=== PATIENT | female | born 2005 | race Caucasian/White ===

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

== ENCOUNTER 2023-05-14 12:41 | Emergency (ER) | payer OTHER, SELFPAY ==
--- OUTSIDE RECORDS SUMMARY | 2023-05-14 12:53 | XMS REPORT | Continuity of Care Document ---
:2005 Author Organization [facility] t Address [address] [place] [address] [address] [place] [address] Care Team Providers Name Role Phone Adolph Alexis MD Primary Care Physician Provider, aLuren Temp Attending Clinician Unavailable Leeann Hernandez CNM Attending Clinician LEEANN HERNANDEZ Attending Clinician Unavailable Doctor Unassigned, [place] Attending Clinician Unavailable Visit, Giovannachmauricio Nurse Attending Clinician Unavailable Haylie Vo Attending Clinician [phone] HAYLIE RIBERA Attending Clinician Unavailable MARLENA ALEJANDRE Attending Clinician Unavailable Alma Garcia MD Attending Clinician Marlena Alejandre MD Attending Clinician ARAM DUQUE Attending Clinician Unavailable Risk, Zmf-Minbh-Vd/High Attending Clinician Unavailable Duque WHCNP, Aram K Attending Clinician Elie FRANCO, Jose Mason Attending Clinician JOSE DELGADILLO Attending Clinician Unavailable MANINDER RAMIREZ Attending Clinician Unavailable MANINDER RAMIREZ Attending Clinician Unavailable HUA VALENCIA Attending Clinician Unavailable HUA VALENCIA Attending Clinician Unavailable DIMITRIS TRONCOSO Attending Clinician Unavailable [facility], Teresa Hartmann Attending Clinician TERESA WILEY Attending Clinician Unavailable Ultrasound, Jesus Attending Clinician Unavailable Escobar Chisholm MD Attending Clinician [phone] ESCOBAR CHISHOLM Attending Clinician Unavailable BRITTNY GLASER Attending Clinician Unavailable BRITTNY GLASER Attending Clinician Unavailable [facility] Attending Clinician Unavailable Adolph Alexis MD Attending Clinician Kenny Richmond MD Attending Clinician KENNY RICHMOND Attending Clinician Unavailable KENNY RICHMOND Attending Clinician Unavailable Fer Ngo MD Attending Clinician [phone] [employer] Attending Clinician Unavailable Billy Flower MD Attending Clinician BILLY FLOWER Attending Clinician Unavailable Linda Boothe PA-C Attending Clinician Juan Carlos Mckinley Attending Clinician Unavailable Margy Hobson MD Attending Clinician MARGY HOBSON Attending Clinician Unavailable Kristy Scott Attending Clinician Unavailable Oren Attending Clinician Unavailable Kelley, Corinne Attending Clinician VIMAL JAIME Attending Clinician Unavailable CORINNE GREWAL Attending Clinician Unavailable ADOLPH ALEXIS Attending Clinician Unavailable LINDA BOOTHE Attending Clinician Unavailable Ayse Real MD Attending Clinician REAL, AYSE N Attending Clinician Unavailable Toshia Vazquez MD Attending Clinician Unavailable MARLENA ALEJANDRE Admitting Clinician Unavailable Marlena Alejandre MD Admitting Clinician MANINDER RAMIREZ Admitting Clinician Unavailable DIMITRIS TRONCOSO Admitting Clinician Unavailable Kristy Scott Admitting Clinician Unavailable Roberto_Pappas Admitting Clinician Unavailable Payers Payer Name Policy Type Policy Number Effective Date Expiration Date Andi santos [facility] [place] [id number] 2013 [facility] - 00:00:00 STAR (MEDICAID HMO) Problems Condition Condition Condition Status Onset Resolution Last Treating Co mments Source Name Details Category Date Date Treatment Clinician Date 37 weeks 37 weeks Disease Active 2021-09 Unive rs gestation gestation 1-03 ity of of of 00:00: [place] 00 [facility] 36 weeks 36 weeks Disease Active 2021-09 Unive rs gestation gestation 0-29 ity of of of 00:00: [place] 00 [facility] 35 weeks 35 weeks Disease Active 2021-09 Unive rs gestation gestation 0-24 ity of of of 00:00: [place] 00 [facility] BMI BMI Disease Active Univers 40.0-44.9, 40.0-44.9, 9-26 it y of adult adult 00:00: [place] 00 Medical Branch Need for Need for Disease Active Unive rs Tdap Tdap 9-08 ity of vaccinatio vaccinatio 00[place] n n 00 Medical Branch Maternal Maternal Disease Active Unive rs varicella, varicella, 908 it y of non-immune non-immune 00:00: [place] 00 [place] Rubella Rubella Disease Active Univers non-immune non-immune 908 it y of status, status, 00:00: [place] antepartum antepartum 00 Me dical Branch Placenta Placenta Disease Active Unive rs previa previa 8-25 ity of without without 00:00: [place] hemorrhage hemorrhage 00 Me dical , , Branch antepartum antepartum Anemia of Anemia of Disease Active Uni vers mother in mother in 8-25 ity of , , 00:00: [place] antepartum antepartum 00 Me dical Branch BMI BMI Disease Active Univers 39.0-39.9, 39.0-39.9, 3-16 it y of adult adult 00:00: [place] 00 Medical Branch Multiparit Multiparit Disease Active U nivers y y 3-16 ity of 00:00: [place] 00 Medical Branch History of History of Disease Active U nivers asthma asthma 3-16 ity of 00:00: [place] 00 Medical Branch Previous Previous Disease Active Unive rs 3-16 ity of section section 00:00: [place] complicati complicati 00 Me dical ng ng [...] [place] myla myla 00 Medical Branch History of History of Disease Active U nivers loss loss 3-16 it y of 00:00: [place] 00 Medical Branch Iron Iron Problem Active [place] deficiency Deficiency 9-20 da anemia of Anemia of 00:00: Medi charlie 00 Grou p Problem Active [place] 5-06 da 00:00: Medical 00 Group Class 3 Class 3 Disease Active Univers severe severe 4-15 ity of obesity obesity 00:00: [place] without without 00 Medical serious serious Branch comorbidit comorbidit y with y with body mass body mass index index (BMI) of (BMI) of 40.0 to 40.0 to 44.9 in 44.9 in adult, adult, unspecifie unspecifie d obesity d obesity type type Vaginal Vaginal Disease Active Univers discharge discharge 4-15 ity of 00:00: [place] 00 Medical Branch Nausea Nausea Disease Active Univers 4-15 ity of 00:00: [place] 00 Medical Branch High-risk High-risk Disease Active Uni vers 4-15 ity of in third in third 00:00: [place] trimester trimester 00 [facility] Branch Obesity in Obesity in Disease Active U nivers 8-22 ity of 00:00: [place] 00 Medical Branch Morbid Morbid Disease Active Univers obesity obesity 8-22 ity of 00:00: [place] 00 Medical Branch Asthma Asthma Disease Active Overview: Univer s Formattin ity of g of this [place] note Medical might be Branch different from the original. mild intermitt ent Allergies, Adverse Reactions, Alerts Allergy Allergy Status Severity Reaction(s) Onset Inactive Treating Comm ents Source Name Type Date Date Clinician No Known DA Active [facility]30 [facility] 00 [facility] No Known DA Active U [facility] Allergie 9-30 [facility] 00:[facility] 00 [facility] NO KNOWN Drug Active Univers ALLERGIE Class ity of S [facility] Social History Social Habit Start Date Stop Date Quantity Comments Source ASSERTION 2021-11-11 University of 00:00:00 [facility] Exposure to 2022-10-25 2022-11-04 Not sure [facility] SARS-CoV-2 00:00:00 10:14:00 [facility] [place] [facility] (event) [place] Alcohol intake 2022-11-04 2022-11-04 Lifetime University of 00:00:00 00:00:00 non-drinker [facility] [place] [facility] (finding) [place] Tobacco use and 2022-03-25 2022-03-25 Smokeless tobacco Un iversity of exposure 00:00:00 00:00:00 non-user [facility] History of 2021-11-19 Cigarette Smoker Universi ty of tobacco use 00:00:00 [facility] Sex Assigned At [birth year] Universit y of 00:00:00 00:00:00 [facility] Smoking Status Start Date Stop Date Source Never Smoker [facility] Ex-smoker 2022-03-25 00:00:00 2022-03-25 00:00:00 Universi ty of [facility] Medications Ordered Filled Start Stop Current Ordering Indication Dosage Frequency Signature Comments Components Source Medication Medication Date Date Medication? Clinician (SIG) Name Name varicella 2021-09 Yes 1{each} 0.5 mL (1 Univers virus 1-06 Each), ity of vaccine 08:46: [place] live 20 [place], Medical (VARIVAX) ONCE-PRIOR Bran ch injection TO and diluent DISCHARGE, vial 1 dose, Starting on 07/18/22 at 0246, Until Discontinu ed, Routine, Give vaccine prior to discharge dextrometho 2021-09 Yes 5mL 5 mL, Unive rs rphan-guaif 106 Oral, ity of enesin 04:26: Q6HPRN, [place] (ROBITUSSIN 51 Starting Medi charlie DM) 10-100 on [facility] Branch mg/5 mL 07/17/22 at solution 5 2326, mL Until Discontinu ed, Routine, Cough docusate 2021-09 Yes 200mg 200 mg, Unive rs (COLACE) 1-05 Oral, ity of capsule 200 14:00: [place]ILY[place] 00 First dose Medical on [facility] [place] 07/17/22 at 0900, Until Discontinu ed, Routine docusate 2021-09 Yes 200mg 200 mg, Unive rs (COLACE) 1-05 Oral, ity of capsule 200 14:00: DAILY[place] mg 00 First dose Medical on [facility] 07/17/22 at 0900, Until Discontinu ed, Routine labetaloL 2021-09- No [id number] 200mg Take 200 Univers 200 mg 09-16 11-05 mg by ity of tablet 12:52: 00:00 mouth [place] 51 :00 daily. [facility] Branch labetaloL 2021-09- No [id number] 200mg Take 200 Univers 200 mg -05 11-05 mg by ity of tablet 12:52: 00:00 mouth [place] 51 :00 daily. Medical Branch diphenoxyla 2021-09- No 1{tbl} 1 tablet, Univers te-atropine - 11-05 Oral, ity of (LOMOTIL) 03:45: 03:01 ONCE, 1 [place] 2.5-0.025 [place] :00 dose, On Medica l mg tablet 1 Tue [place] tablet 07/16/22 at 2245, Routine miSOPROStoL 2021-09- No 1000ug 1,000 mcg, Univers (CYTOTEC) 1-05 11-05 Rectal, ity of tablet 03:30: 03:02 ONCE, 1 [place] 1,000 mcg 00 :00 dose, On Medica l [facility] 07/16/22 at 2230, Routine labetaloL 2021-09 Yes 100mg 100 mg, Univ ers (NORMODYNE) 1-05 Oral, BID, it y of tablet 100 01:00: First dose [place] mg 00 on [facility] 07/16/22 at [place] 1999, Until Discontinu ed, Routine labetaloL 2021-09 Yes 100mg 100 mg, Univ ers (NORMODYNE) 1-05 Oral, BID, it y of tablet 100 01:00: First dose [place] mg 00 on Tue [facility] 07/16/22 at [place] 1999, Until Discontinu ed, Routine 2021-09 Yes [id number] 1{tbl} Take 1 Univers vitamin 1-05 tablet by ity of w/FA tablet 00:00: mouth [place] 00 the Medical morning. Branch docusate 2021-09 Yes [id number] 200mg Take 2 U nivers 100 mg 1-05 capsules ity of capsule 00:00: by mouth [place] 00 once daily Medical as needed Branch for Constipati on. ferrous 2021-09 Yes [id number] 325mg Take 1 Un [place]rit[place] sulfate 325 1-05 tablet by ity of mg (65 mg 00:00: [place] iron) 00 the Medical tablet morning Branch and 1 tablet in the evening. ibuprofen 2021-09 Yes [id number] 600mg Take 1 Univers 600 mg 1-05 tablet by ity of tablet 00:00: mouth [place] 00 every 6 Medical (six) Branch hours as needed (Pain). Take with food or milk. HYDROcodone 2021-09 Yes [id number] 1{tbl} Take 1 Un britni -acetaminop 1-05 tablet by ity of hen 5-325 00:00: mouth [place] mg tablet 00 every 6 Medical (six) Branch hours as needed (Pain scale above 4) for up to 10 doses. Do not exceed 3 grams of acetaminop hen in 24 hours. Indication s: acute pain ferrous 2021-09 Yes [id number] 325mg Take 1 Un britni sulfate 325 1-05 tablet by ity of mg (65 mg 00:00: mouth [place] iron) 00 every Medical tablet other day. Branch ascorbic 2021-09 Yes [id number] 500mg Take 1 U nivers acid, 1-05 tablet by ity of vitamin C, 00:00: mouth [place] (VITAMIN C) 00 every Medical 500 mg other day. Branch tablet 2021-09 Yes [id number] 1{tbl} Take 1 Univers vitamin 1-05 tablet by ity of w/FA tablet 00:00: [place] 00 the Medical morning. Branch docusate 2021-09 Yes [id number] 200mg Take 2 U nivers 100 mg 1-05 capsules ity of capsule 00:00: by mouth [place] 00 once daily Medical as needed Branch for Constipati on. ferrous 2021-09 Yes [id number] 325mg Take 1 Un brit[place] sulfate 325 1-05 tablet by ity of mg (65 mg 00:00: [place] iron) 00 the Medical tablet morning Branch and 1 tablet in the evening. ibuprofen 2021-09 Yes [id number] 600mg Take 1 Univers 600 mg 1-05 tablet by ity of tablet 00:00: mouth [place] 00 every 6 Medical (six) Branch hours as needed (Pain). Take with food or milk. HYDROcodone 2021-09 Yes [id number] 1{tbl} Take 1 Un britni -acetaminop 1-05 tablet by ity of hen 5-325 00:00: mouth [place] mg tablet 00 every 6 Medical (six) Branch hours as needed (Pain scale above 4) for up to 10 doses. Do not exceed 3 grams of acetaminop hen in 24 hours. Indication s: acute pain ferrous 2021-09 Yes [id number] 325mg Take 1 Un britni sulfate 325 1-05 tablet by ity of mg (65 mg 00:00: mouth [place] iron) 00 every Medical tablet other day. Branch ascorbic 2021-09 Yes [id number] 500mg Take 1 U nivers acid, 1-05 tablet by ity of vitamin C, 00:00: mouth [place] (VITAMIN C) 00 every Medical 500 mg other day. Branch tablet 2021-09 Yes [id number] 1{tbl} Take 1 Univers vitamin 1-05 tablet by ity of w/FA tablet 00:00: mouth [place] 00 the Medical morning. Branch docusate 2021-09 Yes [id number] 200mg Take 2 U nivers 100 mg 1-05 capsules ity of capsule 00:00: by mouth [place] 00 once daily Medical as needed Branch for Constipati on. ferrous 2021-09 Yes [id number] 325mg Take 1 Un brit[place] sulfate 325 1-05 tablet by ity of mg (65 mg 00:00: [place] iron) 00 the Medical tablet morning Branch and 1 tablet in the evening. ibuprofen 2021-09 Yes [id number] 600mg Take 1 Univers 600 mg 1-05 tablet by ity of tablet 00:00: mouth [place] 00 every 6 Medical (six) Branch hours as needed (Pain). Take with food or milk. HYDROcodone 2021-09 Yes [id number] 1{tbl} Take 1 Un britni -acetaminop 1-05 tablet by ity of hen 5-325 00:00: mouth [place] mg tablet 00 every 6 Medical (six) Branch hours as needed (Pain scale above 4) for up to 10 doses. Do not exceed 3 grams of acetaminop hen in 24 hours. Indication s: acute pain ferrous 2021-09 Yes [id number] 325mg Take 1 Un britni sulfate 325 1-05 tablet by ity of mg (65 mg 00:00: mouth [place] iron) 00 every Medical tablet other day. Branch ascorbic 2021-09 Yes [id number] 500mg Take 1 U nivers acid, 1-05 tablet by ity of vitamin C, 00:00: mouth [place] (VITAMIN C) 00 every Medical 500 mg other day. Branch tablet 2021-09 Yes [id number] 1{tbl} Take 1 Univers vitamin 1-05 tablet by ity of w/FA tablet 00:00: mouth [place] 00 the Medical morning. Branch docusate 2021-09 Yes [id number] 200mg Take 2 U nivers 100 mg 1-05 capsules ity of capsule 00:00: by mouth [place] 00 once daily Medical as needed Branch for Constipati on. ferrous 2021-09 Yes [id number] 325mg Take 1 Un [place]rit[place] sulfate 325 1-05 tablet by ity of mg (65 mg 00:00: [place] iron) 00 the Medical tablet morning Branch and 1 tablet in the evening. ibuprofen 2021-09 Yes [id number] 600mg Take 1 Univers 600 mg 1-05 tablet by ity of tablet 00:00: mouth [place] 00 every 6 Medical (six) Branch hours as needed (Pain). Take with food or milk. HYDROcodone 2021-09 Yes [id number] 1{tbl} Take 1 Un britni -acetaminop 1-05 tablet by ity of hen 5-325 00:00: mouth [place] mg tablet 00 every 6 Medical (six) Branch hours as needed (Pain scale above 4) for up to 10 doses. Do not exceed 3 grams of acetaminop hen in 24 hours. Indication s: acute pain ferrous 2021-09 Yes [id number] 325mg Take 1 Un brit[place] sulfate 325 1-05 tablet by ity of mg (65 mg 00:00: mouth [place] iron) 00 every Medical tablet other day. Branch ascorbic 2021-09 Yes [id number] 500mg Take 1 U nivers acid, 1-05 tablet by ity of vitamin C, 00:00: mouth [place] (VITAMIN C) 00 every Medical 500 mg other day. Branch tablet 2021-09- No [id number] 1{tbl} Take 1 Univers vitamin -05 02-23 tablet by ity of w/FA tablet 00:00: 00:00 mouth [place] 00 :00 the Medical morning. Branch docusate 2021-09- No [id number] 200mg Take 2 Univers 100 mg -01 11-23 capsules ity of capsule 00:00: 00:00 by mouth [place] 00 :00 once daily Medical as needed Branch for Constipati on. ferrous 2021-09- No [id number] 325mg Take 1 U nivers sulfate 325 -05 02-23 tablet by it y of mg (65 mg 00:00: 00:00 mouth in [place] iron) 00 :00 the Medical tablet morning Branch and 1 tablet in the evening. ibuprofen 2021-09- No [id number] 600mg Take 1 Univers 600 mg 1-05 02-23 tablet by ity of tablet 00:00: 00:00 mouth [place] 00 :00 every 6 Medical (six) Branch hours as needed (Pain). Take with food or milk. HYDROcodone 2021-09- No [id number] 1{tbl} Take 1 U nivers -acetaminop 1-05 02-23 tablet by it y of hen 5-325 00:00: 00:00 mouth [place] mg tablet 00 :00 every 6 Medical (six) Branch hours as needed (Pain scale above 4) for up to 10 doses. Do not exceed 3 grams of acetaminop hen in 24 hours. Indication s: acute pain ferrous 2021-09- No [id number] 325mg Take 1 U nivers sulfate 325 09-16 tablet by it y of mg (65 mg 00:00: 00:00 mouth [place] iron) 00 :00 every Medical tablet other day. Branch ascorbic 2021-09- No [id number] 500mg Take 1 Univers acid, 09-16 tablet by ity of vitamin C, 00:00: 00:00 mouth [place] (VITAMIN C) 00 :00 every Medical 500 mg other day. Branch tablet 2021-09- No [id number] 1{tbl} Take 1 Univers vitamin 09-16 tablet by ity of w/FA tablet 00:00: 00:00 mouth in [place] 00 :00 the Medical morning. Branch docusate 2021-09- No [id number] 200mg Take 2 Univers 100 mg 09-16 capsules ity of capsule 00:00: 00:00 by mouth [place] 00 :00 once daily Medical as needed Branch for Constipati on. ferrous 2021-09- No [id number] 325mg Take 1 U nivers sulfate 325 09-16 tablet by it y of mg (65 mg 00:00: 00:00 mouth [place] iron) 00 :00 the Medical tablet morning Branch and 1 tablet in the evening. ibuprofen 2021-09- No [id number] 600mg Take 1 Univers 600 mg 09-16 tablet by ity of tablet 00:00: 00:00 mouth [place] 00 :00 every 6 Medical (six) Branch hours as needed (Pain). Take with food or milk. HYDROcodone 2021-09- No [id number] 1{tbl} Take 1 U nivers -acetaminop 09-16 tablet by it y of hen 5-325 00:00: 00:00 mouth [place] mg tablet 00 :00 every 6 Medical (six) Branch hours as needed (Pain scale above 4) for up to 10 doses. Do not exceed 3 grams of acetaminop hen in 24 hours. Indication s: acute pain ferrous 2021-09- No [id number] 325mg Take 1 U nivers sulfate 325 09-16 tablet by it y of mg (65 mg 00:00: 00:00 mouth [place] iron) 00 :00 every Medical tablet other day. Branch ascorbic 2021-09- No [id number] 500mg Take 1 Univers acid, 09-16 tablet by ity of vitamin C, 00:00: 00:00 mouth [place] (VITAMIN C) 00 :00 every Medical 500 mg other day. Branch tablet simethicone 2021-09 Yes 160mg 160 mg, Un [place]rit[place] (GAS RELIEF 1-04 Oral, ity of (SIMETHICON 23:00: PC+HS, [place] E)) 00 First dose Medical chewable on Fri Branch tablet 160 07/16/22 at mg 1800, Until Discontinu ed, Routine simethicone 2021-09 Yes 160mg 160 mg, Un britni (GAS RELIEF 1-04 Oral, ity of (SIMETHICON 23:00: PC+HS, [place] E)) 00 First dose Medical chewable on Fri Branch tablet 160 07/16/22 at mg 1800, Until Discontinu ed, Routine rho(D) 2021-09 Yes 300ug 300 mcg, Univer s immune 1-04 Intramuscu ity of globulin 19:53: [place], ONCE, [place] (RHOGAM) 04 For 1 Medical syringe 300 dose, Branch mcg Conditiona l, Routine rho(D) 2021-09 Yes 300ug 300 mcg, Univer s immune 1-04 Intramuscu ity of globulin 19:53: [place], ONCE, [place] (RHOGAM) 04 For 1 Medical syringe 300 dose, Branch mcg Conditiona l, Routine human 2021-09 Yes .5mL 0.5 mL, Univers papillomav -04 Intramuscu ity of vac,9-james(P 19:52: lar, [place] F) 56 ONCE-PRIOR Medical (GARDASIL-9 TO Branch ) syringe DISCHARGE, 0.5 mL 1 dose, Starting on Tue07/16/22 at 1452, Until Discontinu ed, Routine, Give vaccine prior to discharge HYDROcodone 2021-09 Yes 2{tbl} 2 tablet, Univers -acetaminop 1-04 Oral, ity of hen (NORCO 19:52: Q6HPRN, [place] 5) 5-325 mg 56 Starting Medi charlie tablet 2 on Fri Branch tablet 07/16/22 at 1452, Until Discontinu ed, Routine, Pain (scale 7-10), Alternate with Ibuprofen HYDROcodone 2021-09 Yes 1{tbl} 1 tablet, Univers -acetaminop 1-04 Oral, ity of hen (NORCO 19:52: Q6HPRN, [place] 5) 5-325 mg 56 Starting Medi charlie tablet 1 on Fri Branch tablet 07/16/22 at 1452, Until Discontinu ed, Routine, Pain (scale 4-6), Alternate with Ibuprofen ibuprofen 2021-09 Yes 600mg 600 mg, Univ ers (IBU) 1-04 Oral, ity of tablet 600 19:52: Q6HPRN, [place] mg 56 Starting Medical on Fri Branch 07/16/22 at 1452, Until Discontinu ed, Routine, Pain (scale 1-3) diphenhydrA 2021-09 Yes 25mg 25 mg, Univ ers MINE 1-04 Slow IV ity of (BENADRYL) 19:52: [place], [place] injection 56 Q6HPRN, Medical 25 mg Starting Branch on Tue07/16/22 at 1452, Until Discontinu ed, Routine, Itching diphenhydrA 2021-09 Yes 25mg 25 mg, Univ ers MINE 1-04 Oral, ity of (BENADRYL) 19:52: Q6HPRN, [place] tablet 25 56 Starting Medica l mg on Tue Branch 07/16/22 at 1452, Until Discontinu ed, Routine, Sleep, Itching ondansetron 2021-09 Yes 4mg 4 mg, Slow Univers (ZOFRAN 1-04 IV Push, ity of (PF)) 19:52: Q8HPRN, [place] injection 4 56 Starting Medi charlie mg on Fri Branch 07/16/22 at 1452, Until Discontinu ed, Routine, Nausea and Vomiting (N/V) bisacodyL 2021-09 Yes 10mg 10 mg, Univer s (DULCOLAX) 1-04 Rectal, ity of suppository 19:52: QDAILYPRN, [place] 10 mg 56 Starting Medical on Fri Branch 07/16/22 at 1452, Until Discontinu ed, Routine, Constipati on magnesium 2021-09 Yes 30mL 30 mL, Univer s hydroxide 1-04 Oral, ity of (MILK OF 19:52: QDAILYPRN, [place] MAGNESIA) 56 Starting Medica l 400 mg/5 mL on Tue Branch suspension 07/16/22 at 30 mL 1452, Until Discontinu ed, Routine, Constipati on human 2021-09 Yes .5mL 0.5 mL, Univers papillomav 1-04 Intramuscu ity of vac,9-james(P 19:52: lar, [place] F) 56 ONCE-PRIOR Medical (GARDASIL-9 TO ) syringe DISCHARGE, 0.5 mL 1 dose, Starting on Tue07/16/22 at 1452, Until Discontinu ed, Routine, Give vaccine prior to discharge HYDROcodone 2021-09 Yes 2{tbl} 2 tablet, Univers -acetaminop 1-04 Oral, ity of hen (NORCO 19:52: Q6HPRN, [place] 5) 5-325 mg 56 Starting Medi charlie tablet 2 on Tue Branch tablet 07/16/22 at 1452, Until Discontinu ed, Routine, Pain (scale 7-10), Alternate with Ibuprofen HYDROcodone 2021-09 Yes 1{tbl} 1 tablet, Univers -acetaminop 1-04 Oral, ity of hen (NORCO 19:52: Q6HPRN, [place] 5) 5-325 mg 56 Starting Medi charlie tablet 1 on Tue Branch tablet 07/16/22 at 1452, Until Discontinu ed, Routine, Pain (scale 4-6), Alternate with Ibuprofen ibuprofen 2021-09 Yes 600mg 600 mg, Univ ers (IBU) 1-04 Oral, ity of tablet 600 19:52: Q6HPRN, [place] mg 56 Starting Medical on Tue Branch 07/16/22 at 1452, Until Discontinu ed, Routine, Pain (scale 1-3) diphenhydrA 2021-09 Yes 25mg 25 mg, Univ ers MINE 1-04 Slow IV ity of (BENADRYL) 19:52: Push, [place] injection 56 Q6HPRN, Medical 25 mg Starting Branch on Tue07/16/22 at 1452, Until Discontinu ed, Routine, Itching diphenhydrA 2021-09 Yes 25mg 25 mg, Univ ers MINE 1-04 Oral, ity of (BENADRYL) 19:52: Q6HPRN, [place] tablet 25 56 Starting Medica l mg on Tue Branch 07/16/22 at 1452, Until Discontinu ed, Routine, Sleep, Itching ondansetron 2021-09 Yes 4mg 4 mg, Slow Univers (ZOFRAN 1-04 IV Push, ity of (PF)) 19:52: Q8HPRN, [place] injection 4 56 Starting Medi charlie mg on Tue Branch 07/16/22 at 1452, Until Discontinu ed, Routine, Nausea and Vomiting (N/V) bisacodyL 2021-09 Yes 10mg 10 mg, Univer s (DULCOLAX) 1-04 Rectal, ity of suppository 19:52: QDAILYPRN, [place] 10 mg 56 Starting Medical on Tue Branch 07/16/22 at 1452, Until Discontinu ed, Routine, Constipati on magnesium 2021-09 Yes 30mL 30 mL, Univer s hydroxide 1-04 Oral, ity of (MILK OF 19:52: QDAILYPRN, [place] MAGNESIA) 56 Starting Medica l 400 mg/5 mL on Tue suspension 07/16/22 at 30 mL 1452, Until Discontinu ed, Routine, Constipati on lactated 2021-09- No 1000mL at 125 Univ ers ringers IV 1- 11-05 mL/hr, ity of infusion 19:52: 06:02 1,000 mL, [place] 1,000 mL 56 :00 IV Medical Infusion, Branch PRN, 1 dose, Starting on Tue07/16/22 at 1452, Until Discontinu ed, Routine lactated 2021-09- No 1000mL at 125 Univ ers ringers IV 1-04 11-04 mL/hr, ity of infusion 15:15: 19:53 1,000 mL, [place] 1,000 mL 00 :01 IV Medical Infusion, Branch CONTINUOUS , Starting on Tue07/16/22 at 1015, Until Tue07/16/22 at 1453, KONG oxytocin 2021-09- No 300mL/h 300 mL/hr, Univers (PITOCIN) 1-04 11-04 IV ity of 30 units in 15:06: 19:53 Infusion, [place] NS 500 mL 02 :01 SEE-INSTRU Medi charlie IV infusion CTIONS, Branc h Starting on Tue07/16/[address] art at 300 mL/hr for 1 hr then 150 mL/hr for 1 hr. & nbsp; For post delivery uterotonic
ketorolac 2021-09 No 30mg 30 mg, Unive rs (TORADOL) 09-15 Slow IV ity of injection 13:09: 15:24 Push, PRN, [place] 30 mg 32 :00 1 dose, Medical Starting Branch on Tue07/16/22 at 0809, Until Discontinu ed, Routine, Pain (scale 7-10) acetaminoph 2021-09 No 650mg 650 mg, U nivers en 09-15 Oral, ity of (TYLENOL) 11:30: 13:01 ONCE, 1 [place] 650 00 :00 dose, On Medic al mg Fri Branch 07/16/22 at 0630, Routine lactated 2021-09 No 1000mL at 125 Univ ers ringers IV 09-15 mL/hr, ity of infusion 11:30: 15:08 1,000 mL, [place] 1,000 mL 00 :17 IV Medical Infusion, Branch CONTINUOUS , Starting on Tue07/16/22 at 0630, Until Tue07/16/22 at 1008, Routine ceFAZolin 2021-09 No 2000mg 2 g (2,000 Univers in 0.9% 09-15 mg), IV ity of sodium 11:15: 13:31 [place]back, [place] chloride 50 :00 O.R. Medical (ANCEF) 2 HOLDING Branch gram/100 mL ONCE, 1 RTU 2 g dose, Starting on Tue07/16/22 at 0615, Until Tue07/16/22 at 2359, Administer over 30 Minutes, 100 mL
Reas on for Anti-Infec tive: Surgical Prophylaxi s
Surgi charlie Prophylaxi s: WOOD STOCK BLANK HANDLER
Duration of therapy: within 24 hours of surgery sodium 2022-1 2022- No 30mL 30 mL, Univers citrate-cit -04 11-04 Oral, ity of leslie acid 11:15: 13:01 PRE-PROCED [place] (BICITRA) 50 :00 URE ONCE, Medic al 500-334 1 dose, Branch mg/5 mL Starting solution 30 on Fri mL 07/16/22 at 0615, Until 07/18/22 at 2359, Routine, Surgery/Pr ocedure lactated 2021-09- No 500mL at 999 Unive rs ringers IV 0-30 10-30 mL/hr, 500 it y of infusion 03:30: 02:43 mL, [place] 500 mL 00 :57 Intravenou Medical s, ONCE, 1 Branch dose, On 07/10/22 at 2230, Routine labetaloL 2021-09 Yes [id number] 200mg Take 200 Univers 200 mg 0-29 mg by ity of tablet 23:56: mouth [place] 50 daily. [facility] labetaloL 2021-09 Yes [id number] 200mg Take 200 Univers 200 mg 0-29 mg by ity of tablet 23:56: mouth [place] 50 daily. [facility] labetaloL 2021-09 Yes [id number] 200mg Take 200 Univers 200 mg 0-29 mg by ity of tablet 23:56: mouth [place] 50 daily. [facility] diphenhydrA 2021-09- No 25mg 25 mg, Uni vers MINE 0-24 10-24 Oral, ity of (BENADRYL) 23:45: 23:00 ONCE, 1 [place] tablet 25 00 :00 dose, On Medica l mg [facility] 07/05/22 at 1845, Routine metoclopram 2021-09- No 10mg 10 mg, Uni vers iker HCl 0-24 10-24 Oral, ity of (REGLAN) 23:45: 23:00 ONCE, 1 [place] tablet 10 00 :00 dose, On Medica l mg [facility] 07/05/22 at 1845, Routine labetaloL 2021-09 Yes [id number] 200mg Take 200 Univers 200 mg 0-24 mg by ity of tablet 21:52: mouth [place] 17 daily. [facility] labetaloL 2021-09 Yes [id number] 200mg Take 200 Univers 200 mg 0-24 mg by ity of tablet 21:52: mouth [place] 17 daily. Medical Branch labetaloL 2021-09 Yes [id number] 200mg Take 200 Univers 200 mg 0-24 mg by ity of tablet 21:52: mouth [place] 17 daily. Medical Branch labetaloL 2021-09 Yes [id number] 200mg Take 200 Univers 200 mg 0-24 mg by ity of tablet 21:52: mouth [place] 17 daily. Medical Branch labetaloL 2021-09 Yes [id number] 200mg Take 200 Univers 200 mg 0-24 mg by ity of tablet 21:52: mouth [place] 17 daily. Medical Branch ferrous 0 Yes [id number] 325mg Take 1 Un britni sulfate 325 8-25 tablet by ity of mg (65 mg 00:00: mouth [place] iron) EC 00 the Medical tablet morning. Branch ferrous Yes [id number] 325mg Take 1 Un britni sulfate 325 8-25 tablet by ity of mg (65 mg 00:00: mouth [place] iron) EC 00 the Medical tablet morning. Branch ferrous Yes [id number] 325mg Take 1 Un britni sulfate 325 8-25 tablet by ity of mg (65 mg 00:00: mouth [place] iron) EC 00 the Medical tablet morning. Branch ferrous Yes [id number] 325mg Take 1 Un britni sulfate 325 8-25 tablet by ity of mg (65 mg 00:00: mouth [place] iron) EC 00 the Medical tablet morning. Branch ferrous 2021- Yes [id number] 325mg Take 1 Un britni sulfate 325 8-25 tablet by ity of mg (65 mg 00:00: mouth [place] iron) EC 00 the Medical tablet morning. Branch ferrous Yes [id number] 325mg Take 1 Un britni sulfate 325 8-25 tablet by ity of mg (65 mg 00:00: mouth [place] iron) EC 00 the Medical tablet morning. Branch ferrous Yes [id number] 325mg Take 1 Un britni sulfate 325 8-25 tablet by ity of mg (65 mg 00:00: mouth [place] iron) EC 00 the Medical tablet morning. Branch ferrous Yes [id number] 325mg Take 1 Un britni sulfate 325 8-25 tablet by ity of mg (65 mg 00:00: mouth [place] iron) EC 00 the Medical tablet morning. Branch ferrous 2021-0 Yes [id number] 325mg Take 1 Un britni sulfate 325 8-25 tablet by ity of mg (65 mg 00:00: mouth [place] iron) EC 00 the Medical tablet morning. Branch ferrous 2021-0 Yes [id number] 325mg Take 1 Un britni sulfate 325 8-25 tablet by ity of mg (65 mg 00:00: mouth [place] iron) EC 00 the Medical tablet morning. Branch ferrous 2021-0 Yes [id number] 325mg Take 1 Un britni sulfate 325 8-25 tablet by ity of mg (65 mg 00:00: mouth [place] iron) EC 00 the Medical tablet morning. Branch ferrous 2021-0 Yes [id number] 325mg Take 1 Un britni sulfate 325 8-25 tablet by ity of mg (65 mg 00:00: mouth [place] iron) EC 00 the Medical tablet morning. Branch ferrous 2021-0 Yes [id number] 325mg Take 1 Un britni sulfate 325 8-25 tablet by ity of mg (65 mg 00:00: mouth [place] iron) EC 00 the Medical tablet morning. Branch ferrous 2021-0 Yes [id number] 325mg Take 1 Un brit[place] sulfate 325 8-25 tablet by ity of mg (65 mg 00:00: mouth [place] iron) EC 00 the Medical tablet morning. Branch ferrous 2021-0 Yes [id number] 325mg Take 1 Un brit[place] sulfate 325 8-25 tablet by ity of mg (65 mg 00:00: mouth [place] iron) EC 00 the Medical tablet morning. Branch ferrous 2-0 Yes [id number] 325mg Take 1 Un britni sulfate 325 8-25 tablet by ity of mg (65 mg 00:00: mouth [place] iron) EC 00 the Medical tablet morning. Branch ferrous 2021-0 Yes [id number] 325mg Take 1 Un britni sulfate 325 8-25 tablet by ity of mg (65 mg 00:00: mouth [place] iron) EC 00 the Medical tablet morning. Branch ferrous 2-0 Yes [id number] 325mg Take 1 Un britni sulfate 325 8-25 tablet by ity of mg (65 mg 00:00: mouth [place] iron) EC 00 the Medical tablet morning. Branch ferrous 2021-0 Yes [id number] 325mg Take 1 Un britni sulfate 325 8-25 tablet by ity of mg (65 mg 00:00: mouth [place] iron) EC 00 the Medical tablet morning. Branch ferrous 0 Yes [id number] 325mg Take 1 Un britni sulfate 325 8-25 tablet by ity of mg (65 mg 00:00: mouth [place] iron) EC 00 the Medical tablet morning. Branch ferrous Yes [id number] 325mg Take 1 Un britni sulfate 325 8-25 tablet by ity of mg (65 mg 00:00: mouth [place] iron) EC 00 the Medical tablet morning. Branch ferrous Yes [id number] 325mg Take 1 Un britni sulfate 325 8-25 tablet by ity of mg (65 mg 00:00: mouth [place] iron) EC 00 the Medical tablet morning. Branch ferrous Yes [id number] 325mg Take 1 Un britni sulfate 325 8-25 tablet by ity of mg (65 mg 00:00: mouth [place] iron) EC 00 the Medical tablet morning. Branch ferrous Yes [id number] 325mg Take 1 Un britni sulfate 325 8-25 tablet by ity of mg (65 mg 00:00: mouth [place] iron) EC 00 the Medical tablet morning. Branch ferrous 2021-0 Yes [id number] 325mg Take 1 Un britni sulfate 325 8-25 tablet by ity of mg (65 mg 00:00: mouth [place] iron) EC 00 the Medical tablet morning. Branch ferrous 0 Yes [id number] 325mg Take 1 Un britni sulfate 325 8-25 tablet by ity of mg (65 mg 00:00: mouth [place] iron) EC 00 the Medical tablet morning. Branch ferrous 2021- No [id number] 325mg Take 1 U nivers sulfate 325 8-25 11-05 tablet by it y of mg (65 mg 00:00: 00:00 mouth in [place] iron) EC 00 :00 the Medical tablet morning. Branch ferrous 2021-2021- No [id number] 325mg Take 1 U nivers sulfate 325 8-25 11-05 tablet by it y of mg (65 mg 00:00: 00:00 mouth in [place] iron) EC 00 :00 the Medical tablet morning. Branch labetaloL 2022-0 Yes [id number] 100mg Take 1 U nivers 100 mg 7-28 tablet by ity of tablet 00:00: mouth in [place] [address] the Medical morning Branch and 1 tablet in the evening. labetaloL 2022-0 Yes [id number] 100mg Take 1 U nivers 100 mg 7-28 tablet by ity of tablet 00:00: mouth in [place] [address] the Medical morning Branch and 1 tablet in the evening. labetaloL 2022-0 Yes [id number] 100mg Take 1 U nivers 100 mg 7-28 tablet by ity of tablet 00:00: mouth in [place] [address] the Medical morning [place] and 1 tablet in the evening. labetaloL 2022-0 Yes [id number] 100mg Take 1 U nivers 100 mg 7-28 tablet by ity of tablet 00:00: mouth in [place] [address] the Medical morning [place] and 1 tablet in the evening. labetaloL 2-0 Yes [id number] 100mg Take 1 U nivers 100 mg 7-28 tablet by ity of tablet 00:00: mouth in [place] [address] the [facility] morning [place] and 1 tablet in the evening. labetaloL 2-0 Yes [id number] 100mg Take 1 U nivers 100 mg 7-28 tablet by ity of tablet 00:00: mouth in [place] [address] the Medical morning [place] and 1 tablet in the evening. labetaloL 2022-0 Yes [id number] 100mg Take 1 U nivers 100 mg 7-28 tablet by ity of tablet 00:00: mouth in [place] [address] the Medical morning [place] and 1 tablet in the evening. labetaloL 2022-0 Yes [id number] 100mg Take 1 U nivers 100 mg 7-28 tablet by ity of tablet 00:00: mouth in [place] [address] the Medical morning [place] and 1 tablet in the evening. labetaloL 2022-0 Yes [id number] 100mg Take 1 U nivers 100 mg 7-28 tablet by ity of tablet 00:00: mouth in [place] [address] the [facility] morning [place] and 1 tablet in the evening. labetaloL 2022-0 Yes [id number] 100mg Take 1 U nivers 100 mg 7-28 tablet by ity of tablet 00:00: mouth in [place] 00 the Medical morning Branch and 1 tablet in the evening. labetaloL 2022-0 Yes [id number] 100mg Take 1 U nivers 100 mg 7-28 tablet by ity of tablet 00:00: mouth in [place] [address] the Medical morning Branch and 1 tablet in the evening. labetaloL 2022-0 Yes [id number] 100mg Take 1 U nivers 100 mg 7-28 tablet by ity of tablet 00:00: mouth in [place] [address] the Medical morning Branch and 1 tablet in the evening. labetaloL 2022-0 Yes [id number] 100mg Take 1 U nivers 100 mg 7-28 tablet by ity of tablet 00:00: mouth in [place] [address] the Medical morning Branch and 1 tablet in the evening. labetaloL 2-0 Yes [id number] 100mg Take 1 U nivers 100 mg 7-28 tablet by ity of tablet 00:00: mouth in [place] [address] the Medical morning Branch and 1 tablet in the evening. labetaloL 2-0 Yes [id number] 100mg Take 1 U nivers 100 mg 7-28 tablet by ity of tablet 00:00: mouth in [place] [address] the Medical morning Branch and 1 tablet in the evening. labetaloL 2-0 Yes [id number] 100mg Take 1 U nivers 100 mg 7-28 tablet by ity of tablet 00:00: mouth in [place] [address] the Medical morning Branch and 1 tablet in the evening. labetaloL 2-0 Yes [id number] 100mg Take 1 U nivers 100 mg 7-28 tablet by ity of tablet 00:00: mouth in [place] [address] the Medical morning Branch and 1 tablet in the evening. labetaloL 2-0 Yes [id number] 100mg Take 1 U nivers 100 mg 7-28 tablet by ity of tablet 00:00: mouth in [place] [address] the Medical morning Branch and 1 tablet in the evening. labetaloL 2022-0 Yes [id number] 100mg Take 1 U nivers 100 mg 7-28 tablet by ity of tablet 00:00: mouth in [place] [address] the Medical morning Branch and 1 tablet in the evening. labetaloL 2022-0 Yes [id number] 100mg Take 1 U nivers 100 mg 7-28 tablet by ity of tablet 00:00: mouth in [place] [address] the Medical morning Branch and 1 tablet in the evening. labetaloL 2022-0 Yes [id number] 100mg Take 1 U nivers 100 mg 7-28 tablet by ity of tablet 00:00: mouth in [place] 00 the Medical morning Branch and 1 tablet in the evening. labetaloL 2021-0 Yes [id number] 100mg Take 1 U nivers 100 mg 7-28 tablet by ity of tablet 00:00: mouth in [place] [address] the Medical morning Branch and 1 tablet in the evening. labetaloL 2021-0 Yes [id number] 100mg Take 1 U nivers 100 mg 7-28 tablet by ity of tablet 00:00: mouth in [place] [address] the Medical morning Branch and 1 tablet in the evening. labetaloL 2021-0 Yes [id number] 100mg Take 1 U nivers 100 mg 7-28 tablet by ity of tablet 00:00: mouth in [place] [address] the Medical morning Branch and 1 tablet in the evening. labetaloL 2021-0 Yes [id number] 100mg Take 1 U nivers 100 mg 7-28 tablet by ity of tablet 00:00: mouth in [place] [address] the Medical morning Branch and 1 tablet in the evening. labetaloL 2021-0 Yes [id number] 100mg Take 1 U nivers 100 mg 7-28 tablet by ity of tablet 00:00: mouth in [place] [address] the Medical morning Branch and 1 tablet in the evening. labetaloL 2021-0 Yes [id number] 100mg Take 1 U nivers 100 mg 7-28 tablet by ity of tablet 00:00: mouth in [place] [address] the Medical morning Branch and 1 tablet in the evening. labetaloL 2021-0 Yes [id number] 100mg Take 1 U nivers 100 mg 7-28 tablet by ity of tablet 00:00: mouth in [place] [address] the Medical morning Branch and 1 tablet in the evening. labetaloL 2021-0 Yes [id number] 100mg Take 1 U nivers 100 mg 7-28 tablet by ity of tablet 00:00: mouth in [place] [address] the [facility] morning [place] and 1 tablet in the evening. labetaloL 2021-0 2021- No [id number] 100mg Take 1 Univers 100 mg 7-28 11-05 tablet by ity of tablet 00:00: 00:00 mouth in [place] 00 :00 the Medical morning Branch and 1 tablet in the evening. labetaloL 2021- No [id number] 100mg Take 1 Univers 100 mg 04-08 tablet by ity of tablet 00:00: 00:00 mouth in [place] 00 :00 the Medical morning Branch and 1 tablet in the evening. PROAIR HFA Yes [id number] INHALE 2 Univers 90 7-06 PUFFS ity of mcg/actuati 00:00: EVERY 4 [place] on inhaler 00 (FOUR) Medical HOURS Branch NEEDED FOR WHEEZING, SHORTNESS OF BREATH OR BRONCHOSPA SM. PROAIR HFA Yes [id number] INHALE 2 Univers 90 7-06 PUFFS ity of mcg/actuati 00:00: EVERY 4 [place] on inhaler 00 (FOUR) Medical HOURS Branch NEEDED FOR WHEEZING, SHORTNESS OF BREATH OR BRONCHOSPA SM. PROAIR HFA Yes [id number] INHALE 2 Univers 90 7-06 PUFFS ity of mcg/actuati 00:00: EVERY 4 [place] on inhaler 00 (FOUR) Medical HOURS Branch NEEDED FOR WHEEZING, SHORTNESS OF BREATH OR BRONCHOSPA SM. PROAIR HFA Yes [id number] INHALE 2 Univers 90 7-06 PUFFS ity of mcg/actuati 00:00: EVERY 4 [place] on inhaler 00 (FOUR) Medical HOURS Branch NEEDED FOR WHEEZING, SHORTNESS OF BREATH OR BRONCHOSPA SM. PROAIR HFA Yes [id number] INHALE 2 Univers 90 7-06 PUFFS ity of mcg/actuati 00:00: EVERY 4 [place] on inhaler 00 (FOUR) Medical HOURS Branch NEEDED FOR WHEEZING, SHORTNESS OF BREATH OR BRONCHOSPA SM. PROAIR HFA Yes [id number] INHALE 2 Univers 90 7-06 PUFFS ity of mcg/actuati 00:00: EVERY 4 [place] on inhaler 00 (FOUR) Medical HOURS Branch NEEDED FOR WHEEZING, SHORTNESS OF BREATH OR BRONCHOSPA SM. PROAIR HFA Yes [id number] INHALE 2 Univers 90 7-06 PUFFS ity of mcg/actuati 00:00: EVERY 4 [place] on inhaler 00 (FOUR) Medical HOURS Branch NEEDED FOR WHEEZING, SHORTNESS OF BREATH OR BRONCHOSPA SM. PROAIR HFA Yes [id number] INHALE 2 Univers 90 7-06 PUFFS ity of mcg/actuati 00:00: EVERY 4 [place] on inhaler 00 (FOUR) Medical HOURS Branch NEEDED FOR WHEEZING, SHORTNESS OF BREATH OR BRONCHOSPA SM. PROAIR HFA Yes [id number] INHALE 2 Univers 90 7-06 PUFFS ity of mcg/actuati 00:00: EVERY 4 [place] on inhaler 00 (FOUR) Medical HOURS Branch NEEDED FOR WHEEZING, SHORTNESS OF BREATH OR BRONCHOSPA SM. PROAIR HFA Yes [id number] INHALE 2 Univers 90 7-06 PUFFS ity of mcg/actuati 00:00: EVERY 4 [place] on inhaler 00 (FOUR) Medical HOURS Branch NEEDED FOR WHEEZING, SHORTNESS OF BREATH OR BRONCHOSPA SM. PROAIR HFA Yes [id number] INHALE 2 Univers 90 7-06 PUFFS ity of mcg/actuati 00:00: EVERY 4 [place] on inhaler 00 (FOUR) Medical HOURS Branch NEEDED FOR WHEEZING, SHORTNESS OF BREATH OR BRONCHOSPA SM. PROAIR HFA Yes [id number] INHALE 2 Univers 90 7-06 PUFFS ity of mcg/actuati 00:00: EVERY 4 [place] on inhaler 00 (FOUR) Medical HOURS Branch NEEDED FOR WHEEZING, SHORTNESS OF BREATH OR BRONCHOSPA SM. PROAIR HFA Yes [id number] INHALE 2 Univers 90 7-06 PUFFS ity of mcg/actuati 00:00: EVERY 4 [place] on inhaler 00 (FOUR) Medical HOURS Branch NEEDED FOR WHEEZING, SHORTNESS OF BREATH OR BRONCHOSPA SM. PROAIR HFA Yes [id number] INHALE 2 Univers 90 7-06 PUFFS ity of mcg/actuati 00:00: EVERY 4 [place] on inhaler 00 (FOUR) Medical HOURS Branch NEEDED FOR WHEEZING, SHORTNESS OF BREATH OR BRONCHOSPA SM. PROAIR HFA Yes [id number] INHALE 2 Univers 90 7-06 PUFFS ity of mcg/actuati 00:00: EVERY 4 [place] on inhaler 00 (FOUR) Medical HOURS Branch NEEDED FOR WHEEZING, SHORTNESS OF BREATH OR BRONCHOSPA SM. PROAIR HFA Yes [id number] INHALE 2 Univers 90 7-06 PUFFS ity of mcg/actuati 00:00: EVERY 4 [place] on inhaler 00 (FOUR) Medical HOURS Branch NEEDED FOR WHEEZING, SHORTNESS OF BREATH OR BRONCHOSPA SM. PROAIR HFA Yes [id number] INHALE 2 Univers 90 7-06 PUFFS ity of mcg/actuati 00:00: EVERY 4 [place] on inhaler 00 (FOUR) Medical HOURS Branch NEEDED FOR WHEEZING, SHORTNESS OF BREATH OR BRONCHOSPA SM. PROAIR HFA Yes [id number] INHALE 2 Univers 90 7-06 PUFFS ity of mcg/actuati 00:00: EVERY 4 [place] inhaler 00 (FOUR) Medical HOURS Branch NEEDED FOR WHEEZING, SHORTNESS OF BREATH OR BRONCHOSPA SM. PROAIR HFA Yes [id number] INHALE 2 Univers 90 7-06 PUFFS ity of mcg/actuati 00:00: EVERY 4 [place] on inhaler 00 (FOUR) Medical HOURS Branch NEEDED FOR WHEEZING, SHORTNESS OF BREATH OR BRONCHOSPA SM. PROAIR HFA Yes [id number] INHALE 2 Univers 90 7-06 PUFFS ity of mcg/actuati 00:00: EVERY 4 [place] on inhaler 00 (FOUR) Medical HOURS Branch NEEDED FOR WHEEZING, SHORTNESS OF BREATH OR BRONCHOSPA SM. PROAIR HFA Yes [id number] INHALE 2 Univers 90 7-06 PUFFS ity of mcg/actuati 00:00: EVERY 4 [place] on inhaler 00 (FOUR) Medical HOURS Branch NEEDED FOR WHEEZING, SHORTNESS OF BREATH OR BRONCHOSPA SM. PROAIR HFA Yes [id number] INHALE 2 Univers 90 7-06 PUFFS ity of mcg/actuati 00:00: EVERY 4 [place] on inhaler 00 (FOUR) Medical HOURS Branch NEEDED FOR WHEEZING, SHORTNESS OF BREATH OR BRONCHOSPA SM. PROAIR HFA Yes [id number] INHALE 2 Univers 90 7-06 PUFFS ity of mcg/actuati 00:00: EVERY 4 [place] inhaler 00 (FOUR) Medical HOURS Branch NEEDED FOR WHEEZING, SHORTNESS OF BREATH OR BRONCHOSPA SM. PROAIR HFA Yes [id number] INHALE 2 Univers 90 7-06 PUFFS ity of mcg/actuati 00:00: EVERY 4 [place] on inhaler 00 (FOUR) Medical HOURS Branch NEEDED FOR WHEEZING, SHORTNESS OF BREATH OR BRONCHOSPA SM. PROAIR HFA Yes [id number] INHALE 2 Univers 90 7-06 PUFFS ity of mcg/actuati 00:00: EVERY 4 [place] on inhaler 00 (FOUR) Medical HOURS Branch NEEDED FOR WHEEZING, SHORTNESS OF BREATH OR BRONCHOSPA SM. PROAIR HFA Yes [id number] INHALE 2 Univers 90 7-06 PUFFS ity of mcg/actuati 00:00: EVERY 4 [place] on inhaler 00 (FOUR) Medical HOURS Branch NEEDED FOR WHEEZING, SHORTNESS OF BREATH OR BRONCHOSPA SM. PROAIR HFA Yes [id number] INHALE 2 Univers 90 7-06 PUFFS ity of mcg/actuati 00:00: EVERY 4 [place] on inhaler 00 (FOUR) Medical HOURS Branch NEEDED FOR WHEEZING, SHORTNESS OF BREATH OR BRONCHOSPA SM. PROAIR HFA Yes [id number] INHALE 2 Univers 90 7-06 PUFFS ity of mcg/actuati 00:00: EVERY 4 [place] inhaler 00 (FOUR) Medical HOURS Branch NEEDED FOR WHEEZING, SHORTNESS OF BREATH OR BRONCHOSPA SM. PROAIR HFA Yes [id number] INHALE 2 Univers 90 7-06 PUFFS ity of mcg/actuati 00:00: EVERY 4 [place] inhaler 00 (FOUR) Medical HOURS Branch NEEDED FOR WHEEZING, SHORTNESS OF BREATH OR BRONCHOSPA SM. PROAIR HFA 2021- No [id number] INHALE 2 Univers 90 7-06 11-05 PUFFS ity of mcg/actuati 00:00: 00:00 EVERY 4 [place] on inhaler 00 :00 (FOUR) Medical HOURS Branch NEEDED FOR WHEEZING, SHORTNESS OF BREATH OR BRONCHOSPA SM. PROAIR HFA 2021- No [id number] INHALE 2 Univers 90 7-06 11-05 PUFFS ity of mcg/actuati 00:00: 00:00 EVERY 4 [place] on inhaler 00 :00 (FOUR) Medical HOURS Branch NEEDED FOR WHEEZING, SHORTNESS OF BREATH OR BRONCHOSPA SM. aspirin 81 No [id number] 81mg Take 1 Univers mg EC 606-10 tablet by ity of tablet 00:00: 04:59 mouth [place] 00 :00 daily for Medical 90 days. Branch aspirin 81 2021- No [id number] 81mg Take 1 Univers mg EC 606-10 tablet by ity of tablet 00:00: 04:59 mouth [place] 00 :00 daily for Medical 90 days. Branch aspirin 81 No [id number] 81mg Take 1 Univers mg EC 606-10 tablet by ity of tablet 00:00: 04:59 mouth [place] 00 :00 daily for Medical 90 days. Branch aspirin 81 No [id number] 81mg Take 1 Univers mg EC 606-10 tablet by ity of tablet 00:00: 04:59 mouth [place] 00 :00 daily for Medical 90 days. Branch aspirin 81 No [id number] 81mg Take 1 Univers mg EC 03-11 tablet by ity of tablet 00:00: 04:59 mouth [place] 00 :00 daily for Medical 90 days. Branch aspirin 81 2021- No [id number] 81mg Take 1 Univers mg EC 6-06-10 tablet by ity of tablet 00:00: 04:59 mouth [place] 00 :00 daily for Medical 90 days. Branch aspirin 81 2021- No [id number] 81mg Take 1 Univers mg EC 606-10 tablet by ity of tablet 00:00: 04:59 mouth [place] 00 :00 daily for Medical 90 days. Branch aspirin 81 2021- No [id number] 81mg Take 1 Univers mg EC 606-10 tablet by ity of tablet 00:00: 04:59 mouth [place] 00 :00 daily for Medical 90 days. Branch aspirin 81 2021- No [id number] 81mg Take 1 Univers mg EC 6-06-10 tablet by ity of tablet 00:00: 04:59 mouth [place] 00 :00 daily for Medical 90 days. Branch labetaloL 2022-0 Yes [id number] 200mg Take 200 Univers 200 mg 3-16 mg by ity of tablet 10:29: mouth [place] 43 daily. Medical Branch labetaloL 0 Yes [id number] 200mg Take 200 Univers 200 mg 3-16 mg by ity of tablet 10:29: mouth [place] 43 daily. Medical Branch labetaloL 0 Yes [id number] 200mg Take 200 Univers 200 mg 3-16 mg by ity of tablet 10:29: mouth [place] 43 daily. Medical Branch labetaloL 0 Yes [id number] 200mg Take 200 Univers 200 mg 3-16 mg by ity of tablet 10:29: mouth [place] 43 daily. Medical Branch labetaloL 0 Yes [id number] 200mg Take 200 Univers 200 mg 3-16 mg by ity of tablet 10:29: mouth [place] 43 daily. Medical Branch labetaloL 0 Yes [id number] 200mg Take 200 Univers 200 mg 3-16 mg by ity of tablet 10:29: mouth [place] 43 daily. Medical Branch labetaloL 0 Yes [id number] 200mg Take 200 Univers 200 mg 3-16 mg by ity of tablet 10:29: mouth [place] 43 daily. Medical Branch labetaloL 0 Yes [id number] 200mg Take 200 Univers 200 mg 3-16 mg by ity of tablet 10:29: mouth [place] 43 daily. Medical Branch labetaloL 0 Yes [id number] 200mg Take 200 Univers 200 mg 3-16 mg by ity of tablet 10:29: mouth [place] 43 daily. Medical Branch labetaloL 0 Yes [id number] 200mg Take 200 Univers 200 mg 3-16 mg by ity of tablet 10:29: mouth [place] 43 daily. Medical Branch labetaloL 0 Yes [id number] 200mg Take 200 Univers 200 mg 3-16 mg by ity of tablet 10:29: mouth [place] 43 daily. Medical Branch labetaloL 0 Yes [id number] 200mg Take 200 Univers 200 mg 3-16 mg by ity of tablet 10:29: mouth [place] 43 daily. Medical Branch labetaloL 2021-0 Yes [id number] 200mg Take 200 Univers 200 mg 3-16 mg by ity of tablet 10:29: mouth [place] 43 daily. Medical Branch labetaloL Yes [id number] 200mg Take 200 Univers 200 mg 3-16 mg by ity of tablet 10:29: mouth [place] 43 daily. Medical Branch labetaloL Yes [id number] 200mg Take 200 Univers 200 mg 3-16 mg by ity of tablet 10:29: mouth [place] 43 daily. Medical Branch labetaloL Yes [id number] 200mg Take 200 Univers 200 mg 3-16 mg by ity of tablet 10:29: mouth [place] 43 daily. [facility] Branch labetaloL Yes [id number] 200mg Take 200 Univers 200 mg 3-16 mg by ity of tablet 10:29: mouth [place] 43 daily. [facility] Branch labetaloL Yes [id number] 200mg Take 200 Univers 200 mg 3-16 mg by ity of tablet 10:29: mouth [place] 43 daily. Medical Branch labetaloL Yes [id number] 200mg Take 200 Univers 200 mg 3-16 mg by ity of tablet 10:29: mouth [place] 43 daily. Medical Branch labetaloL Yes [id number] 200mg Take 200 Univers 200 mg 3-16 mg by ity of tablet 10:29: mouth [place] 43 daily. [facility] Branch labetaloL Yes [id number] 200mg Take 200 Univers 200 mg 3-16 mg by ity of tablet 10:29: mouth [place] 43 daily. Medical Branch Yes [id number] 1{packe Take 1 Univers vit 3-16 t} Packet by ity of 33-iron-fol 00:00: mouth [place] ic-dha 00 daily. Medical (SELECT-OB Branch + DHA) 29 mg iron-1 mg -250 mg combo pack Yes [id number] 1{packe Take 1 Univers vit 3-16 t} Packet by ity of 33-iron-fol 00:00: mouth [place] ic-dha 00 daily. Medical (SELECT-OB Branch + DHA) 29 mg iron-1 mg -250 mg combo pack Yes [id number] 1{packe Take 1 [facility]} Packet by [facility]fol 00:00: mouth [place] [facility] 00 daily. [facility]) 29 mg iron-1 mg -250 mg combo pack Yes [id number] 1{packe Take 1 [facility]} Packet by [facility] 00:00: mouth [place] [facility] 00 daily. [facility] ([facility]) 29 mg iron-1 mg -250 mg combo pack 0 Yes [id number] 1{packe Take 1 [facility]} Packet by [facility]fol 00:00: mouth [place] [facility] 00 daily. [facility]) 29 mg iron-1 mg -250 mg combo pack Yes [id number] 1{packe Take 1 [facility]} Packet by [facility] 00:00: mouth [place] [facility] 00 daily. [facility] ([facility]) 29 mg iron-1 mg -250 mg combo pack Yes [id number] 1{packe Take 1 [facility]} Packet by [facility]fol 00:00: mouth [place] [facility] 00 daily. [facility]) 29 mg iron-1 mg -250 mg combo pack Yes [id number] 1{packe Take 1 [facility]} Packet by [facility] 00:00: mouth [place] [facility] 00 daily. [facility] ([facility]) 29 mg iron-1 mg -250 mg combo pack Yes [id number] 1{packe Take 1 [facility]} Packet by [facility] 00:00: mouth [place] [facility] 00 daily. [facility] ([facility]) 29 mg iron-1 mg -250 mg combo pack Yes [id number] 1{packe Take 1 [facility] t} Packet by [facility]fol 00:00: mouth [place] [facility] 00 daily. [facility] ([facility]) 29 mg iron-1 mg -250 mg combo pack Yes [id number] 1{packe Take 1 [facility] t} Packet by [facility]fol 00:00: mouth [place] [facility] 00 daily. [facility] ([facility]) 29 mg iron-1 mg -250 mg combo pack Yes [id number] 1{packe Take 1 [facility]} Packet by [facility] 00:00: mouth [place] [facility] 00 daily. [facility] ([facility]) 29 mg iron-1 mg -250 mg combo pack Yes [id number] 1{packe Take 1 [facility] t} Packet by [facility] 00:00: mouth [place] [facility] 00 daily. [facility] ([facility]) 29 mg iron-1 mg -250 mg combo pack Yes [id number] 1{packe Take 1 [facility]} Packet by [facility] 00:00: mouth [place] [facility] 00 daily. [facility] ([facility]) 29 mg iron-1 mg -250 mg combo pack Yes [id number] 1{packe Take 1 [facility] t} Packet by [facility] 00:00: mouth [place] [facility] 00 daily. [facility] ([facility]) 29 mg iron-1 mg -250 mg combo pack Yes [id number] 1{packe Take 1 [facility] t} Packet by [facility] 00:00: mouth [place] [facility] 00 daily. [facility] ([facility]) 29 mg iron-1 mg -250 mg combo pack Yes [id number] 1{packe Take 1 [facility] 3-16 t} Packet by [facility] 00:00: mouth [place] [facility] 00 daily. [facility] ([facility]) 29 mg iron-1 mg -250 mg combo pack Yes [id number] 1{packe Take 1 [facility] t} Packet by [facility] 00:00: mouth [place] [facility] 00 daily. [facility] ([facility]) 29 mg iron-1 mg -250 mg combo pack Yes [id number] 1{packe Take 1 [facility] t} Packet by [facility] 00:00: mouth [place] [facility] 00 daily. [facility] ([facility]) 29 mg iron-1 mg -250 mg combo pack Yes [id number] 1{packe Take 1 [facility]} Packet by [facility] 00:00: mouth [place] [facility] 00 daily. [facility] ([facility]) 29 mg iron-1 mg -250 mg combo pack Yes [id number] 1{packe Take 1 [facility] 3[facility]16 t} Packet by [facility]fol 00:00: mouth [place] [facility] 00 daily. [facility] ([facility]) 29 mg iron-1 mg -250 mg combo pack Yes [id number] 1{packe Take 1 [facility] 3[facility]16 t} Packet by [facility]fol 00:00: mouth [place] [facility] daily. [facility] ([facility]) 29 mg iron-1 mg -250 mg combo pack Yes [id number] 1{packe Take 1 [facility] 3[facility]16 t} Packet by [facility] 00:00: mouth [place] [facility] daily. [facility] ([facility]) 29 mg iron-1 mg -250 mg combo pack Yes [id number] 1{packe Take 1 [facility] 3-16 t} Packet by [facility]fol 00:00: mouth [place] [facility] 00 daily. [facility] ([facility]) 29 mg iron-1 mg -250 mg combo pack Yes [id number] 1{packe Take 1 [facility] 3[facility]16 t} Packet by [facility]fol 00:00: mouth [place] [facility] 00 daily. [facility] ([facility]) 29 mg iron-1 mg -250 mg combo pack Yes [id number] 1{packe Take 1 [facility] t} Packet by [facility]fol 00:00: mouth [place] [facility] 00 daily. [facility] ([facility]) 29 mg iron-1 mg -250 mg combo pack Yes [id number] 1{packe Take 1 [facility] 3-16 t} Packet by [facility]fol 00:00: mouth [place] [facility] 00 daily. [facility] ([facility]) 29 mg iron-1 mg -250 mg combo pack Yes [id number] 1{packe Take 1 [facility] 3-16 t} Packet by [facility]fol 00:00: mouth [place] [facility] 00 daily. [facility] ([facility]) 29 mg iron-1 mg -250 mg combo pack Yes [id number] 1{packe Take 1 [facility] 3[facility]16 t} Packet by [facility]fol 00:00: mouth [place] [facility] 00 daily. [facility] ([facility]) 29 mg iron-1 mg -250 mg combo pack 2021- No [id number] 1{packe Take 1 [facility] vit 3-16 11-05 t} Packet by [facility] [facility] [place]. [facility] ([facility]) 29 mg iron-1 mg -250 mg combo pack 2021- No [id number] 1{packe Take 1 [facility] vit 3-16 11-05 t} Packet by [facility] [facility] [place] daily. [facility] ([facility]) 29 mg iron-1 mg -250 mg combo pack butalbital- butalbital- No butalbital [place] acetaminoph acetaminoph [...] Date Status Commen ts Source Name Name [facility] 2022-07-18 Completed [facility] 00:00:00 [facility] 2022-07-18 Completed [facility] 00:00:00 [facility] 2022-07-18 Completed [facility] 00:00:00 [facility] 2022-07-18 Completed [facility] 00:00:00 [facility] 2022-07-18 Completed [facility] 00:00:00 [facility] TDAP 2022-05-20 Completed [facility] 00:00:00 [facility] TDAP 2022-05-20 Completed [facility] 00:00:00 [facility] TDAP 2022-05-20 Completed [facility] 00:00:00 [facility] TDAP 2022-05-20 Completed [facility] 00:00:00 [facility] TDAP 2022-05-20 Completed [facility] 00:00:00 [facility] TDAP 2022-05-20 Completed [facility] 00:00:00 [facility] [place] TDAP 2022-05-20 Completed [facility] 00:00:00 [facility] TDAP 2022-05-20 Completed [facility] 00:00:00 [facility] TDAP 2022-05-20 Completed [facility] 00:00:00 [facility] [place] TDAP 2022-05-20 Completed [facility] 00:00:00 [facility] TDAP 2022-05-20 Completed [facility] 00:00:00 [facility] TDAP 2022-05-20 Completed [facility] 00:00:00 [facility] TDAP 2022-05-20 Completed [facility] 00:00:00 [facility] TDAP 2022-05-20 Completed [facility] 00:00:00 [facility] TDAP 2022-05-20 Completed [facility] 00:00:00 [facility] [place] TDAP 2022-05-20 Completed [facility] 00:00:00 [facility] TDAP 2022-05-20 Completed [facility] 00:00:00 [facility] TDAP 2022-05-20 Completed [facility] 00:00:00 [facility] TDAP 2022-05-20 Completed [facility] 00:00:00 [facility] TDAP 2022-05-20 Completed [facility] 00:00:00 [facility] TDAP 2022-05-20 Completed [facility] 00:00:00 [facility] TDAP 2022-05-20 Completed [facility] 00:00:00 [facility] [place] TDAP 2022-05-20 Completed [facility] 00:00:00 [facility] [place] TDAP 2022-05-20 Completed [facility] 00:00:00 [facility] TDAP 2022-05-20 Completed [facility] 00:00:00 [facility] TDAP 2022-05-20 Completed [facility] 00:00:00 [facility] TDAP 2022-05-20 Completed [facility] 00:00:00 [facility] TDAP 2022-05-20 Completed [facility] 00:00:00 [facility] TDAP 2022-05-20 Completed [facility] 00:00:00 [facility] TDAP 2022-05-20 Completed [facility] of 00:00: [facility] TDAP 2022-05-20 Completed [facility] of 00:00: [facility] Influenza Virus 2020-12-22 Completed Universit y of [...] Meningococcal 2020-01-28 Completed University of Polysaccharide 00:00:00 [facility] charlie (groups A, C, Y and Branc h W-135) conjugate vaccine (MCV4P) HPV 2016-05-03 Completed [facility] 00:00:00 [facility] HPV 2016-05-03 Completed [facility] 00:00:00 [facility] HPV 2016-05-03 Completed [facility] 00[facility]00:00 [facility] HPV 2016-05-03 Completed [facility] 00:00:00 [facility] HPV 2016-05-03 Completed [facility] 00:00:00 [facility] [place] [facility] HPV 2016-05-03 Completed [facility] 00:00:00 [facility] HPV 2016-05-03 Completed [facility] 00[facility]00:00 [facility] HPV 2016-05-03 Completed [facility] 00:00:00 [facility] HPV 2016-05-03 Completed [facility] 00:00:00 [facility] HPV 2016-05-03 Completed [facility] 00:00:00 [facility] HPV 2016-05-03 Completed [facility] 00:00:00 [facility] [place] [facility] HPV 2016-05-03 Completed [facility] 00:00:00 [facility] HPV 2016-05-03 Completed [facility] 00:00:00 [facility] HPV 2016-05-03 Completed [facility] 00:00:00 [facility] HPV 2016-05-03 Completed [facility] 00:00:00 [facility] HPV 2016-05-03 Completed [facility] 00:00:00 [facility] [place] [facility] HPV 2016-05-03 Completed [facility] 00:00:00 [facility] HPV 2016-05-03 Completed [facility] 00:00:00 [facility] [place] [facility] HPV 2016-05-03 Completed [facility] 00:00:00 [place] [facility] HPV 2016-05-03 Completed [facility] 00:00:00 [facility] HPV 2016-05-03 Completed [facility] 00:00:00 [facility] HPV 2016-05-03 Completed [facility] 00:00:00 [facility] HPV 2016-05-03 Completed [facility] 00:00:00 [facility] HPV 2016-05-03 Completed [facility] 00:00:00 [facility] HPV 2016-05-03 Completed [facility] 00:00:00 [facility] HPV 2016-05-03 Completed [facility] 00:00:00 [facility] HPV 2016-05-03 Completed [facility] 00:00:00 [place] [facility] HPV 2016-05-03 Completed [facility] 00:00:00 [facility] HPV 2016-05-03 Completed [facility] 00:00:00 [facility] HPV 2016-05-03 Completed [facility] 00:00:00 [facility] HPV 2016-05-03 Completed [facility] 00:00:00 [facility] HPV 2016-05-03 Completed [facility] 00:00:00 [facility] HPV 2016-05-03 Completed [facility] 00:00:00 [facility] HPV 2016-05-03 Completed [facility] 00:00:00 [facility] HPV 2016-05-03 Completed [facility] 00:00:00 [facility] Meningococcal 2015-02-17 Completed [facility] Polysaccharide 00:00:00 [place] [facility] (groups A, C, Y and Branc h W-135) conjugate vaccine (MCV4P) TDAP 2015-02-17 Completed [facility] 00:00:00 [facility] HPV 2015-02-17 Completed [facility] 00:00:00 [facility] Meningococcal 2015-02-17 Completed [facility] Polysaccharide 00:00:00 [place] [facility] (groups A, C, Y and Branc h W-135) conjugate vaccine (MCV4P) TDAP 2015-02-17 Completed [facility] 00:00:00 [facility] HPV 2015-02-17 Completed [facility] 00:00:00 [facility] Meningococcal 2015-02-17 Completed [facility] Polysaccharide 00:00:00 [place] [facility] (groups A, C, Y and Branc h W-135) conjugate vaccine (MCV4P) TDAP 2015-02-17 Completed [facility] 00:00:00 [facility] HPV 2015-02-17 Completed [facility] 00:00:00 [facility] Meningococcal 2015-02-17 Completed [facility] Polysaccharide 00:00:00 [place] [facility] (groups A, C, Y and Branc h W-135) conjugate vaccine (MCV4P) TDAP 2015-02-17 Completed [facility] 00:00:00 [facility] HPV 2015-02-17 Completed [facility] 00:00:00 [facility] Meningococcal 2015-02-17 Completed [facility] Polysaccharide 00:00:00 [place] [facility] (groups A, C, Y and Branc h W-135) conjugate vaccine (MCV4P) TDAP 2015-02-17 Completed [facility] 00:00:00 [facility] HPV 2015-02-17 Completed [facility] 00:00:00 [facility] Meningococcal 2015-02-17 Completed [facility] Polysaccharide 00:00:00 [place] [facility] (groups A, C, Y and Branc h W-135) conjugate vaccine (MCV4P) TDAP 2015-02-17 Completed [facility] 00:00:00 [facility] HPV 2015-02-17 Completed [facility] 00:00:00 [facility] Meningococcal 2015-02-17 Completed [facility] Polysaccharide 00:00:00 [place] [facility] (groups A, C, Y and Branc h W-135) conjugate vaccine (MCV4P) TDAP 2015-02-17 Completed [facility] 00:00:00 [facility] HPV 2015-02-17 Completed [facility] 00:00:00 [facility] Meningococcal 2015-02-17 Completed [facility] Polysaccharide 00:00:00 [place] [facility] (groups A, C, Y and Branc h W-135) conjugate vaccine (MCV4P) TDAP 2015-02-17 Completed [facility] 00:00:00 [facility] HPV 2015-02-17 Completed [facility] 00:00:00 [facility] Meningococcal 2015-02-17 Completed [facility] Polysaccharide 00:00:00 [place] [facility] (groups A, C, Y and Branc h W-135) conjugate vaccine (MCV4P) TDAP 2015-02-17 Completed [facility] 00:00:00 [facility] HPV 2015-02-17 Completed [facility] 00:00:00 [facility] Meningococcal 2015-02-17 Completed [facility] Polysaccharide 00:00:00 [place] [facility] (groups A, C, Y and Branc h W-135) conjugate vaccine (MCV4P) TDAP 2015-02-17 Completed [facility] 00:00:00 [facility] HPV 2015-02-17 Completed [facility] 00:00:00 [facility] Meningococcal 2015-02-17 Completed [facility] Polysaccharide 00:00:00 [place] [facility] (groups A, C, Y and Branc h W-135) conjugate vaccine (MCV4P) TDAP 2015-02-17 Completed [facility] 00:00:00 [facility] HPV 2015-02-17 Completed [facility] 00:00:00 [facility] Meningococcal 2015-02-17 Completed [facility] Polysaccharide 00:00:00 [place] [facility] (groups A, C, Y and Branc h W-135) conjugate vaccine (MCV4P) TDAP 2015-02-17 Completed [facility] 00:00:00 [facility] HPV 2015-02-17 Completed [facility] 00:00:00 [facility] Meningococcal 2015-02-17 Completed [facility] Polysaccharide 00:00:00 [place] [facility] (groups A, C, Y and Branc h W-135) conjugate vaccine (MCV4P) TDAP 2015-02-17 Completed [facility] 00:00:00 [facility] HPV 2015-02-17 Completed [facility] 00:00:00 [facility] Meningococcal 2015-02-17 Completed [facility] Polysaccharide 00:00:00 [place] [facility] (groups A, C, Y and Branc h W-135) conjugate vaccine (MCV4P) TDAP 2015-02-17 Completed [facility] 00:00:00 [facility] HPV 2015-02-17 Completed [facility] 00:00:00 [facility] Meningococcal 2015-02-17 Completed [facility] Polysaccharide 00:00:00 [place] [facility] (groups A, C, Y and Branc h W-135) conjugate vaccine (MCV4P) TDAP 2015-02-17 Completed [facility] 00:00:00 [facility] HPV 2015-02-17 Completed [facility] 00:00:00 [facility] Meningococcal 2015-02-17 Completed [facility] Polysaccharide 00:00:00 [place] [facility] (groups A, C, Y and Branc h W-135) conjugate vaccine (MCV4P) TDAP 2015-02-17 Completed [facility] 00:00:00 [facility] HPV 2015-02-17 Completed [facility] 00:00:00 [facility] Meningococcal 2015-02-17 Completed [facility] Polysaccharide 00:00:00 [place] [facility] (groups A, C, Y and Branc h W-135) conjugate vaccine (MCV4P) TDAP 2015-02-17 Completed [facility] 00:00:00 [facility] HPV 2015-02-17 Completed [facility] 00:00:00 [facility] Meningococcal 2015-02-17 Completed [facility] Polysaccharide 00:00:00 [place] [facility] (groups A, C, Y and Branc h W-135) conjugate vaccine (MCV4P) TDAP 2015-02-17 Completed [facility] 00:00:00 [facility] HPV 2015-02-17 Completed [facility] 00:00:00 [facility] Meningococcal 2015-02-17 Completed [facility] Polysaccharide 00:00:00 [place] [facility] (groups A, C, Y and Branc h W-135) conjugate vaccine (MCV4P) TDAP 2015-02-17 Completed [facility] 00:00:00 [facility] HPV 2015-02-17 Completed [facility] 00:00:00 [facility] Meningococcal 2015-02-17 Completed [facility] Polysaccharide 00:00:00 [place] [facility] (groups A, C, Y and Branc h W-135) conjugate vaccine (MCV4P) TDAP 2015-02-17 Completed [facility] 00:00:00 [facility] HPV 2015-02-17 Completed [facility] 00:00:00 [facility] Meningococcal 2015-02-17 Completed [facility] Polysaccharide 00:00:00 [place] [facility] (groups A, C, Y and Branc h W-135) conjugate vaccine (MCV4P) TDAP 2015-02-17 Completed [facility] 00:00:00 [facility] HPV 2015-02-17 Completed [facility] 00:00:00 [facility] Meningococcal 2015-02-17 Completed [facility] Polysaccharide 00:00:00 [place] [facility] (groups A, C, Y and Branc h W-135) conjugate vaccine (MCV4P) TDAP 2015-02-17 Completed [facility] 00:00:00 [facility] HPV 2015-02-17 Completed [facility] 00:00:00 [facility] Meningococcal 2015-02-17 Completed [facility] Polysaccharide 00:00:00 [place] [facility] (groups A, C, Y and Branc h W-135) conjugate vaccine (MCV4P) TDAP 2015-02-17 Completed [facility] 00:00:00 [facility] HPV 2015-02-17 Completed [facility] 00:00:00 [facility] Meningococcal 2015-02-17 Completed [facility] Polysaccharide 00:00:00 [place] [facility] (groups A, C, Y and Branc h W-135) conjugate vaccine (MCV4P) TDAP 2015-02-17 Completed [facility] 00:00:00 [facility] HPV 2015-02-17 Completed [facility] 00:00:00 [facility] Meningococcal 2015-02-17 Completed [facility] Polysaccharide 00:00:00 [place] [facility] (groups A, C, Y and Branc h W-135) conjugate vaccine (MCV4P) TDAP 2015-02-17 Completed [facility] 00:00:00 [facility] HPV 2015-02-17 Completed [facility] 00:00:00 [facility] Meningococcal 2015-02-17 Completed [facility] Polysaccharide 00:00:00 [place] [facility] (groups A, C, Y and Branc h W-135) conjugate vaccine (MCV4P) TDAP 2015-02-17 Completed [facility] 00:00:00 [facility] HPV 2015-02-17 Completed [facility] 00:00:00 [facility] Meningococcal 2015-02-17 Completed [facility] of Polysaccharide 00:00:00 [place] [facility] (groups A, C, Y and Branc h W-135) conjugate vaccine (MCV4P) TDAP 2015-02-17 Completed [facility] 00:00:00 [facility] HPV 2015-02-17 Completed [facility] of 00:00:00 [facility] Meningococcal 2015-02-17 Completed [facility] of Polysaccharide 00:00:00 [place] [facility] (groups A, C, Y and Branc h W-135) conjugate vaccine (MCV4P) TDAP 2015-02-17 Completed [facility] 00:00:00 [facility] HPV 2015-02-17 Completed [facility] of 00:00:00 [facility] Meningococcal 2015-02-17 Completed [facility] of Polysaccharide 00:00:00 [place] [facility] (groups A, C, Y and Branc h W-135) conjugate vaccine (MCV4P) TDAP 2015-02-17 Completed [facility] 00:00:00 [facility] HPV 2015-02-17 Completed [facility] of 00:00:00 [facility] Meningococcal 2015-02-17 Completed [facility] Polysaccharide 00:00:00 [place] [facility] (groups A, C, Y and Branc h W-135) conjugate vaccine (MCV4P) TDAP 2015-02-17 Completed [facility] 00:00:00 [facility] HPV 2015-02-17 Completed [facility] of 00:00:00 [facility] Meningococcal 2015-02-17 Completed [facility] of Polysaccharide 00:00:00 [place] [facility] (groups A, C, Y and Branc h W-135) conjugate vaccine (MCV4P) TDAP 2015-02-17 Completed [facility] 00:00:00 [facility] HPV 2015-02-17 Completed [facility] of 00:00:00 [facility] Meningococcal 2015-02-17 Completed [facility] Polysaccharide 00:00:00 [place] [facility] (groups A, C, Y and Branc h W-135) conjugate vaccine (MCV4P) TDAP 2015-02-17 Completed [facility] 00:00:00 [facility] HPV 2015-02-17 Completed [facility] of 00:00:00 [facility] Meningococcal 2015-02-17 Completed [facility] of Polysaccharide 00:00:00 [place] [facility] (groups A, C, Y and Branc h W-135) conjugate vaccine (MCV4P) TDAP 2015-02-17 Completed [facility] 00:00:00 [facility] HPV 2015-02-17 Completed [facility] of 00:00:00 [facility] Meningococcal 2015-02-17 Completed [facility] of Polysaccharide 00:00:00 [place] [facility] (groups A, C, Y and Branc h W-135) conjugate vaccine (MCV4P) TDAP 2015-02-17 Completed [facility] 00:00:00 [facility] HPV 2015-02-17 Completed [facility] of 00:00:00 [facility] Meningococcal 2015-02-17 Completed [facility] of Polysaccharide 00:00:00 [place] [facility] (groups A, C, Y and Branc h W-135) conjugate vaccine (MCV4P) TDAP 2015-02-17 Completed [facility] 00:00:00 [facility] HPV 2015-02-17 Completed [facility] 00:00:00 [facility] Influenza Virus 2013 Completed Universit y of Vaccine 00:00:00 [facility] Influenza Virus 2013 Completed [facility] of Vaccine 00:00:00 [facility] Influenza Virus 2013 Completed [facility] of Vaccine 00:00:00 [facility] Influenza Virus 2013 Completed [facility] of Vaccine 00:00:00 [facility] Influenza Virus 2013 Completed [facility] of Vaccine 00:00:00 [facility] Influenza Virus 2013 Completed [facility] of Vaccine 00:00:00 [facility] Influenza Virus 2013 Completed [facility] of Vaccine 00:00:00 [facility] Influenza Virus 2013 Completed [facility] of Vaccine 00:00:00 [facility] Influenza Virus 2013 Completed [facility] of Vaccine 00:00:00 [facility] Influenza Virus 2013 Completed [facility] of Vaccine 00:00:00 [facility] Influenza Virus 2013 Completed [facility] of Vaccine 00:00:00 [facility] Influenza Virus 2013 Completed [facility] y of Vaccine 00:00:00 [facility] Influenza Virus 2013 Completed [facility]it y of Vaccine 00:00:00 [facility] Influenza Virus 2013 Completed [facility] of Vaccine 00:00:00 [facility] Influenza Virus 2013 Completed [facility] of Vaccine 00:00:00 [facility] Influenza Virus 2013 Completed [facility] of Vaccine 00:00:00 [facility] Influenza Virus 2013 Completed [facility] of Vaccine 00:00:00 [facility] Influenza Virus 2013 Completed [facility] of Vaccine 00:00:00 [facility] Influenza Virus 2013 Completed [facility]it [facility] of Vaccine 00:00:00 [facility] Influenza Virus 2013 Completed [facility] of Vaccine 00:00:00 [facility] Influenza Virus 2013 Completed [facility] of Vaccine 00:00:00 [facility] Influenza Virus 2013 Completed [facility] of Vaccine 00:00:00 [facility] Influenza Virus 2013 Completed [facility]it [facility] of Vaccine 00:00:00 [facility] Influenza Virus 2013 Completed [facility] of Vaccine 00:00:00 [facility] Influenza Virus 2013 Completed [facility] of Vaccine 00:00:00 [facility] Influenza Virus 2013 Completed [facility] of Vaccine 00:00:00 [facility] Influenza Virus 2013 Completed [facility] of Vaccine 00:00:00 [facility] Influenza Virus 2013 Completed [facility] of Vaccine 00:00:00 [facility] Influenza Virus 2013 Completed [facility] of Vaccine 00:00:00 [facility] Influenza Virus 2013 Completed [facility] of Vaccine 00:00:00 [facility] Influenza Virus 2013 Completed [facility] of Vaccine 00:00:00 [facility] Influenza Virus 2013 Completed [facility] of Vaccine 00:00:00 [facility] Influenza Virus 2013 Completed [facility] of Vaccine 00:00:00 [facility] Influenza Virus 2013 Completed [facility]it [facility] of Vaccine 00:00:00 [facility] Influenza Virus 2013 Completed [facility]it y of Vaccine - Whole 00:00:00 [facility] Influenza Virus 2013 Completed [facility]it y of Vaccine 00:00:00 [facility] Influenza Virus 2013 Completed [facility]it y of Vaccine - Whole 00:00:00 [facility] ical Branch DTAP 2007-07-17 Completed University of 00:00:00 [facility] MMR 2007-07-17 Completed University of 00:00:00 [facility] Pneumococcal 13 2007-07-17 Completed Universit y of Conjugate, PCV13 00:00:00 [facility] dical (Prevnar 13) Branch Polio (IPV/OPV) 2007-07-17 Completed [facility]it y of 00:00:00 [facility] Varicella 2007-07-17 Completed University of (varivax)(chicken 00:00:00 [place] [facility] pox) Branch DTAP 2007-07-17 Completed University of 00:00:00 [facility] MMR 2007-07-17 Completed University of 00:00:00 [facility] Pneumococcal 13 2007-07-17 Completed [facility]it y of Conjugate, PCV13 00:00:00 [facility] dical (Prevnar 13) Branch Polio (IPV/OPV) 2007-07-17 Completed [facility]it [facility] of 00:00:00 [facility] Varicella 2007-07-17 Completed University of (varivax)(chicken 00:00:00 [place] [facility] pox) Branch DTAP 2007-07-17 Completed University of 00:00:00 [facility] MMR 2007-07-17 Completed University of 00:00:00 [facility] Pneumococcal 13 2007-07-17 Completed [facility]it [facility] of Conjugate, PCV13 00:00:00 [facility] dical (Prevnar 13) Branch Polio (IPV/OPV) 2007-07-17 Completed [facility]it y of 00:00:00 [facility] Varicella 2007-07-17 Completed University of (varivax)(chicken 00:00:00 [place] [facility] pox) Branch DTAP 2007-07-17 Completed University of 00:00:00 [facility] MMR 2007-07-17 Completed University of 00:00:00 [facility] Pneumococcal 13 2007-07-17 Completed [facility]it y of Conjugate, PCV13 00:00:00 [facility] dical (Prevnar 13) Branch Polio (IPV/OPV) 2007-07-17 Completed [facility]it [facility] of 00:00:00 [facility] Varicella 2007-07-17 Completed University of (varivax)(chicken 00:00:00 [place] [facility] pox) Branch DTAP 2007-07-17 Completed University of 00:00:00 [facility] MMR 2007-07-17 Completed University of 00:00:00 [facility] Pneumococcal 13 2007-07-17 Completed Universit y of Conjugate, PCV13 00:00:00 [facility] dical (Prevnar 13) Branch Polio (IPV/OPV) 2007-07-17 Completed [facility]it [facility] of 00:00:00 [facility] Branch Varicella 2007-07-17 Completed University of (varivax)(chicken 00:00:00 [facility] edical pox) Branch DTAP 2007-07-17 Completed University of 00:00:00 [facility] MMR 2007-07-17 Completed University of 00:00:00 [facility] Pneumococcal 13 2007-07-17 Completed Universit y of Conjugate, PCV13 00:00:00 [facility] dical (Prevnar 13) Branch Polio (IPV/OPV) 2007-07-17 Completed [facility]it y of 00:00:00 [facility] Varicella 2007-07-17 Completed University of (varivax)(chicken 00:00:00 [facility] edical pox) Branch DTAP 2007-07-17 Completed University of 00:00:00 [facility] MMR 2007-07-17 Completed University of 00:00:00 [facility] Pneumococcal 13 2007-07-17 Completed Universit y of Conjugate, PCV13 00:00:00 [facility] dical (Prevnar 13) Branch Polio (IPV/OPV) 2007-07-17 Completed Universit y of 00:00:00 [facility] Varicella 2007-07-17 Completed University of (varivax)(chicken 00:00:00 [facility] edical pox) Branch DTAP 2007-07-17 Completed University of 00:00:00 [facility] MMR 2007-07-17 Completed University of 00:00:00 [facility] Pneumococcal 13 2007-07-17 Completed Universit y of Conjugate, PCV13 00:00:00 [facility] dical (Prevnar 13) Branch Polio (IPV/OPV) 2007-07-17 Completed [facility]it y of 00:00:00 [facility] Varicella 2007-07-17 Completed University of (varivax)(chicken 00:00:00 [facility] edical pox) Branch DTAP 2007-07-17 Completed University of 00:00:00 [facility] MMR 2007-07-17 Completed University of 00:00:00 [facility] Pneumococcal 13 2007-07-17 Completed Universit y of Conjugate, PCV13 00:00:00 [facility] dical (Prevnar 13) Branch Polio (IPV/OPV) 2007-07-17 Completed [facility]it [facility] of 00:00:00 [facility] Varicella 2007-07-17 Completed University of (varivax)(chicken 00:00:00 [place] [facility] pox) Branch DTAP 2007-07-17 Completed University of 00:00:00 [facility] MMR 2007-07-17 Completed University of 00:00:00 [facility] Pneumococcal 13 2007-07-17 Completed [facility]it y of Conjugate, PCV13 00:00:00 [facility] dical (Prevnar 13) Branch Polio (IPV/OPV) 2007-07-17 Completed [facility]it [facility] of 00:00:00 [facility] Varicella 2007-07-17 Completed University of (varivax)(chicken 00:00:00 [place] edical pox) Branch DTAP 2007-07-17 Completed University of 00:00:00 [facility] MMR 2007-07-17 Completed University of 00:00:00 [facility] Pneumococcal 13 2007-07-17 Completed Universit y of Conjugate, PCV13 00:00:00 [facility] dical (Prevnar 13) Branch Polio (IPV/OPV) 2007-07-17 Completed [facility]it y of 00:00:00 [facility] Varicella 2007-07-17 Completed University of (varivax)(chicken 00:00:00 [place] [facility] pox) Branch DTAP 2007-07-17 Completed University of 00:00:00 [facility] MMR 2007-07-17 Completed University of 00:00:00 [facility] Pneumococcal 13 2007-07-17 Completed Universit y of Conjugate, PCV13 00:00:00 [facility] dical (Prevnar 13) Branch Polio (IPV/OPV) 2007-07-17 Completed Universit y of 00:00:00 [facility] Varicella 2007-07-17 Completed University of (varivax)(chicken 00:00:00 [place] [facility] pox) Branch DTAP 2007-07-17 Completed University of 00:00:00 [facility] MMR 2007-07-17 Completed University of 00:00:00 [facility] Pneumococcal 13 2007-07-17 Completed Universit y of Conjugate, PCV13 00:00:00 [facility] dical (Prevnar 13) Branch Polio (IPV/OPV) 2007-07-17 Completed Universit y of 00:00:00 [facility] Varicella 2007-07-17 Completed University of (varivax)(chicken 00:00:00 [place] [facility] pox) Branch DTAP 2007-07-17 Completed University of 00:00:00 [facility] MMR 2007-07-17 Completed University of 00:00:00 [facility] Pneumococcal 13 2007-07-17 Completed Universit y of Conjugate, PCV13 00:00:00 [facility] dical (Prevnar 13) Branch Polio (IPV/OPV) 2007-07-17 Completed Universit y of 00:00:00 [facility] Varicella 2007-07-17 Completed University of (varivax)(chicken 00:00:00 [place] [facility] pox) Branch DTAP 2007-07-17 Completed University of 00:00:00 [facility] MMR 2007-07-17 Completed University of 00:00:00 [facility] Pneumococcal 13 2007-07-17 Completed Universit y of Conjugate, PCV13 00:00:00 [facility] dical (Prevnar 13) Branch Polio (IPV/OPV) 2007-07-17 Completed Universit y of 00:00:00 [facility] Varicella 2007-07-17 Completed University of (varivax)(chicken 00:00:00 [place] [facility] pox) Branch DTAP 2007-07-17 Completed University of 00:00:00 [facility] MMR 2007-07-17 Completed University of 00:00:00 [facility] Pneumococcal 13 2007-07-17 Completed Universit y of Conjugate, PCV13 00:00:00 [facility] dical (Prevnar 13) Branch Polio (IPV/OPV) 2007-07-17 Completed Universit y of 00:00:00 [facility] Varicella 2007-07-17 Completed University of (varivax)(chicken 00:00:00 [place] [facility] pox) Branch DTAP 2007-07-17 Completed University of 00:00:00 [facility] MMR 2007-07-17 Completed University of 00:00:00 [facility] Pneumococcal 13 2007-07-17 Completed Universit y of Conjugate, PCV13 00:00:00 [place] [facility] (Prevnar 13) Branch Polio (IPV/OPV) 2007-07-17 Completed Universit y of 00:00:00 [facility] Varicella 2007-07-17 Completed University of (varivax)(chicken 00:00:00 [place] [facility] pox) Branch DTAP 2007-07-17 Completed University of 00:00:00 [facility] MMR 2007-07-17 Completed University of 00:00:00 [facility] Pneumococcal 13 2007-07-17 Completed Universit y of Conjugate, PCV13 00:00:00 [facility] dical (Prevnar 13) Branch Polio (IPV/OPV) 2007-07-17 Completed Universit y of 00:00:00 [facility] Varicella 2007-07-17 Completed University of (varivax)(chicken 00:00:00 [facility] edical pox) Branch DTAP 2007-07-17 Completed University of 00:00:00 [facility] MMR 2007-07-17 Completed University of 00:00:00 [facility] Pneumococcal 13 2007-07-17 Completed Universit y of Conjugate, PCV13 00:00:00 [facility] dical (Prevnar 13) Branch Polio (IPV/OPV) 2007-07-17 Completed Universit y of 00:00:00 [facility] Varicella 2007-07-17 Completed University of (varivax)(chicken 00:00:00 [place] [facility] pox) Branch DTAP 2007-07-17 Completed University of 00:00:00 [facility] MMR 2007-07-17 Completed University of 00:00:00 [facility] Pneumococcal 13 2007-07-17 Completed Universit y of Conjugate, PCV13 00:00:00 [facility] dical (Prevnar 13) Branch Polio (IPV/OPV) 2007-07-17 Completed Universit y of 00:00:00 [facility] Varicella 2007-07-17 Completed University of (varivax)(chicken 00:00:00 [place] [facility] pox) Branch DTAP 2007-07-17 Completed University of 00:00:00 [facility] MMR 2007-07-17 Completed University of 00:00:00 [facility] Pneumococcal 13 2007-07-17 Completed Universit y of Conjugate, PCV13 00:00:00 [facility] dical (Prevnar 13) Branch Polio (IPV/OPV) 2007-07-17 Completed Universit y of 00:00:00 [facility] Varicella 2007-07-17 Completed University of (varivax)(chicken 00:00:00 [place] [facility] pox) Branch DTAP 2007-07-17 Completed University of 00:00:00 [facility] MMR 2007-07-17 Completed University of 00:00:00 [facility] Pneumococcal 13 2007-07-17 Completed Universit y of Conjugate, PCV13 00:00:00 [place] [facility] (Prevnar 13) Branch Polio (IPV/OPV) 2007-07-17 Completed Universit y of 00:00:00 [facility] Varicella 2007-07-17 Completed University of (varivax)(chicken 00:00:00 [place] [facility] pox) Branch DTAP 2007-07-17 Completed University of 00:00:00 [facility] MMR 2007-07-17 Completed University of 00:00:00 [facility] Pneumococcal 13 2007-07-17 Completed Universit y of Conjugate, PCV13 00:00:00 [facility] dical (Prevnar 13) Branch Polio (IPV/OPV) 2007-07-17 Completed Universit y of 00:00:00 [facility] Varicella 2007-07-17 Completed University of (varivax)(chicken 00:00:00 [place] [facility] pox) Branch DTAP 2007-07-17 Completed University of 00:00:00 [facility] MMR 2007-07-17 Completed University of 00:00:00 [facility] Pneumococcal 13 2007-07-17 Completed Universit y of Conjugate, PCV13 00:00:00 [facility] dical (Prevnar 13) Branch Polio (IPV/OPV) 2007-07-17 Completed Universit y of 00:00:00 [facility] Varicella 2007-07-17 Completed University of (varivax)(chicken 00:00:00 [place] [facility] pox) Branch DTAP 2007-07-17 Completed University of 00:00:00 [facility] MMR 2007-07-17 Completed University of 00:00:00 [facility] Pneumococcal 13 2007-07-17 Completed Universit y of Conjugate, PCV13 00:00:00 [facility] dical (Prevnar 13) Branch Polio (IPV/OPV) 2007-07-17 Completed Universit y of 00:00:00 [facility] Varicella 2007-07-17 Completed University of (varivax)(chicken 00:00:00 [place] [facility] pox) Branch DTAP 2007-07-17 Completed University of 00:00:00 [facility] MMR 2007-07-17 Completed University of 00:00:00 [facility] Pneumococcal 13 2007-07-17 Completed Universit y of Conjugate, PCV13 00:00:00 [facility] dical (Prevnar 13) Branch Polio (IPV/OPV) 2007-07-17 Completed Universit y of 00:00:00 [facility] Varicella 2007-07-17 Completed University of (varivax)(chicken 00:00:00 [place] [facility] pox) Branch DTAP 2007-07-17 Completed University of 00:00:00 [facility] MMR 2007-07-17 Completed University of 00:00:00 [facility] Pneumococcal 13 2007-07-17 Completed Universit y of Conjugate, PCV13 00:00:00 [facility] dical (Prevnar 13) Branch Polio (IPV/OPV) 2007-07-17 Completed Universit y of 00:00:00 [facility] Varicella 2007-07-17 Completed University of (varivax)(chicken 00:00:00 [place] [facility] pox) Branch DTAP 2007-07-17 Completed University of 00:00:00 [facility] MMR 2007-07-17 Completed University of 00:00:00 [facility] Pneumococcal 13 2007-07-17 Completed Universit y of Conjugate, PCV13 00:00:00 [facility] dical (Prevnar 13) Branch Polio (IPV/OPV) 2007-07-17 Completed Universit y of 00:00:00 [facility] Varicella 2007-07-17 Completed University of (varivax)(chicken 00:00:00 [place] [facility] pox) Branch DTAP 2007-07-17 Completed University of 00:00:00 [facility] MMR 2007-07-17 Completed University of 00:00:00 [facility] Pneumococcal 13 2007-07-17 Completed Universit y of Conjugate, PCV13 00:00:00 [facility] dical (Prevnar 13) Branch Polio (IPV/OPV) 2007-07-17 Completed Universit y of 00:00:00 [facility] Varicella 2007-07-17 Completed University of (varivax)(chicken 00:00:00 [place] [facility] pox) Branch DTAP 2007-07-17 Completed University of 00:00:00 [facility] MMR 2007-07-17 Completed University of 00:00:00 [facility] Pneumococcal 13 2007-07-17 Completed Universit y of Conjugate, PCV13 00:00:00 [facility] dical (Prevnar 13) Branch Polio (IPV/OPV) 2007-07-17 Completed Universit y of 00:00:00 [facility] Varicella 2007-07-17 Completed University of (varivax)(chicken 00:00:00 [facility] edical pox) Branch DTAP 2007-07-17 Completed University of 00:00:00 [facility] MMR 2007-07-17 Completed University of 00:00:00 [facility] Pneumococcal 13 2007-07-17 Completed Universit y of Conjugate, PCV13 00:00:00 [facility] dical (Prevnar 13) Branch Polio (IPV/OPV) 2007-07-17 Completed Universit y of 00:00:00 [facility] Varicella 2007-07-17 Completed University of (varivax)(chicken 00:00:00 [facility] edical pox) Branch DTAP 2007-07-17 Completed University of 00:00:00 [facility] MMR 2007-07-17 Completed University of 00:00:00 [facility] Pneumococcal 13 2007-07-17 Completed Universit y of Conjugate, PCV13 00:00:00 [facility] dical (Prevnar 13) Branch Polio (IPV/OPV) 2007-07-17 Completed Universit y of 00:00:00 [facility] Varicella 2007-07-17 Completed University of (varivax)(chicken 00:00:00 [facility] edical pox) Branch DTAP 2007-07-17 Completed University of 00:00:00 [facility] MMR 2007-07-17 Completed University of 00:00:00 [facility] Pneumococcal 13 2007-07-17 Completed Universit y of Conjugate, PCV13 00:00:00 [facility] dical (Prevnar 13) Branch Polio (IPV/OPV) 2007-07-17 Completed Universit y of 00:00:00 [facility] Varicella 2007-07-17 Completed University of (varivax)(chicken 00:00:00 [facility] edical pox) Branch DTAP 2007-07-17 Completed University of 00:00:00 [facility] MMR 2007-07-17 Completed University of 00:00:00 [facility] Pneumococcal 13 2007-07-17 Completed Universit y of Conjugate, PCV13 00:00:00 [place] [facility] (Prevnar 13) Branch Polio (IPV/OPV) 2007-07-17 Completed Universit y of 00:00:00 [facility] Varicella 2007-07-17 Completed University of (varivax)(chicken 00:00:00 [place] [facility] pox) Branch DTaP, Unspecified 2007-07-17 Completed Univers ity of Formulation 00:00:00 [facility] Pneumococcal 7 2007-07-17 Completed University of Conjugate, PCV7 00:00:00 [place] [facility] (Prevnar7) Branch IPV 2007-07-17 Completed University of 00:00:00 [facility] DTAP 2007-07-17 Completed University of 00:00:00 [facility] MMR 2007-07-17 Completed University of 00:00:00 [facility] Pneumococcal 13 2007-07-17 Completed Universit y of Conjugate, PCV13 00:00:00 [facility] dical (Prevnar 13) Branch Polio (IPV/OPV) 2007-07-17 Completed Universit y of 00:00:00 [facility] Varicella 2007-07-17 Completed University of (varivax)(chicken 00:00:00 [place] [facility] pox) Branch DTaP, Unspecified 2007-07-17 Completed Univers ity of Formulation 00:00:00 [facility] Pneumococcal 7 2007-07-17 Completed University of Conjugate, PCV7 00:00:00 [place] [facility] (Prevnar7) Branch IPV 2007-07-17 Completed University of 00:00:00 [facility] HEPATITIS A 2007-04-13 Completed University of 00:00:00 [facility] HEPATITIS A 2007-04-13 Completed University of 00:00:00 [facility] HEPATITIS A 2007-04-13 Completed University of 00:00:00 [facility] HEPATITIS A 2007-04-13 Completed University of 00:00:00 [facility] HEPATITIS A 2007-04-13 Completed University of 00:00:00 [facility] HEPATITIS A 2007-04-13 Completed University of 00:00:00 [facility] HEPATITIS A 2007-04-13 Completed University of 00:00:00 [place] [facility] HEPATITIS A 2007-04-13 Completed University of 00:00:00 [place] [facility] HEPATITIS A 2007-04-13 Completed University of 00:00:00 [place] [facility] HEPATITIS A 2007-04-13 Completed University of 00:00:00 [place] [facility] HEPATITIS A 2007-04-13 Completed University of 00:00:00 [place] [facility] HEPATITIS A 2007-04-13 Completed University of 00:00:00 [place] [facility] HEPATITIS A 2007-04-13 Completed University of 00:00:00 [place] [facility] HEPATITIS A 2007-04-13 Completed University of 00:00:00 [place] [facility] HEPATITIS A 2007-04-13 Completed University of 00:00:00 [place] [facility] HEPATITIS A 2007-04-13 Completed University of 00:00:00 [place] [facility] HEPATITIS A 2007-04-13 Completed University of 00:00:00 [place] [facility] HEPATITIS A 2007-04-13 Completed University of 00:00:00 [place] [facility] HEPATITIS A 2007-04-13 Completed University of 00:00:00 [place] [facility] HEPATITIS A 2007-04-13 Completed University of 00:00:00 [place] [facility] HEPATITIS A 2007-04-13 Completed University of 00:00:00 [place] [facility] HEPATITIS A 2007-04-13 Completed University of 00:00:00 [place] [facility] HEPATITIS A 2007-04-13 Completed University of 00:00:00 [place] [facility] HEPATITIS A 2007-04-13 Completed University of 00:00:00 [place] [facility] HEPATITIS A 2007-04-13 Completed University of 00:00:00 [place] [facility] HEPATITIS A 2007-04-13 Completed University of 00:00:00 [place] [facility] HEPATITIS A 2007-04-13 Completed University of 00:00:00 [place] [facility] HEPATITIS A 2007-04-13 Completed University of 00:00:00 [place] [facility] HEPATITIS A 2007-04-13 Completed University of 00:00:00 [place] [facility] HEPATITIS A 2007-04-13 Completed University of 00:00:00 [place] [facility] HEPATITIS A 2007-04-13 Completed University of 00:00:00 [place] [facility] HEPATITIS A 2007-04-13 Completed University of 00:00:00 [place] [facility] HEPATITIS A 2007-04-13 Completed University of 00:00:00 [place] [facility] HEPATITIS A 2007-04-13 Completed University of 00:00:00 [place] [facility] HEPATITIS A 2007-04-13 Completed University of 00:00:00 [facility] HIB 4 Dose Schedule 2006-05-05 Completed Unive rsity of 00:00:00 [facility] HEPATITIS A 2006-05-05 Completed University of 00:00:00 [facility] Hep B, Adol or Pedi 2006-05-05 Completed [facility] Dosage 00:00:00 [facility] MMR 2006-05-05 Completed [facility] 00:00:00 [facility] Varicella 2006-05-05 Completed University of (varivax)(chicken 00:00:00 [place] [facility] HIB 4 Dose Schedule 2006-05-05 Completed [facility] 00:00:00 [facility] HEPATITIS A 2006-05-05 Completed [facility] 00:00:00 [facility] Hep B, Adol or Pedi 2006-05-05 Completed [facility] Dosage 00:00:00 [facility] MMR 2006-05-05 Completed [facility] 00:00:00 [facility] Varicella 2006-05-05 Completed [facility] (varivax)(chicken 00:00:00 [place] [facility]ox[facility] HIB 4 Dose Schedule 2006-05-05 Completed [facility] 00:00:00 [facility] HEPATITIS A 2006-05-05 Completed [facility] 00:00:00 [facility] Hep B, Adol or Pedi 2006-05-05 Completed [facility] Dosage 00:00:00 [facility] MMR 2006-05-05 Completed [facility] 00:00:00 [facility] Varicella 2006-05-05 Completed [facility] (varivax)(chicken 00:00:00 [place] [facility] HIB 4 Dose Schedule 2006-05-05 Completed [facility] 00:00:00 [facility] HEPATITIS A 2006-05-05 Completed [facility] 00:00:00 [facility] Hep B, Adol or Pedi 2006-05-05 Completed [facility] Dosage 00:00:00 [facility] MMR 2006-05-05 Completed [facility] 00:00:00 [facility] Varicella 2006-05-05 Completed [facility] (varivax)(chicken 00:00:00 [place] [facility] HIB 4 Dose Schedule 2006-05-05 Completed [facility] 00:00:00 [facility] HEPATITIS A 2006-05-05 Completed [facility] 00:00:00 [facility] Hep B, Adol or Pedi 2006-05-05 Completed [facility] Dosage 00:00:00 [facility] MMR 2006-05-05 Completed [facility] 00:00:00 [facility] Varicella 2006-05-05 Completed [facility] (varivax)(chicken 00:00:00 [place] [facility] pox) [facility] HIB 4 Dose Schedule 2006-05-05 Completed [facility] of 00:00:00 [facility] HEPATITIS A 2006-05-05 Completed [facility] 00:00:00 [facility] Hep B, Adol or Pedi 2006-05-05 Completed [facility] Dosage 00:00:00 [facility] MMR 2006-05-05 Completed [facility] 00:00:00 [facility] Varicella 2006-05-05 Completed [facility] (varivax)(chicken 00:00:00 [place] [facility] pox) [facility] HIB 4 Dose Schedule 2006-05-05 Completed [facility] of 00:00:00 [facility] HEPATITIS A 2006-05-05 Completed [facility] 00:00:00 [facility] Hep B, Adol or Pedi 2006-05-05 Completed [facility] of Dosage 00:00:00 [facility] MMR 2006-05-05 Completed [facility] of 00:00:00 [facility] Varicella 2006-05-05 Completed [facility] of (varivax)(chicken 00:00:00 [facility] edical pox) Branch HIB 4 Dose Schedule 2006-05-05 Completed [facility]ive rs[facility] of 00:00:00 [facility] HEPATITIS A 2006-05-05 Completed [facility] 00:00:00 [facility] Hep B, Adol or Pedi 2006-05-05 Completed [facility] of Dosage 00:00:00 [facility] MMR 2006-05-05 Completed [facility] 00:00:00 [facility] Varicella 2006-05-05 Completed [facility] (varivax)(chicken 00:00:00 [place] [facility]ox) [facility] HIB 4 Dose Schedule 2006-05-05 Completed [facility] 00:00:00 [facility] HEPATITIS A 2006-05-05 Completed [facility] 00:00:00 [facility] Hep B, Adol or Pedi 2006-05-05 Completed [facility] Dosage 00:00:00 [facility] MMR 2006-05-05 Completed [facility] 00:00:00 [facility] Varicella 2006-05-05 Completed [facility] (varivax)(chicken 00:00:00 [place] [facility] pox) [facility] HIB 4 Dose Schedule 2006-05-05 Completed [facility] of 00:00:00 [facility] HEPATITIS A 2006-05-05 Completed [facility] 00:00:00 [facility] Hep B, Adol or Pedi 2006-05-05 Completed [facility] of Dosage 00:00:00 [facility] MMR 2006-05-05 Completed [facility] 00:00:00 [facility] Varicella 2006-05-05 Completed [facility] (varivax)(chicken 00:00:00 [place] [facility] pox) [facility] HIB 4 Dose Schedule 2006-05-05 Completed [facility] of 00:00:00 [facility] HEPATITIS A 2006-05-05 Completed [facility] 00:00:00 [facility] Hep B, Adol or Pedi 2006-05-05 Completed [facility] of Dosage 00:00:00 [facility] MMR 2006-05-05 Completed [facility] 00:00:00 [facility] Varicella 2006-05-05 Completed [facility] (varivax)(chicken 00:00:00 [place] [facility] pox) [facility] HIB 4 Dose Schedule 2006-05-05 Completed [facility] of 00:00:00 [facility] HEPATITIS A 2006-05-05 Completed [facility] 00:00:00 [facility] Hep B, Adol or Pedi 2006-05-05 Completed [facility] of Dosage 00:00:00 [facility] MMR 2006-05-05 Completed [facility] 00:00:00 [facility] Varicella 2006-05-05 Completed [facility] (varivax)(chicken 00:00:00 [place] [facility]ox) [facility] HIB 4 Dose Schedule 2006-05-05 Completed [facility] of 00:00:00 [facility] HEPATITIS A 2006-05-05 Completed [facility] 00:00:00 [facility] Hep B, Adol or Pedi 2006-05-05 Completed [facility] of Dosage 00:00:00 [facility] MMR 2006-05-05 Completed [facility] 00:00:00 [facility] Varicella 2006-05-05 Completed [facility] (varivax)(chicken 00:00:00 [place] [facility] pox) [facility] HIB 4 Dose Schedule 2006-05-05 Completed [facility] 00:00:00 [facility] HEPATITIS A 2006-05-05 Completed [facility] 00:00:00 [facility] Hep B, Adol or Pedi 2006-05-05 Completed [facility] of Dosage 00:00:00 [facility] MMR 2006-05-05 Completed [facility] 00:00:00 [facility] Varicella 2006-05-05 Completed [facility] (varivax)(chicken 00:00:00 [place] [facility] pox) [facility] HIB 4 Dose Schedule 2006-05-05 Completed [facility] of 00:00:00 [facility] HEPATITIS A 2006-05-05 Completed [facility] of 00:00:00 [facility] Hep B, Adol or Pedi 2006-05-05 Completed [facility] of Dosage 00:00:00 [facility] MMR 2006-05-05 Completed [facility] 00:00:00 [facility] Varicella 2006-05-05 Completed [facility] (varivax)(chicken 00:00:00 [place] [facility]ox) [facility] HIB 4 Dose Schedule 2006-05-05 Completed [facility] of 00:00:00 [facility] HEPATITIS A 2006-05-05 Completed [facility] 00:00:00 [facility] Hep B, Adol or Pedi 2006-05-05 Completed [facility] of Dosage 00:00:00 [facility] MMR 2006-05-05 Completed [facility] 00:00:00 [facility] Varicella 2006-05-05 Completed [facility] (varivax)(chicken 00:00:00 [place] [facility] HIB 4 Dose Schedule 2006-05-05 Completed [facility] of 00:00:00 [facility] HEPATITIS A 2006-05-05 Completed [facility] 00:00:00 [facility] Hep B, Adol or Pedi 2006-05-05 Completed [facility] of Dosage 00:00:00 [facility] MMR 2006-05-05 Completed [facility] 00:00:00 [facility] Varicella 2006-05-05 Completed [facility] (varivax)(chicken 00:00:00 [place] [facility] pox) [facility] HIB 4 Dose Schedule 2006-05-05 Completed [facility] of 00:00:00 [facility] HEPATITIS A 2006-05-05 Completed [facility] 00:00:00 [facility] Hep B, Adol or Pedi 2006-05-05 Completed [facility] of Dosage 00:00:00 [facility] MMR 2006-05-05 Completed [facility] 00:00:00 [facility] Varicella 2006-05-05 Completed [facility] (varivax)(chicken 00:00:00 [place] [facility] pox) [facility] HIB 4 Dose Schedule 2006-05-05 Completed [facility] of 00:00:00 [facility] HEPATITIS A 2006-05-05 Completed [facility] 00:00:00 [facility] Hep B, Adol or Pedi 2006-05-05 Completed [facility] of Dosage 00:00:00 [facility] MMR 2006-05-05 Completed [facility] 00:00:00 [facility] Varicella 2006-05-05 Completed [facility] (varivax)(chicken 00:00:00 [place] [facility] pox) [facility] HIB 4 Dose Schedule 2006-05-05 Completed [facility] of 00:00:00 [facility] HEPATITIS A 2006-05-05 Completed [facility] 00:00:00 [facility] Hep B, Adol or Pedi 2006-05-05 Completed [facility] of Dosage 00:00:00 [facility] MMR 2006-05-05 Completed [facility] 00:00:00 [facility] Varicella 2006-05-05 Completed [facility] (varivax)(chicken 00:00:00 [place] [facility] pox) [facility] HIB 4 Dose Schedule 2006-05-05 Completed [facility] of 00:00:00 [facility] HEPATITIS A 2006-05-05 Completed [facility] 00:00:00 [facility] Hep B, Adol or Pedi 2006-05-05 Completed [facility] of Dosage 00:00:00 [facility] MMR 2006-05-05 Completed [facility] 00:00:00 [facility] Varicella 2006-05-05 Completed [facility] (varivax)(chicken 00:00:00 [place] [facility] pox) [facility] HIB 4 Dose Schedule 2006-05-05 Completed [facility] of 00:00:00 [facility] HEPATITIS A 2006-05-05 Completed [facility] 00:00:00 [facility] Hep B, Adol or Pedi 2006-05-05 Completed [facility] of Dosage 00:00:00 [facility] MMR 2006-05-05 Completed [facility] 00:00:00 [facility] Varicella 2006-05-05 Completed [facility] (varivax)(chicken 00:00:00 [place] [facility] pox) [facility] HIB 4 Dose Schedule 2006-05-05 Completed [facility] of 00:00:00 [facility] HEPATITIS A 2006-05-05 Completed [facility] 00:00:00 [facility] Hep B, Adol or Pedi 2006-05-05 Completed [facility] of Dosage 00:00:00 [facility] MMR 2006-05-05 Completed [facility] 00:00:00 [facility] Varicella 2006-05-05 Completed [facility] (varivax)(chicken 00:00:00 [place] [facility] pox[facility] HIB 4 Dose Schedule 2006-05-05 Completed [facility] of 00:00:00 [facility] HEPATITIS A 2006-05-05 Completed [facility] 00:00:00 [facility] Hep B, Adol or Pedi 2006-05-05 Completed [facility] of Dosage 00:00:00 [facility] MMR 2006-05-05 Completed [facility] 00:00:00 [facility] Varicella 2006-05-05 Completed [facility] (varivax)(chicken 00:00:00 [place] [facility] pox) [facility] HIB 4 Dose Schedule 2006-05-05 Completed [facility] of 00:00:00 [facility] HEPATITIS A 2006-05-05 Completed [facility] 00:00:00 [facility] Hep B, Adol or Pedi 2006-05-05 Completed [facility] of Dosage 00:00:00 [facility] MMR 2006-05-05 Completed [facility] 00:00:00 [facility] Varicella 2006-05-05 Completed [facility] (varivax)(chicken 00:00:00 [place] [facility] pox) [facility] HIB 4 Dose Schedule 2006-05-05 Completed [facility] of 00:00:00 [facility] HEPATITIS A 2006-05-05 Completed [facility] 00:00:00 [facility] Hep B, Adol or Pedi 2006-05-05 Completed [facility] of Dosage 00:00:00 [facility] MMR 2006-05-05 Completed [facility] 00:00:00 [facility] Varicella 2006-05-05 Completed [facility] (varivax)(chicken 00:00:00 [place] [facility] pox) [facility] HIB 4 Dose Schedule 2006-05-05 Completed [facility] of 00:00:00 [facility] HEPATITIS A 2006-05-05 Completed [facility] 00:00:00 [facility] Hep B, Adol or Pedi 2006-05-05 Completed [facility] of Dosage 00:00:00 [facility] MMR 2006-05-05 Completed [facility] 00:00:00 [facility] Varicella 2006-05-05 Completed [facility] (varivax)(chicken 00:00:00 [place] [facility] pox) [facility] HIB 4 Dose Schedule 2006-05-05 Completed [facility] of 00:00:00 [facility] HEPATITIS A 2006-05-05 Completed [facility] 00:00:00 [facility] Hep B, Adol or Pedi 2006-05-05 Completed [facility] of Dosage 00:00:00 [facility] MMR 2006-05-05 Completed [facility] 00:00:00 [facility] Varicella 2006-05-05 Completed [facility] of (varivax)(chicken 00:00:00 [facility] edical pox) Branch HIB 4 Dose Schedule 2006-05-05 Completed [facility]ive rsity of 00:00:00 [facility] HEPATITIS A 2006-05-05 Completed [facility] 00:00:00 [facility] Hep B, Adol or Pedi 2006-05-05 Completed [facility] of Dosage 00:00:00 [facility] MMR 2006-05-05 Completed [facility] 00:00:00 [facility] Varicella 2006-05-05 Completed [facility] (varivax)(chicken 00:00:00 [place] [facility] pox) [facility] HIB 4 Dose Schedule 2006-05-05 Completed [facility] of 00:00:00 [facility] HEPATITIS A 2006-05-05 Completed [facility] 00:00:00 [facility] Hep B, Adol or Pedi 2006-05-05 Completed [facility] of Dosage 00:00:00 [facility] MMR 2006-05-05 Completed [facility] 00:00:00 [facility] Varicella 2006-05-05 Completed [facility] (varivax)(chicken 00:00:00 [place] [facility] pox) [facility] HIB 4 Dose Schedule 2006-05-05 Completed [facility] of 00:00:00 [facility] HEPATITIS A 2006-05-05 Completed [facility] 00:00:00 [facility] Hep B, Adol or Pedi 2006-05-05 Completed [facility] of Dosage 00:00:00 [facility] MMR 2006-05-05 Completed [facility] 00:00:00 [facility] Varicella 2006-05-05 Completed [facility] (varivax)(chicken 00:00:00 [place] [facility] pox) [facility] HIB 4 Dose Schedule 2006-05-05 Completed [facility]ive [facility] of 00:00:00 [facility] HEPATITIS A 2006-05-05 Completed [facility] 00:00:00 [facility] Hep B, Adol or Pedi 2006-05-05 Completed [facility] of Dosage 00:00:00 [facility] MMR 2006-05-05 Completed [facility] 00:00:00 [facility] Varicella 2006-05-05 Completed [facility] of (varivax)(chicken 00:00:00 [facility] edical pox) Branch HIB 4 Dose Schedule 2006-05-05 Completed [facility]ive rs[facility] of 00:00:00 [facility] HEPATITIS A 2006-05-05 Completed [facility] 00:00:00 [facility] Hep B, Adol or Pedi 2006-05-05 Completed [facility] of Dosage 00:00:00 [facility] MMR 2006-05-05 Completed [facility] 00:00:00 [facility] Varicella 2006-05-05 Completed [facility] of (varivax)(chicken 00:00:00 [facility] edical pox) Branch HIB 4 Dose Schedule 2006-05-05 Completed [facility]ive rsity of 00:00:00 [facility] HEPATITIS A 2006-05-05 Completed [facility] 00:00:00 [facility] Hep B, Adol or Pedi 2006-05-05 Completed [facility] of Dosage 00:00:00 [facility] MMR 2006-05-05 Completed [facility] 00:00:00 [facility] Varicella 2006-05-05 Completed [facility] of (varivax)(chicken 00:00:00 [place] [facility] pox) [facility] Proquad 2006-05-05 Completed [facility] of (MMR/VARICELLA) 00:00:00 [facility] HIB 4 Dose Schedule 2006-05-05 Completed Unive rsity of 00:00:00 [facility] HEPATITIS A 2006-05-05 Completed [facility] of 00:00:00 [facility] Hep B, Adol or Pedi 2006-05-05 Completed [facility] of Dosage 00:00:00 [facility] MMR 2006-05-05 Completed [facility] of 00:00:00 [facility] Varicella 2006-05-05 Completed [facility] of (varivax)(chicken 00:00:00 [place] [facility] pox) [facility] Proquad 2006-05-05 Completed [facility] (MMR/VARICELLA) 00:00:00 [place] [facility] DTAP 2004-09-23 Completed [facility] 00:00:00 [facility] DTAP 2004-09-23 Completed [facility] 00:00:00 [facility] DTAP 2004-09-23 Completed [facility] 00:00:00 [facility] DTAP 2004-09-23 Completed [facility] 00:00:00 [facility] DTAP 2004-09-23 Completed [facility] 00:00:00 [facility] DTAP 2004-09-23 Completed [facility] 00:00:00 [facility] DTAP 2004-09-23 Completed [facility] 00:00:00 [facility] DTAP 2004-09-23 Completed [facility] 00:00:00 [facility] DTAP 2004-09-23 Completed [facility] 00:00:00 [facility] DTAP 2004-09-23 Completed [facility] 00:00:00 [facility] DTAP 2004-09-23 Completed [facility] 00:00:00 [facility] DTAP 2004-09-23 Completed [facility] 00:00:00 [facility] DTAP 2004-09-23 Completed [facility] 00:00:00 [facility] DTAP 2004-09-23 Completed [facility] of 00:00:00 [facility] DTAP 2004-09-23 Completed [facility] 00:00:00 [facility] DTAP 2004-09-23 Completed [facility] 00:00:00 [facility] DTAP 2004-09-23 Completed [facility] 00:00:00 [facility] DTAP 2004-09-23 Completed [facility] 00:00:00 [facility] DTAP 2004-09-23 Completed [facility] 00:00:00 [facility] DTAP 2004-09-23 Completed [facility] 00:00:00 [facility] DTAP 2004-09-23 Completed [facility] 00:00:00 [facility] DTAP 2004-09-23 Completed [facility] 00:00:00 [facility] DTAP 2004-09-23 Completed [facility] 00:00:00 [facility] DTAP 2004-09-23 Completed [facility] 00:00:00 [facility] DTAP 2004-09-23 Completed [facility] of 00:00:00 [facility] DTAP 2004-09-23 Completed [facility] 00:00:00 [facility] DTAP 2004-09-23 Completed [facility] 00:00:00 [facility] DTAP 2004-09-23 Completed [facility] 00:00:00 [facility] DTAP 2004-09-23 Completed [facility] 00:00:00 [facility] DTAP 2004-09-23 Completed [facility] 00:00:00 [facility] DTAP 2004-09-23 Completed [facility] 00:00:00 [facility] DTAP 2004-09-23 Completed [facility] 00:00:00 [facility] DTAP 2004-09-23 Completed [facility] 00:00:00 [facility] DTAP 2004-09-23 Completed [facility] of 00:00:00 [facility] DTaP, Unspecified 2004-09-23 Completed Univers ity of Formulation 00:00:00 [facility] DTAP 2004-09-23 Completed [facility] of 00:00:00 [facility] DTaP, Unspecified 2004-09-23 Completed Univers ity of Formulation 00:00:00 [facility] DTAP 2003 Completed [facility] of 00:00:00 [facility] HIB 4 Dose Schedule 2003 Completed Unive rsity of 00:00:00 [facility] Hep B, Adol or Pedi 2003 Completed Unive [facility] of Dosage 00:00:00 [facility] Polio (IPV/OPV) 2003 Completed Univers[facility] 00:00:00 [facility] DTAP 2003 Completed [facility] 00:00:00 [facility] HIB 4 Dose Schedule 2003 Completed [facility] of 00:00:00 [facility] Hep B, Adol or Pedi 2003 Completed [facility] of Dosage 00:00:00 [facility] Polio (IPV/OPV) 2003 Completed [facility] 00:00:00 [facility] DTAP 2003 Completed [facility] 00:00:00 [facility] HIB 4 Dose Schedule 2003 Completed [facility] rs[facility] of 00:00:00 [facility] Hep B, Adol or Pedi 2003 Completed [facility] of Dosage 00:00:00 [facility] Polio (IPV/OPV) 2003 Completed Univers[facility] 00:00:00 [facility] DTAP 2003 Completed [facility] 00:00:00 [facility] HIB 4 Dose Schedule 2003 Completed [facility] of 00:00:00 [facility] Hep B, Adol or Pedi 2003 Completed Unive [facility] of Dosage 00:00:00 [facility] Polio (IPV/OPV) 2003 Completed [facility] 00:00:00 [facility] DTAP 2003 Completed [facility] 00:00:00 [facility] HIB 4 Dose Schedule 2003 Completed [facility] of 00:00:00 [facility] Hep B, Adol or Pedi 2003 Completed Unive rsity of Dosage 00:00:00 [facility] Polio (IPV/OPV) 2003 Completed [facility] 00:00:00 [facility] DTAP 2003 Completed [facility] 00:00:00 [facility] HIB 4 Dose Schedule 2003 Completed [facility] of 00:00:00 [facility] Hep B, Adol or Pedi 2003 Completed Unive rsity of Dosage 00:00:00 [facility] Polio (IPV/OPV) 2003 Completed [facility] 00:00:00 [facility] DTAP 2003 Completed [facility] 00:00:00 [facility] HIB 4 Dose Schedule 2003 Completed [facility] rsity of 00:00:00 [facility] Hep B, Adol or Pedi 2003 Completed [facility]ive [facility] of Dosage 00:00:00 [facility] Polio (IPV/OPV) 2003 Completed [facility] 00:00:00 [facility] DTAP 2003 Completed [facility] 00:00:00 [facility] HIB 4 Dose Schedule 2003 Completed [facility] of 00:00:00 [facility] Hep B, Adol or Pedi 2003 Completed Unive rsity of Dosage 00:00:00 [facility] Polio (IPV/OPV) 2003 Completed [facility] 00:00:00 [facility] DTAP 2003 Completed [facility] 00:00:00 [facility] HIB 4 Dose Schedule 2003 Completed [facility]ive rsity of 00:00:00 [facility] Hep B, Adol or Pedi 2003 Completed [facility]ive [facility]ity of Dosage 00:00:00 [facility] Polio (IPV/OPV) 2003 Completed [facility] 00:00:00 [facility] DTAP 2003 Completed [facility] 00:00:00 [facility] HIB 4 Dose Schedule 2003 Completed [facility] of 00:00:00 [facility] Hep B, Adol or Pedi 2003 Completed Unive [facility] of Dosage 00:00:00 [facility] Polio (IPV/OPV) 2003 Completed [facility] 00:00:00 [facility] DTAP 2003 Completed [facility] 00:00:00 [facility] HIB 4 Dose Schedule 2003 Completed [facility] 00:00:00 [facility] Hep B, Adol or Pedi 2003 Completed [facility] Dosage 00:00:00 [facility] Polio (IPV/OPV) 2003 Completed [facility] 00:00:00 [facility] DTAP 2003 Completed [facility] 00:00:00 [facility] HIB 4 Dose Schedule 2003 Completed [facility] 00:00:00 [facility] Hep B, Adol or Pedi 2003 Completed [facility] Dosage 00:00:00 [facility] Polio (IPV/OPV) 2003 Completed [facility] 00:00:00 [facility] DTAP 2003 Completed [facility] 00:00:00 [facility] HIB 4 Dose Schedule 2003 Completed [facility] 00:00:00 [facility] Hep B, Adol or Pedi 2003 Completed [facility] Dosage 00:00:00 [facility] Polio (IPV/OPV) 2003 Completed [facility] 00:00:00 [facility] DTAP 2003 Completed [facility] 00:00:00 [facility] HIB 4 Dose Schedule 2003 Completed [facility] 00:00:00 [facility] Hep B, Adol or Pedi 2003 Completed [facility] Dosage 00:00:00 [facility] Polio (IPV/OPV) 2003 Completed [facility] 00:00:00 [facility] DTAP 2003 Completed [facility] 00:00:00 [facility] HIB 4 Dose Schedule 2003 Completed [facility] 00:00:00 [facility] Hep B, Adol or Pedi 2003 Completed [facility] Dosage 00:00:00 [facility] Polio (IPV/OPV) 2003 Completed [facility] 00:00:00 [facility] DTAP 2003 Completed [facility] 00:00:00 [facility] HIB 4 Dose Schedule 2003 Completed [facility] 00:00:00 [facility] Hep B, Adol or Pedi 2003 Completed [facility] Dosage 00:00:00 [facility] Polio (IPV/OPV) 2003 Completed [facility] 00:00:00 [facility] DTAP 2003 Completed [facility] 00:00:00 [facility] HIB 4 Dose Schedule 2003 Completed [facility] 00:00:00 [facility] Hep B, Adol or Pedi 2003 Completed [facility] Dosage 00:00:00 [facility] Polio (IPV/OPV) 2003 Completed [facility] 00:00:00 [facility] DTAP 2003 Completed [facility] 00:00:00 [facility] HIB 4 Dose Schedule 2003 Completed [facility] 00:00:00 [facility] Hep B, Adol or Pedi 2003 Completed [facility] Dosage 00:00:00 [facility] Polio (IPV/OPV) 2003 Completed [facility] 00:00:00 [facility] DTAP 2003 Completed [facility] 00:00:00 [facility] HIB 4 Dose Schedule 2003 Completed [facility] 00:00:00 [facility] Hep B, Adol or Pedi 2003 Completed [facility] Dosage 00:00:00 [facility] Polio (IPV/OPV) 2003 Completed [facility] 00:00:00 [facility] DTAP 2003 Completed [facility] 00:00:00 [facility] HIB 4 Dose Schedule 2003 Completed [facility] 00:00:00 [facility] Hep B, Adol or Pedi 2003 Completed [facility] Dosage 00:00:00 [facility] Polio (IPV/OPV) 2003 Completed [facility] 00:00:00 [facility] DTAP 2003 Completed [facility] 00:00:00 [facility] HIB 4 Dose Schedule 2003 Completed [facility] 00:00:00 [facility] Hep B, Adol or Pedi 2003 Completed [facility] Dosage 00:00:00 [facility] Polio (IPV/OPV) 2003 Completed [facility] 00:00:00 [facility] DTAP 2003 Completed [facility] 00:00:00 [facility] HIB 4 Dose Schedule 2003 Completed [facility] 00:00:00 [facility] Hep B, Adol or Pedi 2003 Completed [facility] Dosage 00:00:00 [facility] Polio (IPV/OPV) 2003 Completed [facility] 00:00:00 [facility] DTAP 2003 Completed [facility] 00:00:00 [facility] HIB 4 Dose Schedule 2003 Completed [facility] 00:00:00 [facility] Hep B, Adol or Pedi 2003 Completed [facility] Dosage 00:00:00 [facility] Polio (IPV/OPV) 2003 Completed [facility] 00:00:00 [facility] DTAP 2003 Completed [facility] 00:00:00 [facility] HIB 4 Dose Schedule 2003 Completed [facility] 00:00:00 [facility] Hep B, Adol or Pedi 2003 Completed [facility] Dosage 00:00:00 [facility] Polio (IPV/OPV) 2003 Completed [facility] 00:00:00 [facility] DTAP 2003 Completed [facility] 00:00:00 [facility] HIB 4 Dose Schedule 2003 Completed [facility] 00:00:00 [facility] Hep B, Adol or Pedi 2003 Completed [facility] Dosage 00:00:00 [facility] Polio (IPV/OPV) 2003 Completed [facility] 00:00:00 [facility] DTAP 2003 Completed [facility] 00:00:00 [facility] HIB 4 Dose Schedule 2003 Completed [facility] 00:00:00 [facility] Hep B, Adol or Pedi 2003 Completed [facility] Dosage 00:00:00 [facility] Polio (IPV/OPV) 2003 Completed [facility] 00:00:00 [facility] DTAP 2003 Completed [facility] 00:00:00 [facility] HIB 4 Dose Schedule 2003 Completed [facility] 00:00:00 [facility] Hep B, Adol or Pedi 2003 Completed [facility] Dosage 00:00:00 [facility] Polio (IPV/OPV) 2003 Completed [facility] 00:00:00 [facility] DTAP 2003 Completed [facility] 00:00:00 [facility] HIB 4 Dose Schedule 2003 Completed [facility] 00:00:00 [facility] Hep B, Adol or Pedi 2003 Completed [facility] Dosage 00:00:00 [facility] Polio (IPV/OPV) 2003 Completed [facility] 00:00:00 [facility] DTAP 2003 Completed [facility] 00:00:00 [facility] HIB 4 Dose Schedule 2003 Completed [facility] 00:00:00 [facility] Hep B, Adol or Pedi 2003 Completed [facility] Dosage 00:00:00 [facility] Polio (IPV/OPV) 2003 Completed [facility] 00:00:00 [facility] DTAP 2003 Completed [facility] 00:00:00 [facility] HIB 4 Dose Schedule 2003 Completed [facility] 00:00:00 [facility] Hep B, Adol or Pedi 2003 Completed [facility] Dosage 00:00:00 [facility] Polio (IPV/OPV) 2003 Completed [facility] 00:00:00 [facility] DTAP 2003 Completed [facility] 00:00:00 [facility] HIB 4 Dose Schedule 2003 Completed [facility] 00:00:00 [facility] Hep B, Adol or Pedi 2003 Completed [facility] Dosage 00:00:00 [facility] Polio (IPV/OPV) 2003 Completed [facility] 00:00:00 [facility] DTAP 2003 Completed [facility] 00:00:00 [facility] HIB 4 Dose Schedule 2003 Completed [facility] 00:00:00 [facility] Hep B, Adol or Pedi 2003 Completed [facility] Dosage 00:00:00 [facility] Polio (IPV/OPV) 2003 Completed [facility] 00:00:00 [facility] DTAP 2003 Completed [facility] 00:00:00 [facility] HIB 4 Dose Schedule 2003 Completed [facility] 00:00:00 [facility] Hep B, Adol or Pedi 2003 Completed [facility] Dosage 00:00:00 [facility] Polio (IPV/OPV) 2003 Completed [facility] 00:00:00 [facility] DTAP 2003 Completed [facility] 00:00:00 [facility] HIB 4 Dose Schedule 2003 Completed [facility] 00:00:00 [facility] Hep B, Adol or Pedi 2003 Completed [facility] Dosage 00:00:00 [facility] Polio (IPV/OPV) 2003 Completed [facility] 00:00:00 [facility] Pediarix (dtap/hep 2003 Completed [facility] B/ipv) 00:00:00 [facility] DTAP 2003 Completed [facility] 00:00:00 [facility] HIB 4 Dose Schedule 2003 Completed [facility] 00:00:00 [facility] Hep B, Adol or Pedi 2003 Completed [facility] Dosage 00:00:00 [facility] Polio (IPV/OPV) 2003 Completed [facility] 00:00:00 [facility] Pediarix (dtap/hep 2003 Completed [facility] B/ipv) 00:00:00 [facility] DTAP 2003 Completed [facility] 00:00:00 [facility] HIB 4 Dose Schedule 2003 Completed [facility] 00:00:00 [facility] Pneumococcal 13 2003 Completed [facility] Conjugate, PCV13 00:00:00 [facility] dical (Prevnar 13) Branch Polio (IPV/OPV) 2003 Completed [facility] 00:00:00 [facility] DTAP 2003 Completed [facility] 00:00:00 [facility] HIB 4 Dose Schedule 2003 Completed [facility] 00:00:00 [facility] Pneumococcal 13 2003 Completed [facility] Conjugate, PCV13 00:00:00 [facility] dical (Prevnar 13) Branch Polio (IPV/OPV) 2003 Completed [facility] 00:00:00 [facility] DTAP 2003 Completed [facility] 00:00:00 [facility] HIB 4 Dose Schedule 2003 Completed [facility] 00:00:00 [facility] Pneumococcal 13 2003 Completed [facility] Conjugate, PCV13 00:00:00 [facility] dical (Prevnar 13) Branch Polio (IPV/OPV) 2003 Completed [facility] 00:00:00 [facility] DTAP 2003 Completed [facility] 00:00:00 [facility] HIB 4 Dose Schedule 2003 Completed [facility] 00:00:00 [facility] Pneumococcal 13 2003 Completed [facility] Conjugate, PCV13 00:00:00 [facility] (Prevnar 13) [facility] Polio (IPV/OPV) 2003 Completed [facility] 00:00:00 [facility] DTAP 2003 Completed [facility] 00:00:00 [facility] HIB 4 Dose Schedule 2003 Completed [facility] 00:00:00 [facility] Pneumococcal 13 2003 Completed [facility] Conjugate, PCV13 00:00:00 [facility] (Prevnar 13) [facility] Polio (IPV/OPV) 2003 Completed [facility] 00:00:00 [facility] DTAP 2003 Completed [facility] 00:00:00 [facility] HIB 4 Dose Schedule 2003 Completed [facility] 00:00:00 [facility] Pneumococcal 13 2003 Completed [facility] Conjugate, PCV13 00:00:00 [facility] dical (Prevnar 13) Branch Polio (IPV/OPV) 2003 Completed [facility] 00:00:00 [facility] DTAP 2003 Completed [facility] 00:00:00 [facility] HIB 4 Dose Schedule 2003 Completed [facility] 00:00:00 [facility] Pneumococcal 13 2003 Completed [facility] Conjugate, PCV13 00:00:00 [facility] dical (Prevnar 13) Branch Polio (IPV/OPV) 2003 Completed [facility] 00:00:00 [facility] DTAP 2003 Completed [facility] 00:00:00 [facility] HIB 4 Dose Schedule 2003 Completed [facility] 00:00:00 [facility] Pneumococcal 13 2003 Completed [facility] Conjugate, PCV13 00:00:00 [facility] dical (Prevnar 13) Branch Polio (IPV/OPV) 2003 Completed [facility] 00:00:00 [facility] DTAP 2003 Completed [facility] 00:00:00 [facility] HIB 4 Dose Schedule 2003 Completed [facility] 00:00:00 [facility] Pneumococcal 13 2003 Completed [facility] Conjugate, PCV13 00:00:00 [facility] (Prevnar 13) [facility] Polio (IPV/OPV) 2003 Completed [facility] 00:00:00 [facility] DTAP 2003 Completed [facility] 00:00:00 [facility] HIB 4 Dose Schedule 2003 Completed [facility] 00:00:00 [facility] Pneumococcal 13 2003 Completed [facility] Conjugate, PCV13 00:00:00 [facility] (Prevnar 13) [facility] Polio (IPV/OPV) 2003 Completed [facility] 00:00:00 [facility] DTAP 2003 Completed [facility] 00:00:00 [facility] HIB 4 Dose Schedule 2003 Completed [facility] 00:00:00 [facility] Pneumococcal 13 2003 Completed [facility] Conjugate, PCV13 00:00:00 [facility] (Prevnar 13) [facility] Polio (IPV/OPV) 2003 Completed [facility] 00:00:00 [facility] DTAP 2003 Completed [facility] 00:00:00 [facility] HIB 4 Dose Schedule 2003 Completed [facility] 00:00:00 [facility] Pneumococcal 13 2003 Completed [facility] Conjugate, PCV13 00:00:00 [facility] dical (Prevnar 13) Branch Polio (IPV/OPV) 2003 Completed [facility] 00:00:00 [facility] DTAP 2003 Completed [facility] 00:00:00 [facility] HIB 4 Dose Schedule 2003 Completed [facility] 00:00:00 [facility] Pneumococcal 13 2003 Completed [facility] Conjugate, PCV13 00:00:00 [facility] (Prevnar 13) [facility] Polio (IPV/OPV) 2003 Completed [facility] 00:00:00 [facility] DTAP 2003 Completed [facility] 00:00:00 [facility] HIB 4 Dose Schedule 2003 Completed [facility] 00:00:00 [facility] Pneumococcal 13 2003 Completed [facility] Conjugate, PCV13 00:00:00 [facility] (Prevnar 13) [facility] Polio (IPV/OPV) 2003 Completed [facility] 00:00:00 [facility] DTAP 2003 Completed [facility] 00:00:00 [facility] HIB 4 Dose Schedule 2003 Completed [facility] 00:00:00 [facility] Pneumococcal 13 2003 Completed [facility] Conjugate, PCV13 00:00:00 [facility] (Prevnar 13) [facility] Polio (IPV/OPV) 2003 Completed [facility] 00:00:00 [facility] DTAP 2003 Completed [facility] 00:00:00 [facility] HIB 4 Dose Schedule 2003 Completed [facility] 00:00:00 [facility] Pneumococcal 13 2003 Completed [facility] Conjugate, PCV13 00:00:00 [facility] dical (Prevnar 13) Branch Polio (IPV/OPV) 2003 Completed [facility] 00:00:00 [facility] DTAP 2003 Completed [facility] 00:00:00 [facility] HIB 4 Dose Schedule 2003 Completed [facility] 00:00:00 [facility] Pneumococcal 13 2003 Completed [facility] Conjugate, PCV13 00:00:00 [facility] dical (Prevnar 13) Branch Polio (IPV/OPV) 2003 Completed [facility] 00:00:00 [facility] DTAP 2003 Completed [facility] 00:00:00 [facility] HIB 4 Dose Schedule 2003 Completed [facility] 00:00:00 [facility] Pneumococcal 13 2003 Completed [facility] Conjugate, PCV13 00:00:00 [facility] dical (Prevnar 13) Branch Polio (IPV/OPV) 2003 Completed [facility] 00:00:00 [facility] DTAP 2003 Completed [facility] 00:00:00 [facility] HIB 4 Dose Schedule 2003 Completed [facility] 00:00:00 [facility] Pneumococcal 13 2003 Completed [facility] Conjugate, PCV13 00:00:00 [facility] dical (Prevnar 13) Branch Polio (IPV/OPV) 2003 Completed [facility] 00:00:00 [facility] DTAP 2003 Completed [facility] 00:00:00 [facility] HIB 4 Dose Schedule 2003 Completed [facility] 00:00:00 [facility] Pneumococcal 13 2003 Completed [facility] Conjugate, PCV13 00:00:00 [facility] (Prevnar 13) [facility] Polio (IPV/OPV) 2003 Completed [facility] 00:00:00 [facility] DTAP 2003 Completed [facility] 00:00:00 [facility] HIB 4 Dose Schedule 2003 Completed [facility] 00:00:00 [facility] Pneumococcal 13 2003 Completed [facility] Conjugate, PCV13 00:00:00 [facility] (Prevnar 13) [facility] Polio (IPV/OPV) 2003 Completed [facility] 00:00:00 [facility] DTAP 2003 Completed [facility] 00:00:00 [facility] HIB 4 Dose Schedule 2003 Completed [facility] 00:00:00 [facility] Pneumococcal 13 2003 Completed [facility] Conjugate, PCV13 00:00:00 [facility] (Prevnar 13) [facility] Polio (IPV/OPV) 2003 Completed [facility] 00:00:00 [facility] DTAP 2003 Completed [facility] 00:00:00 [facility] HIB 4 Dose Schedule 2003 Completed [facility] 00:00:00 [facility] Pneumococcal 13 2003 Completed [facility] Conjugate, PCV13 00:00:00 [facility] (Prevnar 13) [facility] Polio (IPV/OPV) 2003 Completed [facility] 00:00:00 [facility] DTAP 2003 Completed [facility] 00:00:00 [facility] HIB 4 Dose Schedule 2003 Completed [facility] 00:00:00 [facility] Pneumococcal 13 2003 Completed [facility] Conjugate, PCV13 00:00:00 [facility] (Prevnar 13) [facility] Polio (IPV/OPV) 2003 Completed [facility] 00:00:00 [facility] DTAP 2003 Completed [facility] 00:00:00 [facility] HIB 4 Dose Schedule 2003 Completed [facility] 00:00:00 [facility] Pneumococcal 13 2003 Completed [facility] Conjugate, PCV13 00:00:00 [facility] (Prevnar 13) [facility] Polio (IPV/OPV) 2003 Completed [facility] 00:00:00 [facility] DTAP 2003 Completed [facility] 00:00:00 [facility] HIB 4 Dose Schedule 2003 Completed [facility] 00:00:00 [facility] Pneumococcal 13 2003 Completed [facility] Conjugate, PCV13 00:00:00 [facility] (Prevnar 13) [facility] Polio (IPV/OPV) 2003 Completed [facility] 00:00:00 [facility] DTAP 2003 Completed [facility] 00:00:00 [facility] HIB 4 Dose Schedule 2003 Completed [facility] 00:00:00 [facility] Pneumococcal 13 2003 Completed [facility] Conjugate, PCV13 00:00:00 [facility] (Prevnar 13) Branch Polio (IPV/OPV) 2003 Completed [facility] 00:00:00 [facility] DTAP 2003 Completed [facility] 00:00:00 [facility] HIB 4 Dose Schedule 2003 Completed [facility] 00:00:00 [facility] Pneumococcal 13 2003 Completed [facility] Conjugate, PCV13 00:00:00 [facility] (Prevnar 13) [facility] Polio (IPV/OPV) 2003 Completed [facility] 00:00:00 [facility] DTAP 2003 Completed [facility] 00:00:00 [facility] HIB 4 Dose Schedule 2003 Completed [facility] 00:00:00 [facility] Pneumococcal 13 2003 Completed [facility] Conjugate, PCV13 00:00:00 [facility] (Prevnar 13) [facility] Polio (IPV/OPV) 2003 Completed [facility] 00:00:00 [facility] DTAP 2003 Completed [facility] 00:00:00 [facility] HIB 4 Dose Schedule 2003 Completed [facility] 00:00:00 [facility] Pneumococcal 13 2003 Completed [facility] Conjugate, PCV13 00:00:00 [facility] (Prevnar 13) [facility] Polio (IPV/OPV) 2003 Completed [facility] 00:00:00 [facility] DTAP 2003 Completed [facility] 00:00:00 [facility] HIB 4 Dose Schedule 2003 Completed [facility] 00:00:00 [facility] Pneumococcal 13 2003 Completed [facility] Conjugate, PCV13 00:00:00 [facility] (Prevnar 13) [facility] Polio (IPV/OPV) 2003 Completed [facility] 00:00:00 [facility] DTAP 2003 Completed [facility] 00:00:00 [facility] HIB 4 Dose Schedule 2003 Completed [facility] 00:00:00 [facility] Pneumococcal 13 2003 Completed [facility] Conjugate, PCV13 00:00:00 [facility] dical (Prevnar 13) Branch Polio (IPV/OPV) 2003 Completed [facility] 00:00:00 [facility] DTAP 2003 Completed [facility] 00:00:00 [facility] HIB 4 Dose Schedule 2003 Completed [facility] 00:00:00 [facility] Pneumococcal 13 2003 Completed [facility] Conjugate, PCV13 00:00:00 [facility] dical (Prevnar 13) Branch Polio (IPV/OPV) 2003 Completed [facility] 00:00:00 [facility] DTAP 2003 Completed [facility] 00:00:00 [facility] HIB 4 Dose Schedule 2003 Completed [facility] 00:00:00 [facility] Pneumococcal 13 2003 Completed [facility] Conjugate, PCV13 00:00:00 [place] [facility] (Prevnar 13) [facility] Polio (IPV/OPV) 2003 Completed [facility] 00:00:00 [facility] DTaP, Unspecified 2003 Completed [facility] Formulation 00:00:00 [facility] Pneumococcal 7 2003 Completed [facility] Conjugate, PCV7 00:00:00 [place] [facility] (Prevnar7) [facility] IPV 2003 Completed [facility] 00:00:00 [facility] DTAP 2003 Completed [facility] 00:00:00 [facility] HIB 4 Dose Schedule 2003 Completed [facility] 00:00:00 [facility] Pneumococcal 13 2003 Completed [facility] Conjugate, PCV13 00:00:00 [place] [facility] (Prevnar 13) [facility] Polio (IPV/OPV) 2003 Completed [facility] 00:00:00 [facility] DTaP, Unspecified 2003 Completed [facility] Formulation 00:00:00 [facility] Pneumococcal 7 2003 Completed [facility] Conjugate, PCV7 00:00:00 [place] [facility] (Prevnar7) [facility] IPV 2003 Completed [facility] 00:00:00 [facility] DTAP 2003 Completed [facility] 00:00:00 [facility] HIB 4 Dose Schedule 2003 Completed [facility] 00:00:00 [facility] Pneumococcal 13 2003 Completed [facility] Conjugate, PCV13 00:00:00 [facility] dical (Prevnar 13) Branch Polio (IPV/OPV) 2003 Completed [facility] 00:00:00 [facility] DTAP 2003 Completed [facility] 00:00:00 [facility] HIB 4 Dose Schedule 2003 Completed [facility] 00:00:00 [facility] Pneumococcal 13 2003 Completed [facility] Conjugate, PCV13 00:00:00 [place] [facility] (Prevnar 13) Branch Polio (IPV/OPV) 2003 Completed [facility] 00:00:00 [facility] DTAP 2003 Completed [facility] 00:00:00 [facility] HIB 4 Dose Schedule 2003 Completed [facility] 00:00:00 [facility] Pneumococcal 13 2003 Completed [facility] Conjugate, PCV13 00:00:00 [place] [facility] (Prevnar 13) [facility] Polio (IPV/OPV) 2003 Completed [facility] 00:00:00 [facility] DTAP 2003 Completed [facility] 00:00:00 [facility] HIB 4 Dose Schedule 2003 Completed Unive rsity of 00:00:00 [facility] Pneumococcal 13 2003 Completed Universit y of Conjugate, PCV13 00:00:00 [place] [facility] (Prevnar 13) Branch Polio (IPV/OPV) 2003 Completed [facility] 00:00:00 [facility] DTAP 2003 Completed [facility] 00:00:00 [facility] HIB 4 Dose Schedule 2003 Completed [facility]ive rsity of 00:00:00 [facility] Pneumococcal 13 2003 Completed [facility]it [facility] of Conjugate, PCV13 00:00:00 [place] [facility] (Prevnar 13) Branch Polio (IPV/OPV) 2003 Completed [facility] 00:00:00 [facility] DTAP 2003 Completed [facility] 00:00:00 [facility] HIB 4 Dose Schedule 2003 Completed [facility]ive rsity of 00:00:00 [facility] Pneumococcal 13 2003 Completed [facility]it [facility] of Conjugate, PCV13 00:00:00 [place] [facility] (Prevnar 13) Branch Polio (IPV/OPV) 2003 Completed [facility] 00:00:00 [facility] DTAP 2003 Completed [facility] 00:00:00 [facility] HIB 4 Dose Schedule 2003 Completed [facility]ive rsity of 00:00:00 [facility] Pneumococcal 13 2003 Completed [facility]it [facility] of Conjugate, PCV13 00:00:00 [place] [facility] (Prevnar 13) Branch Polio (IPV/OPV) 2003 Completed [facility] 00:00:00 [facility] DTAP 2003 Completed [facility] 00:00:00 [facility] HIB 4 Dose Schedule 2003 Completed [facility]ive rsity of 00:00:00 [facility] Pneumococcal 13 2003 Completed [facility]it [facility] of Conjugate, PCV13 00:00:00 [place] [facility] (Prevnar 13) Branch Polio (IPV/OPV) 2003 Completed [facility] 00:00:00 [facility] DTAP 2003 Completed [facility] 00:00:00 [facility] HIB 4 Dose Schedule 2003 Completed [facility]ive rsity of 00:00:00 [facility] Pneumococcal 13 2003 Completed [facility]it [facility] of Conjugate, PCV13 00:00:00 [place] [facility] (Prevnar 13) Branch Polio (IPV/OPV) 2003 Completed [facility] 00:00:00 [facility] DTAP 2003 Completed [facility] of 00:00:00 [facility] HIB 4 Dose Schedule 2003 Completed [facility]ive rsity of 00:00:00 [facility] Pneumococcal 13 2003 Completed [facility]it [facility] of Conjugate, PCV13 00:00:00 [place] [facility] (Prevnar 13) Branch Polio (IPV/OPV) 2003 Completed [facility] 00:00:00 [facility] DTAP 2003 Completed [facility] 00:00:00 [facility] HIB 4 Dose Schedule 2003 Completed [facility] rsity of 00:00:00 [facility] Pneumococcal 13 2003 Completed [facility]it [facility] of Conjugate, PCV13 00:00:00 [place] [facility] (Prevnar 13) Branch Polio (IPV/OPV) 2003 Completed [facility] 00:00:00 [facility] DTAP 2003 Completed [facility] 00:00:00 [facility] HIB 4 Dose Schedule 2003 Completed [facility]ive rsity of 00:00:00 [facility] Pneumococcal 13 2003 Completed [facility]it [facility] of Conjugate, PCV13 00:00:00 [place] [facility] (Prevnar 13) Branch Polio (IPV/OPV) 2003 Completed [facility] 00:00:00 [facility] DTAP 2003 Completed [facility] 00:00:00 [facility] HIB 4 Dose Schedule 2003 Completed [facility]ive rsity of 00:00:00 [facility] Pneumococcal 13 2003 Completed [facility]it [facility] of Conjugate, PCV13 00:00:00 [place] [facility] (Prevnar 13) Branch Polio (IPV/OPV) 2003 Completed [facility] 00:00:00 [facility] DTAP 2003 Completed [facility] 00:00:00 [facility] HIB 4 Dose Schedule 2003 Completed [facility]ity of 00:00:00 [facility] Pneumococcal 13 2003 Completed [facility]it [facility] of Conjugate, PCV13 00:00:00 [place] [facility] (Prevnar 13) Branch Polio (IPV/OPV) 2003 Completed [facility] 00:00:00 [facility] DTAP 2003 Completed [facility] of 00:00:00 [facility] HIB 4 Dose Schedule 2003 Completed [facility]ive rsity of 00:00:00 [facility] Pneumococcal 13 2003 Completed [facility]it [facility] of Conjugate, PCV13 00:00:00 [place] [facility] (Prevnar 13) Branch Polio (IPV/OPV) 2003 Completed [facility] 00:00:00 [facility] DTAP 2003 Completed [facility] 00:00:00 [facility] HIB 4 Dose Schedule 2003 Completed [facility]ive rsity of 00:00:00 [facility] Pneumococcal 13 2003 Completed [facility]it [facility] of Conjugate, PCV13 00:00:00 [facility] dical (Prevnar 13) Branch Polio (IPV/OPV) 2003 Completed [facility] 00:00:00 [facility] DTAP 2003 Completed [facility] of 00:00:00 [facility] HIB 4 Dose Schedule 2003 Completed Unive rsity of 00:00:00 [facility] Pneumococcal 13 2003 Completed [facility]it [facility] of Conjugate, PCV13 00:00:00 [facility] dical (Prevnar 13) Branch Polio (IPV/OPV) 2003 Completed [facility] 00:00:00 [facility] DTAP 2003 Completed [facility] 00:00:00 [facility] HIB 4 Dose Schedule 2003 Completed [facility]ive rsity of 00:00:00 [facility] Pneumococcal 13 2003 Completed [facility] of Conjugate, PCV13 00:00:00 [place] [facility] (Prevnar 13) Branch Polio (IPV/OPV) 2003 Completed [facility] 00:00:00 [facility] DTAP 2003 Completed [facility] of 00:00:00 [facility] HIB 4 Dose Schedule 2003 Completed [facility]ive rsity of 00:00:00 [facility] Pneumococcal 13 2003 Completed [facility] of Conjugate, PCV13 00:00:00 [place] [facility] (Prevnar 13) Branch Polio (IPV/OPV) 2003 Completed [facility] 00:00:00 [facility] DTAP 2003 Completed [facility] 00:00:00 [facility] HIB 4 Dose Schedule 2003 Completed [facility]ive rsity of 00:00:00 [facility] Pneumococcal 13 2003 Completed [facility]it [facility] of Conjugate, PCV13 00:00:00 [place] [facility] (Prevnar 13) Branch Polio (IPV/OPV) 2003 Completed [facility] 00:00:00 [facility] DTAP 2003 Completed [facility] 00:00:00 [facility] HIB 4 Dose Schedule 2003 Completed [facility]ive rsity of 00:00:00 [facility] Pneumococcal 13 2003 Completed [facility]it [facility] of Conjugate, PCV13 00:00:00 [facility] dical (Prevnar 13) Branch Polio (IPV/OPV) 2003 Completed [facility] 00:00:00 [facility] DTAP 2003 Completed [facility] 00:00:00 [facility] HIB 4 Dose Schedule 2003 Completed [facility]ive rsity of 00:00:00 [facility] Pneumococcal 13 2003 Completed [facility]it [facility] of Conjugate, PCV13 00:00:00 [facility] dical (Prevnar 13) Branch Polio (IPV/OPV) 2003 Completed [facility] 00:00:00 [facility] DTAP 2003 Completed [facility] 00:00:00 [facility] HIB 4 Dose Schedule 2003 Completed [facility]ive rsity of 00:00:00 [facility] Pneumococcal 13 2003 Completed [facility] of Conjugate, PCV13 00:00:00 [place] [facility] (Prevnar 13) Branch Polio (IPV/OPV) 2003 Completed [facility] 00:00:00 [facility] DTAP 2003 Completed [facility] 00:00:00 [facility] HIB 4 Dose Schedule 2003 Completed [facility]ive rsity of 00:00:00 [facility] Pneumococcal 13 2003 Completed [facility] of Conjugate, PCV13 00:00:00 [place] [facility] (Prevnar 13) Branch Polio (IPV/OPV) 2003 Completed [facility] 00:00:00 [facility] DTAP 2003 Completed [facility] of 00:00:00 [facility] HIB 4 Dose Schedule 2003 Completed [facility]ive rsity of 00:00:00 [facility] Pneumococcal 13 2003 Completed [facility]it [facility] of Conjugate, PCV13 00:00:00 [place] [facility] (Prevnar 13) Branch Polio (IPV/OPV) 2003 Completed [facility] 00:00:00 [facility] DTAP 2003 Completed [facility] 00:00:00 [facility] HIB 4 Dose Schedule 2003 Completed [facility]ive rsity of 00:00:00 [facility] Pneumococcal 13 2003 Completed [facility] of Conjugate, PCV13 00:00:00 [place] [facility] (Prevnar 13) Branch Polio (IPV/OPV) 2003 Completed [facility] 00:00:00 [facility] DTAP 2003 Completed [facility] 00:00:00 [facility] HIB 4 Dose Schedule 2003 Completed [facility]ive rsity of 00:00:00 [facility] Pneumococcal 13 2003 Completed [facility]it [facility] of Conjugate, PCV13 00:00:00 [facility] dical (Prevnar 13) Branch Polio (IPV/OPV) 2003 Completed [facility] 00:00:00 [facility] DTAP 2003 Completed [facility] 00:00:00 [facility] HIB 4 Dose Schedule 2003 Completed [facility]ive rsity of 00:00:00 [facility] Pneumococcal 13 2003 Completed [facility]it [facility] of Conjugate, PCV13 00:00:00 [place] [facility] (Prevnar 13) Branch Polio (IPV/OPV) 2003 Completed [facility] 00:00:00 [facility] DTAP 2003 Completed [facility] 00:00:00 [facility] HIB 4 Dose Schedule 2003 Completed [facility]ive rsity of 00:00:00 [facility] Pneumococcal 13 2003 Completed [facility]it [facility] of Conjugate, PCV13 00:00:00 [place] [facility] (Prevnar 13) Branch Polio (IPV/OPV) 2003 Completed [facility] 00:00:00 [facility] DTAP 2003 Completed [facility] 00:00:00 [facility] HIB 4 Dose Schedule 2003 Completed [facility]ive rsity of 00:00:00 [facility] Pneumococcal 13 2003 Completed [facility]it [facility] of Conjugate, PCV13 00:00:00 [place] [facility] (Prevnar 13) Branch Polio (IPV/OPV) 2003 Completed [facility] 00:00:00 [facility] DTAP 2003 Completed [facility] of 00:00:00 [facility] HIB 4 Dose Schedule 2003 Completed [facility]ive rsity of 00:00:00 [facility] Pneumococcal 13 2003 Completed [facility]it [facility] of Conjugate, PCV13 00:00:00 [facility] dical (Prevnar 13) Branch Polio (IPV/OPV) 2003 Completed [facility] 00:00:00 [facility] DTAP 2003 Completed [facility] 00:00:00 [facility] HIB 4 Dose Schedule 2003 Completed [facility]ive rsity of 00:00:00 [facility] Pneumococcal 13 2003 Completed [facility]it [facility] of Conjugate, PCV13 00:00:00 [facility] dical (Prevnar 13) Branch Polio (IPV/OPV) 2003 Completed [facility] of 00:00:00 [facility] DTAP 2003 Completed [facility] of 00:00:00 [facility] HIB 4 Dose Schedule 2003 Completed [facility]ive rsity of 00:00:00 [facility] Pneumococcal 13 2003 Completed [facility]it [facility] of Conjugate, PCV13 00:00:00 [facility] dical (Prevnar 13) Branch Polio (IPV/OPV) 2003 Completed [facility] 00:00:00 [facility] DTAP 2003 Completed [facility] of 00:00:00 [facility] HIB 4 Dose Schedule 2003 Completed [facility]ive rsity of 00:00:00 [facility] Pneumococcal 13 2003 Completed [facility]it [facility] of Conjugate, PCV13 00:00:00 [facility] dical (Prevnar 13) Branch Polio (IPV/OPV) 2003 Completed [facility] 00:00:00 [facility] DTaP, Unspecified 2003 Completed Univers ity of Formulation 00:00:00 [facility] Pneumococcal 7 2003 Completed University of Conjugate, PCV7 00:00:00 [place] [facility] (Prevnar7) Branch IPV 2003 Completed [facility] of 00:00:00 [facility] DTAP 2003 Completed [facility] of 00:00:00 [facility] HIB 4 Dose Schedule 2003 Completed Unive rsity of 00:00:00 [facility] Pneumococcal 13 2003 Completed [facility]it [facility] of Conjugate, PCV13 00:00:00 [facility] dical (Prevnar 13) Branch Polio (IPV/OPV) 2003 Completed [facility] 00:00:00 [facility] DTaP, Unspecified 2003 Completed Univers ity of Formulation 00:00:00 [facility] Pneumococcal 7 2003 Completed University of Conjugate, PCV7 00:00:00 [place] [facility] (Prevnar7) [facility] IPV 2003 Completed [facility] of 00:00:00 [facility] Hep B, Adol or Pedi 2003 Completed Unive rsity of Dosage 00:00:00 [facility] Hep B, Adol or Pedi 2003 Completed Unive rsity of Dosage 00:00:00 [facility] Hep B, Adol or Pedi 2003 Completed Unive rsity of Dosage 00:00:00 [facility] Hep B, Adol or Pedi 2003 Completed Unive rsity of Dosage 00:00:00 [facility] Hep B, Adol or Pedi 2003 Completed Unive rsity of Dosage 00:00:00 [facility] Hep B, Adol or Pedi 2003 Completed Unive rsity of Dosage 00:00:00 [facility] Hep B, Adol or Pedi 2003 Completed Unive rsity of Dosage 00:00:00 [facility] Hep B, Adol or Pedi 2003 Completed Unive rsity of Dosage 00:00:00 [facility] Hep B, Adol or Pedi 2003 Completed [...] 2003 Completed Unive rsity of Dosage 00:00:00 [facility] Hep B, Adol or Pedi 2003 Completed Unive rsity of Dosage 00:00:00 [facility] Vital Signs Vital Name Observation Time Observation Value Comments Source Systolic blood 2022-11-04 16:15:00 114 mm[Hg] Univer sity of pressure [facility] Diastolic blood 2022-11-04 16:15:00 67 mm[Hg] Unive rsity of pressure [facility] Heart rate 2022-11-04 16:15:00 95 /min [facility] Body temperature 2022-11-04 16:15:00 36.5 [place] [facility] 2022-11-04 16:15:00 20 /min [facility] height 2022-11-04 16:15:00 157.5 cm [facility] Body weight 2022-11-04 16:15:00 96.389 kg [facility] BMI 2022-11-04 16:15:00 38.87 kg/m2 [facility] Systolic blood 2022-07-23 16:07:00 136 mm[Hg] Univer [facility]ity of pressure [facility] Diastolic blood 2022-07-23 16:07:00 82 mm[Hg] Unive rsity of pressure [facility] Heart rate 2022-07-23 16:06:00 84 /min [facility] Body temperature 2022-07-23 16:06:00 36.44 [place] Univ ersity of [facility] Respiratory rate 2022-07-23 16:06:00 17 /min Univ ersity of [facility] Body height 2022-07-23 16:06:00 157.5 cm [facility] Body weight 2022-07-23 16:06:00 94.257 kg [facility] BMI 2022-07-23 16:06:00 38.01 kg/m2 [facility] Systolic blood 2022-07-18 14:35:00 130 mm[Hg] Univer sity of pressure [facility] Diastolic blood 2022-07-18 14:35:00 85 mm[Hg] Unive rsity of pressure [facility] Heart rate 2022-07-18 14:35:00 86 /min [facility] Body temperature 2022-07-18 14:35:00 35.94 [place] [facility] Respiratory rate 2022-07-18 14:35:00 17 /min Univ ersity of [facility] Oxygen saturation in 2022-07-18 14:35:00 95 /min University of Arterial blood by [facility] Pulse oximetry Branch Systolic blood 2022-07-16 13:00:00 137 mm[Hg] Univer sity of pressure [facility] Diastolic blood 2022-07-16 13:00:00 87 mm[Hg] Unive rsity of pressure [facility] Heart rate 2022-07-16 13:00:00 119 /min [facility] Oxygen saturation in 2022-07-16 13:00:00 100 /min University of Arterial blood by [facility] Pulse oximetry Branch Respiratory rate 2022-07-16 12:30:00 17 /min Univ ersity of [facility] Body temperature 2022-07-16 11:23:00 36.78 [place] [facility] Systolic blood 2022-07-15 15:20:00 124 mm[Hg] Univer sity of pressure [facility] Diastolic blood 2022-07-15 15:20:00 81 mm[Hg] Unive rsity of pressure [facility] Heart rate 2022-07-15 15:20:00 111 /min [facility] Body temperature 2022-07-15 15:20:00 36.56 [place] [facility] Respiratory rate 2022-07-15 15:20:00 18 /min Univ ersity of [facility] Body height 2022-07-15 15:20:00 157.5 cm [facility] Body weight 2022-07-15 15:20:00 103.012 kg [facility] BMI 2022-07-15 15:20:00 41.54 kg/m2 [facility] Systolic blood 2022-07-12 20:28:00 129 mm[Hg] Univer sity of pressure [facility] Diastolic blood 2022-07-12 20:28:00 85 mm[Hg] Unive rsity of pressure [facility] Heart rate 2022-07-12 20:28:00 98 /min [facility] Body temperature 2022-07-12 20:28:00 36.61 [place] Univ [facility] of [facility] Respiratory rate 2022-07-12 20:28:00 16 /min Univ ersity of [facility] Body weight 2022-07-12 20:28:00 104.101 kg [facility] BMI 2022-07-12 20:28:00 41.98 kg/m2 [facility] Systolic blood 2022-07-11 04:30:00 139 mm[Hg] Univer sity of pressure [facility] Diastolic blood 2022-07-11 04:30:00 81 mm[Hg] Unive rsity of pressure [facility] Heart rate 2022-07-11 04:30:00 109 /min [facility] Oxygen saturation in 2022-07-11 04:30:00 98 /min [facility] Arterial blood by [facility] Pulse oximetry Branch Respiratory rate 2022-07-11 03:00:00 18 /min Univ ersity of [facility] Body temperature 2022-07-11 01:15:00 36.67 [place] [facility] Body height 2022-07-11 01:13:00 157.5 cm [facility] Body weight 2022-07-11 01:13:00 104.146 kg [facility] BMI 2022-07-11 01:13:00 41.99 kg/m2 [facility] Systolic blood 2022-07-08 18:02:00 122 mm[Hg] Univer sity of pressure [facility] Diastolic blood 2022-07-08 18:02:00 70 mm[Hg] Unive rsity of pressure [facility] Heart rate 2022-07-08 18:02:00 88 /min [facility] of [facility] Body temperature 2022-07-08 18:02:00 36.56 [place] [facility] Respiratory rate 2022-07-08 18:02:00 18 /min Univ ersity of [facility] Body height 2022-07-08 18:02:00 157.5 cm [facility] Body weight 2022-07-08 18:02:00 103.647 kg [facility] BMI 2022-07-08 18:02:00 41.79 kg/m2 [facility] Systolic blood 2022-07-07 17:55:00 130 mm[Hg] Univer sity of pressure [facility] Diastolic blood 2022-07-07 17:55:00 72 mm[Hg] Unive rsity of pressure [facility] Heart rate 2022-07-07 17:55:00 100 /min [facility] Body temperature 2022-07-07 17:54:00 36.72 [place] [facility] Respiratory rate 2022-07-07 17:54:00 20 /min Univ ersity of [facility] Body height 2022-07-07 17:54:00 157.5 cm [facility] Body weight 2022-07-07 17:54:00 103.193 kg [facility] BMI 2022-07-07 17:54:00 41.61 kg/m2 [facility] Systolic blood 2022-07-06 15:54:00 131 mm[Hg] Univer sity of pressure [facility] Diastolic blood 2022-07-06 15:54:00 86 mm[Hg] Unive rsity of pressure [facility] Heart rate 2022-07-06 15:54:00 92 /min [facility] Body temperature 2022-07-06 15:54:00 36.61 [place] Univ [facility] Respiratory rate 2022-07-06 15:54:00 18 /min Univ ersity of [facility] Body height 2022-07-06 15:54:00 157.5 cm [facility] of [facility] Body weight 2022-07-06 15:54:00 104.129 kg Universi ty of [facility] BMI 2022-07-06 15:54:00 41.99 kg/m2 Universi ty of [facility] Systolic blood 2022-07-06 02:00:00 129 mm[Hg] Univer sity of pressure [facility] Diastolic blood 2022-07-06 02:00:00 75 mm[Hg] Unive rsity of pressure [facility] Heart rate 2022-07-06 02:00:00 103 /min Universi ty of [facility] Respiratory rate 2022-07-06 02:00:00 18 /min Univ ersity of [facility] Oxygen saturation in 2022-07-06 02:00:00 99 /min [place] [facility] Arterial blood by [facility] Pulse oximetry Branch Body temperature 2022-07-05 22:43:00 36.67 [place] Univ ers[facility] of [facility] Body height 2022-07-05 22:43:00 157.5 cm Universi ty of [facility] Body weight 2022-07-05 22:43:00 105.189 kg [facility] of [facility] BMI 2022-07-05 22:43:00 42.40 kg/m2 [facility] of [facility] Systolic blood 2022-07-01 18:33:00 118 mm[Hg] Univer sity of pressure [facility] Diastolic blood 2022-07-01 18:33:00 72 mm[Hg] Unive rsity of pressure [facility] Heart rate 2022-07-01 18:33:00 94 /min Universi [facility] of [facility] Body temperature 2022-07-01 18:33:00 36.28 [place] Univ ers[facility] of [facility] Respiratory rate 2022-07-01 18:33:00 18 /min Univ ersity of [facility] Body weight 2022-07-01 18:33:00 105.189 kg [facility] of [facility] BMI 2022-07-01 18:33:00 42.42 kg/m2 [facility] Systolic blood 2022-06-29 20:00:00 124 mm[Hg] Univer sity of pressure [facility] Diastolic blood 2022-06-29 20:00:00 69 mm[Hg] Unive rsity of pressure [facility] Heart rate 2022-06-29 20:00:00 103 /min [facility] Body temperature 2022-06-29 20:00:00 36.44 [place] [facility] Respiratory rate 2022-06-29 20:00:00 18 /min Univ ersity of [facility] Body height 2022-06-29 20:00:00 157.5 cm [facility] Body weight 2022-06-29 20:00:00 105.376 kg [facility] BMI 2022-06-29 20:00:00 42.49 kg/m2 [facility] Systolic blood 2022-06-24 15:50:00 114 mm[Hg] Univer sity of pressure [facility] Diastolic blood 2022-06-24 15:50:00 71 mm[Hg] Unive rsity of pressure [facility] Heart rate 2022-06-24 15:50:00 90 /min [facility] Body temperature 2022-06-24 15:50:00 36.39 [place] [facility] Respiratory rate 2022-06-24 15:50:00 18 /min Univ ersity of [facility] Body height 2022-06-24 15:50:00 157.5 cm [facility] Body weight 2022-06-24 15:50:00 103.647 kg [facility] BMI 2022-06-24 15:50:00 41.79 kg/m2 [facility] Systolic blood 2022-06-21 16:08:00 119 mm[Hg] Univer [facility]ity of pressure [facility] Diastolic blood 2022-06-21 16:08:00 71 mm[Hg] [facility] pressure [place] Medical Branch Heart rate 2022-06-21 16:08:00 108 /min [facility] [place] [facility] Body temperature 2022-06-21 16:08:00 36.5 Arlette [facility] [place] [facility] Respiratory rate 2022-06-21 16:08:00 16 /min [facility] Body height 2022-06-21 16:08:00 157.5 cm [facility] Body weight 2022-06-21 16:08:00 104.101 kg [facility] BMI 2022-06-21 16:08:00 41.98 kg/m2 [facility] Systolic blood 2022-06-17 15:42:00 127 mm[Hg] Univer sity of pressure [facility] Diastolic blood 2022-06-17 15:42:00 75 mm[Hg] Unive rsity of pressure [facility] Heart rate 2022-06-17 15:42:00 99 /min [facility] Body temperature 2022-06-17 15:42:00 36.5 Arlette [facility] Respiratory rate 2022-06-17 15:42:00 20 /min [facility] Body height 2022-06-17 15:42:00 157.5 cm [facility] Body weight 2022-06-17 15:42:00 102.513 kg [facility] BMI 2022-06-17 15:42:00 41.34 kg/m2 [facility] Body mass index 2022-06-17 15:42:00 98.75 % Unive rsity of (BMI) [Percentile] [place] [facility] Per age and sex Branch Systolic blood 2022-06-14 18:13:00 121 mm[Hg] Univer sity of pressure [facility] Diastolic blood 2022-06-14 18:13:00 66 mm[Hg] Unive rsity of pressure [facility] Heart rate 2022-06-14 18:13:00 92 /min [facility] Body temperature 2022-06-14 18:13:00 36.67 Arlette [facility] Respiratory rate 2022-06-14 18:13:00 18 /min [facility] Body height 2022-06-14 18:13:00 157.5 cm [facility] Body weight 2022-06-14 18:13:00 102.201 kg [facility] [place] [facility] BMI 2022-06-14 18:13:00 41.21 kg/m2 [facility] [place] [facility] Body mass index 2022-06-14 18:13:00 98.74 % Unive rsity of (BMI) [Percentile] [place] [facility] Per age and sex Branch Systolic blood 2022-06-10 15:13:00 118 mm[Hg] [facility]iver [facility]ity [facility] pressure [place] [facility] Diastolic blood 2022-06-10 15:13:00 69 mm[Hg] [facility]ive rsity of pressure [place] [facility] Heart rate 2022-06-10 15:13:00 107 /min [facility] [place] [facility] Body temperature 2022-06-10 15:13:00 36.78 Arlette [facility] [place] [facility] Respiratory rate 2022-06-10 15:13:00 18 /min [facility] [place] [facility] Body height 2022-06-10 15:13:00 157.5 cm [facility] [place] [facility] Body weight 2022-06-10 15:13:00 101.424 kg [facility] [place] [facility] BMI 2022-06-10 15:13:00 40.90 kg/m2 [facility] [place] [facility] Body mass index 2022-06-10 15:13:00 98.71 % Unive rsity of (BMI) [Percentile] [place] [facility] Per age and sex Branch Systolic blood 2022-06-07 14:59:00 125 mm[Hg] [facility]iver [facility]ity [facility] pressure [place] [facility] Diastolic blood 2022-06-07 14:59:00 66 mm[Hg] Unive rsity of pressure [place] [facility] Heart rate 2022-06-07 14:59:00 102 /min [facility] [place] [facility] Body temperature 2022-06-07 14:59:00 36.22 Arlette [facility] [place] [facility] Respiratory rate 2022-06-07 14:59:00 18 /min [facility] [place] [facility] Body weight 2022-06-07 14:59:00 102.74 kg [facility] [place] [facility] BMI 2022-06-07 14:59:00 41.43 kg/m2 [facility] [place] [facility] Body mass index 2022-06-07 14:59:00 98.77 % Unive rsity of (BMI) [Percentile] [place] [facility] Per age and sex Branch Systolic blood 2022-06-03 16:14:00 111 mm[Hg] [facility]ity [facility] [place] [facility] Diastolic blood 2022-06-03 16:14:00 66 mm[Hg] Unive rsity of pressure [place] [facility] Heart rate 2022-06-03 16:14:00 100 /min [facility] Body temperature 2022-06-03 16:14:00 36.56 Arlette [facility] [place] [facility] Respiratory rate 2022-06-03 16:14:00 18 /min [facility] [place] [facility] Body height 2022-06-03 16:14:00 157.5 cm [facility] [place] [facility] Body weight 2022-06-03 16:14:00 101.662 kg [facility] [place] [facility] BMI 2022-06-03 16:14:00 40.99 kg/m2 [facility] [place] [facility] [place] Body mass index 2022-06-03 16:14:00 98.72 % Unive rsity of (BMI) [Percentile] [place] [facility] Per age and sex Branch Systolic blood 2022-05-20 16:12:00 131 mm[Hg] [facility]iver [facility]ity [facility] pressure [place] [facility] Diastolic blood 2022-05-20 16:12:00 76 mm[Hg] Unive rsity of pressure [place] [facility] Heart rate 2022-05-20 16:12:00 113 /min [facility] [place] [facility] [place] Body temperature 2022-05-20 16:12:00 36.67 Arlette [facility] [place] [facility] Respiratory rate 2022-05-20 16:12:00 18 /min [facility] [place] [facility] Body height 2022-05-20 16:12:00 157.5 cm [facility] [place] [facility] Body weight 2022-05-20 16:12:00 100.358 kg [facility] [place] [facility] BMI 2022-05-20 16:12:00 40.47 kg/m2 [facility] [place] [facility] Body mass index 2022-05-20 16:12:00 98.67 % Unive rsity of (BMI) [Percentile] [place] [facility] Per age and sex Branch Systolic blood 2022-05-06 15:29:00 119 mm[Hg] Univer sity of pressure [facility] Diastolic blood 2022-05-06 15:29:00 65 mm[Hg] Unive rsity of pressure [facility] Heart rate 2022-05-06 15:29:00 89 /min [facility] Body temperature 2022-05-06 15:29:00 36.33 Arlette [facility] Respiratory rate 2022-05-06 15:29:00 16 /min [facility] Body height 2022-05-06 15:29:00 157.5 cm [facility] Body weight 2022-05-06 15:29:00 100.245 kg [facility] BMI 2022-05-06 15:29:00 40.42 kg/m2 [facility] Body mass index 2022-05-06 15:29:00 98.67 % Unive rsity of (BMI) [Percentile] [facility] Per age and sex Branch BP Diastolic 2021-06-10 00:00:00 107 mm[Hg] [facility] Height 2021-06-10 00:00:00 62 [in_i] [facility] BMI (Body Mass 2021-06-10 00:00:00 43.1 kg/m2 [facility] BP Systolic 2021-06-10 00:00:00 151 mm[Hg] [facility] Body Weight 2021-06-10 00:00:00 235.8 [lb_av] [facility] BP Diastolic 2021-05-27 00:00:00 100 mm[Hg] [facility] Height 2021-05-27 00:00:00 62 [in_i] [facility] BMI (Body Mass 2021-05-27 00:00:00 41.8 kg/m2 [facility] BP Systolic 2021-05-27 00:00:00 143 mm[Hg] [facility] Body Weight 2021-05-27 00:00:00 228.4 [lb_av] [facility] BP Diastolic 2021-04-29 00:00:00 91 mm[Hg] [facility] Height 2021-04-29 00:00:00 62 [in_i] [facility] BMI (Body Mass 2021-04-29 00:00:00 39.9 kg/m2 [facility] BP Systolic 2021-04-29 00:00:00 139 mm[Hg] [facility] Body Weight 2021-04-29 00:00:00 218.2 [lb_av] [facility] BP Diastolic 2021-04-01 00:00:00 81 mm[Hg] [facility] Height 2021-04-01 00:00:00 62 [in_i] [facility] BMI (Body Mass 2021-04-01 00:00:00 39.2 kg/m2 [facility] BP Systolic 2021-04-01 00:00:00 126 mm[Hg] [facility] Body Weight 2021-04-01 00:00:00 214.5 [lb_av] [facility] BP Diastolic 2021-03-04 00:00:00 83 mm[Hg] [facility] Height 2021-03-04 00:00:00 62 [in_i] [facility] BMI (Body Mass 2021-03-04 00:00:00 38.6 kg/m2 [facility] BP Systolic 2021-03-04 00:00:00 138 mm[Hg] [facility] Body Weight 2021-03-04 00:00:00 211.1 [lb_av] [facility] Height 2021-02-05 00:00:00 62 [in_i] [facility] BMI (Body Mass 2021-02-05 00:00:00 39.2 kg/m2 [facility] BP Systolic 2021-02-05 00:00:00 136 mm[Hg] [facility] Body Weight 2021-02-05 00:00:00 214.5 [lb_av] [facility] BP Diastolic 2021-02-05 00:00:00 83 mm[Hg] [facility] BP Diastolic 2021-01-15 00:00:00 78 mm[Hg] [facility] Height 2021-01-15 00:00:00 62 [in_i] [facility] BMI (Body Mass 2021-01-15 00:00:00 39.5 kg/m2 [facility] BP Systolic 2021-01-15 00:00:00 138 mm[Hg] [facility] Body Weight 2021-01-15 00:00:00 216.2 [lb_av] [facility] Procedures Procedure Date / Time Performing Clinician Source Performed DME/SUPPLY JUSTIFICATION 2022-10-19 06:01:00 Doctor Unassigned, [facility] [place] CBC WITH DIFF 2022-07-17 10:20:00 [facility] CBC WITH DIFF 2022-07-17 10:20:00 [facility] VENOUS CORD GAS 2022-07-16 13:55:00 Laura Terrell [facility] VENOUS CORD GAS 2022-07-16 13:55:00 Laura Terrell [facility] SECTION 2022-07-16 12:56:00 Pili [facility] SECTION 2022-07-16 12:56:00 Pili [facility] HB ABO GROUPING 2022-07-16 11:49:00 Laura Terrell [facility] RHO (D) IMMUNE GLOBULIN 2022-07-16 11:49:00 Karuna Valentin [facility] HB ABO GROUPING 2022-07-16 11:49:00 Laura Terrell [facility] RHO (D) IMMUNE GLOBULIN 2022-07-16 11:49:00 Karuna Valentin [facility] CBC WITH DIFF 2022-07-16 11:43:00 Laura Terrell [facility] HEPATITIS B SURFACE 2022-07-16 11:43:00 Laura Terrell [facility] HIV 1/2 AG-AB WITH REFLEX 2022-07-16 11:43:00 Laura Terrell Un [facility] GALV ONLY - SYPHILIS 2022-07-16 11:43:00 Luara Terrell [facility] IGG/IGM [facility] CBC WITH DIFF 2022-07-16 11:43:00 Laura Terrell [facility] HEPATITIS B SURFACE 2022-07-16 11:43:00 Laura Terrell [facility] ANTIGEN [facility] HIV 1/2 AG-AB WITH REFLEX 2022-07-16 11:43:00 Laura Terrell [facility] GALV ONLY - SYPHILIS 2022-07-16 11:43:00 Laura Terrell [facility] IGG/IGM [facility] NON-STRESS TEST 2022-07-15 18:14:01 [facility] POCT URINALYSIS 2022-07-15 00:00:00 Hua Valencia [facility] NON-STRESS TEST 2022-07-12 21:12:13 Haylie Ribera [facility] POCT URINALYSIS 2022-07-12 20:42:00 Hua Valencia [facility] POCT URINALYSIS 2022-07-12 00:00:00 Hua Valencia [facility] URINALYSIS 2022-07-11 02:44:00 Mary Cohen [facility] CONSENT/REFUSAL FOR 2022-07-10 05:01:00 Doctor Unassisaura [facility] DIAGNOSIS AND TREATMENT [place] [facility] CONSENT/REFUSAL FOR 2022-07-10 05:01:00 Doctor Unassisaura, [facility] 2022-07-08 18:47:41 Aram Duque [facility] POCT URINALYSIS 2022-07-08 18:04:00 Hua Valencia [facility] NON-STRESS TEST 2022-07-08 14:24:08 Haylie Ribera [facility] NON-STRESS TEST 2022-07-06 18:02:42 Hua Valencia [facility] POCT URINALYSIS 2022-07-06 15:57:00 Hua Valencia [facility] SGOT (ASPARTATE AMINO 2022-07-06 01:29:00 Merle [facility] Medical Branch CREATININE 2022-07-06 01:29:00 [facility] ALANINE AMINO 2022-07-06 01:29:00 [facility] TRANSFERASE(SGPT [facility] LACTATE DEHYDROGENASE 2022-07-06 01:29:00 [facility] URIC ACID 2022-07-06 01:29:00 [facility] CBC WITH DIFF 2022-07-06 01:29:00 [facility] PROTEIN CREAT RATIO URINE 2022-07-06 01:29:00 [facility] 2022-07-06 01:25:00 [facility] NON-STRESS TEST 2022-07-01 19:07:31 Wiley [facility] POCT URINALYSIS W/O 2022-07-01 18:39:00 Wiley [facility] SPECIFIC GRAVITY [facility] NON-STRESS TEST 2022-06-29 20:56:00 Haylie Ribera U [facility] POCT URINALYSIS 2022-06-29 20:01:00 Jose Delgadillo [facility] NON-STRESS TEST 2022-06-24 16:09:12 Aram Duque [facility] POCT URINALYSIS 2022-06-24 15:53:00 Jose Delgadillo [facility] NON-STRESS TEST 2022-06-21 18:46:25 Jose Delgadillo [facility] NON-STRESS TEST 2022-06-17 17:31:51 Hua Valencia [facility] POCT URINALYSIS 2022-06-17 00:00:00 Jose Delgadillo [facility] NON-STRESS TEST 2022-06-14 18:45:13 Brittny Glaser [facility] POCT URINALYSIS 2022-06-14 18:14:00 Jose Delgadillo [facility] NON-STRESS TEST 2022-06-10 16:02:45 Aram Duque [facility] POCT URINALYSIS 2022-06-10 15:32:00 Jose Delgadillo [facility] POCT URINALYSIS 2022-06-07 15:06:00 Jose Delgadillo [facility] POCT URINALYSIS 2022-06-03 16:17:00 Jose Delgadillo [facility] TDAP VACCINE, >11 YRS, IM 2022-05-20 16:34:37 Teresa Wiley [facility] POCT URINALYSIS 2022-05-20 16:15:00 Jose Delgadillo [facility] POCT URINALYSIS 2022-05-06 00:00:00 Jose Delgadillo [facility] [id number] 2021-07-14 00:00:00 [facility] ULTRASOUND REPEAT 2021-05-27 00:00:00 [facility] US, obstetric, limited 2021-05-13 00:00:00 [facility] US, obstetric, limited 2021-04-01 00:00:00 [facility] ULTRASOUND, 2021-03-04 00:00:00 [facility] REAL TIME WITH Group IMAGE DOC, AND MATERNAL EVAL PLUS DETAILED ANATOMIC EXAMINATION, TRANSABDOMINAL APPROACH; SINGLE OR FIRST GESTATION US, obstetric, limited 2021-03-04 00:00:00 [facility] US, obstetric, limited 2021-02-05 00:00:00 Stephanie Noriega Group ULTRASOUND, 2021-01-15 00:00:00 Alberto snyder Medical UTERUS REAL TIME WITH Group IMAGE DOCUMENTAITON, TRANSVAGINAL Plan of Care Planned Activity Planned Date Details Comments Source Diagnostic Test 2021-06-10 urinalysis, Kenneth Me dical Pending 00:00:00 dipstick [code = Group urinalysis, dipstick] Encounters Start End Encounter Admission Attending Care Care Encounter Source Date/Time Date/Time Type Type Clinicians Facility Department ID 2022-11-04 2022-11-04 Office Provider, Lauren Temp [facility] 1 .2.840.114 [id number] Univers 10:00:00 10:15:00 Visit Leeann Hernandez [facility].7.2.686 Dao as MATERNAL [phone] Med ical & CHILD [address] [place] [address] 2022-11-04 2022-11-04 Outpatient Isabella HERNANDEZ [facility] [id number] Univers 10:00:00 10:00:00 LEEANN ity [facility] 2022-10-19 2022-10-19 Orders Doctor DANILO 1.2.840.114 [id number] Univers 00:00:00 00:00:00 Only Unassigned, ERICK 350.1.13.10 ity of [place] [facility] 4.2.7.2.686 Dao as [phone] [address] 2022-09-21 2022-09-21 Outpatient Isabella HERNANDEZ [facility] [id number] Univers 13:00:00 13:00:00 LEEANN ryan [facility] 2022-07-23 2022-07-23 Nurse Visit, Lauren Nurse [facility] 1.2 .840.114 [id number] Univers 10:00:00 10:27:44 Visit Haylie Ribera [employer] 350.1.13. 10 ity [facility] 4.2.7.2.686 Dao as MATERNAL [phone] Med ical & CHILD [address] [place] [address] 2022-07-23 2022-07-23 Outpatient Isabella RIBERA [facility] [id number] Univers 10:00:00 10:00:00 HAYLIE ryan o f [facility] 2022-07-16 2022-07-18 Inpatient P PILI [facility] DEDRA [id number] Univers 06:05:00 13:17:00 MARLENA itsang of [facility] 2022-07-16 2022-07-18 Hospital Alma Garcia Oz DANILO 1.2.840. 114 [id number] Univers 06:05:00 13:17:00 Encounter Marlena Alejandre ERICK 350.1.13.10 ity [facility] 4.2.7.2.686 Dao as [phone] [facility] [address] [place] 2022-07-16 2022-07-16 Outpatient P [facility] [id number] Univers 15:30:00 15:30:00 ity of [facility] 2022-07-16 2022-07-16 Surgery DANILO Alejandre 1.2.840.114 [id number] Univers 07:00:00 08:45:00 Marlena Solorio ERICK 350.1.13.10 ity [facility] 4.2.7.2.686 Dao as [phone] [facility] [address] [place] 2022-07-15 2022-07-15 Outpatient R BERHANE [facility] [id number] Univers 09:45:00 11:12:42 ARAM ryan [facility] 2022-07-15 2022-07-15 Routine Risk, Qdv-Rizag-Hz/High [facility] 1. 2.840.114 [id number] Univers 10:00:00 11:12:32 Aram Duque [employer] 350.1.13.10 ity of Visit REGIONAL 4.2.7.2.686 Dao as MATERNAL [phone] Med ical & CHILD [address] [place] [address] 2022-07-12 2022-07-12 Routine Haylie Ribera [facility] 1.2.8 40.114 [id number] Univers 15:30:00 16:15:32 Jose Delgadillo [employer] 350.1.13.1 0 ity of Visit REGIONAL 4.2.7.2.686 Dao as MATERNAL [phone] Med ical & CHILD [address] [place] [address] 2022-07-12 2022-07-12 Outpatient R BACILIO, [facility] [id number] Univers 15:15:00 16:15:10 HAYLIE ity o f [facility] 2022-07-10 2022-07-10 Outpatient P CELENANEDABHAVIKCONCHITA VANCEWILLOW [facility] DEDRA [id number] Univers 20:03:00 23:56:00 MANINDER RAMIREZ ity [facility] 2022-07-10 2022-07-10 [facility] DANILO Ramirez 1.2.840.114 [id number] Univers 20:03:00 23:56:00 Encounter Maninder SUAREZ 350.1.13.10 ity [facility] 4.2.7.2.686 Dao as [phone] [address] 2022-07-08 2022-07-08 Outpatient R BERHANE [facility] [id number] Univers 13:15:00 13:45:36 ARAM ryan [facility] 2022-07-08 2022-07-08 Routine Risk, Wry-Ilbtm-Ee/High [facility] 1. 2.840.114 [id number] Univers 13:15:00 13:45:36 Aram Duque [employer] 350.1.13.10 ity of Visit REGIONAL 4.2.7.2.686 Dao as MATERNAL [id number] [facility] ical & CHILD [address] [place] [address] 2022-07-07 2022-07-07 Outpatient R AKINJAIME, [facility] [id number] Univers 12:45:00 13:43:30 HAYLIE ity o [facility] 2022-07-07 2022-07-07 Routine Bacilio, [facility] 1.2.412.694 [id number] Univers 12:45:00 13:43:30 Haylie C [employer] 350.1.13.10 ity of Visit REGIONAL 4.2.7.2.686 Dao as MATERNAL [id number] [facility] ical & CHILD [address] [place] [address] 2022-07-07 2022-07-07 Telephone Risk, [facility] 1.2.832.287 [id number] Univers 00:00:00 00:00:00 Ang-Rmchp-N [employer] 350.1.13.10 ity of p/High REGIONAL 4.2.7.2.686 Dao as MATERNAL [phone] [facility] [address] [place] [address] 2022-07-06 2022-07-06 Outpatient R HUA VALENCIA [facility] [id number] Univers 10:45:00 12:16:12 HUA VALENCIA itsang [facility] 2022-07-06 2022-07-06 Routine Provider, Ang-Rmchp Temp [facility] 1 .2.840.114 [id number] Univers 10:45:00 12:16:12 Hua Valencia [employer] 350.1.13.10 ity of Visit REGIONAL 4.2.7.2.686 Dao as MATERNAL [id number] [address] 2022-07-05 2022-07-05 Outpatient P KARYNA [facility] DEDRA [id number] Univers 17:01:00 21:52:00 DIMITRIS ity [facility] 2022-07-05 2022-07-05 [facility] DANILO [place] 1.2.840.114 [id number] Univers 17:01:00 21:52:00 Encounter [facility] 350.1.13.10 ity [facility] 4.2.7.2.686 Dao as [id number] [address] 2022-07-05 2022-07-05 [facility]phone [facility] 1.2.735.180 [id number] Univers 00:00:00 00:00:00 Jose R [employer] 350.1.13.10 ity of REGIONAL 4.2.7.2.686 Dao as MATERNAL [id number] [facility] & [address] 2022-07-01 2022-07-01 Routine Risk, Dyw-Ynmfp-Zj/High [facility] 1. 2.840.114 [id number] Univers 14:30:00 14:30:00 Teresa Wiley [employer] 350.1.13.10 ity of Visit REGIONAL 4.2.7.2.686 Dao as MATERNAL [id number] [facility] & CHILD [address] [place] [address] 2022-07-01 2022-07-01 Outpatient R SAURABH [facility] [id number] Univers 14:30:00 14:24:45 TERESA [facility] 2022-06-29 2022-06-29 [id number] Univers 15:30:00 15:54:15 JOSE ryan o f [facility] 2022-06-29 2022-06-29 Routine Akinsipe, Haylie C [facility] 1.2.8 40.114 [id number] Univers 15:30:00 15:54:15 Jose Delgadillo [employer] 350.1.13.1 0 ity of Visit REGIONAL 4.2.7.2.686 Dao as MATERNAL [id number] [facility] & [address] 2022-06-28 2022-06-28 Bobbin Trucker Ultrasound, Jamaloz [facility] 1.2 .840.114 [id number] Univers 10:00:00 10:30:00 Visit Escobar Chisholm [employer] HAND[employer] 350.1. 13.10 ity of REGIONAL 4.2.7.2.686 Dao as MATERNAL [phone] [facility] & CHILD [address] [facility] 2022-06-28 2022-06-28 Outpatient P KATHRINE [facility] [id number] Univers 10:00:00 10:00:00 ESCOBAR [facility] 2022-06-24 2022-06-24 Outpatient R BERHANE [facility] [id number] Univers 10:30:00 11:22:48 ARAM [facility] 2022-06-24 2022-06-24 Routine Risk, Iuk-Uclnq-Ml/High [facility] 1. 2.840.114 [id number] Univers 10:30:00 11:22:48 Aram Duque [employer] 350.1.13.10 ity of Visit REGIONAL 4.2.7.2.686 Dao as MATERNAL [id number] [facility] [address] [place] [address] 2022-06-21 2022-06-21 Outpatient R ELIE [facility] [id number] Univers 11:00:00 11:43:04 JOSE ity o f [facility] 2022-06-21 2022-06-21 Routine Elie [facility] 1.2.840.114 [id number] Univers 11:00:00 11:43:04 Deandrawilfridoanna R [employer] 350.1.13.10 ity of Visit REGIONAL 4.2.7.2.686 Dao as MATERNAL [id number] [facility] & CHILD [address] [place] [address] 2022-06-17 2022-06-17 Outpatient HUA BELTRAN [facility] [id number] Univers 10:45:00 11:21:51 HUA VALENCIA [facility] 2022-06-17 2022-06-17 Routine Provider, Lauren [facility] 1 .2.840.114 [id number] Univers 10:45:00 11:21:51 Hua Valencia [employer] 350.1.13.10 ity of Visit REGIONAL 4.2.7.2.686 Dao as MATERNAL [id number] [facility] & CHILD [address] [place] [address] 2022-06-14 2022-06-14 Outpatient BRITTNY CARTER [facility] [id number] Univers 13:00:00 13:54:17 BRITTNY GLASER [facility] 2022-06-14 2022-06-14 Routine Provider, Lauren [facility] 1 .2.840.114 [id number] Univers 13:00:00 13:54:17 Brittny Glaser [employer] 350.1.13.10 ity of Visit REGIONAL 4.2.7.2.686 Dao as MATERNAL [id number] [facility] & CHILD [address] [place] [address] 2022-06-10 2022-06-10 Outpatient Isabella DUQUE [facility] [id number] Univers 10:30:00 11:02:38 ARAM ryan [facility] 2022-06-10 2022-06-10 Routine Risk, Vah-Dczve-Cq/High [facility] 1. 2.840.114 [id number] Univers 10:30:00 11:02:38 Aram Duque [employer] 350.1.13.10 ity of Visit REGIONAL 4.2.7.2.686 Dao as MATERNAL [phone] [facility] [address] [place] [address] 2022-06-09 2022-06-09 Outpatient P [facility] [id number] Univers 13:00:00 13:00:00 [facility] 2022-06-07 2022-06-07 Routine Elie [facility] 1.2.840.114 [id number] Univers 10:15:00 10:28:34 Jose Mason WO[employer] BLANK HAND[employer] 350.1.13.10 ity of Visit REGIONAL 4.2.7.2.686 Dao as MATERNAL [phone] [facility] & [address] 2022-06-07 2022-06-07 Outpatient R ELIE [facility] [id number] Univers 10:00:00 10:28:25 JOSE ryan o f [facility] 2022-06-03 2022-06-03 Outpatient R BERHANE [facility] [id number] Univers 11:00:00 11:46:33 ARAM [facility] 2022-06-03 2022-06-03 Routine Risk, Qsv-Qfxcz-Fh/High [facility] 1. 2.840.114 [id number] Univers 11:00:00 11:46:33 Aram Duque [employer] 350.1.13.10 ity of Visit REGIONAL 4.2.7.2.686 Dao as MATERNAL [phone] [facility] & [address] 2022-05-31 2022-05-31 Bobbin Trucker Ultrasound, [facility] 1.2 .840.114 [id number] Univers 10:00:00 10:30:00 Visit Dimitris Troncoso [employer] HAND[employer] 350.1.13.10 ity of REGIONAL 4.2.7.2.686 Dao as MATERNAL [phone] [facility] ical & CHILD [address] [facility] 2022-05-31 2022-05-31 Outpatient P KARYNA [facility] [id number] Univers 10:00:00 10:28:40 DIMITRIS [facility] 2022-05-31 2022-05-31 [facility] 1.2.840.114 [id number] Univers 00:00:00 00:00:00 Rosandrewa R [employer] HAND[employer] 350.1.13.10 ity of REGIONAL 4.2.7.2.686 Dao as MATERNAL [phone] [facility] [address] [place] [address] 2022-05-20 2022-05-20 [facility] [id number] Univers 11:00:00 11:53:54 ARAM [facility] 2022-05-20 2022-05-20 Routine Risk, Ejv-Okjfm-Cc/High [facility] 1. 2.840.114 [id number] Univers 11:00:00 11:53:54 Aram Duque [employer] 350.1.13.10 ity of Visit REGIONAL 4.2.7.2.686 Dao as MATERNAL [phone] [facility] & CHILD [address] [place] [address] 2022-05-06 2022-05-06 Outpatient Isabella WILEY [facility] [id number] Univers 10:00:00 11:07:12 TERESA [facility] 2022-05-06 2022-05-06 Routine Risk, Xto-Mkhzn-Mc/High [facility] 1. 2.840.114 [id number] Univers 10:00:00 11:07:12 Teresa Wiley WO[employer] BLANK HAND[employer] 350.1.13.10 ity of Visit REGIONAL 4.2.7.2.686 Dao as MATERNAL [phone] [facility] ical & CHILD [address] [place] [address] 2022-05-04 2022-05-04 Abstract [facility] 1.2.840.114 [id number] Univers 00:00:00 00:00:00 Roswilfridonda R [employer] 350.1.13.10 ity of REGIONAL 4.2.7.2.686 Dao as MATERNAL [phone] [facility] [address] [place] [address] 2022-05-03 2022-05-03 Outpatient P KARYNA [facility] [id number] Univers 09:45:00 09:56:23 DIMITRIS ity of [facility] 2022-05-03 2022-05-03 Outpatient P KARYNA [facility] [id number] Univers 09:45:00 09:56:23 DIMITRIS ity [facility] 2022-05-03 2022-05-03 Bobbin Trucker Ultrasound, [facility] 1.2 .840.114 [id number] Univers 09:45:00 09:56:23 Visit Karyna Dimitris [employer] BL[employer] 350.1.13.10 ity of REGIONAL 4.2.7.2.686 Dao as MATERNAL [phone] [facility] ical & CHILD [address] [place] [address] 2022-04-29 2022-04-29 Outpatient R ELIE [facility] [id number] Univers 08:00:00 09:00:30 CULLENNDFilipe ity o f [facility] 2022-04-29 2022-04-29 Bobbin Trucker Lab, JamalRmchp [facility] 1.2.840. 114 [id number] Univers 08:00:00 09:00:30 Visit Jose Delgadillo [employer] BLANK HANDLER 350.1.13.10 ity of REGIONAL 4.2.7.2.686 Dao as MATERNAL [id number] [facility] [address] [place] [address] 2022-04-28 2022-04-28 Telephone Elie [facility] 1.2.306.211 [id number] Univers 00:00:00 00:00:00 Johna R [employer] BLANK HAND[employer]ER 350.1.13.10 ity of REGIONAL 4.2.7.2.686 Dao as MATERNAL [id number] [facility] ical & CHILD [address] [place] [address] 2022-04-26 2022-04-26 Telephone Adolph Alexis [facility] 1.2.840.114 [id number] Univers 00:00:00 00:00:00 KISSEE MILLS 350.1.13.10 i ty of [place].2.[place] [phone] Me dical NAL [address] [facility] 2022-04-23 2022-04-23 Outpatient R ELIE [facility] [id number] Univers 08:00:00 08:04:09 JOSE ity o f [facility] 2022-04-23 2022-04-23 Bobbin Trucker Lab, Ang-Rmchp [facility] 1.2.840. 114 [id number] Univers 08:00:00 08:04:09 Visit Jose Delgadillo WO[employer] BLANK HANDLER 350.1.13.10 ity of [facility] 4.2.7.2.686 Dao as MATERNAL [phone] Med ical & CHILD [address] [place] [address] 2022-04-22 2022-04-22 Outpatient Isabella DUQUE [facility] [id number] Univers 10:00:00 10:45:22 ARAM [facility] 2022-04-22 2022-04-22 Routine Risk, Iyd-Nnvqk-Kq/High [facility] 1. 2.840.114 [id number] Univers 10:00:00 10:45:22 Aram Duque WO[employer] ST[employer] BLANK HAND[employer]ER 350.1.13.10 ity of Visit [facility] 4.2.7.2.686 Dao as MATERNAL [phone] [facility] & CHILD [address] [place] [address] 2022-04-22 2022-04-22 Orders Doctor DANILO 1.2.840.114 [id number] Univers 00:00:00 00:00:00 Only Unassigned, ERICK 350.1.13.10 ity of [place] [facility] 4.2.7.2.686 Dao as [phone] [address] 2022-04-08 2022-04-08 Outpatient Isabella DUQUE [facility] [id number] Univers 10:00:00 11:28:16 ARAM [facility] 2022-04-08 2022-04-08 Routine Risk, Bdj-Qvdcf-Ew/High [facility] 1. 2.840.114 [id number] Univers 10:00:00 11:28:16 Aram Duque [employer] 350.1.13.10 ity of Visit REGIONAL 4.2.7.2.686 Dao as MATERNAL [id number] [facility] ical & CHILD [address] [place] [address] 2022-03-31 2022-03-31 Bobbin Trucker Ultrasound, Jamaloz [facility] 1.2 .840.114 [id number] Univers 09:15:00 09:45:00 Visit Kenny Richmond WO[employer] STOCK BLANK HANDLER 350.1.13.10 ity of REGIONAL 4.2.7.2.686 Dao as MATERNAL [id number] [facility] ical & CHILD [address] [facility] 2022-03-31 2022-03-31 Outpatient P KENNY RICHMOND [facility] [id number] Univers 09:15:00 09:38:12 KENNY RICHMOND [facility] 2022-03-31 2022-03-31 Outpatient P KENNY RICHMOND [facility] [id number] Univers 09:15:00 09:38:[address] [facility] 2022-03-25 2022-03-25 Outpatient R BERHANE [facility] [id number] Univers 10:00:00 10:38:26 ARAM [facility] 2022-03-25 2022-03-25 Routine Risk, Zcu-Qbjqy-Zd/High [facility] 1. 2.840.114 [id number] Univers 10:00:00 10:38:26 Aram Duque WO[employer] BLANK HANDLER 350.1.13.10 ity of Visit REGIONAL 4.2.7.2.686 Dao as MATERNAL [phone] [facility] [address] [place] [address] 2022-03-25 2022-03-25 Orders Doctor CARRASCO 1.2.840.[id number] [place] [address] 00:00:00 00:00:00 Only Unassigned, ERICK 350.1.13.10 ity of [place] [facility] 4.2.7.2.686 Dao as [phone] [address] 2022-03-11 2022-03-11 Outpatient R BERHANE [facility] [id number] Univers 10:00:00 10:10:01 ARAM ryan [facility] 2022-03-11 2022-03-11 Routine Risk, Jqp-Zgbak-Fr/High [facility] 1. 2.840.114 [id number] Univers 10:00:00 10:10:01 Aram Duque WO[employer] BLANK HANDLER 350.1.13.10 ity of Visit REGIONAL 4.2.7.2.686 Dao as MATERNAL [id number] [facility] ical & CHILD [address] [place] [address] 2022-03-10 2022-03-10 Refill Elie [facility] 1.2.605.373 [id number] Univers 00:00:00 00:00:00 Jose SAWANT 350.1.13.10 it[place] [facility] [phone] [facility] [address] 2022-03-04 2022-03-04 Abstract Elie [facility] 1.2.840.114 [id number] Univers 00:00:00 00:00:00 Jose Mason WO[employer] STOCK BLANK HANDLER 350.1.13.10 ity of REGIONAL 4.2.7.2.686 Dao as MATERNAL [id number] [facility] & CHILD [address] [place] [address] 2022-03-03 2022-03-03 Bobbin Trucker Ultrasound, Jamaloz [facility] 1.2 .840.114 [id number] Univers 13:00:00 14:15:00 Visit Fer Ngo WO[employer] STOCK BLANK HANDLER 350.1. 13.10 ity of REGIONAL 4.2.7.2.686 Dao as MATERNAL [id number] [facility] ical & CHILD [address] [facility] 2022-03-03 2022-03-03 Outpatient P SINA [facility] [id number] Univers 13:00:00 13:00:00 FLORENCIA it y of S, [place] [facility] 2022-02-25 2022-02-25 Outpatient R BERHANE [facility] [id number] Univers 10:30:00 11:26:14 ARAM ryan of [facility] 2022-02-25 2022-02-25 Routine Risk, Mjq-Hlzdt-Gh/High [facility] 1. 2.840.114 [id number] Univers 10:30:00 11:26:14 Aram Duque WO[employer] ST[employer] BLANK HANDLER 350.1.13.10 ity of Visit [facility] 4.2.7.2.686 Dao as MATERNAL [phone] [facility] & [address] 2022-02-17 2022-02-17 Outpatient Isabella [facility] [id number] Univers 12:45:00 13:15:45 ROSHUNDA ity o [facility] 2022-02-17 2022-02-17 Outpatient Isabella [facility] [id number] Univers 12:45:00 13:15:45 ROSHUNDA ity o [facility] 2022-02-17 2022-02-17 Routine [facility] 1.2.840.114 [id number] Univers 12:45:00 13:15:45 Roswilfridonda R WO[employer] ST[employer] BLANK HANDLER 350.1.13.10 ity of Visit [facility] 4.2.7.2.686 Dao as MATERNAL [id number] [address] 2022-02-17 2022-02-17 Outpatient Isabella DELGADILLO [facility] [id number] Univers 12:45:00 13:15:45 ROSHUNDA ity o [facility] 2022-02-17 2022-02-17 Outpatient Isabella DELGADILLO [facility] [id number] Univers 12:45:00 12:45:00 ROSHUNDA ity o [facility] 2022-02-17 2022-02-17 Orders Doctor CARRASCO 1.2.840.114 [id number] Univers 00:00:00 00:00:00 Only Unassigned, ERICK 350.1.13.10 ity of [place] [facility] 4.2.7.2.686 Dao as [phone] [address] 2022-02-04 2022-02-04 Outpatient [facility] [id number] Univers 13:30:00 13:46:54 TERESA ity [facility] 2022-02-04 2022-02-04 Routine Risk, Jyg-Dgydy-Nw/High [facility] 1. 2.840.114 [id number] Univers 13:30:00 13:46:54 Teresa Wiley WO[employer] STOCK BLANK HANDLER 350.1.13.10 ity of Visit REGIONAL 4.2.7.2.686 Dao as MATERNAL [id number] [facility] & CHILD [address] [place] [address] 2022-02-04 2022-02-04 Outpatient R [facility] [id number] Univers 10:00:00 10:00:00 ity of [facility] 2022-01-29 2022-01-29 Telephone Elie [facility] 1.2.175.857 [id number] Univers 00:00:00 00:00:00 Jose Mason WOOD STOCK BLANK HANDLER 350.1.13.10 ity of REGIONAL 4.2.7.2.686 Dao as MATERNAL [id number] [facility] CHILD [address] [place] [address] 2022-01-20 2022-01-20 Outpatient R ELIE [facility] [id number] Univers 13:00:00 13:31:59 JOSE ity o f [facility] 2022-01-20 2022-01-20 Routine Elie [facility] 1.2.840.114 [id number] Univers 13:00:00 13:31:59 Jose R WO[employer] STOCK BLANK HANDLER 350.1.13.10 ity of Visit REGIONAL 4.2.7.2.686 Dao as MATERNAL [id number] [facility] & [address] 2022-01-14 2022-01-14 Orders Doctor DANILO 1.2.840.114 [id number] Univers 00:00:00 00:00:00 Only Unassigned, ERICK 350.1.13.10 ity of [place] [facility] 4.2.7.2.686 Dao as [phone] [address] 2022-01-12 2022-01-12 Refill Elie [facility] 1.2.840.114 [id number] Univers 00:00:00 00:00:00 Roshunda R WOOD STOCK BLANK HANDLER 350.1.13.10 ity of REGIONAL 4.2.7.2.686 Dao as MATERNAL [id number] [facility] ical & CHILD [address] [place] [address] 2022-01-12 2022-01-12 Refill Elie [facility] 1.2.840.114 [id number] Univers 00:00:00 00:00:00 Roshunda R WOOD STOCK BLANK HANDLER 350.1.13.10 ity of REGIONAL 4.2.7.2.686 Dao as MATERNAL [id number] [facility] ical & CHILD [address] [place] [address] 2022-01-11 2022-01-11 Abstract [facility] 1.2.840.114 [id number] Univers 00:00:00 00:00:00 Roshunda R WOOD STOCK BLANK HANDLER 350.1.13.10 ity of REGIONAL 4.2.7.2.686 Dao as MATERNAL [id number] [facility] & CHILD [address] [place] [address] 2022-01-06 2022-01-06 Routine [facility] 1.2.840.114 [id number] Univers 12:45:00 13:00:00 Roshunda R WOOD STOCK BLANK HANDLER 350.1.13.10 ity of Visit REGIONAL 4.2.7.2.686 Dao as MATERNAL [id number] [facility] & CHILD [address] [place] [address] 2022-01-06 2022-01-06 Outpatient R ELIE [facility] [id number] Univers 12:45:00 12:45:00 ROSHUNDA ity o f [facility] 2022-01-06 2022-01-06 Bobbin Trucker Ultrasound, [facility] 1.2 .840.114 [id number] Univers 10:30:00 10:36:13 Visit Billy Flower WOOD STOCK BLANK HANDLER 350.1.13.1 0 ity of REGIONAL 4.2.7.2.686 Dao as MATERNAL [phone] [facility] ical & CHILD [address] [facility] 2022-01-06 2022-01-06 Outpatient P JUAN [facility] [id number] Univers 10:30:00 10:36:13 BILLY ryan of [facility] 2022-01-06 2022-01-06 Outpatient P [facility] [id number] Univers 10:30:00 10:30:00 ity of [facility] 2022-01-06 2022-01-06 Orders Doctor DANILO 1.2.840.114 [id number] Univers 00:00:00 00:00:00 Only Unassigned, ERICK 350.1.13.10 ity of [place] [facility] 4.2.7.2.686 Dao as [phone] [facility] [address] 2021-12-23 2021-12-23 [facility] [id number] Univers 13:00:00 13:57:30 DEANDRANIKKIA myrtley o f [facility] 2021-12-23 2021-12-23 Routine [facility] 1.2.840.114 [id number] Univers 13:00:00 13:57:30 Jose Mason WOOD STOCK BLANK HANDLER 350.1.13.10 ity of Visit [facility] 4.2.7.2.686 Dao as MATERNAL [id number] Med ical & CHILD [address] [place] [address] 2021-12-23 2021-12-23 Outpatient R ELIE [facility] [id number] Univers 13:00:00 13:00:00 CULLENNIKKIFilipe myrtley o f [facility] 2021-12-18 2021-12-18 [facility] 1.2.840.114 [id number] Univers 00:00:00 00:00:00 , Linda SAWANT 350.1.13.10 it y of [place] [id number] [facility] [address] 2021-12-07 2021-12-07 Office Faculty, Juan Carlos Roman [facility] 1.2 .840.114 [id number] Univers 11:30:00 11:59:16 Visit Margy Hobson WOOD STOCK BLANK HANDLER 350.1.13.10 ity of REGIONAL 4.2.7.2.686 Dao as MATERNAL [id number] [facility] ical & CHILD [address] [place] [address] 2021-12-07 2021-12-07 Outpatient R SHAR [facility] [id number] Univers 11:30:00 11:59:16 [facility] 2021-12-07 2021-12-07 Outpatient R SHAR [facility] [id number] Univers 11:30:00 11:59:16 PIMENTEL sang [facility] 2021-12-07 2021-12-07 Outpatient R SHAR [facility] [id number] Univers 11:30:00 11:30:00 [facility] 2021-11-27 2021-11-27 Outpatient R ELIE [facility] [id number] Univers 08:30:00 09:11:45 JOSE ryan o f [facility] 2021-11-27 2021-11-27 Bobbin Trucker Lab, [facility] 1.2.840. 114 [id number] Univers 08:30:00 09:11:45 Visit Jose Delgadillo WO[employer] STOCK BLANK HANDLER 350.1.13.10 ity of REGIONAL 4.2.7.2.686 Dao as MATERNAL [id number] Med ical & CHILD [address] [place] [address] 2021-11-27 2021-11-27 Telephone [facility] 1.2.840.114 [id number] Univers 00:00:00 00:00:00 Haylie Méndez WOOD STOCK BLANK HANDLER 350.1.13.10 ity of REGIONAL 4.2.7.2.686 Dao as MATERNAL [id number] Med ical & CHILD [address] [place] [address] 2021-11-25 2021-11-25 Outpatient Isabella [facility] [id number] Univers 09:00:00 10:42:16 CULLENNDA itsang o f [facility] 2021-11-25 2021-11-25 Initial [facility] 1.2.840.114 [id number] Univers 09:00:00 10:42:16 Johna R WOOD STOCK BLANK HANDLER 350.1.13.10 ity of Visit REGIONAL 4.2.7.2.686 Dao as MATERNAL [id number] Med ical & CHILD [address] [place] [address] 2021-11-25 2021-11-25 Orders Doctor DANILO 1.2.840.114 [id number] Univers 00:00:00 00:00:00 Only Unassigned, ERICK 350.1.13.10 ity of [place] [facility] 4.2.7.2.686 Dao as [id number] [facility] [address] 2021-11-25 2021-11-25 Letter Doctor DANILO 1.2.840.114 [id number] Univers 00:00:00 00:00:00 (Out) Unassigned, ERICK 350.1.13.10 ity of [place] [facility] 4.2.7.2.686 Dao as [phone] [facility] [address] 2021-09-25 2021-09-25 Telephone Adolph Alexis [facility] 1.2.840.114 [id number] Univers 00:00:00 00:00:00 JESE 350.1.13.10 it y of PEDIATRIC [facility].2.7.2.686 [facility] [id number] [facility] [address] 2021-09-24 2021-09-24 [facility] 1.2.840.114 [id number] Univers 00:00:00 00:00:00 , Linda SAWANT 350.1.13.10 it y of PEDIATRIC [place].2.[place] [facility] [id number] [facility] [address] 2021-06-11 2021-07-18 Inpatient EM Tyler, [facility] OB [id number] [facility] 01:42:00 13:23:[address] [facility] 2021-07-15 2021-07-15 Refill [facility] 1.2.840.114 [id number] Univers 00:00:00 00:00:00 , Linda SAWANT 350.1.13.10 it y of PEDIATRIC [place].2.[place] [facility] [id number] [facility] [address] 2021-06-10 2021-06-10 Inessa Lott [facility] [place] - [address] [place] 00:00:00 00:00:00 Ron Sanchez [address] [place], Medical Medica ben ROBINS: [address] [place], [place] [address]N [address], [place] [address] , Ph. [phone] 2021-05-27 2021-05-27 Beat[place] - [address] 1 [place] 00:00:00 00:00:00 Discovery Christy 0915 lillian [facility]: [address], [place] [address] , Ph. [phone] 2021-04-29 2021-04-29 [place] - [address] [place] 00:00:00 00:00:00 Discovery Christy 0818 lillian [facility]: [address], [place] [address] , Ph. [phone] 2021-04-21 2021-04-21 Refill [facility] 1.2.847.319 [id number] Univers 00:00:00 00:00:00 Jese Atkinson 350.1.13.10 ity of [facility] [place].7.2.[place] [facility] [id number] [facility] [address] 2021-04-06 2021-04-06 Telephone [facility] 1.2.840.114 [id number] Univers 00:00:00 00:00:00 Jese Atkinson 350.1.13.10 ity of [facility] 4.2.7.2.[place] [facility] [id number] [facility] [address] 2021-04-03 2021-04-03 Orders Doctor DANILO 1.2.840.114 [id number] Univers 00:00:00 00:00:00 Only Unassigned, ERICK 350.1.13.10 ity of [facility] 4.2.7.2.686 Dao as [id number] [facility] [address] 2021-04-01 2021-04-01 [place] - [address] 1 [place] 00:00:00 00:00:00 Ron Sanchez 0721 lillian [facility] MD: [address] [place] [address] , Ph. [phone] 2021-03-04 2021-03-04 Inessa G_[place] - [address] 1 [place] 00:00:00 00:00:00 Ron Sanchez 0623 lillian [facility] Medicfilipe contreras MD: [address] [place] [address] , Ph. [phone] 2021-02-05 2021-02-05 Tony [place] - [address] 1 [place] 00:00:00 00:00:00 Discovery Sunny 0527 lillian MD: [address] [place], [place] [address] , Ph. [phone] 2021-01-27 2021-01-27 Refill [facility] 1.2.840.114 [id number] Univers 00:00:00 00:00:00 , Linda Sawant 350.1.13.10 it y of Pediatric 4.2.7.2.686 [facility] [id number] [address] 2021-01-22 2021-01-22 Outpatient VIMAL FORDE [facility] [id number] Univers 11:00:00 11:00:00 ity of [facility] 2021-01-19 2021-01-19 Outpatient [facility] [id number] [place] 12:09:00 12:09:00 0510 lillian [facility] 2021-01-15 2021-01-15 Beatriz G_Pappas MM [place] - [id number] [place] 00:00:00 00:00:00 Discovery Christy 0506 lillian ROD POINTER-BC: [address] [id number] , Ph. [phone] 2021-01-14 2021-01-14 Refill Shyann [facility] [id number] Univers 00:00:00 00:00:00 , Linda Sawant [id number] it y of Pediatric 4.2.7.2.686 [facility] [id number] [facility] [address] [place] 2021-01-08 2021-01-08 Outpatient G_Pappas MMG MMG [id number] [place] 11:48:00 11:48:00 0429 [facility] 2021-01-02 2021-01-02 Outpatient G_Pappas MMG MMG [id number] [place] 12:37:00 12:37:00 0423 [facility] 2021-01-02 2021-01-02 Orders Doctor DANILO [id number] Univers 00:00:00 00:00:00 Only Unassigned, ERICK [id number] ity of [facility] 4.2.7.2.686 Dao as [id number] [place] [address] [address] 2021-01-01 2021-01-01 Outpatient R VIMAL JAIME [facility] [id number] Univers 10:00:00 10:00:00 ity of [facility] 2020-12-22 2020-12-22 Outpatient R VIMAL JAIME [facility] [id number] Univers 14:30:00 14:30:00 ity of [facility] 2020-12-16 2020-12-16 Office [facility] [id number] Univers 15:33:46 15:54:19 Visit Jese Atkinson [id number] ity [facility] 4.2.7.2.686 [facility] [id number] [address] 2020-12-16 2020-12-16 Outpatient R DE [facility] [id number] Univers 15:40:00 15:40:00 connor ATKINSON [facility] 2020-12-10 2020-12-10 [facility] [id number] Univers 13:11:30 23:59:00 Encounter Pool Atkinson [id number] ity of Corinne Diaz 4.2.7.2.686 [facility] [id number] [facility] [address] 2020-12-10 2020-12-10 Outpatient R DE [facility] [id number] Univers 00:00:00 00:00:00 NAPOLEON ity of [facility] 2020-12-09 2020-12-09 Office de [facility] [id number] Univers 15:36:21 15:49:29 Visit Atkinson, Jese 350.1.13.10 ity of [facility] 4.2.7.2.686 [facility] [id number] [facility] [address] 2020-12-09 2020-12-09 Outpatient R DE [facility] [id number] Univers 15:40:00 15:40:00 TAKINSON, ity of [facility] 2020-09-17 2020-09-17 Office Manish [facility] 1.2.840.114 [id number] Univers 08:03:47 09:23:05 Visit Jese 350.1.13.10 it y of Pediatric 4.2.7.2.686 [facility] [id number] [address] 2020-09-17 2020-09-17 Outpatient R ADOLPH ALEXIS [facility] [id number] Univers 08:20:00 08:20:00 ity of [facility] 2020-09-16 2020-09-16 Telephone [facility] 1.2.840.114 [id number] Univers 00:00:00 00:00:00 Jese Atkinson 350.1.13.10 ity of [facility] 4.2.7.2.686 [facility] [id number] [address] 2020-08-28 2020-08-28 Refill Shyann [facility] 1.2.840.114 [id number] Univers 00:00:00 00:00:00 , Linda Sawant 350.1.13.10 it y of Pediatric 4.2.7.2.686 [facility] [id number] [address] 2020-08-12 2020-08-12 Refill [facility] 1.2.840.114 [id number] Univers 00:00:00 00:00:00 , Linda Sawant 350.1.13.10 it y of Pediatric 4.2.7.2.686 [facility] [id number] [address] 2020-06-21 2020-06-21 Refill [facility] 1.2.840.114 [id number] Univers 00:00:00 00:00:00 , Linda Sawant 350.1.13.10 it y of Pediatric 4.2.7.2.686 [facility] [id number] [address] 2020-06-13 2020-06-13 Refill [facility] 1.2.840.114 [id number] Univers 00:00:00 00:00:00 , Linda Sawant 350.1.13.10 it y of Pediatric 4.2.7.2.686 [facility] [id number] [address] 2020-05-05 2020-05-05 Refill [facility] 1.2.840.114 [id number] Univers 00:00:00 00:00:00 , Linda Sawant 350.1.13.10 it y of Pediatric 4.2.7.2.686 [facility] [id number] [address] 2020-03-11 2020-03-11 Refill [facility] 1.2.886.679 [id number] Univers 00:00:00 00:00:00 Jese Atkinson 350.1.13.10 ity of [facility] 4.2.7.2.686 [facility] [id number] [address] 2020-01-28 2020-01-28 Office [facility] 1.2.840.114 [id number] Univers 07:41:19 08:42:48 Visit , Linda Sawant 350.1.13.10 it y of Pediatric 4.2.7.2.686 [facility] [id number] [address] 2020-01-28 2020-01-28 Outpatient R [facility] [id number] Univers 07:50:00 07:50:00 , LINDA ryan of [facility] 2020-01-28 2020-01-28 Orders Doctor DANILO 1.2.840.114 [id number] Univers 00:00:00 00:00:00 Only Unassigned, ERICK 350.1.13.10 ity of [facility] 4.2.7.2.686 Dao as [id number] [address] 2019-12-27 2019-12-27 [facility] 1.2.840.114 [id number] Univers 14:08:33 14:56:15 ne Visit Ayse Sawant 350.1.13.10 ity of Pediatric 4.2.7.2.686 [facility] [id number] [address] 2019-12-27 2019-12-27 Outpatient R CAITLIN [facility] [id number] Univers 14:20:00 14:20:00 AYSE ity [facility] 2019-11-30 2019-11-30 Refill Shyann [facility] 1.2.840.114 [id number] Univers 00:00:00 00:00:00 , Linda Sawant 350.1.13.10 it y of Pediatric 4.2.7.2.686 [facility] [id number] [address] 2019-11-19 2019-11-19 Refill [facility] 1.2.840.114 [id number] Univers 00:00:00 00:00:00 Toshia Keith 350.1.13.10 ity of Pediatric 4.2.7.2.686 [facility] [id number] [address] 2019-05-18 2019-05-18 Refill [facility] 1.2.840.114 [id number] Univers 00:00:00 00:00:00 Toshia Keith 350.1.13.10 ity of Pediatric 4.2.7.2.686 [facility] [id number] [address] 2019-04-16 2019-04-16 Refill [facility] 1.2.840.114 [id number] [facility] 00:00:00 00:00:00 Toshia Keith 350.1.13.10 ity of Pediatric 4.2.7.2.686 [facility] [id number] [address] 2019-04-16 2019-04-16 [facility] 1.2.840.11 [id number] [facility] 00:00:00 00:00:00 Toshia Keith 350.1.13.10 ity of Pediatric 4.2.7.2.686 [facility] [id number] [address] Results Test Description Test Time Test Comments Results Result Comments Source CBC with Differential 2022-07-17 10:39:05 Test Item Value Reference Range Interpretation Comme nts WBC (test code = 6690-2) See_Comment [A utomated message] The system which ge nerated this result transmit shannan reference range: 4.30 - 1 1.10 10*3/?L. The reference r landon was not used to interpr et this result as normal/abnor mal. RBC (test code = 789-8) See_Comment L [Au tomated message] The system which ge nerated this result transmit shannan reference range: 3.93 - 5 .25 10*6/?L. The reference r landon was not used to interpr et this result as normal/abnor mal. HGB (test code = 718-7) 8.3 g/dL 11.6-15.0 L HCT (test code = 4544-3) 25.9 % 35.7-45.2 L MCV (test code = 787-2) 83.0 fL 80.6-95.5 MCH (test code = 785-6) 26.6 pg 25.9-32.8 MCHC (test code = 786-4) 32.0 g/dL 31.6-35.1 RDW-SD (test code = 64522-0) 48.4 fL 39.0-49.9 RDW-CV (test code = 788-0) 16.0 % 12.0-15.5 H PLT (test code = 777-3) See_Comment L [Au tomated message] The system which ge nerated this result transmit shannan reference range: 166 - 35 8 10*3/?L. The reference range was not used to interpret th is result as normal/abnormal . MPV (test code = 68510-1) 11.5 fL 9.5-12.9 NRBC/100 WBC (test code = See_Comment [ Automated message] The 0389522932) system which ge nerated this result transmit shannan reference range: 0.0 - 10 .0 /100 WBCs. The reference r landon was not used to interpr et this result as normal/abnor mal. NRBC x10^3 (test code = See_Comment [Au tomated message] The 1236326570) system which ge nerated this result transmit shannan reference range: 10*3/?L. The reference range was not u sed to interpret this result as normal/abnormal . GRAN MAT (NEUT) % (test code 73.5 % = 770-8) IMM GRAN % (test code = 0.70 % 6089858640) LYMPH % (test code = 736-9) 15.7 % MONO % (test code = 5905-5) 5.3 % EOS % (test code = 713-8) 4.6 % BASO % (test code = 706-2) 0.2 % GRAN MAT x10^3(ANC) (test 6.04 10*3/uL 1.88-7.09 code = 7830256073) IMM GRAN x10^3 (test code = 0.06 10*3/uL 0.00-0.06 9689093479) LYMPH x10^3 (test code = 1.29 10*3/uL 1.32-3.29 L 731-0) MONO x10^3 (test code = 0.44 10*3/uL 0.33-0.92 742-7) EOS x10^3 (test code = 0.38 10*3/uL 0.03-0.39 711-2) BASO x10^3 (test code = 0.01-0.07 704-7) Lab Interpretation (test Abnormal code = 52212-0) [facility] with [id number] 10:39:05 Test Item Value Reference Range Interpretation Comments WBC (test code = See_Comment [Automated 6690-2) message] The sy stem which generated this result transmitted reference range : 4.30 - 11.10 10*3/?L. The reference range was not used to interpret this result as normal/abnormal . RBC (test code = See_Comment L [Automated 789-8) message] The sy stem which generated this result transmitted reference range : 3.93 - 5.25 10*6/?L. The reference range was not used to interpret this result as normal/abnormal . HGB (test code = 8.3 g/dL 11.6-15.0 L 718-7) HCT (test code = 25.9 % 35.7-45.2 L 4544-3) MCV (test code = 83.0 fL 80.6-95.5 787-2) MCH (test code = 26.6 pg 25.9-32.8 785-6) MCHC (test code = 32.0 g/dL 31.6-35.1 786-4) RDW-SD (test code = 48.4 fL 39.0-49.9 31511-0) RDW-CV (test code = 16.0 % 12.0-15.5 H 788-0) PLT (test code = See_Comment L [Automated 777-3) message] The sy stem which generated this result transmitted reference range : 166 - 358 10*3/ ?L. The reference r landon was not used to interpret this result as normal/abnormal . MPV (test code = 11.5 fL 9.5-12.9 75752-2) NRBC/100 WBC (test See_Comment [Automat ed code = 0371279972) message] The system which generated this result transmitted reference range : 0.0 - 10.0 /100 WBCs. The refer ence range was not u sed to interpret th is result as normal/abnormal . NRBC x10^3 (test code See_Comment [Auto mated = 2825665106) message] The s ystem which generated this result transmitted reference range : 10*3/?L. The reference range was not used to interpret this result as normal/abnormal . GRAN MAT (NEUT) % 73.5 % (test code = 770-8) IMM GRAN % (test code 0.70 % = 4655293411) LYMPH % (test code = 15.7 % 736-9) MONO % (test code = 5.3 % 5905-5) EOS % (test code = 4.6 % 713-8) BASO % (test code = 0.2 % 706-2) GRAN MAT x10^3(ANC) 6.04 10*3/uL 1.88-7.09 (test code = 6930927892) IMM GRAN x10^3 (test 0.06 10*3/uL 0.00-0.06 code = 2335047509) LYMPH x10^3 (test code 1.29 10*3/uL 1.32-3.29 L = 731-0) MONO x10^3 (test code 0.44 10*3/uL 0.33-0.92 = 742-7) EOS x10^3 (test code = 0.38 10*3/uL 0.03-0.39 711-2) BASO x10^3 (test code 0.01-0.07 = 704-7) Lab Interpretation Abnormal (test code = 31426-7) [facility] (D) IMMUNE [id number] 19:54:02 Test Item Value Reference Range Interpretation Comments RHIG CANDIDATE? No- see comment Patient i s not a (test code = candidate for R hIg- 5055) Patient is Rh Positive.Perfor med at [facility] Laboratory Services - [facility] Blood [address] Free: [phone] A No. [id number] [facility] (D) IMMUNE [id number] 19:54:02 Test Item Value Reference Range Interpretation Comments RHIG CANDIDATE? No- see comment Patient i s not a (test code = candidate for R hIg- 5055) Patient is Rh Positive.Perfor med at [facility] Laboratory Services - [facility] Blood [address] [place], [place] [address]Toll Free: [phone] A No. [id number] [facility] ONLY - SYPHILIS [id number] 15:42:00 Test Item Value Reference Range Interpretation Comments Syphilis IgG/IgM (test Non-reactive Non-reactive code = 38709-8) TALIA (test code = TALIA) Non-reactive - No serologic evidence of T. pallidum infection. Cannot exclude incubating or early syphilis. Submit a second specimen in 2-4 weeks if syphilis is clinically suspected. Equivocal - Further testing to follow. Reactive - Further testing to follow. Lab Interpretation (test Normal code = 70310-4) [facility] ONLY - SYPHILIS [id number] 15:42:00 Test Item Value Reference Range Interpretation Comments Syphilis IgG/IgM (test Non-reactive Non-reactive code = 95162-2) TALIA (test code = TALIA) Non-reactive - No serologic evidence of T. pallidum infection. Cannot exclude incubating or early syphilis. Submit a second specimen in 2-4 weeks if syphilis is clinically suspected. Equivocal - Further testing to follow. Reactive - Further testing to follow. Lab Interpretation (test Normal code = 70502-2) [facility] 1/2 AG-AB WITH [id number] 14:33:06 Test Item Value Reference Range Interpretation Comments HIV Negative Negative Semi-quantitative (test code = 45702-8) TALIA (test code = Non-reactive for HIV-1 TALIA) antigen and HIV-1/HIV-2 antibodies. ?No laboratory evidence of HIV infection. ?Repeat in 2-4 weeks if acute HIV infection is suspected. [facility] 1/2 AG-AB WITH [id number] 14:33:06 Test Item Value Reference Range Interpretation Comments HIV Negative Negative Semi-quantitative (test code = 32847-1) TALIA (test code = Non-reactive for HIV-1 TALIA) antigen and HIV-1/HIV-2 antibodies. ?No laboratory evidence of HIV infection. ?Repeat in 2-4 weeks if acute HIV infection is suspected. [facility] [id number] 14:26:22 Test Item Value Reference Range Interpretation Comments BASE EXCESS, CORD mEq/L (test code = 1722107752) AC PH, CORD (BEAKER) 7.18-7.38 (test code = 4361513320) PC02, CORD (test code See_Comment [Auto mated message] The = 9495431519) system which g enerated this result transmit shannan reference range : 32 - 66 mmHg. The refer ence range was not used to interpret this result as normal/abnormal . PO2, CORD (test code See_Comment [Autom ated message] The = 5651055465) system which g enerated this result transmit shannan reference range : 10 - 30 mmHg. The refer ence range was not used to interpret this result as normal/abnormal . BICARBONATE, CORD See_Comment [Automate d message] The (test code = system which ge nerated this 5533665121) result transmit shannan reference range : 17 - 27 mEq/L. The refe rence range was not used to interpret this result as normal/abnormal . [facility] [id number] 14:26:22 Test Item Value Reference Range Interpretation Comments BASE EXCESS, CORD mEq/L (test code = 0001141662) AC PH, CORD (BEAKER) 7.18-7.38 (test code = 8505075613) PC02, CORD (test code See_Comment [Auto mated message] The = 6263871177) system which g enerated this result transmit shannan reference range : 32 - 66 mmHg. The refer ence range was not used to interpret this result as normal/abnormal . PO2, CORD (test code See_Comment [Autom ated message] The = 3000787972) system which g enerated this result transmit shannan reference range : 10 - 30 mmHg. The refer ence range was not used to interpret this result as normal/abnormal . BICARBONATE, CORD See_Comment [Automate d message] The (test code = system which ge nerated this 4353355210) result transmit shannan reference range : 17 - 27 mEq/L. The refe rence range was not used to interpret this result as normal/abnormal . [facility] B Surface [id number] 14:23:45 Test Item Value Reference Range Interpretation Comments HBsAg Semi-Quantitative (test code = Negative Negative 5195-3) [facility] B Surface [id number] 14:23:45 Test Item Value Reference Range Interpretation Comments HBsAg Semi-Quantitative (test code = Negative Negative 5195-3) [facility] [id number] 14:23:35 Test Item Value Reference Range Interpretation Comments VENOUS BASE EXCESS, mEq/L CORD (test code = 4180543982) VENOUS PH, CORD (test 7.25-7.45 code = 1285934100) VENOUS PC02, CORD See_Comment [Automate d message] The (test code = system which ge nerated 8540516919) this result tra nsmitted reference range : 27 - 49 mmHg. The refer ence range was not used to interpret this result as normal/abnormal . VENOUS PO2, CORD (test See_Comment [Aut omated message] The code = 2574612679) system [facility] generated this result tra nsmitted reference range : 17 - 41 mmHg. The refer ence range was not used to interpret this result as normal/abnormal . VENOUS BICARBONATE, See_Comment [Automa shannan message] The CORD (test code = system [facility] generated 1950052678) this result tra nsmitted reference range : 12 - 29 mEq/L. The refe rence range was not used to interpret this result as normal/abnormal . [facility] [id number] 14:23:35 Test Item Value Reference Range Interpretation Comments VENOUS BASE EXCESS, mEq/L CORD (test code = 9214662274) VENOUS PH, CORD (test 7.25-7.45 code = 7354123793) VENOUS PC02, CORD See_Comment [Automate d message] The (test code = system which ge nerated 6544965769) this result tra nsmitted reference range : 27 - 49 mmHg. The refer ence range was not used to interpret this result as normal/abnormal . VENOUS PO2, CORD (test See_Comment [Aut omated message] The code = 7559311419) system [facility] generated this result tra nsmitted reference range : 17 - 41 mmHg. The refer ence range was not used to interpret this result as normal/abnormal . VENOUS BICARBONATE, See_Comment [Automa shannan message] The CORD (test code = system [facility] generated 5935090494) this result tra nsmitted reference range : 12 - 29 mEq/L. The refe rence range was not used to interpret this result as normal/abnormal . [facility] - ONCE [id number] 13:10:31 Test Item Value Reference Range Interpretation Comments ABO & RH (test code A POSITIVE Performe d at [facility] = 20) Laboratory Serv [facility] Blood Bank[address] [place] [address]Xkud Free: [phone] A No. [id number] IAT (test code = Negative Performed a t [facility] 1185) Laboratory [facility] Blood [facility] [address] [place] [address] s [address]Pbnj Free: [phone] A No. [id number] [facility] - ONCE [id number] 13:10:31 Test Item Value Reference Range Interpretation Comments ABO & RH (test code A POSITIVE Performe d at [facility] = 20) Laboratory [facility] Blood [facility] [address] [place] [address] s [address]Drld Free: [phone] A No. [id number] IAT (test code = Negative Performed a t [facility] 1185) Laboratory [facility] Blood [address] s [address]Mgjp Free: [phone] A No. [id number] [facility] with [id number] 12:18:32 Test Item Value Reference Range Interpretation Comments WBC (test code = See_Comment [Automated 6690-2) message] The sy stem which generated this result transmitted reference range : 4.30 - 11.10 10*3/?L. The reference range was not used to interpret this result as normal/abnormal . RBC (test code = See_Comment L [Automated 789-8) message] The sy stem which generated this result transmitted reference range : 3.93 - 5.25 10*6/?L. The reference range was not used to interpret this result as normal/abnormal . HGB (test code = 9.7 g/dL 11.6-15.0 L 718-7) HCT (test code = 30.2 % 35.7-45.2 L 4544-3) MCV (test code = 84.4 fL 80.6-95.5 787-2) MCH (test code = 27.1 pg 25.9-32.8 785-6) MCHC (test code = 32.1 g/dL 31.6-35.1 786-4) RDW-SD (test code = 49.2 fL 39.0-49.9 81185-1) RDW-CV (test code = 16.1 % 12.0-15.5 H 788-0) PLT (test code = See_Comment [Automated 777-3) message] The sy stem which generated this result transmitted reference range : 166 - 358 10*3/ ?L. The reference r landon was not used to interpret this result as normal/abnormal . MPV (test code = 11.3 fL 9.5-12.9 36394-0) NRBC/100 WBC (test See_Comment [Automat ed code = 3100132842) message] The system which generated this result transmitted reference range : 0.0 - 10.0 /100 WBCs. The refer ence range was not u sed to interpret th is result as normal/abnormal . NRBC x10^3 (test code See_Comment [Auto mated = 7005359561) message] The s ystem which generated this result transmitted reference range : 10*3/?L. The reference range was not used to interpret this result as normal/abnormal . GRAN MAT (NEUT) % 66.8 % (test code = 770-8) IMM GRAN % (test code 0.90 % = 2232982085) LYMPH % (test code = 20.4 % 736-9) MONO % (test code = 6.7 % 5905-5) EOS % (test code = 5.0 % 713-8) BASO % (test code = 0.2 % 706-2) GRAN MAT x10^3(ANC) 4.26 10*3/uL 1.88-7.09 (test code = 7567246012) IMM GRAN x10^3 (test 0.06 10*3/uL 0.00-0.06 code = 7652382477) LYMPH x10^3 (test code 1.30 10*3/uL 1.32-3.29 L = 731-0) MONO x10^3 (test code 0.43 10*3/uL 0.33-0.92 = 742-7) EOS x10^3 (test code = 0.32 10*3/uL 0.03-0.39 711-2) BASO x10^3 (test code 0.01-0.07 = 704-7) Lab Interpretation Abnormal (test code = 73875-6) [facility] with [id number] 12:18:32 Test Item Value Reference Range Interpretation Comments WBC (test code = See_Comment [Automated 6690-2) message] The sy stem which generated this result transmitted reference range : 4.30 - 11.10 10*3/?L. The reference range was not used to interpret this result as normal/abnormal . RBC (test code = See_Comment L [Automated 789-8) message] The sy stem which generated this result transmitted reference range : 3.93 - 5.25 10*6/?L. The reference range was not used to interpret this result as normal/abnormal . HGB (test code = 9.7 g/dL 11.6-15.0 L 718-7) HCT (test code = 30.2 % 35.7-45.2 L 4544-3) MCV (test code = 84.4 fL 80.6-95.5 787-2) MCH (test code = 27.1 pg 25.9-32.8 785-6) MCHC (test code = 32.1 g/dL 31.6-35.1 786-4) RDW-SD (test code = 49.2 fL 39.0-49.9 49114-1) RDW-CV (test code = 16.1 % 12.0-15.5 H 788-0) PLT (test code = See_Comment [Automated 777-3) message] The sy stem which generated this result transmitted reference range : 166 - 358 10*3/ ?L. The reference r landon was not used to interpret this result as normal/abnormal . MPV (test code = 11.3 fL 9.5-12.9 57040-7) NRBC/100 WBC (test See_Comment [Automat ed code = 1613110288) message] The system which generated this result transmitted reference range : 0.0 - 10.0 /100 WBCs. The refer ence range was not u sed to interpret th is result as normal/abnormal . NRBC x10^3 (test code See_Comment [Auto mated = 3853511800) message] The s ystem which generated this result transmitted reference range : 10*3/?L. The reference range was not used to interpret this result as normal/abnormal . GRAN MAT (NEUT) % 66.8 % (test code = 770-8) IMM GRAN % (test code 0.90 % = 2359494037) LYMPH % (test code = 20.4 % 736-9) MONO % (test code = 6.7 % 5905-5) EOS % (test code = 5.0 % 713-8) BASO % (test code = 0.2 % 706-2) GRAN MAT x10^3(ANC) 4.26 10*3/uL 1.88-7.09 (test code = 3492532994) IMM GRAN x10^3 (test 0.06 10*3/uL 0.00-0.06 code = 4572032949) LYMPH x10^3 (test code 1.30 10*3/uL 1.32-3.29 L = 731-0) MONO x10^3 (test code 0.43 10*3/uL 0.33-0.92 = 742-7) EOS x10^3 (test code = 0.32 10*3/uL 0.03-0.39 711-2) BASO x10^3 (test code 0.01-0.07 = 704-7) Lab Interpretation Abnormal (test code = 82397-9) [facility] URINALYSIS W SPECIFIC [id number] 15:23:00 Test Item Value Reference Range Interpretation Comments [...] POCT U COLOR (test code = 3266) Yellow POCT U APPEAR (test code = 3267) clear [facility] URINALYSIS W SPECIFIC [id number] 20:42:00 Test Item Value Reference Range Interpretation Comments POCT U SP GRAV (test code = 3255) . 1.005-1.025 POCT PH U (test code = 3254) . 5-8 POCT U LEUK EST (test code = 3263) . Negative - Negative POCT U NIT (test code = 3262) . Negative - Negative POCT U PROT (test code = 3259) . Negative - Negative POCT U GLU (test code = 3256) . Negative - Negative POCT U KETONE (test code = 3258) . Negative - Negative POCT U UROBILI (test code = 3260) . 0.2-1 POCT U BILI (test code = 3261) . Negative - Negative POCT U BLD (test code = 3257) . Negative - Negative POCT U COLOR (test code = 3266) . POCT U APPEAR (test code = 3267) . [facility] URINALYSIS W SPECIFIC [id number] 20:42:00 Test Item Value Reference Range Interpretation Comments POCT U SP GRAV (test code = 3255) . 1.005-1.025 POCT PH U (test code = 3254) . 5-8 POCT U LEUK EST (test code = 3263) . Negative - Negative POCT U NIT (test code = 3262) . Negative - Negative POCT U PROT (test code = 3259) . Negative - Negative POCT U GLU (test code = 3256) . Negative - Negative POCT U KETONE (test code = 3258) . Negative - Negative POCT U UROBILI (test code = 3260) . 0.2-1 POCT U BILI (test code = 3261) . Negative - Negative POCT U BLD (test code = 3257) . Negative - Negative POCT U COLOR (test code = 3266) . POCT U APPEAR (test code = 3267) [facility] URINALYSIS W SPECIFIC [id number] 20:34:00 Test Item Value Reference Range Interpretation Comments [...] POCT U COLOR (test code = 3266) yellow POCT U APPEAR (test code = 3267) clear [facility] URINALYSIS W SPECIFIC [id number] 18:04:00 Test Item Value Reference Range Interpretation Comments POCT U SP GRAV (test code = 3255) . 1.005-1.025 POCT PH U (test code = 3254) 8 mg/dl 5-8 POCT U LEUK EST (test code = Neg Negative - Negative 3263) POCT U NIT [...] POCT U COLOR (test code = 3266) POCT U APPEAR (test code = 3267) [facility] URINALYSIS W SPECIFIC [id number] 15:57:00 Test Item Value Reference Range Interpretation Comments POCT U SP GRAV (test code = 3255) . 1.005-1.025 POCT PH U (test code = 3254) . 5-8 POCT U LEUK EST (test code = 3263) . Negative - Negative POCT U NIT (test [...] POCT U APPEAR (test code = 3267) [facility] [id number] 02:19:26 Test Item Value Reference Range Interpretation Comments ABO & RH (test code A POSITIVE Performe d at [facility] = 20) Laboratory Serv [facility] Blood Bank3 [address] [facility] s [address]Rdlq Free: [phone] A No. [id number] IAT (test code = Negative Performed a t [facility] 1185) Laboratory [facility] Blood Bank3 [facility] s [address]Oyfh Free: [phone] A No. [id number] [facility] [id number] 02:14:29 Test Item Value Reference Range Interpretation Comments URIC ACID (test code = 9838731815) 3.4 mg/dL 2.9-6 Lab Interpretation (test code = Normal 49284-8) [facility] Qsutxpewsc2901-03-30 02:14:29 Test Item Value Reference Range Interpretation Comments CREATININE (test code = 0.40 mg/dL 0.5-1.04 L [id number]) eGFR (test code = mL/min/1.73m2 7253979635) TALIA (test code = TALIA) Association of Glomerular Filtration Rate (GFR) and Staging of Kidney Disease* + --+ --+ ------+| GFR (mL/min/1.73 m2) ?| With Kidney Damage ?| ?Without Kidney Damage+ --------+ --------+ +| ?>90 ?| ?Stage one ?| ? Normal ?+ ---+ ---+ -------+| ?60-89 ?| ?Stage two ?| ? Decreased GFR ? + --+ --+ ------+| ?30-59 ?| ?Stage three ?| ? Stage three ? + --+ --+ ------+| ?15-29 ?| ?Stage four ? | ? Stage four ?+ ---+ ---+ -------+| ?<15 (or dialysis) ? ?| ?Stage five ? | ? Stage five ?+ ---+ ---+ -------+ *Each stage assumes the associated GFR level has been in effect for at least three months. ?Stages 1 to 5, with or without kidney disease, indicate chronic kidney disease. Notes: Determination of stages one and two (with eGFR >59mL/min/1.73 m2) requires estimation of kidney damage for at least three months as defined by structural or functional abnormalities of the kidney, manifested by either:Pathological abnormalities or Markers of kidney damage (including abnormalities in the composition of the blood or urine or abnormalities in imaging tests). Lab Interpretation Abnormal (test code = 48235-8) [facility] (Asparate Amino Transfer)2022-07-06 02:14:29 Test Item Value Reference Range Interpretation Comments AST(SGOT) (test code = 6336131507) 21 U/L 13-40 Lab Interpretation (test code = Normal 67361-3) [facility] HospitalAlanine Amino Transferase (SGPT)2022-07-06 02:14:29 Test Item Value Reference Range Interpretation Comments ALTv (test code = 1742-6) 16 U/L 5-35 Lab Interpretation (test code = Normal 77535-6) [facility] HospitalLactate Keubisqercshw2258-30-13 02:14:29 Test Item Value Reference Range Interpretation Comments LDH (test code = 9190695133) 171 U/L 120-246 Lab Interpretation (test code = Normal 44471-5) [facility] HospitalCB with Gjvkhmvshhaq2812-27-77 01:42:46 Test Item Value Reference Range Interpretation Comments WBC (test code = See_Comment [Automated 5490-2) message] The sy stem which generated this result transmitted reference range : 4.30 - 11.10 10*3/?L. The reference range was not used to interpret this result as normal/abnormal . RBC (test code = See_Comment L [Automated 619-8) message] The sy stem which generated this result transmitted reference range : 3.93 - 5.25 10*6/?L. The reference range was not used to interpret this result as normal/abnormal . HGB (test code = 9.9 g/dL 11.6-15 L 718-7) HCT (test code = 30.5 % 35.7-45.2 L 4544-3) MCV (test code = 84.5 fL 80.6-95.5 787-2) MCH (test code = 27.4 pg 25.9-32.8 785-6) MCHC (test code = 32.5 g/dL 31.6-35.1 786-4) RDW-SD (test code = 48.5 fL 39-49.9 92849-5) RDW-CV (test code = 15.8 % 12-15.5 H 788-0) PLT (test code = See_Comment [Automated 777-3) message] The sy stem which generated this result transmitted reference range : 166 - 358 10*3/ ?L. The reference r landon was not used to interpret this result as normal/abnormal . MPV (test code = 10.9 fL 9.5-12.9 02045-1) NRBC/100 WBC (test See_Comment [Automat ed code = 6235928038) message] The system which generated this result transmitted reference range : 0.0 - 10.0 /100 WBCs. The refer ence range was not u sed to interpret th is result as normal/abnormal . NRBC x10^3 (test code See_Comment [Auto mated = 9313768855) message] The s ystem which generated this result transmitted reference range : 10*3/?L. The reference range was not used to interpret this result as normal/abnormal . GRAN MAT (NEUT) % 69.4 % (test code = 770-8) IMM GRAN % (test code 1.10 % = 6325051776) LYMPH % (test code = 21.1 % 736-9) MONO % (test code = 5.7 % 5905-5) EOS % (test code = 2.4 % 713-8) BASO % (test code = 0.3 % 706-2) GRAN MAT x10^3(ANC) 5.14 10*3/uL 1.88-7.09 (test code = 9978179848) IMM GRAN x10^3 (test 0.08 10*3/uL 0-0.06 H code = 5506437811) LYMPH x10^3 (test code 1.56 10*3/uL 1.32-3.29 = 731-0) MONO x10^3 (test code 0.42 10*3/uL 0.33-0.92 = 742-7) EOS x10^3 (test code = 0.18 10*3/uL 0.03-0.39 711-2) BASO x10^3 (test code 0.01-0.07 = 704-7) Lab Interpretation Abnormal (test code = 43424-9) [facility] URINALYSIS W/O SPECIFIC [id number] 18:39:00 Test Item Value Reference Range Interpretation Comments POCT PH U (test code = 3254) [...] 3258) negative Negative - Negative POCT U BLD (test code = 3257) negative Negative - Negative [facility] URINALYSIS W/O SPECIFIC [id number] 18:39:00 Test Item Value Reference Range Interpretation Comments POCT PH U (test code = 3254) [...] 3258) negative Negative - Negative POCT U BLD (test code = 3257) negative Negative - Negative [facility] URINALYSIS W/O SPECIFIC [id number] 18:39:00 Test Item Value Reference Range Interpretation Comments POCT PH U (test code = 3254) [...] 3258) negative Negative - Negative POCT U BLD (test code = 3257) negative Negative - Negative [facility] URINALYSIS W SPECIFIC [id number] 20:01:00 Test Item Value Reference Range Interpretation Comments POCT U SP GRAV (test code = 3255) . 1.005-1.025 POCT PH U (test code = 3254) . 5-8 POCT U LEUK EST (test code = 3263) . Negative - Negative POCT U NIT (test [...] POCT U COLOR (test code = 3266) POCT U APPEAR (test code = 3267) [facility] URINALYSIS W SPECIFIC [id number] 15:53:00 Test Item Value Reference Range Interpretation Comments POCT U SP GRAV (test code = * 1.005-1.025 A 3255) POCT PH U (test code = [...] Negative POCT U UROBILI (test code = * 0.2-1 3260) POCT U BILI (test code = 3261) * Negative - Negative POCT U BLD (test code = 3257) negative Negative - Negative POCT U COLOR (test code = 3266) POCT U APPEAR (test code = 3267) Lab Interpretation (test code = Abnormal 56278-5) [facility] URINALYSIS W SPECIFIC [id number] 15:47:00 Test Item Value Reference Range Interpretation Comments [...] U APPEAR (test code = 3267) . [facility] URINALYSIS W SPECIFIC [id number] 18:14:00 Test Item Value Reference Range Interpretation Comments POCT U SP GRAV (test code = 3255) . 1.005-1.025 POCT PH U (test code = 3254) 6 mg/dl 5-8 POCT U LEUK EST (test code = TRACE Negative - Negative 3263) POCT U NIT (test code = 3262) NEG Negative - Negative POCT U PROT (test code = 3259) TRACE Negative - Negative POCT U GLU (test code = 3256) NEG Negative - Negative POCT U KETONE (test code = 3258) NONE Negative - Negative POCT U UROBILI (test code = 3260) . 0.2-1 POCT U BILI (test code = 3261) . Negative - Negative POCT U BLD (test code = 3257) TRACE Negative - Negative POCT U COLOR (test code = 3266) . POCT U APPEAR (test code = 3267) . [facility] URINALYSIS W SPECIFIC [id number] 18:14:00 Test Item Value Reference Range Interpretation Comments POCT U SP GRAV (test code = 3255) . 1.005-1.025 POCT PH U (test code = 3254) 6 mg/dl 5-8 POCT U LEUK EST (test code = TRACE Negative - Negative 3263) POCT U NIT (test code = 3262) NEG Negative - Negative POCT U PROT (test code = 3259) TRACE Negative - Negative POCT U GLU (test code = 3256) NEG Negative - Negative POCT U KETONE (test code = 3258) NONE Negative - Negative POCT U UROBILI (test code = 3260) . 0.2-1 POCT U BILI (test code = 3261) . Negative - Negative POCT U BLD (test code = 3257) TRACE Negative - Negative POCT U COLOR (test code = 3266) . POCT U APPEAR (test code = 3267) . [facility] URINALYSIS W SPECIFIC [id number] 15:32:00 Test Item Value Reference Range Interpretation Comments POCT U SP GRAV (test code = * 1.005-1.025 3255) POCT PH U (test code = 3254) 6 mg/dl 5-8 POCT U LEUK EST (test [...] Negative POCT U UROBILI (test code = * 0.2-1 3260) POCT U BILI (test code = 3261) * Negative - Negative POCT U BLD (test code = 3257) negative Negative - Negative POCT U COLOR (test code = 3266) * POCT U APPEAR (test code = 3267) * [facility] URINALYSIS W SPECIFIC [id number] 15:06:00 Test Item Value Reference Range Interpretation Comments POCT U SP GRAV (test code = * 1.005-1.025 3255) POCT PH U (test code = 3254) * 5-8 POCT U LEUK EST (test code = * Negative - Negative 3263) POCT U NIT (test code = 3262) * Negative - Negative POCT U PROT (test code = 3259) trace Negative - Negative POCT U GLU (test code = 3256) negative Negative - Negative POCT U KETONE (test code = 3258) * Negative - Negative POCT U UROBILI (test code = * 0.2-1 3260) POCT U BILI (test code = 3261) * Negative - Negative POCT U BLD (test code = 3257) * Negative - Negative POCT U COLOR (test code = 3266) * POCT U APPEAR (test code = 3267) [facility] URINALYSIS W SPECIFIC [id number] 16:17:00 Test Item Value Reference Range Interpretation Comments POCT U SP GRAV (test code = 3255) . 1.005-1.025 POCT PH U (test code = 3254) 7 mg/dl 5-8 POCT U LEUK EST (test code = Neg Negative - Negative 3263) POCT U NIT [...] POCT U BLD (test code = 3257) Neg Negative - Negative POCT U COLOR (test code = 3266) . POCT U APPEAR (test code = 3267) . [facility] URINALYSIS W SPECIFIC [id number] 16:15:00 Test Item Value Reference Range Interpretation Comments POCT U SP GRAV (test code = 3255) . 1.005-1.025 POCT PH U (test code = 3254) 7 mg/dl 5-8 POCT U LEUK EST (test code = Neg Negative - Negative 3263) POCT U NIT [...] POCT U COLOR (test code = 3266) POCT U APPEAR (test code = 3267) [facility] SPECIFIC [id number] 15:32:00 Test Item Value Reference Range Interpretation Comments [...] Negative POCT U UROBILI (test code = negative 0.2-1 3260) POCT U BILI (test code = 3261) negative Negative - Negative POCT U BLD (test code = 3257) negative Negative - Negative POCT U COLOR (test code = 3266) yellow POCT U APPEAR (test code = 3267) clear [facility]PLACENTA THIRD [id number] 14:38:00 Test Item Value Reference Range Interpretation Comments PLACENTA THIRD TRIMESTER (test code = PLACIII) RUN DATE: 07/21/21 [facility] PAGE 1 RUN TIME: 2010 Specimen Inquiry RUN USER: INTERFACE ERIKA ENT: EDEN HELTON LOC: RUDY U #: [id number] AGE/SX: 16/F ROOM: [facility] RE06/11/21REG DR: Kristy Scott MD : 03 BED: A DIS: 07/18/21 STATUS: DIS IN TLOC: SPEC #: [id number] RECD: 07/15/21 STATUS: GENIA REQ #: [id number] GURINDER: 07/14/21- SUBM DR: Kristy Scott MD ENTERED: 07/15/21 SP TYPE: PLACIII OTHR DR: Marko Griffiths MD ORDERED: LEVEL V SURGICA CODES: [id number] - PLACENTA, NOS COPIES TO: Kristy Scott MD [address] [place], [place] [id number] [email or web address] Marko Griffiths MD [address], [address] [place] [address] [email or web address] PROCEDURES: LEVEL V SURGICA (Incomplete) TISSUES: PLACENTA, [...] are consistent with maternal vascular malperfusion. CPT: 55639 cds/wpd CONTINUED ON NEXT PAGE RUN DATE: 07/21/21 [facility] PAGE 2 RUN TIME: 2010 Specimen Inquiry RUN USER: INTERFACE SPEC #: [id number] PATIENT: EDEN HELTON #[id number] (Continued) ------- GROSS DESCRIPTION The specimen was [...] A1 through A4 hz/wpd 07/15/21 ---- Signed Karyna Johnson 07/18/21 1438 END OF REPORT CBC W/AUTO [id number] 08:44:00 Test Item Value Reference Range Interpretation [...] NORMAL NORMAL code = PLTMR) CAPILLARY BLOOD [id number] 16:02:00 Test Item Value Reference Range Interpretation [...] 21.0 % code = FIO2C) CAPILLARY BLOOD [id number] 16:01:00 Test Item Value Reference Range Interpretation [...] 21.0 % code = FIO2C) CBC W/AUTO [id number] 11:00:00 Test Item Value Reference Range Interpretation [...] REQUIRED (test NORMAL NORMAL code = PLTMR) [id number] 10:58:00 Test Item Value Reference Range Interpretation Comments SGOT/AST (test code = AST) 16 units/L 15-37 N SGPT/[id number] 10:58:00 Test Item Value Reference Range Interpretation Comments SGPT/ALT (test code = ALT) 16 units/L 12-78 N CBC W/MANUAL [id number] 22:45:00 Test Item Value Reference Range Interpretation [...] 0-8 N UA RFLX MICR CULT IF [id number] 22:26:00 Test Item Value Reference Range Interpretation [...] culture: Flank PainSpecimen Description: CLEAN CATCHCBC W/AUTO [id number] 10:12:00 Test Item Value Reference Range Interpretation [...] NORMAL NORMAL code = PLTMR) COMPREHENSIVE METABOLIC [id number] 10:00:00 Test Item Value Reference Range Interpretation [...] 46-116 N code = ALKP) COMPREHENSIVE METABOLIC [id number] 11:26:00 Test Item Value Reference Range Interpretation [...] 46-116 H code = ALKP) CBC W/AUTO [id number] 11:14:00 Test Item Value Reference Range Interpretation [...] NORMAL NORMAL code = PLTMR) UR PROTEIN/CREATININE [id number] 19:48:00 Test Item Value Reference Range Interpretation Comments UR PROTEIN RANDOM (test code 161.5 mg/dL = PROTU) UR CREATININE RANDOM (test 131.3 mg/dL code = CREATU) PROTEIN/CREATININE RATIO 1230.0 mg/gcrea <200 H (test code = P/CRATIO) COMPREHENSIVE METABOLIC [id number] 14:33:00 Test Item Value Reference Range Interpretation [...] 46-116 H code = ALKP) CBC W/AUTO [id number] 14:10:00 Test Item Value Reference Range Interpretation [...] NORMAL NORMAL code = PLTMR) ANTINUCLEAR ANTIBODIES [id number] 14:29:00 Test Item Value Reference Range Interpretation Comments ANGELITO DIRECT (test code Negative Negative Perfor med At: HD = ANADIR) [facility] [address] [place], [place] [id number] urandall Contreras MD Ph:[phone] AB SJOGRENS A/SSA <0.2 (test code = SJAAB) AB SJOGRENS B/SSB <0.2 AI 0.0-0.9 (test code = SJBAB) - US PREG UT [id number] 00:00:00 [facility] : 2005 Sex: F Patient Name: EDEN HELTON Unit No: [id number] EXAMS: CPT CODE: [id number] US PREG UT TRANSVAGINAL 52728 PROCEDURE INFORMATION: Exam: US , Transvaginal Exam date and time: 07/03/2021 1:19 PMAge: 16 years old Clinical indication: Condition or disease; status abnormalities: ; movements, decreased and other: Elevated blood pressure; Single gestation; Third trimester (=28 weeks 0 days); Lmp or gestational age (weeks): 33 weeks 0 days; Pre-eclampsia; Antepartum complications; Decreased movements; Fetus 1; 1st ; ; Additional info: Decreased movement LABS AND CLINICAL REPORTS: Gestational age (Established): 33 weeks, 0 days Estimated due date (Establish ed): 08/21/2021 TECHNIQUE: Imaging protocol: Real-time transvaginal obstetrical [...] mass. PROCEDURE INFORMATION: Exam: US Biophysical Profile Without Non-Stress Test Exam date and time: 07/03/2021 1:19 [...] TECHNIQUE: Imaging protocol: US biophysical profile without non- stress testing. The [facility] NAME: EDEN HELTON Radiology DepartmentPHYS: Kristy Cehng MD [address] : 2005 AGE: 16 SEX: F [place], [place] [address] LOC: Evelyn[address]70 [address] PHONE #: [phone] EXAM DATE: 07/03/2021 STATUS: ADM IN FAX #: [phone] RAD NO: Page 1 Signed Report (CONTINUED) Patient Name: EDEN HELTON Unit No: [id number]: CPT CODE: [id number] US PREG UT TRANSVAGINAL 04240 (Continued) COMPARISON: OT US ABDOMEN LTD 07/03/2021 9:21 AM FINDINGS: BIOPHYSICAL PROFILE: Breathin/2 Gross body movements: 2/2Fetal tone: 2/2 Qualitative amniotic fluid: 2/2 Biophysical [...] Scott; Gretchen Sanchez MD Technologist: Georgette Gipson, [facility] Probe: [id number] Trnscrbd D/ (1414) GCD.CPS Orig Print D/T: S: 07/03/2021 (1414) [facility] NAME: EDEN HELTON Radiology Department PHYS: Kristy Cheng MD [address] : 2005 AGE: 16 SEX: F [place] [address] LOC: F.5070 A PHONE #: [phone] EXAM DATE: 07/03/2021 STATUS: ADM IN FAX#: [phone] RAD NO: Page 2 Signed Report Patient Name: EDEN HELTON Unit No: [id number] EXAMS: CPT CODE: [id number] US PREG UT TRANSVAGINAL 04208 (Continued) [facility] NAME: DESEANEDEN Radiology Department PHYS: Kristy Cheng MD [address] : 2005 AGE: 16 SEX: F [place] [address] LOC: F.5070 A PHONE #: [phone] EXAM DATE: 07/03/2021 STATUS: ADM IN FAX #: [phone] RAD NO: Page 3 Signed Report- US FET BIO PH AR W/O [id number] 00:00:00[facility] : 2005 Sex: F Patient Name: EDEN HELTON Unit No: [id number] EXAMS: CPT CODE: [id number] US FET BIO PH AR W/O NST 63674 PROCEDURE INFORMATION: Exam: US , Transvaginal Exam date and time: 07/03/2021 1:19 PM Age: 16 years old Clinical indication: Condition or disease; status abnormalities: ; movements, decreased and other: Elevated blood pressure; Single gestation; Third trimester (=28 weeks 0days); Lmp or gestational age (weeks): 33 weeks 0 days; Pre-eclampsia; Antepartum complications; Decreased movements; Fetus 1; 1st ; ; Additional info: Decreased movement LABS AND CLINICAL REPORTS: Gestational age (Established): 33 weeks, 0 days Estimated due date ( [facility]): 08/21/2021 TECHNIQUE: Imaging protocol: Real-time transvaginal obstetrical ultrasound of the maternal pelvis with image documentation. Transvaginal imaging was used for better evaluation of the fetus, adnexa, and/or cervix. COMPARISON: OT US ABDOMEN LTD 07/03/2021 9:21 AM FINDINGS: Gestation: Intrauterine gestation. presentation: Breech presentation. heart rate: heart rate of151 bpm. Placenta: Anterior grade 3 placenta without placenta previa. Amniotic fluid index: Normal amniotic fluid index of 12.2 cm. MATERNAL: Cervix: The cervix measures 2.2 cm. Right adnexa: The rightovary was not visualized. No adnexal mass. Left adnexa: The left ovary was not visualized. No adnexal mass. PROCEDURE INFORMATION: Exam: US Biophysical Profile Without Non-Stress Test Exam date and time: 07/03/2021 1:19 [...] TECHNIQUE: Imaging protocol: US biophysical profile without non- stress testing. [facility] NAME: EDEN HELTON Radiology Department PHYS: Kandace Poole MD [address] : 2005 AGE: 16 SEX: F [place] [address] LOC: F.5070 A PHONE #: [phone] EXAM DATE: 07/03/2021 STATUS: ADM IN FAX #:[phone] RAD NO: Page 1 Signed Report (CONTINUED) Patient Name: EDEN HELTON Unit No: [id number] EXAMS: CPT CODE: [id number] US FET BIO PH AR W/O NST 04799 (Continued) COMPARISON: OT US ABDOMEN LTD 07/03/2021 9:21 AM FINDINGS: BIOPHYSICAL PROFILE: Breathin/2 Gross body movements: 2/2 tone: 2/2 Qualitative amniotic fluid: 2/2 Biophysical Profile Score: 8/8 IMPRESSION: US , Transvaginal 1. Single intrauterine in breech presentation without placenta previa. 2. The cervix measures 2.2 cm. US Biophysical Profile Without Non-Stress Test Biophysical profile score is 8 out of 8. at 1414 Reported and signed by: Pablito White MD CC: Kristy Scott; Gretchen Sanchez MD; Kandace Fitzgerald MD; Mayra Alvarez DO Technologist: Georgette Gipson RDMS Probe: Trnscrbd D/ (141) GCD.CPS Orig Print D/T: S: 07/03/2021 (141) [facility] Department PHYS: Kandace Poole MD [address] : [birth year] AGE: 16 SEX: F [place] [address] LOC: Lyndsey.5070 A PHONE #: [phone] EXAM DATE: 07/03/2021 STATUS: ADM IN FAX #: [phone] RAD NO: Page 2 Signed Report Patient Name: EDEN HELTON Unit No: [id number] EXAMS: CPT CODE: [id number] US FET BIO PH AR W/O NST 97507 (Continued) [facility] NAME: EDEN HELTON Radiology Department PHYS: Kandace Poole MD [address] : 2005 AGE: 16 SEX: F [place], [place] [address] LOC:F.5070 A PHONE #: [phone] EXAM DATE: 07/03/2021 STATUS: ADM IN FAX #: [phone] RAD NO: Page3 Signed Report- US ABDOMEN [id number] 00:00:00 [facility] : 2005 Sex: F Patient Name: EDEN HELTON Unit No: [id number] EXAMS: CPT CODE: [id number] US ABDOMEN LTD 69751 PROCEDURE INFORMATION: Exam: US Abdomen, Limited; Right [...] available. FINDINGS: Liver: Hepatocellular disease with hepatomegaly mostlikely due to fatty infiltration. Gallbladder: Normal. No gallstones. There is no gallbladder wall thickening. Common bile duct: 2.2 mm common bile duct. Pancreas: The pancreas body is normal, the head and tail are obscured by bowel gas. Right kidney: Right kidney 13.4 X 4.1 X 6.8 cm. No hydronephrosis. Portal venous: Hepatopetal portal vein flow. IMPRESSION: Hepatocellular disease with hepatomegalymost likely due to fatty infiltration. at 1015 Reported and signed by: Elmer Javed MD CC: Kristy Scott; Gretchen Sanchez MD; Kandace Fitzgerald MD; Mayra Alvarez DO Technologist: Georgette Gipson RDMS Probe: Trnscrbd D/ (1015) D.[facility] NAME: EDEN HELTON Radiology Department PHYS: Kandace Perez MD [address] : 2005 AGE: 16 SEX: F [place] [address] LOC: F.5070 A PHONE #: [phone] EXAM DATE: 07/03/2021 STATUS: ADM IN FAX #: [phone] RADNO: Page 1 Signed Report Patient Name: EDEN HELTON Unit No: [id number] EXAMS: CPT CODE: [id number] ABDOMEN LTD 97492 (Continued) [facility] NAME: JANES HELTONIE Radiology Department PHYS: Kandace Poole MD [address] : 2005 AGE: 16 SEX: F [place], [place] [address] LOC: F.5070 A PHONE #: [phone] EXAM DATE: 07/03/2021 STATUS: ADM IN FAX #: [phone] RAD NO: Page 2 Signed ReportBILE ACIDS [id number] 08:55:00 Test Item Value Reference Range Interpretation Comments BILE ACIDS TOTAL 28.3 umol/L 0.0-10.0 H Performed A t: BN (test code = [facility] gex1809 BILEACT) [facility] [place], [place] [id number] koko Christian MD Ph:[phone] UA RFLX MICR CULT IF [id number] 16:46:00 Test Item Value Reference Range Interpretation [...] Suprapubic PainSpecimen Description: CLEAN CATCH COMPREHENSIVE METABOLIC [id number] 13:01:00 Test Item Value Reference Range Interpretation [...] 46-116 H code = ALKP) COMPREHENSIVE METABOLIC [id number] 10:53:00 Test Item Value Reference Range Interpretation [...] 46-116 H code = ALKP) CBC W/AUTO [id number] 10:39:00 Test Item Value Reference Range Interpretation [...] NORMAL NORMAL code = PLTMR) UR PROTEIN [id number] 12:33:00 Test Item Value Reference Range Interpretation Comments UR PROTEIN RANDOM 31.6 mg/dL (test code = PROTU) UR PROTEIN 24HR (test 853 mg/24HR 20-150 HH RESULT S CALLED TO code = VIGY95F) KARUNA STERLING AD BACK & CONFIRMED? YES. BY FELADIO.ELB1 04/01 1232.Units for 24 HR Urine Protein h ave changed: New Un its = MG/24HR UR VOLUME (test code 2700 ML = VOL) COMPREHENSIVE METABOLIC [id number] 10:15:00 Test Item Value Reference Range Interpretation [...] 46-116 N code = ALKP) CBC W/AUTO [id number] 09:49:00 Test Item Value Reference Range Interpretation [...] NORMAL NORMAL code = PLTMR) UR PROTEIN [id number] 10:40:00 Test Item Value Reference Range Interpretation Comments UR PROTEIN RANDOM 14.9 mg/dL (test code = PROTU) UR PROTEIN 24HR (test 432 mg/24HR 20-150 HH RESULT S CALLED TO code = CVVR56Q) GURVINDER KRAUS.READ BACK & CONFIRME D? Y.BY [id number] 06/12/21 1040.U nits for 24 HR Urine Protein have ch anged: New Units = MG/ 24HR UR VOLUME (test code 2900 ML = VOL) THYROID STIMULATING [id number] 13:58:00 Test Item Value Reference Range Interpretation Comments THYROID STIMULATING 0.65 0.4-6.0 N Test Per formed in HORMONE (test code = MicroIn ternational Units/mL TSH) AG HEPATITIS B [id number] 03:17:00 Test Item Value Reference Range Interpretation Comments AG HEPATITIS B SURFACE (test code NONREACTIVE NONREACTIVE = HBSAG) AB HEPATITIS C [id number] 03:17:00 Test Item Value Reference Range Interpretation Comments AB HEPATITIS C (test code = NONREACTIVE NONREACTIVE HCVAB) SIGNAL TO CUTOFF (test code = <0.02 <0.80 N CUTOFF) RUBELLA [id number] 03:17:00 Test Item Value Reference Range Interpretation Comments RUBELLA SCREEN 5.0 IUnit/ml Samples with a value (test code = RUBSC) >= 5.0 I Units/mL and <=9.9 IUnits/mL are considered equi vocal for IgG antibod ies to rubella virus. Obtain a new specimen and retest. AB [id number] 03:17:00 Test Item Value Reference Range Interpretation Comments AB TREPONEMA (test code = TREPAB) NONREACTIVE NONREACTIVE AB HIV 1 03:17:00 Test Item Value Reference Range Interpretation Comments AB HIV 1 2 (test NONREACTIVE NONREACTIVE Done by [employer] code = [id number]) 4th Gen HIV Ag/Ab Combo Screen COMPREHENSIVE METABOLIC [id number] 02:15:00 Test Item Value Reference Range Interpretation [...] units/L 46-116 N code = ALKP) URIC [id number] 02:15:00 Test Item Value Reference Range Interpretation Comments URIC ACID (test code = URIC) 4.1 mg/dL 2.6-6.0 N LACTIC DEHYDROGENASE(LDH)2021-06-11 02:15:00 Test Item Value Reference Range Interpretation Comments LACTIC DEHYDROGENASE(LDH) (test 201 units/L 113-246 N code = LDH) COVID 19 Asymptomatic IH [id number] 02:05:00 Test Item Value Reference Range Interpretation Comments COVID 19 NEGATIVE NEGATIVE This test has b een Asymptomatic IH AG authorize d only for the (test code = detection ofpro teins from COVNONPUIAG) SARS-CoV-2, not for any other viruses orpathogens. Ne gative results should be treated as presumptive andconfirmed [...] and/o r diagnosis of CO VID-19 under Mgkurtg83 4(b)(1) of the Act, 21 U.S .C. 360bbb-3(b)(1), unless theauthorizatio n is terminated or r evoked sooner. DRUGS OF ABUSE [id number] 01:59:00 Test Item Value Reference Range Interpretation [...] code = PHENCU) 25 ng/m L URINALYSIS [id number] 01:54:00 Test Item Value Reference Range Interpretation [...] NONE SEEN URINE SAMPLE: CLEAN CATCHUR PROTEIN/CREATININE [id number] 01:54:00 Test Item Value Reference Range Interpretation Comments UR PROTEIN RANDOM (test code = 110.7 mg/dL PROTU) UR CREATININE RANDOM (test 256.9 mg/dL code = CREATU) PROTEIN/CREATININE RATIO (test 430.9 mg/gcrea <200 H code = P/CRATIO) URINE SAMPLE: CLEAN CATCHCBC W/AUTO [id number] 01:51:00 Test Item Value Reference Range Interpretation [...] (test NORMAL NORMAL code = PLTMR) quest [id number] 00:00:00 Test Item Value Reference Range Interpretation Comments quest collection (test code = quest quest collection) [facility]2021-09-16 00:00:00 Test Item Value Reference Range Interpretation Comments quest collection (test code = quest quest collection) [facility] - [id number] 08:58:51 Test Item Value Reference Range Interpretation Comments Leukocytes (test code = Leukocytes) Negative Nitrite (test code = Nitrite) negative Urobilinogen (test code = .2 Urobilinogen) Protein (test code = Protein) Negative pH (test code = pH) 7.0 Blood (test code = Blood) Negative Specific [place] (test code = 1.015 Specific [place]) Ketone (test code = Ketone) Negative Bilirubin (test code = Bilirubin) Negative Glucose (test code = Glucose) Negative Appearance (test code = Appearance) Clear Color (test code = Color) Yellow [facility] (dipstick[facility] panel - [id number] 08:58:51 Test Item Value Reference Range Interpretation Comments Leukocytes (test code = Leukocytes) Negative Nitrite (test code = Nitrite) negative Urobilinogen (test code = .2 Urobilinogen) Protein (test code = Protein) Negative pH (test code = pH) 7.0 Blood (test code = Blood) Negative Specific [place] (test code = 1.015 Specific [place]) Ketone (test code = Ketone) Negative Bilirubin (test code = Bilirubin) Negative Glucose (test code = Glucose) Negative Appearance (test code = Appearance) Clear Color (test code = Color) Yellow [facility]2021-09-15 00:00:00 Test Item Value Reference Range Interpretation Comments quest collection (test code = quest quest collection) [facility]2021-09-15 00:00:00 Test Item Value Reference Range Interpretation Comments quest collection (test code = quest quest collection) [facility]2021-09-01 00:00:00 Test Item Value Reference Range Interpretation Comments quest collection (test code = quest quest collection) [facility]stick[facility] panel - [id number] 10:50:31 Test Item Value Reference Range Interpretation Comments Leukocytes (test code = Leukocytes) Negative Nitrite (test code = Nitrite) negative Urobilinogen (test code = .2 Urobilinogen) Protein (test code = Protein) Negative pH (test code = pH) 7.0 Blood (test code = Blood) Negative Specific [place] (test code = 1.020 Specific [place]) Ketone (test code = Ketone) Negative Bilirubin (test code = Bilirubin) Negative Glucose (test code = Glucose) Negative Appearance (test code = Appearance) Clear Color (test code = Color) Yellow [facility] (dipstick) panel - [id number] 10:50:31 Test Item Value Reference Range Interpretation Comments Leukocytes (test code = Leukocytes) Negative Nitrite (test code = Nitrite) negative Urobilinogen (test code = .2 Urobilinogen) Protein (test code = Protein) Negative pH (test code = pH) 7.0 Blood (test code = Blood) Negative Specific [place] (test code = 1.020 Specific [place]) Ketone (test code = Ketone) Negative Bilirubin (test code = Bilirubin) Negative Glucose (test code = Glucose) Negative Appearance (test code = Appearance) Clear Color (test code = Color) Yellow [facility] (dipstick) panel - [id number] 14:06:47 Test Item Value Reference Range Interpretation Comments Leukocytes (test code = Leukocytes) Trace Nitrite (test code = Nitrite) negative Urobilinogen (test code = 1 Urobilinogen) Protein (test code = Protein) Negative pH (test code = pH) 7.0 Blood (test code = Blood) Negative Specific [place] (test code = 1.020 Specific [place]) Ketone (test code = Ketone) Negative Bilirubin (test code = Bilirubin) Negative Glucose (test code = Glucose) Negative Appearance (test code = Appearance) Clear Color (test code = Color) Yellow [facility] (dipstick) panel - [id number] 14:06:47 Test Item Value Reference Range Interpretation Comments Leukocytes (test code = Leukocytes) Trace Nitrite (test code = Nitrite) negative Urobilinogen (test code = 1 Urobilinogen) Protein (test code = Protein) Negative pH (test code = pH) 7.0 Blood (test code = Blood) Negative Specific [place] (test code = 1.020 Specific [place]) Ketone (test code = Ketone) Negative Bilirubin (test code = Bilirubin) Negative Glucose (test code = Glucose) Negative Appearance (test code = Appearance) Clear Color (test code = Color) Yellow [facility] CenterChromosome 13+18+21+X+Y aneuploidy in Blood by Molecular genetics method [id number] 00:00:00 Test Item Value Reference Range Interpretation Comments report summary (test code see notes = report summary) report note (test code = see notes report note) trisomy 13 age-based risk 7,826 (0.01%) text (test code = trisomy 13 age-based risk text) trisomy 13 risk score text <1/10,000 (<0.01%) (test code = trisomy 13 risk score text) trisomy 13 result text low risk (test code = trisomy 13 result text) trisomy 18 age-based risk 2,484 (0.04%) text (test code = trisomy 18 age-based risk text) trisomy 18 risk score text <1/10,000 (<0.01%) (test code = trisomy 18 risk score text) trisomy 18 result text low risk (test code = trisomy 18 result text) trisomy 21 age-based risk 1,068 (0.09%) text (test code = trisomy 21 [...] footnotes (test code = see notes footnotes) [facility] Center[facility] in Unspecified specimen by Molecular genetics method [id number] 00:00:00 Test Item Value Reference Range Interpretation [...] code = polycystic kidney disease, autosomal recessive) aaoce-epxff-rqbsm syndrome (test negative code = mehrm-jpsgq-vbhgl syndrome) spinal muscular atrophy (test code negative = spinal muscular atrophy) jeff-sachs disease (test code = negative jeff-sachs disease) panel notes (test code = panel see notes notes) report note (test code = report see notes note) footnotes (test code = footnotes) see notes [facility] CenterCT + NG + TV, DNA, [id number] 00:00:00 Test Item Value Reference Range Interpretation [...] & av panel) by real time PCR) [facility] CenterUr[facility] macro (dipstick) panel - [id number] 14:47:00 Test Item Value Reference Range Interpretation Comments Leukocytes (test code = Leukocytes) Negative Nitrite (test code = Nitrite) negative Urobilinogen (test code = .2 Urobilinogen) Protein (test code = Protein) Negative pH (test code = pH) 6.5 Blood (test code = Blood) Negative Specific [place] (test code = 1.025 Specific [place]) Ketone (test code = Ketone) Trace Bilirubin (test code = Bilirubin) Small Glucose (test code = Glucose) Negative Appearance (test code = Appearance) Clear Color (test code = Color) Yellow [facility] CenterUr[facility]ysis macro (dipstick) panel - [id number] 14:47:00 Test Item Value Reference Range Interpretation Comments Leukocytes (test code = Leukocytes) Negative Nitrite (test code = Nitrite) negative Urobilinogen (test code = .2 Urobilinogen) Protein (test code = Protein) Negative pH (test code = pH) 6.5 Blood (test code = Blood) Negative Specific [place] (test code = 1.025 Specific [place]) Ketone (test code = Ketone) Trace Bilirubin (test code = Bilirubin) Small Glucose (test code = Glucose) Negative Appearance (test code = Appearance) Clear Color (test code = Color) Yellow [facility] Notes Date/Time Note Provider Source 2021-07-18 07:11:00-00:00 [facility] OB Postpart Progr Note REPORT#:[id number] REPORT STATUS: Signed DATE:07/18/21 TIME: 710 PATIENT: EDEN HELTON UNIT #: [id number] ROOM/BED: 2204-A : 03 AGE: 16 SEX: F ATTEND: Tanna Scott MD ADM AUTHOR: Geovanny Lemon Jr, MD * ALL edits or amendments must be made on the el ectronic/computer document * Subjective Subjective Status/day: post operative, POSTOP C/S DAY 4 Patient reports: Patient reports: No: complaints. Objective Nursing Documentation Review Nursing data: The data set between the solid lines has been im ported from nursing documentation. Any exceptions have been noted be low under Provider comments. Feeding preference: Post hemorrhage risk score: Low Risk for Hemorrhage. Provider comments on imported nursing data: [] General VS: Vital Signs Date Temp Pulse Resp B/P B/P Mean Pulse Ox FiO2 07/17-07/18 98.1-98.9 82-104 18-20 111-137/78-86 92.0-102.0 97-99 Last Documented: Result Date Time Pulse Ox 98 07/18 0420 B/P 127/86 07/18 042 Temp 98.9 07/18 0420 Pulse 99 07/18 0420 Resp 18 07/18 0420 B/P Mean 102.0 07/17 1910 PATIENT WEIGHT: Weight (lb): 235 Weight (oz): Weight (kg): 106.594 Physical Exam Incision site: well approximated edges, michelle intact, dry, no drainage, no inflammation Uterus: firm, involution appropriate, non-tender Fundus: below the umbilicus, non-tender Lower extremities: Edema: trace Diagnosis, Assessment Plan Diagnosis, Assessment Plan Assessment: nml progress Plan: discharge today Plan discussed with: patient, spouse/partner Comments: MICHELLE WILL BE REMOVED TODAY Electronically Signed by Geovanny Lemon Jr, MD 07/18/21 at 0717 RPT #:[id number] END OF REPORT 2021-07-17 07:05:00-00:00 [facility] OB Postpart Progr Note REPORT#:[id number] REPORT STATUS: Signed DATE:07/17/21 TIME: 704 PATIENT: EDEN HELTON UNIT #: [id number] ROOM/BED: [address] : 03 AGE: 16 SEX: F ATTEND: Tanna Scott MD ADM AUTHOR: Leno Quispe MD * ALL edits or amendments must be made on the [employer]/computer document * Subjective Subjective Status/Day: post operative (day 3) Patient reports: Patient reports: Yes no complaints, Yes normal lochia, Yes pain management effective, Yes tolerating po well, Yes voiding well, Ye s voiding without pain, Yes tolerating ambulation, Yes flatus, Yes bowel movement Objective General VS: Vital Signs: Date Time Temp Pulse Resp B/P B/P Pulse O2 O2 F low FiO2 Mean Ox Delivery Rate 07/17 648 94.0 07/17 648 102 18 124/79 07/17 526 98.7 108 18 126/78 07/176 101.0 07/17 36 98.9 92 18 132/85 PATIENT WEIGHT: Weight (lb): 235 Weight (oz): Weight (kg): 106.594 Physical Exam Abdomen: soft (normal postop tenderness) Incision site: well approximated edges, no drain age Uterus: non-tender Fundus: below the umbilicus, non-tender Lower extremities: Edema: 1+ pitting Diagnosis, Assessment Plan Diagnosis, Assessment Plan Free text A P: POD 3 (11-2 Vy griffithsCS at 34.4, for worsenin g EPPS, preeclampsia with SF, Rhenleigh, 2520g, ap 8,9) postop h/h 10.4/32.6 o n procardia 30xL q12 and labetalol 200mg q12h 11-4 BP 120/60-70, doing well PLAN- cpm, home in am w procardia 30xL q12 and l abetalol 200mg q12h, norco, motrin, colace, f/u dr rush 2 wks, bp checks at home preE precautions Pt discussed with Dr. parra Electronically Signed by Leno Quispe MD on at 1043 RPT #:[id number] END OF REPORT 2021-07-16 13:21:00-00:00 [facility] ([facility]) Brief Discharge Note w/Med Rec REPORT#:[id number] REPORT STATUS: Signed DATE:07/16/21 TIME: 1321 PATIENT: EDEN HELTON UNIT #: [id number] ROOM/BED: [address] : 03 AGE: 16 SEX: F ATTEND: Tanna Scott MD ADM AUTHOR: Leno Quispe MD * ALL edits or amendments must be made on the el [employer]/computer document * Med Rec Med Rec Discharge meds: Continue taking these medications: PNV WITH FE FUMARATE/FA () 1 EACH TAB 1 TABLET ORAL DAILY. ACETAMINOPHEN (TYLENOL) 500 MG TAB 1,000 MILLIGRAM ORAL DIRECTED. as needed for EPPS Instructions: Follow label instructions for pain or fever. Start taking the following new medications: LABETALOL (TRANDATE) 200 MG TAB 200 MILLIGRAM ORAL EVERY 12 HOURS. Qty = 60 No Refills NIFEdipine XL (PROCARDIA XL) 30 MG TAB.SA 30 MILLIGRAM ORAL EVERY 12 HOURS. Qty = 60 No Refills IBUPROFEN (MOTRIN) 600 MG TAB 600 MILLIGRAM ORAL EVERY 6 HOURS NEEDED. as needed for PAIN SCALE 1-3 ( USE 1ST) Qty = 60 No Refills DOCUSATE SODIUM (COLACE) 100 MG CAP 100 MILLIGRAM ORAL TWICE DAILY. Qty = 60 No Refills HYDROcodone/APAP (NORCO 5/325) 1 TAB TAB 1 TABLET ORAL EVERY FOUR HOURS. Qty = 30 No Refills Brief Discharge Note w/Med Rec Free Text A P: Admission 06-11-21 16 y/o G1 at 29 6/7 we eks (THANIA 08-12-21, BABY GIRL RASTA) who was admitted to transport service for pre-ec lampsia. PNC w dr rush 1) Pre-eclampsia- BP range on admission 132-163/ 77-101. s/p mag therapy, on labetalol 200mg BID. LAB 11-1 nl plat and LFT, 1 0-18 nl lft, 24hu 10-7 853mg, managed expectantly until da y of delivery when she had 2d of worsening headache, see below 11-1 continues to c/o headac he 02/19, unrelieved by meds. also w abd discomfort. exam, bp, labs wnl, but now 34.4 w worse chinmay headache. discussed r/b/c of cont preg vs deliv. rec deliv, cs ect for worsening preE and breech (confirmed last pm by bedside scan w dr urbina). 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, neonatology consult 3) US- 07/05 Tyler: coley breech, no gross anomalies, microcephaly HC 3.8 % MCA PSV 36, mild increase, anterior placenta, 2 areas of suspected placenta infarcts 2 x 3 cm, 1.8 x 2.5 cm, PANFILO 6.8 7 further decreased from 8 cm, S/D 3.6 increased, BPP 8/8, EFW 2127 gms, 37 % Hadlock p ercentile 06/24 Tyler: breech, no gross anomalies, microcep haly HC 5 %, MCA PSV 36, mild increase anterior placenta, 2 areas of suspectedplacenta infarcts 2 x 3 cm, PANFILO 9.2 decreased, S/D 4 increased, BPP 8/8, EFW 1550 gm s, 9 % (Hadlock) 4) Elevated Bile Acids: ANGELITO and SSA/B neg, US indicative of hepatomegaly likely due to fatty infiltration, low suspicion for ICP ; ursadiol 300mg q12 4) FWB: reactive NST, TID 5) DVT prophy- Obesity (BMI: 42), SCD's while in bed 6) Asthma- currently in remission 7) Adolescent -has adequate social support at home, and partner in room today, SW consult in place 8) TDAP 10-10 9) Pruritic Folliculitis of : improving, kenalog ointment and claritin as needed 10) Rubella nonimmune: MMR Delivery 11-2 kirshon, pLTCS at 34.4, for worsen ing EPPS, preeclampsia with SF, [place], 2520g, ap 8,9 (see op note) Postop course- uncomplicated bp wnl 120/60-70 , postop h/h 10.4/32.6 on procardia 30xL q12 and labetalol 200mg q12h D/C 07-17- POD 4 w procardi a 30xL q12 and labetalol 200mg q12h, norco, motrin, colace F/U dr rush 2 wks fax [phone], preE pre cautions Discharge to: Home/Self Care Pt. condition on discharge: improved Additional Discharge Routines: None Diet: Regular Activity: Light Duty Wound/dressing care: Keep wound clean and dry Additional instructions: f/u dr rush 2 weeks, bp checks at home Electronically Signed by Leno Quispe MD on at 1548 RPT #:[id number] END OF REPORT 2021-07-16 07:42:00-00:00 [facility]) OB Postpart Progr Note REPORT#:[id number] REPORT STATUS: Signed DATE:07/16/21 TIME: 741 PATIENT: EDEN HELTON UNIT #: [id number] ROOM/BED: 4-A : 03 AGE: 16 SEX: F ATTEND: Tanna Scott MD ADM AUTHOR: Leno Quispe MD * ALL edits or amendments must be made on the el [employer]/computer document * Subjective Subjective Status/Day: post operative (day 2) Patient reports: Patient reports: Yes no complaints, Yes normal lochia, Yes pain management effective, Yes tolerating po well, Yes voiding well, Ye s voiding without pain, Yes tolerating ambulation, Yes flatus, No bowel movement Objective General VS: Vital Signs: Date Time Temp Pulse Resp B/P B/P Pulse O2 O2 Flow FiO2 Mean Ox Delivery Rate 07/16 0348 98.3 94 18 129/63 99 07/16 0009 98.0 74 18 129/64 97 07/15 1925 98.0 89 17 120/58 100 07/15 1600 98.7 72 18 107/53 96 PATIENT WEIGHT: Weight (lb): 235 Weight (oz): Weight (kg): 106.594 Physical Exam Abdomen: soft (normal postop tenderness) Incision site: well approximated edges, no drain age Uterus: non-tender Fundus: below the umbilicus, non-tender Lower extremities: Edema: 1+ pitting Diagnosis, Assessment Plan Diagnosis, Assessment Plan Free text A P: POD 2 (11-2 kirshon, pLTCS at 34.4, for worsenin g EPPS, preeclampsia with SF, [place], 2520g, ap 8,9) postop h/h 10.4/32.6 o n procardia 30xL q12 and labetalol 200mg q12h 11-4 BP 110-120/60-70, doing well PLAN- cpm Pt discussed with Dr. parra Electronically Signed by Leno Quispe MD on at 1313 RPT #:[id number] END OF REPORT 2021-07-15 06:45:00-00:00 [facility] ([facility]) OB Postpart Progr Note REPORT#:[id number] REPORT STATUS: Signed DATE:07/15/21 TIME: 0645 PATIENT: EDEN HELTON UNIT #: [id number] ROOM/BED: 2204-A : 03 AGE: 16 SEX: F ATTEND: Tanna Scott MD ADM AUTHOR: Mayra Alvarez DO R2 * ALL edits or amendments must be made on the el ectronic/computer document * Mayra Alvarez 07/15/21 0645: Subjective Subjective EGA at delivery (wks/days): 34.4 Status/Day: post operative (day 1) Patient reports: Patient reports: Yes normal lochia, Yes pain management effective, Yes tolerating po well, Yes tolerating ambulation, Yes f latus, Yes difficulty nursing, No bowel movement, No nausea, No vomiting, No excessive bleedi ng, No abdominal pain, No headache, No blurred vision Comments: godoy d/c'ed this AM Objective Physical Exam Abdomen: soft (normal postop tenderness) Incision site: well approximated edges, no drain age Uterus: non-tender Fundus: below the umbilicus, non-tender Lower extremities: Edema: 1+ pitting Diagnosis, Assessment Plan Diagnosis, Assessment Plan Free text A P: POD 1 (11-2 kirshon, pLTCS at 34.4, for worsenin g EPPS, preeclampsia with SF, [place], 2520g, ap 8,9) postop h/h 10.4/32.6 POD1: -Elevated BPs pospartum, pro cardia 30xL q12 added in addition to labetalol 200mg q12h. BPs now wnl, no severe ranges since 1801. Denies signs and sx. Monitor closely. -godoy d/c'ed this Am follow up on voiding trial -difficulty , nurse consu lted PLAN- cpm Pt discussed with Leno Clark 07/15/21 1313: Attestations Physician Attestation Agree w/findings plan: I was present during the king or critical portions of the service provides by the resident. I examined the pat ient and discussed the patient's management with the resident. I reviewed the res idents note and agree with the documented findings, assessment and plan of care at 0952 Electronically Signed by Leno Quispe MD on at 1313 RPT #:[id number] END OF REPORT 2021-07-14 17:14:00-00:00 [id number] [facility] [address] [id number] PATIENT NAME: EDEN HELTON ADMIT DATE: 06/11 ACCOUNT NO: [id number] ROOM NO: F.2204 AGE: 16 SEX: F ADMITTING PHYSICIAN: Kristy Scott MD ATTENDING PHYSICIAN: Kristy Scott MD OPERATION DATE: 07/14/2021 SECTION PREOPERATIVE DIAGNOSES: A 34-week intrauterine p regnancy, breech, severe preeclampsia, worsening preeclampsia. POSTOPERATIVE DIAGNOSES: A 34-week intrauterine , breech, severe preeclampsia, worsening preeclampsia. PROCEDURE: Primary low transverse secti on. SURGEON: Marko Griffiths MD PETROLEUM SAMPLER: Leno Quispe MD ANESTHESIA: Combined spinal epidural. ESTIMATED BLOOD LOSS: 700 mL. BRIEF HISTORY: The patient is a 16-year-old who had been transferred to our care with preeclampsia that worsened with worsening headache at 34 plus weeks of gestation, she is taken for a section f or breech and worsening preeclampsia. PROCEDURE IN DETAIL: A 5-inch Pfannenstiel skin incision was made and a deep knife was used to extend the incision through th e subcutaneous tissue and fascia. The fascial incision was extended laterally and dissected free from the underlying rectus muscle, which was divi ded in the midline. The peritoneum was entered into and a bladder flap created and a lo w transverse incision made. There was clear fluid in both feet were encounte red. The feet were then extracted through the hysterotomy incisi on. A blue towel was placed across the legs and the buttocks, abdom en, and thorax were then gently delivered. The arms were delivered across the anterior chest wall an d with gentle flexion of the head, the baby was delivered. This was an 8 and 9 female fetus, 2520 grams. Delayed cord clamping was done an d the baby handed to alejandro. The placenta was delivered and sent to pathology and the uter us was exteriorized and the cavity cleaned of all blood and clots and the ut erus closed with #1 Vicryl suture with good hemostasis. There were normal t ubes and ovaries bilaterally. The uterus was replaced back in the abdominal ca vity and again hemostasis checked for and noted to be present. Interrupted 2-0 Vicryl was used to close the peritoneum and muscle, #1 Vicryl was used to close the fascia. The subcutaneous tissue was irrigated and wi th the Bovie made hemostatic and a 2-0 PATIENT NAME: EDEN HELTON [id number] Vicryl used to close the subcutaneous tissue fol lowed by an application of michelle. Prophylactic dose of Ancef was given. U rine output was 200 mL, clear fluid. She received a 1000 mL of intraoperative fluid. She was transferred to the recovery room in stable condition with IV fl uids infusing and a Godoy catheter draining clear urine. Sponge and instru ment counts were correct x3. Dictated By: Marko Griffiths MD WT: OP:FFRIDA/PANCHO/AMIRAH Conf#: [id number]#: [id number] Authenticated by Marko Griffiths MD On 07/17/20 08:10:57 AM Electronically Signed by Marko Griffiths MD on at 0810 PATIENT NAME: EDEN HELTON [id number] 1241-11-02 10:04:00-00:00 [facility] ([facility] OB Antepartum Prog Note REPORT#:[id number] REPORT STATUS: Signed DATE:07/14/21 TIME: 1004 PATIENT: EDEN HELTON UNIT #: [id number] ROOM/BED: [address] : 03 AGE: 16 SEX: F ATTEND: Tanna Scott MD ADM AUTHOR: Leno Quispe MD * ALL edits or amendments must be made on the [employer] document * Subjective Subjective Patient reports: Patient reports: Yes abdominal pain, Yes normal movement, Yes headache (6/10), No vaginal bleeding, No leaking fluid, No contracti ons, No blurred vision, No scotomata Objective VS: Last Documented: Result Date Time B/P Mean 95.0 07/14 0446 B/P 129/73 07/14 044 Pulse 116 07/14 0446 Resp 20 07/13 1533 Temp 98.0 07/13 0811 Pulse Ox 98 07/12 0927 Vital Signs Date Temp Pulse Resp B/P B/P Mean Pulse Ox FiO2 07/13-07/14 90-116 18-20 127-140/68-80 91.0-104 .0 PATIENT WEIGHT: Weight (lb): 237 Weight (oz): Weight (kg): 107.501 Membranes: Intact Neuro: Exam: alert, oriented x3, normal speech Abdomen: gravid, soft, no abnormal tenderness, n o guarding Lower extremities: Edema: trace Baby A: Baby A FHR category: category 1 Findings/data: Laboratory Tests: 07/138 5 Hematology WBC (6.5 - 12.3 K/mm3) 9.5 RBC (3.51 - 4.69 M/mm3) 3.67 Hgb (10.1 - 13.8 g/dL) 10.7 Hct (32.5 - 41.8 %) 33.2 MCV (84.6 - 96.6 fL) 90.5 MCH (27.3 - 33.9 pg) 29.2 MCHC (32.0 - 34.2 gm/dL) 32.2 RDW (12.2 - 16.3 %) 16.8 H Plt Count (134 - 363 K/mm3) 224 MPV (9.2 - 12.7 fL) 11.5 Total Counted (#CELLS) 100 Seg Neutrophils % (56.5 - 79.4 %) 86 H Lymphocytes % (Manual) (20 - 40 %) 8 L Monocytes % (Manual) (0 - 8 %) 6 Urines Urine Color (YELLOW) YELLOW Urine Appearance (CLEAR) CLOUDY A Urine pH (5 - 9) 8.0 Ur Specific [place] (1.001 - 1.035) 1.015 Urine Protein (NEG) 2+ H Urine Glucose (UA) (NEG) NEGATIVE Urine Ketones (NEG) NEGATIVE Urine Blood (NEG) NEG Urine Nitrite (NEG) NEG Urine Bilirubin (NEG) NEGATIVE Urine Urobilinogen (NEG mg/dL) NEGATIVE Ur Leukocyte Esterase (NEG) NEG Urine RBC (NONE SEEN #/hpf) 0-2 Urine WBC (NONE SEEN #/hpf) 0-2 Ur Epithelial Cells (RARE - FEW #/HPF) RARE Urine Bacteria (RARE - FEW /HPF) RARE Urine Mucus (NONE SEEN) RARE Diagnosis, Assessment Plan Diagnosis, Assessment Plan Free Text A P: 16 y/o G1 at 34 4/7 weeks (E DD 12--21, BABY GIRL RASTA) who was admitted to transport service at 29 6/7 weeks for pre-eclamp myla. PNC w dr rush 1) Pre-eclampsia- BP range on admission 132-163/ 77-101. s/p mag therapy, on labetalol 200mg BID. LAB 11-1 nl plat and LFT, 1 0-18 nl lft, 24hu 10-7 853mg, PLAN- cpm, delivery at 36-37 weeks or so leena for for worsening maternal and/or status. 11-1 continues to c/o headac he 02/19, unrelieved by meds. also w abd discomfort. exam, bp, labs wnl, but now 34.4 w worse chinmay headache. discussed r/b/c of cont preg vs deliv. rec deliv, cs ect for worsening preE and breech (confirmed last pm by bedside scan w dr urbina). 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, neonatology consult 3) US- 07/05 Tyler: coley breech, no gross anomalies, microcephaly HC 3.8 % MCA PSV 36, mild increase, anterior placenta, 2 areas of suspected placenta infarcts 2 x 3 cm, 1.8 x 2.5 cm, PANFILO 6.8 7 further decreased from 8 cm, S/D 3.6 increased, BPP 8/8, EFW 2127 gms, 37 % Hadlock p ercentile 06/24 Tyler: breech, no gross anomalies, microcep haly HC 5 %, MCA PSV 36, mild increase anterior placenta, 2 areas of suspectedplacenta infarcts 2 x 3 cm, PANFILO 9.2 decreased, S/D 4 increased, BPP 8/8, EFW 1550 gm s, 9 % (Hadlock) 4) Elevated Bile Acids: ANGELITO and SSA/B neg, US indicative of hepatomegaly likely due to fatty infiltration, low suspicion for ICP ; ursadiol 300mg q12 4) FWB: reactive NST, TID 5) DVT prophy- Obesity (BMI: 42), SCD's while in bed 6) Asthma- currently in remission 7) Adolescent -has adequate social support at home, and partner in room today, SW consult in place 8) TDAP 10-10 9) Pruritic Folliculitis of : improving, kenalog ointment and claritin as needed 10) Rubella nonimmune: MMR Plan seen w dr griffiths Electronically Signed by Leno Quispe MD on at 1010 RPT #:[id number] END OF REPORT 2021-07-13 23:31:00-00:00 [facility] ([facility]) Clinical Note REPORT#:[id number] REPORT STATUS: Signed DATE:07/13/21 TIME: 2330 PATIENT: EDEN HELTON UNIT #: [id number] ROOM/BED: 5070-A : 03 AGE: 16 SEX: F ATTEND: Tanna Scott MD ADM AUTHOR: Lisseth Urbina DO * ALL edits or amendments must be made on the [employer]/computer document * Clinical Note Note: Back into patient room this evening to reassess her pain. She is on her phone and appears in no acute distress or discomfort. She says that her pain is unchanged. REviewed her normal labs and offered procardia to help with ctx discomfort and/or flexeril f or MSK pain of her right back/hip area. She declines both. Performed US and noted fetus in breech presentat ion with SDP:4.57 cm Answered her questions and addressed her concern s. Will follow clincally overnight. Randall Urbina DO FACOG Laboratory Tests: 07/13 07/13 07/13 7708 2115 0920 Chemistry Sodium (135 - 145 mEq/L) 138 Potassium (3.5 - 5.0 mEq/L) 3.9 Chloride (100 - 115 mEq/L) 105 Carbon Dioxide (22 - 31 mEq/L) 22 Anion Gap (10 - 20) 15.20 BUN (7 - 18 mg/dL) 5 L Creatinine (0.5 - 1.0 mg/dL) 0.5 Glomerular Filtr Rate (>60 ml/min) 161 Glucose (65 - 110 mg/dL) 106 Calcium (8.4 - 10.2 mg/dL) 8.9 Total Bilirubin (0.2 - 1.0 mg/dL) 0.1 L AST (15 - 37 units/L) 17 ALT (12 - 78 units/L) 12 Total Alk Phosphatase (46 - 116 units/L) 112 Total Protein (6.3 - 8.2 gm/dL) 5.2 L Albumin (3.4 - 4.8 gm/dL) 1.9 L Hematology WBC (6.5 - 12.3 K/mm3) 9.5 9.4 RBC (3.51 - 4.69 M/mm3) 3.67 3.72 Hgb (10.1 - 13.8 g/dL) 10.7 10.7 Hct (32.5 - 41.8 %) 33.2 33.7 MCV (84.6 - 96.6 fL) 90.5 90.6 MCH (27.3 - 33.9 pg) 29.2 28.8 MCHC (32.0 - 34.2 gm/dL) 32.2 31.8 L RDW (12.2 - 16.3 %) 16.8 H 16.7 H Plt Count (134 - 363 K/mm3) 224 214 MPV (9.2 - 12.7 fL) 11.5 11.3 Neut % (Auto) (57.9 - 77.3 %) 71.0 Lymph % (Auto) (14.5 - 29.7 %) 21.2 [place] % (Auto) (3.6 - 10.2 %) 4.7 Eos % (Auto) (0.0 - 3.0 %) 2.1 Baso % (Auto) (0.1 - 0.9 %) 0.3 Neut # (Auto) (K/mm3) 6.7 Lymph # (Auto) (K/mm3) 2.0 [place] # (Auto) (K/mm3) 0.4 Eos # (Auto) (K/mm3) 0.20 Baso # (Auto) (K/mm3) 0.0 Total Counted (#CELLS) 100 Seg Neutrophils % (56.5 - 79.4 %) 86 H Lymphocytes % (Manual) (20 - 40 %) 8 L Monocytes % (Manual) (0 - 8 %) 6 Urines Urine Color (YELLOW) YELLOW Urine Appearance (CLEAR) CLOUDY A Urine pH (5 - 9) 8.0 Ur Specific [place] (1.001 - 1.035) 1.015 Urine Protein (NEG) 2+ H Urine Glucose (UA) (NEG) NEGATIVE Urine Ketones (NEG) NEGATIVE Urine Blood (NEG) NEG Urine Nitrite (NEG) NEG Urine Bilirubin (NEG) NEGATIVE Urine Urobilinogen (NEG mg/dL) NEGATIVE Ur Leukocyte Esterase (NEG) NEG Urine RBC (NONE SEEN #/hpf) 0-2 Urine WBC (NONE SEEN #/hpf) 0-2 Ur Epithelial Cells (RARE - FEW #/HPF) RARE Urine Bacteria (RARE - FEW /HPF) RARE Urine Mucus (NONE SEEN) RARE Electronically Signed by Lisseth Urbina DO on 10/02 at 2334 RPT #:[id number] END OF REPORT 2021-07-13 21:25:00-00:00 [facility] ([facility]) Clinical Note REPORT#:[id number] REPORT STATUS: Signed DATE:07/13/21 TIME: 2124 PATIENT: EDEN HELTON UNIT #: [id number] ROOM/BED: [address] : 03 AGE: 16 SEX: F ATTEND: Tanna Scott MD ADM AUTHOR: Lisseth Urbina DO * ALL edits or amendments must be made on the [employer] document * Clinical Note Note: Phoned by pt RN to review strip and her complaints of uterine contractions and right lower back pain. Into room and reviewed NST, Category 1 with 1 15x15 and a few 10 x10 accels. SVE: unchanged 2/50/-2 and ctx noted on toco q 5 min or so. Exam shows RL back pain and some mild TTP (horacio rn for CVA TTP) Thus will order CBC, UA and place IV for 500ml L R bolus Discussed with patient her ctx pattern and she w ould like some tylenol, and wants to see how the labs come back befo re deciding if she wants procardia for tocolysis (for comfort purposes) Will reevaluate later this pm once labs result a nd reassess her pain at this time. Electronically Signed by Lisseth Urbina DO on 10/02 at 2128 RPT #:[id number] END OF REPORT 2021-07-13 06:41:00-00:00 [facility] ([facility]) OB Antepartum Prog Note REPORT#:[id number] REPORT STATUS: Signed DATE:07/13/21 TIME: 640 PATIENT: DEEN HELTON UNIT #: [id number] ROOM/BED: [address] : 03 AGE: 16 SEX: F ATTEND: Tanna Scott MD ADM AUTHOR: Mayra Alvarez DO R2 * ALL edits or amendments must be made on the [employer] document * Mayra Alvarez 07/13/21 0641: Subjective Subjective Admission EGA: Weeks: 29 Days: 6 Patient reports: Patient reports: Yes: contractions, headache, scotomata. No: abd ominal pain, vaginal bleeding , leaking fluid, decreased movement, blurr ed vision, fever, chills, shortness of breath. Review of Systems Constitutional: Denies: chills, fever. Respiratory: Denies: non productive cough, SOB. Cardiovascular: Denies: chest pain, palpitations. GI: Reports: nausea. Denies: abdominal pain, vomitin g. : Denies: vaginal bleeding, vaginal discharge. Neuro: Reports: headache, vision change. Objective Membranes: Intact Cervical/ exam: Dilatation (cm): 2 Effacement (%): 50 station: - 4 Uterine activity: Monitor: toco Frequency (description): irregular Frequency (minutes): 8 Procedures: non stress test HEENT: normocephalic w/o injury Lungs: unlabored breathing Neuro: Exam: alert, oriented x3, normal speech Abdomen: gravid, soft, no abnormal tenderness, n o guarding Uterus: soft, non-tender Lower extremities: Edema: trace Baby A: Baby A baseline: 150 bpm Baby A variability: moderate 6-25 bpm Baby A accelerations: 15 X 15 Baby A decelerations: none Baby A FHR category: category 1 Diagnosis, Assessment Plan Diagnosis, Assessment Plan Free text A P: 16 y/o G1 at 34 3/7 weeks (E DD 08-12-21, BABY GIRL RASTA) who was admitted to transport service at 29 6/7 weeks for pre-eclamp myla. PNC w dr rush 1) Pre-eclampsia- BP range on admission 132-163/ 77-101. s/p mag therapy, on labetalol 200mg BID. LAB 11-1 nl plat and LFT, 1 0-18 nl lft, 24hu 10-7 853mg, PLAN- cpm, delivery at 36-37 weeks or so leena for for worsening maternal and/or status. 11-1 c/o EPPS, spots in her vision and new swellin g. PIH labs obtained wnl. BPs wnl. Will try tylenol 1g vs fiorcet. Consider de livery with worsening status. Also c/o ctx, SVE: 1.5/50/-4, posterior. Continu e to monitor for signs of labor. Will need C/S for delivery since fetus in breech position. 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 services director, neonatology consult 3) US- 07/05 Tyler: coley breech, no gross anomalies, microcephaly HC 3.8 % MCA PSV 36, mild increase, anterior placenta, 2 areas of suspected placenta infarcts 2 x 3 cm, 1.8 x 2.5 cm, PANFILO 6.8 7 further decreased from 8 cm, S/D 3.6 increased, BPP 8/8, EFW 2127 gms, 37 % Hadlock p ercentile 06/24 Tyler: breech, no gross anomalies, microcep haly HC 5 %, MCA PSV 36, mild increase anterior placenta, 2 areas of suspectedplacenta infarcts 2 x 3 cm, PANFILO 9.2 decreased, S/D 4 increased, BPP 8/8, EFW 1550 gm s, 9 % (Hadlock) 4) Elevated Bile Acids: ANGELITO and SSA/B neg, US indicative of hepatomegaly likely due to fatty infiltration, low suspicion for ICP ; ursadiol 300mg q12 4) FWB: reactive NST, TID 5) DVT prophy- Obesity (BMI: 42), SCD's while in bed 6) Asthma- currently in remission 7) Adolescent -has adequate social support at home, and partner in room today, SW consult in place 8) TDAP 10-10 9) Pruritic Folliculitis of : improving, kenalog ointment and claritin as needed 10) Rubella nonimmune: MMR Plan discussed with Dr. Garber Plan: continue current managmnt, betamet hasone admin, magnesium sulfate, surveillance Leno Quispe 07/14/21 0946: Attestations Physician Attestation Agree w/findings plan: I was present during the king or critical portions of the service provides by the resident. I examined the pat ient and discussed the patient's management with the resident. I reviewed the res idents note and agree with the documented findings, assessment and plan of care at 1251 Electronically Signed by Leno Quispe MD on at 0947 RPT #:[id number] END OF REPORT 2021-07-12 11:05:00-00:00 [facility] ([facility]) OB Antepartum Prog Note REPORT#:[id number] REPORT STATUS: Signed DATE:07/12/21 TIME: 1105 PATIENT: EDEN HELTON UNIT #: [id number] ROOM/BED: [address] : 03 AGE: 16 SEX: F ATTEND: Tanna Scott MD ADM AUTHOR: Marcello Cortez MD * ALL edits or amendments must be made on the [employer] document * Subjective Subjective Admission EGA: Weeks: 29 Days: 6 Patient reports: Patient reports: Yes no complaints, Yes normal movement, N o abdominal pain, No vaginal bleeding, No leaking fluid, No contractions, No blurred vision, No scotomata Comments: EPPS improving Objective Nursing Documentation Review Nursing data: The data set between the solid lines has been im ported from nursing documentation. Any exceptions have been noted be low under Provider comments. ROM date: ROM time: Labor onset date: Labor onset time: Provider comments on imported nursing data: [] VS: Last Documented: Result Date Time B/P Mean 91.0 07/12 928 B/P 125/68 07/12 928 Pulse 102 07/12 928 Pulse Ox 98 07/12 927 Temp 97.7 07/11 2127 Resp 20 07/11 2127 Vital Signs Date Temp Pulse Resp B/P B/P Mean Pulse Ox FiO2 07/11-07/12 97.7-98.5 81-111 18-20 123-137/62-86 87.0-106.0 92-99 PATIENT WEIGHT: Weight (lb): 237 Weight (oz): Weight (kg): 107.501 Membranes: Intact Uterine activity: Monitor: toco Frequency (description): none Procedures: non stress test HEENT: normocephalic w/o injury Neuro: Exam: alert, oriented x3, normal speech Abdomen: gravid, soft, no abnormal tenderness, n o guarding Uterus: soft, non-tender Lower extremities: Edema: trace Baby A: Baby A baseline: 150 bpm Baby A variability: moderate 6-25 bpm Baby A accelerations: 15 X 15 Baby A decelerations: none Baby A FHR category: category 1 Diagnosis, Assessment Plan Diagnosis, Assessment Plan Free Text A P: 16 y/o G1 at 34 2/7 weeks (E DD 08-12-21, BABY GIRL RASTA) who was admitted to transport service at 29 6/7 weeks for pre-eclamp myla. PNC w dr rush 1) Pre-eclampsia- BP range on admission 132-163/ 77-101. s/p mag therapy, on labetalol 200mg BID. LAB 10-30 nl plat a nd LFT, 10-18 nl lft, 24hu 10-7 853mg, PLAN- cpm, delivery at 36-37 weeks or so leena for for worsening maternal and/or status. 07-12 EPPS improved. BPs wnl. Plan - will allow fioricetas neede.CBC and CMP WNL. 2) Prematurity - s/p BMZ x 2 (06/11, 06/12), s/p m gSO4 for food services director, neonatology consult 3) US- 07/05 Tyler: coley breech, no gross anomalies, microcephaly HC 3.8 % MCA PSV 36, mild increase, anterior placenta, 2 areas of suspected placenta infarcts 2 x 3 cm, 1.8 x 2.5 cm, PANFILO 6.8 7 further decreased from 8 cm, S/D 3.6 increased, BPP 8/8, EFW 2127 gms, 37 % Hadlock p ercentile 06/24 Tyler: breech, no gross anomalies, microcep haly HC 5 %, MCA PSV 36, mild increase anterior placenta, 2 areas of suspectedplacenta infarcts 2 x 3 cm, PANFILO 9.2 decreased, S/D 4 increased, BPP 8/8, EFW 1550 gm s, 9 % (Hadlock) 4) Elevated Bile Acids: ANGELITO and SSA/B neg, US indicative of hepatomegaly likely due to fatty infiltration, low suspicion for ICP ; ursadiol 300mg q12 4) FWB: reactive NST, TID 5) DVT prophy- Obesity (BMI: 42), SCD's while in bed 6) Asthma- currently in remission 7) Adolescent -has adequate social support at home, and partner in room today, SW consult in place 8) TDAP 10-10 9) Pruritic Folliculitis of : improving, kenalog ointment and claritin as needed 10) Rubella nonimmune: MMR Assessment: reassuring status, status post betamethasone, status post magnesium, hypertension, stable, doing well Plan: continue current managmnt, surveilla nce, DVT prophylaxis Plan discussed with: patient Electronically Signed by Marcello Cortez MD o n 07/12/21 at 1109 RPT #:[id number] END OF REPORT 2021-07-11 10:15:00-00:00 [facility] ([facility]) OB Antepartum Prog Note REPORT#:[id number] REPORT STATUS: Signed DATE:07/11/21 TIME: 1015 PATIENT: EDEN HELTON UNIT #: [id number] ROOM/BED: [address] : 03 AGE: 16 SEX: F ATTEND: Tanna Scott MD ADM AUTHOR: Marcello Cortez MD * ALL edits or amendments must be made on the [employer]computer document * Subjective Subjective Admission EGA: Weeks: 29 Days: 6 Patient reports: Patient reports: Yes normal movement, Yes headache, No abd ominal pain, No vaginal bleeding, No leaking fluid, No contractions Comments: Pt complains of persistent EPPS Objective Nursing Documentation Review Nursing data: The data set between the solid lines has been im ported from nursing documentation. Any exceptions have been noted be low under Provider comments. ROM date: ROM time: Labor onset date: Labor onset time: Provider comments on imported nursing data: [] VS: Last Documented: Result Date Time B/P Mean 105.0 07/11 918 B/P 139/82 07/11 918 Pulse 97 07/11 918 Pulse Ox 99 07/11 917 Temp 98.5 07/11 0842 Resp 18 07/11 842 Vital Signs Date Temp Pulse Resp B/P B/P Mean Pulse Ox FiO2 07/10-07/11 98.5-98.9 78-111 18 125-139/67-89 90 .0-108.0 98-99 PATIENT WEIGHT: Weight (lb): 237 Weight (oz): Weight (kg): 107.501 Membranes: Intact Uterine activity: Monitor: toco Frequency (description): none Procedures: non stress test HEENT: normocephalic w/o injury Neuro: Exam: alert, oriented x3, normal speech Abdomen: gravid, soft, no abnormal tenderness, n o guarding Uterus: soft, non-tender Lower extremities: Edema: trace Baby A: Baby A baseline: 150 bpm Baby A variability: moderate 6-25 bpm Baby A accelerations: 15 X 15 Baby A decelerations: none Diagnosis, Assessment Plan Diagnosis, Assessment Plan Free Text A P: 16 y/o G1 at 34 1/7 weeks (E DD 08-12-21, BABY GIRL RASTA) who was admitted to transport service at 29 6/7 weeks for pre-eclamp myla. PNC w dr rush 1) Pre-eclampsia- BP range on admission 132-163/ 77-101. s/p mag therapy, on labetalol 200mg BID. LAB 10-25 nl plat a nd LFT, 10-18 nl lft, 24hu 10-7 853mg, PLAN- cpm, delivery at 36-37 weeks or so leena for for worsening maternal and/or status. 10-30 EPPS Pt complains of EPPS since last night. BP s wnl. Plan - will allow fioricet again,and will recheck CBC and CMP 2) Prematurity - s/p BMZ x 2 (06/11, 06/12), s/p m gSO4 for food services director, neonatology consult 3) US- 07/05 Tyler: coley breech, no gross anomalies, microcephaly HC 3.8 % MCA PSV 36, mild increase, anterior placenta, 2 areas of suspected placenta infarcts 2 x 3 cm, 1.8 x 2.5 cm, PANFILO 6.8 7 further decreased from 8 cm, S/D 3.6 increased, BPP 8/8, EFW 2127 gms, 37 % Hadlock p ercentile 06/24 Tyler: breech, no gross anomalies, microcep haly HC 5 %, MCA PSV 36, mild increase anterior placenta, 2 areas of suspectedplacenta infarcts 2 x 3 cm, PANFILO 9.2 decreased, S/D 4 increased, BPP 8/8, EFW 1550 gm s, 9 % (Hadlock) 4) Elevated Bile Acids: ANGELITO and SSA/B neg, US indicative of hepatomegaly likely due to fatty infiltration, low suspicion for ICP ; ursadiol 300mg q12 4) FWB: reactive NST, TID 5) DVT prophy- Obesity (BMI: 42), SCD's while in bed 6) Asthma- currently in remission 7) Adolescent -has adequate social support at home, and partner in room today, SW consult in place 8) TDAP 10-10 9) Pruritic Folliculitis of : improving, kenalog ointment and claritin as needed 10) Rubella nonimmune: MMR Assessment: reassuring status, status post betamethasone, status post magnesium, hypertension, EPPS Plan: continue current managmnt, surveilla nce, DVT prophylaxis, Labs pending Plan discussed with: patient, nurse Electronically Signed by Marcello Cortez MD 07/11/21 at 1021 RPT #:[id number] END OF REPORT 2021-07-10 06:26:00-00:00 [facility] ([facility]) OB Antepartum Prog Note REPORT#:[id number] REPORT STATUS: Signed DATE:07/10/21 TIME: 625 PATIENT: EDEN HELTON UNIT #: [id number] ROOM/BED: 5070-A : 03 AGE: 16 SEX: F ATTEND: Tanna Scott MD ADM AUTHOR: Mayra Alvarez DO R2 * ALL edits or amendments must be made on the [employer]/computer document * Mayra Alvarez 07/10/21 0626: Subjective Subjective Admission EGA: Weeks: 29 Days: 6 Patient reports: Patient reports: Yes: abdominal pain, headache. No: vaginal blee ding, leaking fluid, contractions, decreased movement, blurred vision, scotomata. Review of Systems Constitutional: Denies: chills, fever. Respiratory: Denies: non productive cough, SOB. Cardiovascular: Denies: chest pain, palpitations. GI: Denies: nausea, vomiting. : Denies: vaginal bleeding, vaginal discharge. Neuro: Denies: headache, vision change. Objective Nursing Documentation Review Nursing data: The data set between the solid lines has been im ported from nursing documentation. Any exceptions have been noted be low under Provider comments. ROM date: ROM time: Labor onset date: Labor onset time: Provider comments on imported nursing data: [] VS: Last Documented: Result Date Time B/P Mean 92.0 07/10 0413 B/P 129/68 07/10 0413 Pulse 92 07/10 0413 Resp 16 07/10 0021 Pulse Ox 98 07/09 0813 Temp 98.2 07/09 0813 Vital Signs Date Temp Pulse Resp B/P B/P Mean Pulse Ox FiO2 07/09-07/10 98.2 92-114 16-17 123-142/65-81 88. 0-107.0 98 PATIENT WEIGHT: Weight (lb): 237 Weight (oz): Weight (kg): 107.501 Medications: Active Meds + DC'd Last 24 Hrs Ursodiol (ACTIGALL 300MG CAPSULE) 300 MG Q12H PO Triamcinolone Acetonide (TRIAMCINOLONE ACETONIDE 0.025% OINT 15 GM) 1 APPLIC QID TOPICAL Loratadine (CLARITIN 10MG TABLET) 10 MG DAILY PO Multivit/Folic Acid/Iron ( Stephanie min Tablet) 1 TAB DAILY PO Calamine (CALAMINE LOTION 120 ML) 1 APPLIC Q6H P RN PRN TOPICAL Diphenhydramine HCl (diphenhydrAMINE HCL 25 MG C AP) 25 MG Q4H PRN PRN PO Labetalol HCl (LABETALOL HCL 200 MG) 200 MG Q12H PO Al Hydrox/Mg Hydrox/Simethicone (MYLANTA 30 ML S GROUP HOME) 30 ML Q4H PRN PRN PO Acetaminophen/Butalbital/Caffeine (Fioricet 50-3 00-40 MG Capsule) 1 EACH Q4H PRN PRN PO Docusate Sodium (DOCUSATE SODIUM 100 MG CAP) 100 MG BID PO Acetaminophen (ACETAMINOPHEN 325 MG TAB) 650 MG Q4H PRN PRN PO Magnesium Hydroxide (MILK OF MAGNESIA 30 ML UD) 30 ML Q6H PRN PRN PO Ondansetron HCl (ZOFRAN 4 MG UD TAB) 4 MG Q4H AR N PRN PO Polyethylene Glycol (POLYETHYLENE GLYCOL PKT) 17 GM DAILY PRN PRN PO Ondansetron HCl (ZOFRAN 2 MG/ML 4 MG SYR) 4 MG Q 4H PRN PRN IV Membranes: Intact Uterine activity: Monitor: toco Frequency (description): none Procedures: non stress test HEENT: normocephalic w/o injury Lungs: unlabored breathing Neuro: Exam: alert, oriented x3, normal speech Abdomen: gravid, soft, no abnormal tenderness, n o guarding Lower extremities: Edema: trace Baby A: Baby A baseline: 150 bpm Baby A variability: moderate 6-25 bpm Baby A accelerations: 15 X 15 Baby A decelerations: none Diagnosis, Assessment Plan Diagnosis, Assessment Plan Free text A P: 16 y/o G1 at 34 0/7 weeks (E DD 12-21, BABY GIRL RASTA) who was admitted to transport service at 29 6/7 weeks for pre-eclamp myla. PNC w dr rush 1) Pre-eclampsia- BP range on admission 132-163/ 77-101. s/p mag therapy, on labetalol 200mg BID. LAB 10-25 nl plat a nd LFT, 10-18 nl lft, 24hu 10-7 853mg, PLAN- cpm, delivery at 36-37 weeks or so leena for for worsening maternal and/or status. 10-29 EPPS last night resolved with fiorce t, c/o of nondescript CP/Abd pain last night did not notify nursing/MD resolved spontan eously, pepcid 20mg daily ordered. Will try protonix i f pepcid does not provide relief. Conseled on eating habits and not laying down after eating. BPs wnl . 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 services director, neonatology consult 3) US- 07/05 Tyler: coley breech, no gross anomalies, microcephaly HC 3.8 % MCA PSV 36, mild increase, anterior placenta, 2 areas of suspected placenta infarcts 2 x 3 cm, 1.8 x 2.5 cm, PANFILO 6.8 7 further decreased from 8 cm, S/D 3.6 increased, BPP 8/8, EFW 2127 gms, 37 % Hadlock p ercentile 06/24 Tyler: breech, no gross anomalies, microcep haly HC 5 %, MCA PSV 36, mild increase anterior placenta, 2 areas of suspectedplacenta infarcts 2 x 3 cm, PANFILO 9.2 decreased, S/D 4 increased, BPP 8/8, EFW 1550 gm s, 9 % (Hadlock) 4) Elevated Bile Acids: ANGELITO and SSA/B neg, US indicative of hepatomegaly likely due to fatty infiltration, low suspicion for ICP ; ursadiol 300mg q12 4) FWB: reactive NST, TID 5) DVT prophy- Obesity (BMI: 42), SCD's while in bed 6) Asthma- currently in remission 7) Adolescent -has adequate social support at home, and partner in room today, SW consult in place 8) TDAP 10-10 9) Pruritic Folliculitis of : improving, kenalog ointment and claritin as needed 10) Rubella nonimmune: MMR Plan discussed with Dr. Griffiths Plan: continue current managmnt, betamet hasone admin, magnesium sulfate, surveillance Leno Quispe 07/10/21 1035: Attestations Physician Attestation Agree w/findings plan: I was present during the king or critical portions of the service provides by the resident. I examined the pat ient and discussed the patient's management with the resident. I reviewed the res idents note and agree with the documented findings, assessment and plan of care at 0957 Electronically Signed by Leno Quispe MD on at 1035 RPT #:[id number] END OF REPORT 2021-07-09 06:38:00-00:00 [facility] ([facility]) OB Antepartum Prog Note REPORT#:[id number] REPORT STATUS: Signed DATE:07/09/21 TIME: 06 PATIENT: EDEN HELTON UNIT #: [id number] ROOM/BED: [address] : 03 AGE: 16 SEX: F ATTEND: Tanna Scott MD ADM AUTHOR: Mayra Alvarez DO R2 * ALL edits or amendments must be made on the [employer]/computer document * Mayra Alvarez 07/09/21 0638: Subjective Subjective Admission EGA: Weeks: 29 Days: 6 Patient reports: Patient reports: Yes: abdominal pain (intermittent). No: vaginal bleeding, leaking fluid, contractions, decreased movement, headache , blurred vision. Review of Systems Constitutional: Denies: chills, fever. Respiratory: Denies: non productive cough, SOB. Cardiovascular: Denies: chest pain, palpitations. GI: Reports: abdominal pain. Denies: nausea, vomitin g. : Denies: vaginal bleeding, vaginal discharge. Neuro: Denies: headache, vision change. Objective Nursing Documentation Review Nursing data: The data set between the solid lines has been im ported from nursing documentation. Any exceptions have been noted be low under Provider comments. ROM date: ROM time: Labor onset date: Labor onset time: Provider comments on imported nursing data: [] VS: Last Documented: Result Date Time B/P Mean 96.0 07/09 513 B/P 131/72 07/09 513 Pulse 88 07/09 513 Resp 2 07/09 513 Temp 98.3 07/08 202 Pulse Ox 99 07/08 1636 Vital Signs Date Temp Pulse Resp B/P B/P Mean Pulse Ox FiO2 07/08-07/09 98.0-98.3 82-193 2-18 120-139/64-77 88.0-102.0 82-99 PATIENT WEIGHT: Weight (lb): 237 Weight (oz): Weight (kg): 107.501 Membranes: Intact Uterine activity: Monitor: toco Frequency (description): none Procedures: non stress test HEENT: normocephalic w/o injury Lungs: unlabored breathing Neuro: Exam: alert, oriented x3, normal speech Abdomen: gravid, soft, no abnormal tenderness, n o guarding Lower extremities: Edema: trace Baby A: Baby A baseline: 140 bpm Baby A variability: moderate 6-25 bpm Baby A accelerations: 15 X 15 Baby A decelerations: none Diagnosis, Assessment Plan Diagnosis, Assessment Plan Free text A P: 16 y/o G1 at 33 6/7 weeks (E DD 12--21, BABY GIRL RASTA) who was admitted to transport service at 29 6/7 weeks for pre-eclamp myla. PNC w dr rush 1) Pre-eclampsia- BP range on admission 132-163/ 77-101. s/p mag therapy, on labetalol 200mg BID. LAB 10-25 nl plat a nd LFT, 10-18 nl lft, 24hu 10-7 853mg, PLAN- cpm, delivery at 36-37 weeks or so leena for for worsening maternal and/or status. 07-09 some upper abd pain, no tenderness elicite d on exam, monitor, BPs wnl. 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 services director, neonatology consult 3) US- 07/05 Tyler: coley breech, no gross anomalies, microcephaly HC 3.8 % MCA PSV 36, mild increase, anterior placenta, 2 areas of suspected placenta infarcts 2 x 3 cm, 1.8 x 2.5 cm, PANFILO 6.8 7 further decreased from 8 cm, S/D 3.6 increased, BPP 8/8, EFW 2127 gms, 37 % Hadlock p ercentile 06/24 Tyler: breech, no gross anomalies, microcep haly HC 5 %, MCA PSV 36, mild increase anterior placenta, 2 areas of suspectedplacenta infarcts 2 x 3 cm, PANFILO 9.2 decreased, S/D 4 increased, BPP 8/8, EFW 1550 gm s, 9 % (Hadlock) 4) Elevated Bile Acids: ANGELITO and SSA/B neg, US indicative of hepatomegaly likely due to fatty infiltration, low suspicion for ICP ; ursadiol 300mg q12 4) FWB: reactive NST, TID 5) DVT prophy- Obesity (BMI: 42), SCD's while in bed 6) Asthma- currently in remission 7) Adolescent -has adequate social support at home, and partner in room today, SW consult in place 8) TDAP 10-10 9) Pruritic Folliculitis of : improving, kenalog ointment and claritin as needed 10) Rubella nonimmune: MMR Plan discussed with Dr. Parra Plan: continue current managmnt, betamet hasone admin, magnesium sulfate, surveillance Leno Quispe 07/09/21 1245: Attestations Physician Attestation Agree w/findings plan: I was present during the king or critical portions of the service provides by the resident. I examined the pat ient and discussed the patient's management with the resident. I reviewed the res idents note and agree with the documented findings, assessment and plan of care at 0852 Electronically Signed by Leno Quispe MD on at 1246 RPT #:[id number] END OF REPORT 2021-07-08 06:42:00-00:00 [facility] ([facility]) OB Antepartum Prog Note REPORT#:[id number] REPORT STATUS: Signed DATE:07/08/21 TIME: 641 PATIENT: EDEN HELTON UNIT #: [id number] ROOM/BED: [address] : 03 AGE: 16 SEX: F ATTEND: Tanna Scott MD ADM AUTHOR: Mayra Alvarez DO R2 * ALL edits or amendments must be made on the [employer]/computer document * Mayra Alvarez 07/08/21 0642: Subjective Subjective Admission EGA: Weeks: 29 Days: 6 Patient reports: Patient reports: No: abdominal pain, vaginal bleeding, leaking f luid, contractions, decreased movement, headache, blurred vision, scotom radha. Review of Systems Constitutional: Denies: chills, fever. Respiratory: Denies: non productive cough, SOB. Cardiovascular: Denies: chest pain, palpitations. GI: Denies: nausea, vomiting. : Denies: vaginal bleeding, vaginal discharge. Neuro: Denies: headache, vision change. Objective Nursing Documentation Review Nursing data: The data set between the solid lines has been im ported from nursing documentation. Any exceptions have been noted be low under Provider comments. ROM date: ROM time: Labor onset date: Labor onset time: Provider comments on imported nursing data: [] Membranes: Intact Uterine activity: Monitor: toco Frequency (description): none Procedures: non stress test HEENT: normocephalic w/o injury Lungs: unlabored breathing Neuro: Exam: alert, oriented x3, normal speech Abdomen: gravid, soft, no abnormal tenderness, n o guarding Lower extremities: Edema: trace Baby A: Baby A baseline: 140 bpm Baby A variability: moderate 6-25 bpm Baby A accelerations: 15 X 15 Baby A decelerations: none Diagnosis, Assessment Plan Diagnosis, Assessment Plan Free text A P: 16 y/o G1 at 33 5/7 weeks (E DD 08-12-21, BABY GIRL RASTA) who was admitted to transport service at 29 6/7 weeks for pre-eclamp myla. PNC w dr rush 1) Pre-eclampsia- BP range on admission 132-163/ 77-101. s/p mag therapy, on labetalol 200mg BID. LAB 10-25 nl plat a nd LFT, 10-18 nl lft, 24hu 10-7 853mg, PLAN- cpm, delivery at 36-37 weeks or so leena for for worsening maternal and/or status. 07-08 no ob complaints, BPs wnl. 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 services director, neonatology consult 3) US- 07/05 Tyler: coley breech, no gross anomalies, microcephaly HC 3.8 % MCA PSV 36, mild increase, anterior placenta, 2 areas of suspected placenta infarcts 2 x 3 cm, 1.8 x 2.5 cm, PANFILO 6.8 7 further decreased from 8 cm, S/D 3.6 increased, BPP 8/8, EFW 2127 gms, 37 % Hadlock p ercentile 06/24 Tyler: breech, no gross anomalies, microcep haly HC 5 %, MCA PSV 36, mild increase anterior placenta, 2 areas of suspectedplacenta infarcts 2 x 3 cm, PANFILO 9.2 decreased, S/D 4 increased, BPP 8/8, EFW 1550 gm s, 9 % (Hadlock) 4) Elevated Bile Acids: ANGELITO and SSA/B neg, US indicative of hepatomegaly likely due to fatty infiltration, low suspicion for ICP ; ursadiol 300mg q12 4) FWB: reactive NST, TID 5) DVT prophy- Obesity (BMI: 42), SCD's while in bed 6) Asthma- currently in remission 7) Adolescent -has adequate social support at home, and partner in room today, SW consult in place 8) TDAP 10-10 9) Pruritic Folliculitis of : improving, kenalog ointment and claritin as needed 10) Rubella nonimmune: MMR Plan seen and discussed with Dr. Scott Plan: continue current managmnt, betamet hasone admin, magnesium sulfate, surveillance Leno Quispe 07/08/21 1113: Attestations Physician Attestation Agree w/findings plan: I was present during the king or critical portions of the service provides by the resident. I examined the pat ient and discussed the patient's management with the resident. I reviewed the res idents note and agree with the documented findings, assessment and plan of care at 0923 Electronically Signed by Leno Quispe MD on at 1114 RPT #:[id number] END OF REPORT 2021-07-07 07:00:00-00:00 [facility] ([facility]) OB Antepartum Prog Note REPORT#:[id number] REPORT STATUS: Signed DATE:07/07/21 TIME: 07 PATIENT: EDEN HELTON UNIT #: [id number] ROOM/BED: [address] : 03 AGE: 16 SEX: F ATTEND: Tanna Scott MD ADM AUTHOR: Leno Quispe MD * ALL edits or amendments must be made on the [employer] document * Subjective Subjective Patient reports: Patient reports: Yes no complaints, Yes normal movement, N o abdominal pain, No vaginal bleeding, No leaking fluid, No contractions, No headache, No blurred vision, No scotomata Objective VS: Last Documented: Result Date Time B/P Mean 91.0 07/07 08 Pulse Ox 93 07/07 831 B/P 126/65 07/07 0831 Temp 98.3 07/07 08 Pulse 103 07/07 0831 Resp 18 07/07 0831 Vital Signs Date Temp Pulse Resp B/P B/P Mean Pulse Ox FiO2 07/06-07/07 98.1-98.3 93-106 18 125-134/61-69 8 8.0-94.0 93-98 PATIENT WEIGHT: Weight (lb): 237 Weight (oz): Weight (kg): 107.501 Membranes: Intact Abdomen: gravid, soft, no abnormal tenderness, n o guarding Lower extremities: Edema: trace Baby A: Baby A baseline: 140 bpm Baby A variability: moderate 6-25 bpm Baby A accelerations: 15 X 15 Baby A decelerations: none Findings/data: Laboratory Tests: 07/06 07/06 1719 1325 Chemistry Sodium (135 - 145 mEq/L) 138 Potassium (3.5 - 5.0 mEq/L) 4.2 Chloride (100 - 115 mEq/L) 103 Carbon Dioxide (22 - 31 mEq/L) 24 Anion Gap (10 - 20) 15.30 BUN (7 - 18 mg/dL) 5 L Creatinine (0.5 - 1.0 mg/dL) 0.5 Glomerular Filtr Rate (>60 ml/min) 161 Glucose (65 - 110 mg/dL) 84 Calcium (8.4 - 10.2 mg/dL) 9.4 Total Bilirubin (0.2 - 1.0 mg/dL) 0.1 L AST (15 - 37 units/L) 15 ALT (12 - 78 units/L) 15 Total Alk Phosphatase (46 - 116 units/L) 125 H Total Protein (6.3 - 8.2 gm/dL) 5.6 L Albumin (3.4 - 4.8 gm/dL) 2.0 L Hematology WBC (6.5 - 12.3 K/mm3) 10.0 RBC (3.51 - 4.69 M/mm3) 3.72 Hgb (10.1 - 13.8 g/dL) 10.6 Hct (32.5 - 41.8 %) 33.4 MCV (84.6 - 96.6 fL) 89.8 MCH (27.3 - 33.9 pg) 28.5 MCHC (32.0 - 34.2 gm/dL) 31.7 L RDW (12.2 - 16.3 %) 16.7 H Plt Count (134 - 363 K/mm3) 265 MPV (9.2 - 12.7 fL) 10.9 Neut % (Auto) (57.9 - 77.3 %) 73.3 Lymph % (Auto) (14.5 - 29.7 %) 18.1 [place] % (Auto) (3.6 - 10.2 %) 5.6 Eos % (Auto) (0.0 - 3.0 %) 1.9 Baso % (Auto) (0.1 - 0.9 %) 0.2 Neut # (Auto) (K/mm3) 7.3 Lymph # (Auto) (K/mm3) 1.8 [place] # (Auto) (K/mm3) 0.6 Eos # (Auto) (K/mm3) 0.19 Baso # (Auto) (K/mm3) 0.0 Urines Ur Random Creatinine (mg/dL) 131.3 U Random Total Protein (mg/dL) 161.5 Protein/Creatinin Ratio (<200 mg/gcrea) 1230.0 H Diagnosis, Assessment Plan Diagnosis, Assessment Plan Free Text A P: 16 y/o G1 at 33 4/7 weeks (E DD 08-12-21, BABY GIRL RHENLEIGH) who was admitted to transport service at 29 6/7 weeks for pre-eclamp myla. PNC w dr rush 1) Pre-eclampsia- BP range on admission 132-163/ 77-101. s/p mag therapy, on labetalol 200mg BID. LAB 10-25 nl plat and LFT, P/C 1230mg, 24hu 10-7 853mg, PLAN- cpm, delivery at 36-37 weeks or so leena for for worsening maternal and/or status. 07-07 no c/o, BPs wnl. labs wnl, but p/c incr. P adelaida - cpm 2) Prematurity - s/p BMZ x 2 (06/11, 06/12), s/p m gSO4 for food services director, neonatology consult 3) US- 07/05 Tyler: coley breech, no gross anomalies, microcephaly HC 3.8 % MCA PSV 36, mild increase, anterior placenta, 2 areas of suspected placenta infarcts 2 x 3 cm, 1.8 x 2.5 cm, PANFILO 6.8 7 further decreased from 8 cm, S/D 3.6 increased, BPP 8/8, EFW 2127 gms, 37 % Hadlock percentile. PLAN- rescan w KA - 06/24 Tyler: breech, no gross anomalies, microcep haly HC 5 %, MCA PSV 36, mild increase anterior placenta, 2 areas of suspectedplacenta infarcts 2 x 3 cm, PANFILO 9.2 decreased, S/D 4 increased, BPP 8/8, EFW 1550 gm s, 9 % (Hadlock) 4) Elevated Bile Acids: ANGELITO and SSA/B neg, US indicative of hepatomegaly likely due to fatty infiltration, low suspicion for ICP ; ursadiol 300mg q12 4) FWB: reactive NST, TID 5) DVT prophy- Obesity (BMI: 42), SCD's while in bed 6) Asthma- currently in remission 7) Adolescent -has adequate social support at home, and partner in room today, SW consult in place 8) TDAP 10-10 9) Pruritic Folliculitis of : improving, kenalog ointment and claritin as needed 10) Rubella nonimmune: MMR Plan seen and discussed with Dr. griffiths Electronically Signed by Leno Quispe MD on at 1009 RPT #:[id number] END OF REPORT 2021-07-06 06:35:00-00:00 [facility] ([facility]) OB Antepartum Prog Note REPORT#:[id number] REPORT STATUS: Signed DATE:07/06/21 TIME: 634 PATIENT: EDEN HELTON UNIT #: [id number] ROOM/BED: [facility] : 03 AGE: 16 SEX: F ATTEND: Tanna Scott MD ADM AUTHOR: Mayra Alvarez DO R2 * ALL edits or amendments must be made on the [employer]/computer document * Mayra Alvarez 07/06/21 0635: Subjective Subjective Admission EGA: Weeks: 29 Days: 6 Patient reports: Patient reports: Yes: contractions (rare (1-2)). No: abdominal p ain, vaginal bleeding, leaking fluid, decreased movement, headach e, blurred vision, scotomata. Review of Systems Constitutional: Denies: chills, fever. Respiratory: Denies: non productive cough, SOB. GI: Denies: nausea, vomiting. : Denies: vaginal bleeding, vaginal discharge. Neuro: Denies: headache, vision change. Objective Membranes: Intact Uterine activity: Monitor: toco Frequency (description): rare Procedures: non stress test HEENT: normocephalic w/o injury Lungs: unlabored breathing Neuro: Exam: alert, oriented x3, normal speech Abdomen: gravid, soft, no abnormal tenderness, n o guarding Lower extremities: Edema: trace Baby A: Baby A baseline: 140 bpm Baby A variability: moderate 6-25 bpm Baby A accelerations: 15 X 15 Baby A decelerations: none Diagnosis, Assessment Plan Diagnosis, Assessment Plan Free text A P: 16 y/o G1 at 33 3/7 weeks (E DD 08-12-21, BABY GIRL RASTA) who was admitted to transport service at 29 6/7 weeks for pre-eclamp myla. PNC w dr rush 1) Pre-eclampsia- BP range on admission 132-163/ 77-101. s/p mag therapy, on labetalol 200mg BID. LAB 10-14 nl plat a nd LFT, 10-18 nl lft, 24hu 10-7 853mg, PLAN- cpm, delivery at 36-37 weeks or so leena for for worsening maternal and/or status. 07-06 rare ctx, no other ob complaints, BPs wnl. Will obtain rpt PI labs. 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 services director, neonatology consult 3) US- 07/05 Tyler: coley breech, no gross anomalies, microcephaly HC 3.8 % MCA PSV 36, mild increase, anterior placenta, 2 areas of suspected placenta infarcts 2 x 3 cm, 1.8 x 2.5 cm, PANFILO 6.8 7 further decreased from 8 cm, S/D 3.6 increased, BPP 8/8, EFW 2127 gms, 37 % Hadlock p ercentile 06/24 Tyler: breech, no gross anomalies, microcep haly HC 5 %, MCA PSV 36, mild increase anterior placenta, 2 areas of suspectedplacenta infarcts 2 x 3 cm, PANFILO 9.2 decreased, S/D 4 increased, BPP 8/8, EFW 1550 gm s, 9 % (Hadlock) 4) Elevated Bile Acids: ANGELITO and SSA/B neg, US indicative of hepatomegaly likely due to fatty infiltration, low suspicion for ICP ; ursadiol 300mg q12 4) FWB: reactive NST, TID 5) DVT prophy- Obesity (BMI: 42), SCD's while in bed 6) Asthma- currently in remission 7) Adolescent -has adequate social support at home, and partner in room today, SW consult in place 8) TDAP 10-10 9) Pruritic Folliculitis of : improving, kenalog ointment and claritin as needed 10) Rubella nonimmune: MMR Plan seen and discussed with Dr. Garber Plan: continue current managmnt, betamet hasone admin, magnesium sulfate, surveillance Leno Quispe 07/06/21 1387: Attestations Physician Attestation Agree w/findings plan: I was present during the king or critical portions of the service provides by the resident. I examined the pat ient and discussed the patient's management with the resident. I reviewed the res idents note and agree with the documented findings, assessment and plan of care at 1143 Electronically Signed by Leno Quispe MD on at 1718 RPT #:[id number] END OF REPORT 2021-07-05 09:07:00-00:00 [id number] [facility] [address], [place] [address] PATIENT NAME: EDEN HELTON ADMIT DATE: 06/11 ACCOUNT NO: [id number] ROOM NO: 5070 AGE: 16 SEX: F ADMITTING PHYSICIAN: Kristy Scott MD ATTENDING PHYSICIAN: Kristy Scott MD DATE: 07/05/2021 ANTEPARTUM PROGRESS NOTE ATTENDING PHYSICIAN: Michael Associate liyah TIME OF EVALUATION: At approximately 8:20 a.m. SUBJECTIVE: The patient is an 16-year-ol d at 33-2/7th weeks, breech with preeclampsia. She currently states occasional he adache; otherwise, no blurred vision, scotomata, or epigastric pain. OBJECTIVE: VITAL SIGNS: Stable. She has been afebrile. Her last pulse rate anywhere from 87 to 111. Last blood pressure 144/80, prior blo od pressure 136/86. ABDOMEN: Soft, nontender. Strip shows moderate b eat-to-beat variability, positive accels, no regular contractions. PLAN: We will continue current care. Dictated By: Jose Morales MD WT: PN:FFRIDA/JAZMIN/NTS Conf#: [id number]/DID#: [id number] Authenticated by Jose Morales MD On 07/06/2021 04:03:08 AM at 0403 PATIENT NAME: EDEN HELTON [id number] 06:19:00-00:00 [facility] ([facility]) MF Consultation Note REPORT#:[id number] REPORT STATUS: Signed DATE:07/05/21 TIME: 618 PATIENT: EDEN HELTON UNIT #: [id number] ROOM/BED: [address] : 03 AGE: 16 SEX: F ATTEND: Tanna Scott MD ADM AUTHOR: Kristy Scott MD * ALL edits or amendments must be made on the [employer] document * History of Present Illness HPI Reason for consult: ultrasound History Past History Allergies: Coded Allergies: No Known Allergies (06/11/21) Objective Physical Exam VS/I O: Last Documented: Result Date Time B/P Mean 107.0 07/05 0327 B/P 144/80 07/05 032 Pulse 111 07/05 327 Pulse Ox 95 07/04 1616 Temp 98.7 07/03 2103 Resp 18 07/03 2103 PATIENT WEIGHT: Weight (lb): 237 Weight (oz): Weight (kg): 107.501 Results Radiology data: ultrasound: coley breech no gross anomalies microcephaly HC 3.8 % MCA PSV 36, mild increase anterior placenta, 2 areas o f suspected placenta infarcts 2 x 3 cm, 1.8 x 2.5 cm PANFILO 6.87 further decreased from 8 cm S/D 3.6 increased BPP 8/8 cervix no measured today EFW 2127 gms, 37 % Hadlock percentile indication 33 2/7 weeks weeks GA by dates,30 1/7 weeks by u ltrasound AGA, , improved interval grwoth decreased PANFILO. placenta insufficiency reassuring BPP preeclampsia Will re-evaluate in `10 days Electronically Signed by Kristy Scott MD on at 1112 RPT #:[id number] END OF REPORT 2021-07-04 10:20:00-00:00 [id number] [facility] [address], [place] [address] PATIENT NAME: EDEN HELTON ADMIT DATE: 06/11 ACCOUNT NO: [id number] ROOM NO: [facility] AGE: 16 SEX: F ADMITTING PHYSICIAN: Kristy Scott MD ATTENDING PHYSICIAN: Kristy Scott MD DATE: 07/04/2021 ANTEPARTUM PROGRESS NOTE ATTENDING PHYSICIAN: Michael Associate liyah TIME OF EVALUATION: At approximately 9:00 a.m. SUBJECTIVE: The patient is an 16-year-old at 33 and 1/7th weeks, breech with preeclampsia. She denies any headache, blur red vision, scotomata, or epigastric pain. OBJECTIVE: VITAL SIGNS: Stable. She is afebrile. Her last t emperature 98.7, pulse 108, respiratory rate 18, blood pressure 118/60. ABDOMEN: Soft, nontender. Strip shows moderate b eat-to-beat variability, positive accels, no regular contractions. ASSESSMENT AND PLAN: We will continue current ca re. She also has a pruritic rash that she states she fee ls much better and was put on Actigall secondary to increase in bile acids, although her right upper quadrant ultrasound showed a fatty infiltrate and other lab work evaluation i ncluding the ANGELITO is still pending. Her liver enzymes were normal. Dictated By: Jose Morales MD WT: PN:F.HIM/PINPH/NTS Conf#: [id number]/DID#: [id number] Authenticated by Jose Morales MD On 07/05/2021 09:28:01 AM at 0928 PATIENT NAME: EDEN HELTON [id number] 06:09:00-00:00 [facility] OB Antepartum Prog Note REPORT#:[id number] REPORT STATUS: Signed DATE:07/03/21 TIME: 608 PATIENT: EDEN HELTON UNIT #: [id number] [address] AGE: 16 SEX: F ATTEND: Tanna Scott MD ADM AUTHOR: Kim,Mayra DO R2 * ALL edits or amendments must be made on the [employer]/computer document * KimCheryl mendozai 07/03/21 0609: Subjective Subjective Admission EGA: Weeks: 29 Days: 6 Patient reports: Patient reports: No: abdominal pain, vaginal bleeding, leaking fluid, contractions, decreased movement, headache, blurred vision, scotom radha. Comments: rash to chest, shoulers, back, and chin, improvi ng with kenalog cream per pt. Review of Systems Constitutional: Denies: chills, fatigue, fever. Skin: Reports: rash. Denies: swelling. Respiratory: Denies: non productive cough, SOB. Cardiovascular: Denies: chest pain, palpitations. GI: Denies: nausea, vomiting. : Denies: vaginal bleeding, vaginal discharge. Neuro: Denies: headache, vision change. Objective Nursing Documentation Review Nursing data: The data set between the solid lines has been im ported from nursing documentation. Any exceptions have been noted be low under Provider comments. ROM date: ROM time: Labor onset date: Labor onset time: Provider comments on imported nursing data: [] VS: Last Documented: Result Date Time B/P Mean 92.0 07/02 2336 B/P 129/70 07/02 2336 Pulse 98 07/02 2336 Pulse Ox 98 10/21 2335 Temp 98.2 07/02 0907 Resp 16 07/02 0907 Vital Signs Date Temp Pulse Resp B/P B/P Mean Pulse Ox FiO 2 07/02 98.2 86-101 16 124-143/64-80 88.0-104.0 9 8-100 PATIENT WEIGHT: Weight (lb): 237 Weight (oz): Weight (kg): 107.501 Membranes: Intact Notes: diffuse pruritic folliculiti s with pustules to the anterior chest wall, and chin , face, and bilateral shoulders Uterine activity: Monitor: toco Frequency (description): none Procedures: non stress test HEENT: normocephalic w/o injury Lungs: unlabored breathing Neuro: Exam: alert, oriented x3, normal speech Abdomen: gravid, soft, no abnormal tenderness, n o guarding Lower extremities: Edema: trace Baby A: Baby A baseline: 140 bpm Baby A variability: moderate 6-25 bpm Baby A accelerations: 15 X 15 Baby A decelerations: none Diagnosis, Assessment Plan Diagnosis, Assessment Plan Free text A P: 16 y/o G1 at 33 0/7 weeks (E DD 08-12-21, BABY GIRL RASTA) who was admitted to transport service at 29 6/7 weeks for pre-eclamp myla. PNC w dr rush 1) Pre-eclampsia- BP range on admission 132-163/ 77-101. s/p mag therapy, on labetalol 200mg BID. LAB 10-14 nl plat a nd LFT, 10-18 nl lft, 24hu 10-7 853mg, PLAN- cpm, delivery at 36-37 weeks or so leena for for worsening maternal and/or status. 10-22 asympt, BPs wnl. Due to rash, elev ated bile acids of 28.3, low suspicion for ICP will obtain RUQ US a nd order ANGELITO, SSA/SSB and start ursadiol 500mg q12h. Plan - cpm, will scan today or tomorrow with Dr. Scott 2) Prematurity - s/p BMZ x 2 (06/11, 06/12), s/p m gSO4 for food services director, neonatology consult 3) US- 06/24 Tyler: breech, n o gross anomalies, microcephaly HC 5 %, MCA PSV 36, mild increase anterior placenta, 2 areas of suspectedplacenta infarcts 2 x 3 cm, PANFILO 9.2 decreased, S/D 4 increased, BPP 8/8, EFW 1550 gm s, 9 % (Hadlock).Will re- evaluate in 10 days. 06/12 Tyler: Coley, breech , no gross abnomalies, anterior placenta, PANFILO 14, S/ D 3.8, BPP 8/8 EFW 1266 gms, 29 % 4) FWB: reactive NST, TID 5) DVT prophy- Obesity (BMI: 42), SCD's while in bed 6) Asthma- currently in remission 7) Adolescent -has adequate social support at home, and partner in room today, SW consult in place 8) TDAP 10-10 9) Pruritic Folliculitis of : improving, kenalog ointment and claritin as needed 10) Rubella nonimmune: MMR Plan seen and discussed with Dr. Scott Plan: continue current managmnt, betamet hasone admin, magnesium sulfate, surveillance Kandace Fitzgerald 07/03/21 1009: Attestations Physician Attestation Agree w/findings plan: I have seen and examined the patient wit h the resident. The case was discussed with Dr Scott who recommends starting actigall du e to pruritic skin (rash) and elevated bile acids, bloodwo rk for autoimmune contributors and RUQ u/s. I agree with other aspects of the note as written at 0938 Electronically Signed by Kandace Fitzgerald MD on 1 at 1010 RPT #:[id number] END OF REPORT 2021-07-02 07:29:00-00:00 [facility] OB Antepartum Prog Note REPORT#:[id number] REPORT STATUS: Signed DATE:07/02/21 TIME: 728 PATIENT: EDEN HELTON UNIT #: [id number] ROOM/BED: [facility] : 03 AGE: 16 SEX: F ATTEND: Tanna Scott MD ADM AUTHOR: Kim,Mayra DO R2 * ALL edits or amendments must be made on the Lagiar/computer document * Mayra Alvarez 07/02/21 0729: Subjective Subjective Admission EGA: Weeks: 29 Days: 6 Patient reports: Patient reports: No: abdominal pain, vaginal bleeding, leaking fluid, contractions, decreased movement, headache, blurred vision, scotom radha. Review of Systems Constitutional: Denies: chills, fatigue, fever. Respiratory: Denies: non productive cough, SOB. Cardiovascular: Denies: chest pain, parox nocturnal dyspnea. GI: Denies: nausea, vomiting. : Denies: vaginal bleeding, vaginal discharge. Neuro: Denies: headache, vision change. Objective VS: Last Documented: Result Date Time B/P Mean 91.0 07/02 0509 B/P 126/68 07/02 0509 Pulse 96 07/02 0509 Pulse Ox 98 07/01 1952 Resp 18 07/01 1635 Temp 98.4 07/01 0918 Vital Signs Date Temp Pulse Resp B/P B/P Mean Pulse Ox FiO2 07/01-07/02 98.4 91-118 - 123-136/64-80 88. 0-103.0 82-99 PATIENT WEIGHT: Weight (lb): 237 Weight (oz): Weight (kg): 107.501 Membranes: Intact Uterine activity: Monitor: toco Frequency (description): none Procedures: non stress test HEENT: normocephalic w/o injury Lungs: unlabored breathing Neuro: Exam: alert, oriented x3, normal speech Abdomen: gravid, soft, no abnormal tenderness, n o guarding Lower extremities: Edema: trace Baby A: Baby A baseline: 140 bpm Baby A variability: moderate 6-25 bpm Baby A accelerations: 15 X 15 Baby A decelerations: none Diagnosis, Assessment Plan Diagnosis, Assessment Plan Free text A P: 16 y/o G1 at 32 6/7 weeks (E DD 08-12-21, BABY GIRL RASTA) who was admitted to transport service at 29 6/7 weeks for pre-eclamp myla. PNC w dr rush 1) Pre-eclampsia- BP range on admission 132-163/ 77-101. s/p mag therapy, on labetalol 200mg BID. LAB 10-14 nl plat a nd LFT, 10-18 nl lft, 24hu 10-7 853mg, PLAN- cpm, delivery at 36-37 weeks or so leena for for worsening maternal and/or status. 07-02 asympt, BPs wnl Plan - cpm, plan for scan tomorrow with Dr. Scott 2) Prematurity - s/p BMZ x 2 (06/11, 06/12), s/p m gSO4 for food services director, neonatology consult 3) US- 06/24 Tyler: breech, n o gross anomalies, microcephaly HC 5 %, MCA PSV 36, mild increase anterior placenta, 2 areas of suspectedplacenta infarcts 2 x 3 cm, PANFILO 9.2 decreased, S/D 4 increased, BPP 8/8, EFW 1550 gm s, 9 % (Hadlock).Will re- evaluate in 10 days. 06/12 Tyler: Coley, breech , no gross abnomalies, anterior placenta, PANFILO 14, S/ D 3.8, BPP 8/8 EFW 1266 gms, 29 % 4) FWB: reactive NST 5) DVT prophy- Obesity (BMI: 42), SCD's while in bed 6) Asthma- currently in remission 7) Adolescent -has adequate social support at home, and partner in room today, SW consult in place 8) TDAP 10-10 9) Pruritic Folliculitis of : improving, kenalog ointment and claritin as needed, bile acids pending 10) Rubella nonimmune: MMR Plan seen and discussed with Dr. Parra Plan: continue current managmnt, betamet hasone admin, magnesium sulfate, surveillance Leno Quispe 07/02/21 1054: Attestations Physician Attestation Agree w/findings plan: I was present during the king or critical portions of the service provides by the resident. I examined the pat ient and discussed the patient's management with the resident. I reviewed the res idents note and agree with the documented findings, assessment and plan of care at 0905 Electronically Signed by Leno Quispe MD on at 1055 RPT #:[id number] END OF REPORT 2021-07-01 06:30:00-00:00 [facility] ([facility] OB Antepartum Prog Note REPORT#:[id number] REPORT STATUS: Signed DATE:07/01/21 TIME: 629 PATIENT: EDEN HELTON UNIT #: [id number] ROOM/BED: [address] : 03 AGE: 16 SEX: F ATTEND: Tanna Scott MD ADM AUTHOR: Mayra Alvarez DO R2 * ALL edits or amendments must be made on the Lag[employer]/computer document * Mayra Alvarez 07/01/21629: Subjective Subjective Admission EGA: Weeks: 29 Days: 6 Patient reports: Patient reports: No: abdominal pain, vaginal bleeding, leaking f luid, contractions, decreased movement, headache, blurred vision, scotom radha. Review of Systems Constitutional: Denies: chills, fever. Respiratory: Denies: non productive cough, SOB. Cardiovascular: Denies: chest pain, palpitations. GI: Denies: nausea, vomiting. : Denies: vaginal bleeding, vaginal discharge. Neuro: Denies: headache, vision change. Objective VS: Last Documented: Result Date Time B/P Mean 96.0 07/01 0510 B/P 132/72 07/01 0510 Pulse 102 07/01 0510 Pulse Ox 99 07/01 0509 Resp 20 06/30 0913 Temp 98.5 06/30 0835 Vital Signs Date Temp Pulse Resp B/P B/P Mean Pulse Ox FiO2 06/30-07/01 98.5 90-114 20 127-135/63-76 91.0-9 9.0 97-99 PATIENT WEIGHT: Weight (lb): 237 Weight (oz): Weight (kg): 107.501 Membranes: Intact Uterine activity: Monitor: toco Frequency (description): none Procedures: non stress test HEENT: normocephalic w/o injury Lungs: unlabored breathing Neuro: Exam: alert, oriented x3, normal speech Abdomen: gravid, soft, no abnormal tenderness, n o guarding Lower extremities: Edema: trace Baby A: Baby A baseline: 140 bpm Baby A variability: moderate 6-25 bpm Baby A accelerations: 15 X 15 Baby A decelerations: none Diagnosis, Assessment Plan Diagnosis, Assessment Plan Free text A P: 16 y/o G1 at 32 5/7 weeks (E DD 08-12-21, BABY GIRL RASTA) who was admitted to transport service at 29 6/7 weeks for pre-eclamp myla. PNC w dr rush 1) Pre-eclampsia- BP range on admission 132-163/ 77-101. s/p mag therapy, on labetalol 200mg BID. LAB 10-14 nl plat a nd LFT, 10-18 nl lft, 24hu 10-7 853mg, PLAN- cpm, delivery at 36-37 weeks or so leena for for worsening maternal and/or status. 10-20 asympt, BPs wnl 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 services director, neonatology consult 3) US- 06/24 Tyler: breech, n o gross anomalies, microcephaly HC 5 %, MCA PSV 36, mild increase anterior placenta, 2 areas of suspectedplacenta infarcts 2 x 3 cm, PANFILO 9.2 decreased, S/D 4 increased, BPP 8/8, EFW 1550 gm s, 9 % (Hadlock).Will re- evaluate in 10 days. 06/12 Tyler: Coley, breech , no gross abnomalies, anterior placenta, PANFILO 14, S/ D 3.8, BPP 8/8 EFW 1266 gms, 29 % 4) FWB: reactive NST 5) DVT prophy- Obesity (BMI: 42), SCD's while in bed 6) Asthma- currently in remission 7) Adolescent -has adequate social support at home, and partner in room today, SW consult in place 8) TDAP 10-10 9) Pruritic Folliculitis of : improving, kenalog ointment and claritin as needed, bile acids pending 10) Rubella nonimmune: MMR Plan seen and discussed with Dr. Scott Plan: continue current managmnt, betamet hasone admin, magnesium sulfate, surveillance Leno Quispe 07/01/21 1211: Attestations Physician Attestation Agree w/findings plan: I was present during the ikng or critical portions of the service provides by the resident. I examined the pat ient and discussed the patient's management with the resident. I reviewed the res idents note and agree with the documented findings, assessment and plan of care at 1021 Electronically Signed by Leno Quispe MD on at 1212 RPT #:[id number] END OF REPORT 2021-06-30 09:51:00-00:00 [facility] ([facility] OB Antepartum Prog Note REPORT#:[id number] REPORT STATUS: Signed DATE:06/30/21 TIME: 950 PATIENT: EDEN HELTON UNIT #: [id number] ROOM/BED: [address] : 03 AGE: 16 SEX: F ATTEND: Tanna Scott MD ADM AUTHOR: Leno Quispe MD * ALL edits or amendments must be made on the Lag[employer]/computer document * Subjective Subjective Patient reports: Patient reports: Yes no complaints, Yes decreased movement , No abdominal pain, No vaginal bleeding, No leaking fluid, No c ontractions, No normal movement, No headache, No blurred vision, No scotomata Objective VS: Last Documented: Result Date Time B/P Mean 91.0 06/30 0835 B/P 132/63 06/30 0835 Temp 98.5 06/30 0835 Pulse 106 06/30 0835 Pulse Ox 100 06/30 0002 Resp 18 06/30 0002 Vital Signs Date Temp Pulse Resp B/P B/P Mean Pulse Ox FiO2 06/29-06/30 98.1-98.5 85-106 18 119-140/60-72 84 .0-100.0 97-100 PATIENT WEIGHT: Weight (lb): 237 Weight (oz): Weight (kg): 107.501 Membranes: Intact Neuro: Exam: alert, oriented x3, normal speech Abdomen: gravid, soft, no abnormal tenderness, n o guarding Lower extremities: Edema: trace Baby A: Baby A baseline: 140 bpm Baby A variability: moderate 6-25 bpm Baby A accelerations: 15 X 15 Baby A decelerations: none Findings/data: Laboratory Tests: 06/29 06/29 1622 1230 Chemistry Sodium (135 - 145 mEq/L) 141 Potassium (3.5 - 5.0 mEq/L) 4.2 Chloride (100 - 115 mEq/L) 104 Carbon Dioxide (22 - 31 mEq/L) 25 Anion Gap (10 - 20) 16.60 BUN (7 - 18 mg/dL) 5 L Creatinine (0.5 - 1.0 mg/dL) 0.5 Glomerular Filtr Rate (>60 ml/min) 161 Glucose (65 - 110 mg/dL) 121 H Calcium (8.4 - 10.2 mg/dL) 9.1 Total Bilirubin (0.2 - 1.0 mg/dL) 0.1 L AST (15 - 37 units/L) 14 L ALT (12 - 78 units/L) 19 Total Alk Phosphatase (46 - 116 units/L) 126 H Total Protein (6.3 - 8.2 gm/dL) 5.3 L Albumin (3.4 - 4.8 gm/dL) 1.9 L Urines Urine Color (YELLOW) CLARE A Urine Appearance (CLEAR) CLOUDY A Urine pH (5 - 9) 7.0 Ur Specific [place] (1.001 - 1.035) 1.017 Urine Protein (NEG) 2+ H Urine Glucose (UA) (NEG) NEGATIVE Urine Ketones (NEG) NEGATIVE Urine Blood (NEG) NEG Urine Nitrite (NEG) NEG Urine Bilirubin (NEG) NEGATIVE Urine Urobilinogen (NEG mg/dL) NEGATIVE Ur Leukocyte Esterase (NEG) NEG Urine RBC (NONE SEEN #/hpf) 3-5 H Urine WBC (NONE SEEN #/hpf) 0-2 Ur Epithelial Cells (RARE - FEW #/HPF) FEW Urine Bacteria (RARE - FEW /HPF) FEW Urine Mucus (NONE SEEN) RARE Diagnosis, Assessment Plan Diagnosis, Assessment Plan Free Text A P: 16 y/o G1 at 32 4/7 weeks (E DD 08-12-21, BABY GIRL RASTA) who was admitted to transport service at 29 6/7 weeks for pre-eclamp myla. PNC w dr rush 1) Pre-eclampsia- BP range on admission 132-163/ 77-101. s/p mag therapy, on labetalol 200mg BID. LAB 10-14 nl plat a nd LFT, 10-18 nl lft, 24hu 10-7 853mg, PLAN- cpm, delivery at 36-37 weeks or so leena for for worsening maternal and/or status. - asympt, BPs wnl 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 services director, neonatology consult 3) US- 06/24 Tyler: breech, n o gross anomalies, microcephaly HC 5 %, MCA PSV 36, mild increase anterior placenta, 2 areas of suspectedplacenta infarcts 2 x 3 cm, PANFILO 9.2 decreased, S/D 4 increased, BPP 8/8, EFW 1550 gm s, 9 % (Hadlock).Will re- evaluate in 10 days. 06/12 Tyler: Coley, breech , no gross abnomalies, anterior placenta, PANFILO 14, S/ D 3.8, BPP 8/8 EFW 1266 gms, 29 % 4) FWB: reactive NST 5) DVT prophy- Obesity (BMI: 42), SCD's while in bed 6) Asthma- currently in remission 7) Adolescent -has adequate social support at home, and partner in room today, SW consult in place 8) TDAP 06-21 Plan seen and discussed with Dr. Griffiths Electronically Signed by Leno Quispe MD on at 0954 RPT #:[id number] END OF REPORT 2021-06-29 11:25:00-00:00 [facility] ([facility]) Clinical Note REPORT#:[id number] REPORT STATUS: Signed DATE:06/29/21 TIME: 112 PATIENT: EDEN HELTON UNIT #: [id number] ROOM/BED: 5070-A : 03 AGE: 16 SEX: F ATTEND: Tanna Scott MD ADM AUTHOR: Edita Solano MD * ALL edits or amendments must be made on the el [employer]/computer document * Clinical Note Note: patient with itchy rash on chest, back and neck, started about a week ago, progressively getting worse trying calamine rash with some erythema and pustules, some confl uent, abdomen spared most likely pruritic folliculitis of -- ordered kenalog ointment and loratidine daily (c ould change to BID if needed) ordered ALT/AST and bile acids, although less li ata cholestasis other possibility is contact dermatitis fro gown--told pt okay if she wants to try wearing a shirt from home Electronically Signed by Edita Solano MD on at 1128 RPT #:[id number] END OF REPORT 2021-06-29 06:26:00-00:00 [facility] OB Antepartum Prog Note REPORT#:[id number] REPORT STATUS: Signed DATE:06/29/21 TIME: 625 PATIENT: EDEN HELTON UNIT #: [id number] ROOM/BED: [address] : 03 AGE: 16 SEX: F ATTEND: Tanna Scott MD ADM AUTHOR: Mayra Alvarez DO R2 * ALL edits or amendments must be made on the Lag[employer]/computer document * Mayra Alvarez 06/29/21 0626: Subjective Subjective Admission EGA: Weeks: 29 Days: 6 Patient reports: Patient reports: Yes: complaints (rash to chest, shoulde r, chin), abdominal pain (crampy pain) . No: vaginal bleeding, leaking fluid, c ontractions, decreased movement, headache, blurred vision, scotomata. Review of Systems Constitutional: Denies: chills, fever. Skin: Reports: rash. Respiratory: Denies: non productive cough, SOB. Cardiovascular: Denies: chest pain, palpitations. GI: Denies: nausea, vomiting. : Denies: vaginal bleeding, vaginal discharge. Neuro: Denies: headache, vision change. Objective Nursing Documentation Review Nursing data: The data set between the solid lines has been im ported from nursing documentation. Any exceptions have been noted be low under Provider comments. ROM date: ROM time: Labor onset date: Labor onset time: Provider comments on imported nursing data: [] VS: Last Documented: Result Date Time B/P Mean 98.0 06/29 918 B/P 136/71 06/29 09 Pulse 88 06/29 09 Resp 20 06/29 0526 Pulse Ox 100 06/28 1607 Temp 98.2 06/28 1314 Vital Signs Date Temp Pulse Resp B/P B/P Mean Pulse Ox FiO2 06/28-06/29 98.2 75-103 18-20 108-136/59-76 78. 0-99.0 98-100 PATIENT WEIGHT: Weight (lb): 237 Weight (oz): Weight (kg): 107.501 Medications: Active Meds + DC'd Last 24 Hrs Triamcinolone Acetonide (TRIAMCINOLONE ACETONIDE 0.025% OINT 15 GM) 1 APPLIC QID TOPICAL Loratadine (CLARITIN 10MG TABLET) 10 MG DAILY PO Multivit/Folic Acid/Iron ( Stephanie min Tablet) 1 TAB DAILY PO Calamine (CALAMINE LOTION 120 ML) 1 APPLIC Q6H P RN PRN TOPICAL Diphenhydramine HCl (diphenhydrAMINE HCL 25 MG C AP) 25 MG Q4H PRN PRN PO Labetalol HCl (LABETALOL HCL 200 MG) 200 MG Q12H PO Al Hydrox/Mg Hydrox/Simethicone (MYLANTA 30 ML S GROUP HOME) 30 ML Q4H PRN PRN PO Acetaminophen/Butalbital/Caffeine (Fioricet 50-3 00-40 MG Capsule) 1 EACH Q4H PRN PRN PO Docusate Sodium (DOCUSATE SODIUM 100 MG CAP) 100 MG BID PO Acetaminophen (ACETAMINOPHEN 325 MG TAB) 650 MG Q4H PRN PRN PO Magnesium Hydroxide (MILK OF MAGNESIA 30 ML UD) 30 ML Q6H PRN PRN PO Ondansetron HCl (ZOFRAN 4 MG UD TAB) 4 MG Q4H AR N PRN PO Polyethylene Glycol (POLYETHYLENE GLYCOL PKT) 17 GM DAILY PRN PRN PO Ondansetron HCl (ZOFRAN 2 MG/ML 4 MG SYR) 4 MG Q 4H PRN PRN IV Membranes: Intact Notes: acneiform eruption consisting of multiple, pruri tic, 2- to 4-mm, follicular papules and pustules located to anterior chest w all, bilateral shoulders, and chin Uterine activity: Monitor: toco Frequency (description): none Procedures: non stress test HEENT: normocephalic w/o injury Lungs: unlabored breathing Neuro: Exam: alert, oriented x3, normal speech Abdomen: gravid, soft, no abnormal tenderness, n o guarding Lower extremities: Edema: trace Baby A: Baby A baseline: 140 bpm Baby A variability: moderate 6-25 bpm Baby A accelerations: 15 X 15 Baby A decelerations: none Diagnosis, Assessment Plan Diagnosis, Assessment Plan Free text A P: 16 y/o G1 at 32 3/7 weeks (E DD 08-12-21, BABY GIRL RASTA) who was admitted to transport service at 29 6/7 weeks for pre-eclamp myla. PNC w dr rush 1) Pre-eclampsia- BP range on admission 132-163/ 77-101. s/p mag therapy, on labetalol 200mg BID. LAB 10-14 nl plat and LFT, 24hu 10-7 853mg, PLAN- cpm, delivery at 36-37 weeks or sooner for for worsen ing maternal and/or status. 10-18 cramping pain, will obtain UA. Rash to ant erior chest wall, likely pruritic folliculitis of , rena mmend use to antihistamine and topical steroid, recommended using b lankets/clothing from home, will obtain bile acids. BPs wnl 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 services director, neonatology consult 3) US- 06/24 Tyler: breech, n o gross anomalies, microcephaly HC 5 %, MCA PSV 36, mild increase anterior placenta, 2 areas of suspectedplacenta infarcts 2 x 3 cm, PANFILO 9.2 decreased, S/D 4 increased, BPP 8/8, EFW 1550 gm s, 9 % (Hadlock).Will re- evaluate in 10 days. 06/12 Tyler: Coley, breech , no gross abnomalies, anterior placenta, PANFILO 14, S/ D 3.8, BPP 8/8 EFW 1266 gms, 29 % 4) FWB: reactive NST 5) DVT prophy- Obesity (BMI: 42), SCD's while in bed 6) Asthma- currently in remission 7) Adolescent -has adequate social support at home, and partner in room today, SW consult in place 8) TDAP 06-[address] Garber Plan: continue current managmnt, betamet hasone admin, magnesium sulfate, surveillance Edita Solano. 06/29/21 1344: Attestations Physician Attestation Agree w/findings plan: Agree with the findings and plan as documented b y Dr Alvarez; * my personal evaluation is as above. Rash most c/w pruritic folli culitis of , LFTs not elevated, bile acids sent out (pending), Kenalog ointment and clariti n ordered. RNI--MMR after delivery cramping/ctxn <1/hr, not every hour. No edema, n o epig pain. will check UA at 1322 Electronically Signed by Edita Solano MD on at 1352 RPT #:[id number] END OF REPORT 2021-06-28 06:35:00-00:00 [facility] ([facility] OB Antepartum Prog Note REPORT#:[id number] REPORT STATUS: Signed DATE:06/28/21 TIME: 634 PATIENT: EDEN HELTON UNIT #: [id number] ROOM/BED: [address] : 03 AGE: 16 SEX: F ATTEND: Tanna Scott MD ADM AUTHOR: Marko Griffiths MD * ALL edits or amendments must be made on the [employer]/computer document * Subjective Subjective Admission EGA: Weeks: 29 Days: 6 Patient reports: Patient reports: Yes normal movement, No abdominal pain, No vaginal bleeding, No leaking fluid, No contractions Objective Membranes: Intact Uterine activity: Monitor: toco Frequency (description): none Procedures: non stress test HEENT: normocephalic w/o injury Lungs: unlabored breathing Neuro: Exam: alert, oriented x3, normal speech Abdomen: gravid, soft, no abnormal tenderness, n o guarding Lower extremities: Edema: trace Baby A: Baby A baseline: 140 bpm Baby A variability: moderate 6-25 bpm Baby A accelerations: 15 X 15 Baby A decelerations: none Diagnosis, Assessment Plan Diagnosis, Assessment Plan Free Text A P: 16 y/o G1 at 32 2/7 weeks (E DD 08-12-21, BABY GIRL RASTA) who was admitted to transport service at 29 6/7 weeks for pre-eclamp myla. PNC w dr rush 1) Pre-eclampsia- BP range on admission 132-163/ 77-101. s/p mag therapy, on labetalol 200mg BID. LAB 10-14 nl plat and LFT, 24hu 10-7 853mg, PLAN- cpm, delivery at 36-37 weeks or sooner for for worsen ing maternal and/or status. 10-16 min headache, BPs wnl 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 services director, neonatology consult 3) US- 06/24 Tyler: breech, n o gross anomalies, microcephaly HC 5 %, MCA PSV 36, mild increase anterior placenta, 2 areas of suspectedplacenta infarcts 2 x 3 cm, PANFILO 9.2 decreased, S/D 4 increased, BPP 8/8, EFW 1550 gm s, 9 % (Hadlock).Will re- evaluate in 10 days. 06/12 Tyler: Coley, breech , no gross abnomalies, anterior placenta, PANFILO 14, S/ D 3.8, BPP 8/8 EFW 1266 gms, 29 % 4) FWB: reactive NST 5) DVT prophy- Obesity (BMI: 42), SCD's while in bed 6) Asthma- currently in remission 7) Adolescent -has adequate social support at home, and partner in room today, SW consult in place 8) TDAP 10- Electronically Signed by Marko Griffiths MD on at 0636 RPT #:[id number] END OF REPORT 2021-06-27 08:56:00-00:00 [facility] ([facility] OB Antepartum Prog Note REPORT#:[id number] REPORT STATUS: Signed DATE:06/27/21 TIME: 08 PATIENT: EDEN HELTON UNIT #: [id number] ROOM/BED: 5070-A : 03 AGE: 16 SEX: F ATTEND: Tanna Scott MD ADM AUTHOR: Leno Quispe MD * ALL edits or amendments must be made on the [employer]/computer document * Subjective Subjective Patient reports: Patient reports: Yes no complaints, Yes normal movement, Y es headache (mild yest better w meds), No abdominal pain, No vaginal bleeding, No leaking fluid, No contractions, No blurred vision, No scotomata Objective VS: Last Documented: Result Date Time B/P Mean 78.0 06/27 044 B/P 116/55 06/27 044 Pulse 90 06/27 448 Temp 98.5 06/26 2011 Pulse Ox 98 06/26 1535 Resp 18 06/26 153 Vital Signs Date Temp Pulse Resp B/P B/P Mean Pulse Ox FiO 2 06/26-06/27 98.3-98.5 90-108 18 105-126/55-71 7 4.0-92.0 98 PATIENT WEIGHT: Weight (lb): 237 Weight (oz): Weight (kg): 107.501 Membranes: Intact Abdomen: gravid, soft, no abnormal tenderness, n o guarding Lower extremities: Edema: trace Baby A: Baby A baseline: 140 bpm Baby A variability: moderate 6-25 bpm Baby A accelerations: 15 X 15 Baby A decelerations: none Diagnosis, Assessment Plan Diagnosis, Assessment Plan Free Text A P: 16 y/o G1 at 32 1/7 weeks (E DD 08-12-21, BABY GIRL RASTA) who was admitted to transport service at 29 6/7 weeks for pre-eclamp myla. PNC w dr rush 1) Pre-eclampsia- BP range on admission 132-163/ 77-101. s/p mag therapy, on labetalol 200mg BID. LAB 10-14 nl plat and LFT, 24hu 10-7 853mg, PLAN- cpm, delivery at 36-37 weeks or sooner for for worsen ing maternal and/or status. 10-16 min headache, BPs wnl 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 services director, neonatology consult 3) US- 06/24 Tyler: breech, n o gross anomalies, microcephaly HC 5 %, MCA PSV 36, mild increase anterior placenta, 2 areas of suspectedplacenta infarcts 2 x 3 cm, PANFILO 9.2 decreased, S/D 4 increased, BPP 8/8, EFW 1550 gm s, 9 % (Hadlock).Will re- evaluate in 10 days. 06/12 Tyler: Coley, breech , no gross abnomalies, anterior placenta, PANFILO 14, S/ D 3.8, BPP 8/8 EFW 1266 gms, 29 % 4) FWB: reactive NST 5) DVT prophy- Obesity (BMI: 42), SCD's while in bed 6) Asthma- currently in remission 7) Adolescent -has adequate social support at home, and partner in room today, SW consult in place 8) TDAP - Plan seen and discussed with Dr. Griffiths Electronically Signed by Leno Quispe MD on at 0901 RPT #:[id number] END OF REPORT 2021-06-26 06:32:00-00:00 [facility] OB Antepartum Prog Note REPORT#:[id number] REPORT STATUS: Signed DATE:06/26/21 TIME: 631 PATIENT: EDEN HELTON UNIT #: [id number] ROOM/BED: [facility] : 03 AGE: 16 SEX: F ATTEND: Tanna Scott MD ADM AUTHOR: Mayra Alvarez DO R2 * ALL edits or amendments must be made on the Lagiar/computer document * Mayra Alvarez 06/26/21 0632: Subjective Subjective Admission EGA: Weeks: 29 Days: 6 Patient reports: Patient reports: Yes: contractions (2-3 ctx overnight,resolved). No: abdominal pain, vaginal bleeding, leaking fluid, decreased movemen t, headache, blurred vision, scotomata. Review of Systems Constitutional: Denies: chills, fever. Respiratory: Denies: non productive cough, SOB. Cardiovascular: Denies: chest pain, palpitations. GI: Denies: nausea, vomiting. : Denies: vaginal bleeding, vaginal discharge. Neuro: Denies: headache, vision change. Objective VS: Last Documented: Result Date Time B/P Mean 78.0 06/26 0435 B/P 112/55 06/26 0435 Pulse 111 06/26 0435 Resp 16 06/25 1616 Pulse Ox 98 06/25 0901 Temp 98.6 06/25 0901 Vital Signs Date Temp Pulse Resp B/P B/P Mean Pulse Ox FiO2 06/25-06/26 98.6 99-111 15-17 112-134/55-73 78. 0-98.0 98 PATIENT WEIGHT: Weight (lb): 237 Weight (oz): Weight (kg): 107.501 Membranes: Intact Uterine activity: Monitor: toco Frequency (description): none Procedures: non stress test HEENT: normocephalic w/o injury Lungs: unlabored breathing Neuro: Exam: alert, oriented x3, normal speech Abdomen: gravid, soft, no abnormal tenderness, n o guarding Lower extremities: Edema: trace Baby A: Baby A baseline: 140 bpm Baby A variability: moderate 6-25 bpm Baby A accelerations: 15 X 15 Baby A decelerations: none Diagnosis, Assessment Plan Diagnosis, Assessment Plan Free text A P: 16 y/o G1 at 32 0/7 weeks (E DD 08-12-21, BABY GIRL RASTA) who was admitted to transport service at 29 6/7 weeks for pre-eclamp myla. PNC w dr rush 1) Pre-eclampsia- BP range on admission 132-163/ 77-101. s/p mag therapy, on labetalol 200mg BID. LAB 06-25 nl plat and LFT, 24hu - 853mg, PLAN- cpm, delivery at 36-37 weeks or sooner for for worsen ing maternal and/or status. 06-26 reports 2-3 ctx overnight, spontaneously r esolved, no other complaints. BPs wnl 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 services director, neonatology consult 3) US- 06/24 Tyler: breech, n o gross anomalies, microcephaly HC 5 %, MCA PSV 36, mild increase anterior placenta, 2 areas of suspectedplacenta infarcts 2 x 3 cm, PANFILO 9.2 decreased, S/D 4 increased, BPP 8/8, EFW 1550 gm s, 9 % (Hadlock).Will re- evaluate in 10 days. 06/12 Tyler: Coley, breech , no gross abnomalies, anterior placenta, PANFILO 14, S/ D 3.8, BPP 8/8 EFW 1266 gms, 29 % 4) FWB: reactive NST 5) DVT prophy- Obesity (BMI: 42), SCD's while in bed 6) Asthma- currently in remission 7) Adolescent -has adequate social support at home, and partner in room today, SW consult in place 8) TDAP 06-[address] Griffiths Plan: continue current managmnt, betamet hasone admin, magnesium sulfate, surveillance Leno Quispe 06/26/21 1450: Attestations Physician Attestation Agree w/findings plan: I was present during the king or critical portions of the service provides by the resident. I examined the pat ient and discussed the patient's management with the resident. I reviewed the res idents note and agree with the documented findings, assessment and plan of care at 1005 Electronically Signed by Leno Quispe MD on at 1450 RPT #:[id number] END OF REPORT 2021-06-25 06:29:00-00:00 [facility] ([facility] OB Antepartum Prog Note REPORT#:[id number] REPORT STATUS: Signed DATE:06/25/21 TIME: 628 PATIENT: EDEN HELTON UNIT #: [id number] ROOM/BED: [address] : 03 AGE: 16 SEX: F ATTEND: Tanna Scott MD ADM AUTHOR: Mayra Alvarez DO R2 * ALL edits or amendments must be made on the Lagiar/computer document * Mayra Alvarez 06/25/21 0629: Subjective Subjective Admission EGA: Weeks: 29 Days: 6 Patient reports: Patient reports: No: abdominal pain, vaginal bleeding, leaking f luid, contractions, decreased movement, headache, blurred vision, scotom radha. Review of Systems Constitutional: Denies: chills, fatigue, fever. Respiratory: Denies: non productive cough, SOB. Cardiovascular: Denies: chest pain, palpitations. GI: Denies: nausea, vomiting. : Denies: vaginal bleeding, vaginal discharge. Neuro: Denies: headache, vision change. Objective Nursing Documentation Review Nursing data: The data set between the solid lines has been im ported from nursing documentation. Any exceptions have been noted be low under Provider comments. ROM date: ROM time: Labor onset date: Labor onset time: Provider comments on imported nursing data: [] VS: Last Documented: Result Date Time B/P Mean 96.0 06/25 0506 B/P 135/69 06/25 050 Pulse 102 06/25 050 Pulse Ox 99 06/24 1953 Temp 98.3 06/24 1953 Resp 18 06/24 1953 Vital Signs Date Temp Pulse Resp B/P B/P Mean Pulse Ox FiO2 06/24-06/25 98.2-98.3 97-103 16-18 115-135/58-81 82.0-103.0 98-99 PATIENT WEIGHT: Weight (lb): 237 Weight (oz): Weight (kg): 107.501 Membranes: Intact Uterine activity: Monitor: toco Frequency (description): none Procedures: non stress test HEENT: normocephalic w/o injury Lungs: unlabored breathing Neuro: Exam: alert, oriented x3, normal speech Abdomen: gravid, soft, no abnormal tenderness, n o guarding Lower extremities: Edema: trace Baby A: Baby A baseline: 140 bpm Baby A variability: moderate 6-25 bpm Baby A accelerations: 15 X 15 Baby A decelerations: none Diagnosis, Assessment Plan Diagnosis, Assessment Plan Free text A P: 16 y/o G1 at 31 6/7 weeks (E DD 08-12-21, BABY GIRL RASTA) who was admitted to transport service at 29 6/7 weeks for pre-eclamp myla. PNC w dr rush 1) Pre-eclampsia- BP range on admission 132-163/ 77-101. s/p mag therapy, on labetalol 200mg BID. LAB 10-6 nl plat and LFT, 2 4hu 10-7 853mg, PLAN- cpm, delivery at 36-37 weeks or sooner for for worsen ing maternal and/or status. 06-25 no c/o, bp 120-135/69-81 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 services director, neonatology consult 3) US- 06/24 Tyler: breech, n o gross anomalies, microcephaly HC 5 %, MCA PSV 36, mild increase anterior placenta, 2 areas of suspectedplacenta infarcts 2 x 3 cm, PANFILO 9.2 decreased, S/D 4 increased, BPP 8/8, EFW 1550 gm s, 9 % (Hadlock).Will re- evaluate in 10 days. 06/12 Tyler: Coley, breech , no gross abnomalies, anterior placenta, PANFILO 14, S/ D 3.8, BPP 8/8 EFW 1266 gms, 29 % 4) FWB: reactive NST 5) DVT prophy- Obesity (BMI: 42), SCD's while in bed 6) Asthma- currently in remission 7) Adolescent -has adequate social support at home, and partner in room today, SW consult in place 8) TDAP 06-[address] Parra Plan: continue current managmnt, betamet hasone admin, magnesium sulfate, surveillance Leno Quispe 06/25/21 1052: Attestations Physician Attestation Agree w/findings plan: I was present during the king or critical portions of the service provides by the resident. I examined the pat ient and discussed the patient's management with the resident. I reviewed the res idents note and agree with the documented findings, assessment and plan of care at 0856 Electronically Signed by Leno Quispe MD on at 1052 RPT #:[id number] END OF REPORT 2021-06-24 13:49:00-00:00 [facility] ([facility] MFM Consultation Note REPORT#:[id number] REPORT STATUS: Signed DATE:06/24/21 TIME: 1349 PATIENT: EDEN HELTON UNIT #: [id number] ROOM/BED: [address] : 03 AGE: 16 SEX: F ATTEND: Tanna Scott MD ADM AUTHOR: Kristy Scott MD * ALL edits or amendments must be made on the Lag[employer]/computer document * History of Present Illness HPI Reason for consult: ultrasound History Past History Allergies: Coded Allergies: No Known Allergies (06/11/21) Objective Physical Exam VS/I O: Vital Signs: Date Time Temp Pulse Resp B/P B/P Pulse O2 O2 F low FiO2 Mean Ox Delivery Rate 06/24 1144 87.0 06/24 1144 100 122/64 99 06/24 0842 91.0 06/24 0842 100 121/71 06/24 0842 98.6 16 98 06/24 0508 81.0 06/24 0508 103 18 111/60 06/23 2354 85.0 06/23 2354 95 20 125/61 06/23 2042 85.0 06/23 2042 106 125/59 06/23 1601 86.0 06/23 1601 100 130/60 06/23 1600 101 98 Last Documented: Result Date Time B/P Mean 87.0 06/24 1144 Pulse Ox 99 06/24 1144 B/P 122/64 06/24 1144 Pulse 100 06/24 1144 Temp 98.6 06/24 0842 Resp 16 06/24 0842 PATIENT WEIGHT: Weight (lb): 237 Weight (oz): Weight (kg): 107.501 Results Radiology data: ultrasound: coley breech no gross anomalies microcephaly HC 5 % MCA PSV 36, mild increase anterior placenta, 2 areas of suspectedplacenta infarcts 2 x 3 cm PANFILO 9.2 decreased S/D 4 increased BPP 8/8 cervix no measured today EFW 1550 gms, 9 % ( Hadlock) indication 31 5/7 weeks weeks GA by dates,30 1/7 weeks by u ltrasound SGA, 9 %, placenta insufficiency reassuring BPP preeclampsia Will re-evaluate in 10 days. Electronically Signed by Kristy Scott MD on at 1353 RPT #:[id number] END OF REPORT 2021-06-24 06:28:00-00:00 [facility] ([facility]) OB Antepartum Prog Note REPORT#:[id number] REPORT STATUS: Signed DATE:06/24/21 TIME: 627 PATIENT: EDEN HELTON UNIT #: [id number] ROOM/BED: [facility] : 03 AGE: 16 SEX: F ATTEND: Tanna Scott MD ADM AUTHOR: Mayra Alvarez DO R2 * ALL edits or amendments must be made on the Lag[employer]/computer document * Mayra Alvarez 06/24/21 0628: Subjective Subjective Admission EGA: Weeks: 29 Days: 6 Patient reports: Patient reports: No: complaints, abdominal pain, vaginal bleeding, leaking fluid, contractions , decreased movement, headache, blurred vi hailee, scotomata. Review of Systems Constitutional: Denies: chills, fatigue, fever. Respiratory: Denies: non productive cough, SOB. Cardiovascular: Denies: chest pain, palpitations. GI: Denies: nausea, vomiting. : Denies: vaginal bleeding, vaginal discharge. Neuro: Denies: headache, vision change. Objective Nursing Documentation Review Nursing data: The data set between the solid lines has been im ported from nursing documentation. Any exceptions have been noted be low under Provider comments. ROM date: ROM time: Labor onset date: Labor onset time: Provider comments on imported nursing data: [] VS: Last Documented: Result Date Time B/P Mean 81.0 06/24 0508 B/P 111/60 06/24 0508 Pulse 103 06/24 0508 Resp 18 06/24 0508 Pulse Ox 98 06/23 1600 Temp 98.2 06/22 1604 Vital Signs Date Temp Pulse Resp B/P B/P Mean Pulse Ox FiO2 06/23-06/24 95-106 18-20 100-130/56-61 73.0-86. 0 98 PATIENT WEIGHT: Weight (lb): 237 Weight (oz): Weight (kg): 107.501 Membranes: Intact Uterine activity: Monitor: toco Frequency (description): none Procedures: non stress test HEENT: normocephalic w/o injury Lungs: unlabored breathing Neuro: Exam: alert, oriented x3, normal speech DTR's (lower extr): normal 1-2+, no clonus Abdomen: gravid, soft, no abnormal tenderness, n o guarding Lower extremities: Edema: trace Baby A: Baby A baseline: 140 bpm Baby A variability: moderate 6-25 bpm Baby A accelerations: 15 X 15 Baby A decelerations: none Diagnosis, Assessment Plan Diagnosis, Assessment Plan Free text A P: 6 y/o G1 at 31 5/7 weeks (ED D 08-12-21, BABY GIRL RASTA) who was admitted to transport service at 29 6/7 weeks for pre-eclamp myla. PNC w dr rush 1) Pre-eclampsia- BP range on admission 132-163/ 77-101. s/p mag therapy, on labetalol 200mg BID. LAB 10-6 nl plat and LFT, 2 4hu 10-7 853mg, PLAN- cpm, delivery at 36-37 weeks or sooner for for worsen ing maternal and/or status. 06-24 no c/o, bp 111-130/60 Plan - US scan today , cpm 2) Prematurity - s/p BMZ x 2 (06/11, 06/12), s/p m gSO4 for food services director, neonatology consult 3) US- 06/12 Tyler: Coley, breech, no gross abnomalies, anterior placenta, PANFILO 14, S/D 3.8, BPP 8/8 EFW 1266 gms, 29 % 4) FWB: reactive NST 5) DVT prophy- Obesity (BMI: 42), SCD's while in bed 6) Asthma- currently in remission 7) Adolescent -has adequate social support at home, and partner in room today, SW consult in place 8) TDAP 10-[address] Scott Plan: continue current managmnt, betamet hasone admin, magnesium sulfate, surveillance Leno Quispe. 06/24/21 1428: Attestations Physician Attestation Agree w/findings plan: NOTE: dr scott did growth sca n today. baby sga, with some placental insuffic. ok to cont expect mngmnt for now. see report I was present during the king or critical portions of the service provides by the resident. I examined the pat ient and discussed the patient's management with the resident. I reviewed the res idents note and agree with the documented findings, assessment and plan of care at 0953 Electronically Signed by Leno Quispe MD on at 1429 RPT #:[id number] END OF REPORT 2021-06-23 07:10:00-00:00 [facility] OB Antepartum Prog Note REPORT#:[id number] REPORT STATUS: Signed DATE:06/23/21 TIME: 709 PATIENT: EDEN HELTON UNIT #: [id number] ROOM/BED: 5070-A : 03 AGE: 16 SEX: F ATTEND: Tanna Scott MD ADM AUTHOR: Leno Quispe MD * ALL edits or amendments must be made on the el [employer]/computer document * Subjective Subjective Patient reports: Patient reports: Yes no complaints, Yes normal movement, N o abdominal pain, No vaginal bleeding, No leaking fluid, No contractions, No headache, No blurred vision, No scotomata Objective VS: Last Documented: Result Date Time B/P Mean 85.0 06/23 0542 B/P 120/62 06/23 0542 Pulse 100 06/23 0542 Temp 98.2 06/22 1604 Pulse Ox 95 06/22 1116 Resp 17 06/21 1217 Vital Signs Date Temp Pulse Resp B/P B/P Mean Pulse Ox FiO2 06/22-06/23 98.2 90-111 118-135/58-71 81.0-98.0 95 PATIENT WEIGHT: Weight (lb): 237 Weight (oz): Weight (kg): 107.501 Membranes: Intact Abdomen: gravid, soft, no abnormal tenderness, n o guarding Lower extremities: Edema: trace Baby A: Baby A baseline: 140 bpm Baby A variability: moderate 6-25 bpm Baby A accelerations: 15 X 15 Baby A decelerations: none Diagnosis, Assessment Plan Diagnosis, Assessment Plan Free Text A P: 16 y/o G1 at 31 4/7 weeks (E DD 08-12-21, BABY GIRL RASTA) who was admitted to transport service at 29 6/7 weeks for pre-eclamp myla. PNC w dr rush 1) Pre-eclampsia- BP range on admission 132-163/ 77-101. s/p mag therapy, on labetalol 200mg BID. LAB 10-6 nl plat and LFT, 2 4hu 10-7 853mg, PLAN- cpm, delivery at 36-37 weeks or sooner for for worsen ing maternal and/or status. 06-23 no c/o, bp 125-130/60-70 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 services director, neonatology consult 3) US- 06/12 Tyler: Coley, breech, no gross abnomalies, anterior placenta, PANFILO 14, S/D 3.8, BPP 8/8 EFW 1266 gms, 29 % 4) FWB: reactive NST 5) DVT prophy- Obesity (BMI: 42), SCD's while in bed 6) Asthma- currently in remission 7) Adolescent -has adequate social support at home, and partner in room today, SW consult in place 8) TDAP 06-21 Plan seen and discussed with Dr. griffiths Electronically Signed by Leno Quispe MD on at 0946 [facility] #:[id number] END OF REPORT 2021-06-22 06:27:00-00:00 [facility] ([facility] OB Antepartum Prog Note REPORT#:[id number] REPORT STATUS: Signed DATE:06/22/21 TIME: 626 PATIENT: EDEN HELTON UNIT #: [id number] ROOM/BED: [address] : 03 AGE: 16 SEX: F ATTEND: Tanna Scott MD ADM AUTHOR: Mayra Alvarez DO R2 * ALL edits or amendments must be made on the Lag[employer]/computer document * Mayra Alvarez 06/22/21 0627: Subjective Subjective Admission EGA: Weeks: 29 Days: 6 Patient reports: Patient reports: No: abdominal pain, vaginal bleeding, leaking f luid, contractions, decreased movement, headache, blurred vision, scotom radha. Comments: complains of some nausea overnight which has since resolved, denies vomitting, reports good appetite and was able to tolerate f ood this AM. Review of Systems Constitutional: Denies: chills, fatigue, fever. Respiratory: Denies: non productive cough, SOB. Cardiovascular: Denies: chest pain, palpitations. GI: Reports: nausea. Denies: vomiting. : Denies: vaginal bleeding, vaginal discharge. Neuro: Denies: headache, vision change. Objective VS: Last Documented: Result Date Time B/P Mean 84.0 06/22 1117 B/P 120/60 06/22 1117 Pulse 108 06/22 1117 Pulse Ox 95 06/22 1116 Temp 98.1 06/21 1217 Resp 17 06/21 1217 Vital Signs Date Temp Pulse Resp B/P B/P Mean Pulse Ox FiO2 06/21-06/22 88-111 98-139/56-83 74.0-106.0 95-9 8 PATIENT WEIGHT: Weight (lb): 237 Weight (oz): Weight (kg): 107.501 Membranes: Intact Uterine activity: Monitor: toco Frequency (description): none Procedures: non stress test HEENT: normocephalic w/o injury Lungs: unlabored breathing Neuro: Exam: alert, oriented x3, normal speech DTR's (lower extr): normal 1-2+, no clonus Abdomen: gravid, soft, no abnormal tenderness, n o guarding Lower extremities: Edema: trace Baby A: Baby A baseline: 140 bpm Baby A variability: moderate 6-25 bpm Baby A accelerations: 15 X 15 Baby A decelerations: none Diagnosis, Assessment Plan Diagnosis, Assessment Plan Free text A P: Patient is a 16 y/o G1 at 31 3/7 weeks (THANIA 08-12, BABY GIRL RASTA) who was admitted to transport service at 29 6/7 week s for pre-eclampsia. PNC w dr rush 1) Pre-eclampsia- BP range on admission 132-163/ 77-101. s/p mag therapy, on labetalol 200mg BID. LAB 10-6 nl plat and LFT, 2 4hu 10-7 853mg, PLAN- cpm, delivery at 36-37 weeks or sooner for for worsen ing maternal and/or status. 10 no c/o, bp 125-139/66-83 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 services director, neonatology consult 3) US- 06/12 Tyler: Coley, breech, no gross abnomalies, anterior placenta, PANFILO 14, S/D 3.8, BPP 8/8 EFW 1266 gms, 29 % 4) FWB: reactive NST 5) DVT prophy- Obesity (BMI: 42), SCD's while in bed 6) Asthma- currently in remission 7) Adolescent -has adequate social support at home, and partner in room today, SW consult in place 8) TDAP- ordered for - Plan seen and discussed with Dr. Garber Plan: continue current managmnt, betamet hasone admin, magnesium sulfate, surveillance Leno Quispe 06/22/21 1757: Attestations Physician Attestation Agree w/findings plan: I was present during the king or critical portions of the service provides by the resident. I examined the pat ient and discussed the patient's management with the resident. I reviewed the res idents note and agree with the documented findings, assessment and plan of care at 1301 Electronically Signed by Leno Quispe MD on at 1717 RPT #:[id number] END OF REPORT 2021-06-21 07:10:00-00:00 [facility] OB Antepartum Prog Note REPORT#:[id number] REPORT STATUS: Signed DATE:06/21/21 TIME: 709 PATIENT: EDEN HELTON UNIT #: [id number] ROOM/BED: [address] : 03 AGE: 16 SEX: F ATTEND: Tanna Scott MD ADM AUTHOR: Leno Quispe MD * ALL edits or amendments must be made on the [employer]/computer document * Subjective Subjective Patient reports: Patient reports: Yes no complaints, Yes normal movement, N o abdominal pain, No vaginal bleeding, No leaking fluid, No contractions, No headache, No blurred vision, No scotomata Objective VS: Last Documented: Result Date Time B/P Mean 97.0 06/21 08 Pulse Ox 94 06/21 0812 B/P 132/73 06/21 08 Pulse 99 06/21 08 Temp 98.0 06/20 2030 Resp 16 06/20 2030 Vital Signs Date Temp Pulse Resp B/P B/P Mean Pulse Ox FiO2 06/20-06/21 98.0 88-107 16 120-135/64-73 87.0-9 7.0 78-98 PATIENT WEIGHT: Weight (lb): 237 Weight (oz): Weight (kg): 107.501 Membranes: Intact Neuro: DTR's (lower extr): normal 1-2+, no clonus Abdomen: gravid, soft, no abnormal tenderness, n o guarding Lower extremities: Edema: trace Baby A: Baby A baseline: 135 bpm Baby A variability: moderate 6-25 bpm Baby A accelerations: 15 X 15 Baby A decelerations: none Baby A FHR category: category 1 Diagnosis, Assessment Plan Diagnosis, Assessment Plan Free Text A P: Patient is a 15 y/o G1 at 31 2/7 weeks (THANIA 08-12, BABY GIRL RASTA) who was admitted to transport service at 29 6/7 week s for pre-eclampsia. PNC w dr rush 1) Pre-eclampsia- BP range on admission 132-163/ 77-101. s/p mag therapy, on labetalol 200mg BID. LAB 10-6 nl plat and LFT, 2 4hu 10-7 853mg, PLAN- cpm, delivery at 36-37 weeks or sooner for for worsen ing maternal and/or status. 10-10 no c/o, bp 120-130/60-70- 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 services director, neonatology consult 3) US- 06/12 Tyler: Coley, breech, no gross abnomalies, anterior placenta, PANFILO 14, S/D 3.8, BPP 04/19 EFW 1266 gms, 29 % 4) FWB: reactive NST 5) DVT prophy- Obesity (BMI: 42), SCD's while in bed 6) Asthma- currently in remission 7) Adolescent -has adequate social support at home, and partner in room today, SW consult in place 8) TDAP- ordered for - Plan seen and discussed with Dr. mg Electronically Signed by Leno Quispe MD on at 1008 RPT #:[id number] END OF REPORT 2021 14:57:00-00:00 [facility] OB Antepartum Prog Note REPORT#:[id number] REPORT STATUS: Signed DATE:06/20/21 TIME: 1457 PATIENT: EDEN HELTON UNIT #: [id number] ROOM/BED: 5070-A : 03 AGE: 16 SEX: F ATTEND: Tanna Scott MD ADM AUTHOR: Arelis Parra MD * ALL edits or amendments must be made on the el [employer]/computer document * Subjective Subjective Patient reports: Patient reports: Yes normal movement, No no complaints, No abdominal pain, No vaginal bleeding, No leaking fluid, No contractions Comments: seen around 7:30 am Objective Nursing Documentation Review Nursing data: The data set between the solid lines has been im ported from nursing documentation. Any exceptions have been noted be low under Provider comments. ROM date: ROM time: Labor onset date: Labor onset time: Provider comments on imported nursing data: [] Procedures: non stress test HEENT: normocephalic w/o injury Neuro: Exam: alert, oriented x3, normal speech DTR's (lower extr): normal 1-2+, no clonus Abdomen: gravid, soft, no abnormal tenderness, n o guarding Baby A: Baby A baseline: 135 bpm Baby A variability: moderate 6-25 bpm Baby A accelerations: 15 X 15 Baby A decelerations: none Baby A FHR category: category 1 Diagnosis, Assessment Plan Diagnosis, Assessment Plan Free Text A P: Patient is a 15 y/o G1 at 31 1/7 weeks ( THANIA 08-12-21, BABY GIRL SENDY) who was admitted to transport service at 29 6/7 weeks fo r pre-eclampsia. PNC w dr rush 1) Pre-eclampsia- BP range on admission 132-163/ 77-101. s/p mag therapy, on labetalol 200mg BID. Delivery indicated for wors ening maternal and/or status. Pt enjoys WC qd for 1 hr 10-8 rare mild ctx overnight, resolved, no ctx o n toco. 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 services director, neonatology consult 3) US Reports - 06/12 Tyler: Coley, breech, no gross abnomalies, anterior placenta, PANFILO 14, S/D 3.8, BPP 04/19 EFW 1266 gms, 29 % 4) FWB: reactive NST 5) Class III Obesity (BMI: 42), SCD's while in b ed for DVT ppx 6) Asthma- currently in remission 7) Adolescent -has adequate social support at home, and partner in room today, SW consult in place Electronically Signed by Arelis Parra MD on 06/02 at 1458 RPT #:[id number] END OF REPORT 2021-06-19 06:21:00-00:00 [facility] OB Antepartum Prog Note REPORT#:[id number] REPORT STATUS: Signed DATE:06/19/21 TIME: 620 PATIENT: EDEN HELTON UNIT #: [id number] ROOM/BED: [facility] : 03 AGE: 15 SEX: F ATTEND: Tanna Scott MD ADM AUTHOR: Mayra Alvarez DO R2 * ALL edits or amendments must be made on the [employer]/computer document * Mayra Alvarez 06/19/21 0621: Subjective Subjective Admission EGA: Weeks: 29 Days: 6 Patient reports: Patient reports: Yes: contractions (irregular, mild). No: abdomi nal pain, vaginal bleeding, leaking fluid, decreased movement, headach e, blurred vision, scotomata, fever, chills, shortness of breath. Review of Systems Constitutional: Denies: chills, fatigue, fever. Respiratory: Denies: non productive cough, SOB. Cardiovascular: Denies: chest pain, palpitations. GI: Denies: nausea, vomiting. : Denies: vaginal bleeding, vaginal discharge. Neuro: Denies: headache, vision change. Objective VS: Last Documented: Result Date Time B/P Mean 91.0 06/19 1128 B/P 131/66 06/19 1128 Pulse 95 06/19 1128 Pulse Ox 97 06/18 195 Resp 18 06/18 0505 Temp 98.7 06/17 1434 Vital Signs Date Temp Pulse Resp B/P B/P Mean Pulse Ox FiO2 06/18-06/19 80-111 122-142/58-80 83.0-105.0 97 PATIENT WEIGHT: Weight (lb): 237 Weight (oz): Weight (kg): 107.501 Membranes: Intact Uterine activity: Monitor: toco Frequency (description): none HEENT: normocephalic w/o injury Lungs: unlabored breathing Neuro: Exam: alert, oriented x3, normal speech DTR's (lower extr): normal 1-2+, no clonus Abdomen: gravid, soft, no abnormal tenderness, n o guarding Lower extremities: Edema: trace Baby A: Baby A baseline: 135 bpm Baby A variability: moderate 6-25 bpm Baby A accelerations: 15 X 15 Baby A decelerations: none Baby A FHR category: category 1 Diagnosis, Assessment Plan Diagnosis, Assessment Plan Free text A P: Patient is a 15 y/o G1 at 31 0/7 weeks ( THANIA 1221, BABY GIRL SENDY) who was admitted to transport service at 29 6/7 weeks fo r pre-eclampsia. PNC w dr rush 1) Pre-eclampsia- BP range on admission 132-163/ 77-101. s/p mag therapy, on labetalol 200mg BID. Delivery indicated for wors ening maternal and/or status. Pt enjoys WC qd for 1 hr 10-8 rare mild ctx overnight, resolved, no ctx o n toco. 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 services director, neonatology consult 3) US Reports - 06/12 Tyler: Coley, breech, no gross abnomalies, anterior placenta, PANFILO 14, S/D 3.8, BPP 8/ EFW 1266 gms, 29 % 4) FWB: reactive NST 5) Class III Obesity (BMI: 42), SCD's while in b ed for DVT ppx 6) Asthma- currently in remission 7) Adolescent -has adequate social support at home, and partner in room today, SW consult in place 8) TDAP- denies receiving tdap, will try and obt ain prenatals, otherwise administer tdap. Plan discussed with Dr. Parra Plan: continue current managmnt, betamet hasone admin, magnesium sulfate, surveillance Kandace Fitzgerald 06/19/21 1333: Attestations Physician Attestation Agree w/findings plan: Pt seen and examined with resident. I agree with the findings, assessment and plan as documented above. at 1330 Electronically Signed by Kandace Fitzgerald MD on 1 at 1334 RPT #:[id number] END OF REPORT 2021-06-18 06:26:00-00:00 [facility] ([facility]) OB Antepartum Prog Note REPORT#:[id number] REPORT STATUS: Signed DATE:06/18/21 TIME: 625 PATIENT: EDEN HELTON UNIT #: [id number] ROOM/BED: [address] : 03 AGE: 15 SEX: F ATTEND: Tanna Scott MD ADM AUTHOR: Mayra Alvarez DO R2 * ALL edits or amendments must be made on the [employer]/computer document * Mayra Alvarez 06/18/21 0626: Subjective Subjective Admission EGA: Weeks: 29 Days: 6 Patient reports: Patient reports: No: complaints, abdominal pain, vaginal bleeding, leaking fluid, contractions , decreased movement, headache, blurred vision, scotomata, fever, chills, shortness of breath. Review of Systems Constitutional: Denies: chills, fatigue, fever. Respiratory: Denies: non productive cough, SOB. Cardiovascular: Denies: chest pain, palpitations. GI: Denies: nausea, vomiting. : Denies: vaginal bleeding, vaginal discharge. Neuro: Denies: headache, vision change. Objective VS: Last Documented: Result Date Time B/P Mean 86.0 06/18 912 B/P 116/67 06/18 09 Pulse 88 06/18 09 Pulse Ox 99 06/18 0505 Resp 18 06/18 0505 Temp 98.7 06/17 1434 Vital Signs Date Temp Pulse Resp B/P B/P Mean Pulse Ox FiO2 06/17-06/18 98.7 80-100 18 116-142/61-82 85.0-1 07.0 99 PATIENT WEIGHT: Weight (lb): 237 Weight (oz): Weight (kg): 107.501 Membranes: Intact Uterine activity: Monitor: toco Frequency (description): none HEENT: normocephalic w/o injury Lungs: unlabored breathing Neuro: Exam: alert, oriented x3, normal speech DTR's (lower extr): normal 1-2+, no clonus Abdomen: gravid, soft, no abnormal tenderness, n o guarding Lower extremities: Edema: trace Baby A: Baby A baseline: 140 bpm Baby A variability: moderate 6-25 bpm Baby A accelerations: 15 X 15 Baby A decelerations: none Baby A FHR category: category 1 Diagnosis, Assessment Plan Diagnosis, Assessment Plan Free text A P: Patient is a 15 y/o G1 at 30 6/7 weeks ( THANIA 08-12-21, BABY GIRL SENDY) who was admitted to transport service at 29 6/7 weeks fo r pre-eclampsia. PNC w dr rush 1) Pre-eclampsia- BP range on admission 132-163/ 77-101. s/p mag therapy, on labetalol 200mg TID. Delivery indicated for wors ening maternal and/or status. Pt enjoys WC qd for 1 hr 10-7 no complaints, BPs 116- 127/61-67. Plan - will decrease labetalol 200mg TID to BID, cpm 2) Prematurity - s/p BMZ x 2 (06/11, 06/12), s/p m gSO4 for food services director, neonatology consult 3) US Reports - 06/12 Tyler: Coley, breech, no gross abnomalies, anterior placenta, PANFILO 14, S/D 3.8, BPP 04/19 EFW 1266 gms, 29 % 4) FWB: reactive NST 5) Class III Obesity (BMI: 42), SCD's while in b ed for DVT ppx 6) Asthma- currently in remission 7) Adolescent -has adequate social support at home, and partner in room today, SW consult in place 8) TDAP- denies receiving tdap, will try and obt ain prenatals, otherwise administer tdap. Plan discussed with Dr. Parra Plan: continue current managmnt, betamet hasone admin, magnesium sulfate, surveillance Kandace Fitzgerald 06/18/21 1037: Attestations Physician Attestation Agree w/findings plan: I personally saw and examined the patient. I agr ee with the findings and plan of care as documented in the resident note. at 1034 Electronically Signed by Kandace Fitzgerald MD on 1 at 1038 RPT #:[id number] END OF REPORT 2021-06-17 06:40:00-00:00 [facility] ([facility]) OB Antepartum Prog Note REPORT#:[id number] REPORT STATUS: Signed DATE:06/17/21 TIME: 639 PATIENT: EDEN HELTON UNIT #: [id number] ROOM/BED: [facility] : 03 AGE: 15 SEX: F ATTEND: Fozia Scott MD ADM AUTHOR: Mayra Alvarez DO R2 * ALL edits or amendments must be made on the [employer]/computer document * Mayra Alvarez 06/17/21 0640: Subjective Subjective Admission EGA: Weeks: 29 Days: 6 Patient reports: Patient reports: No: complaints, abdominal pain, vaginal bleeding, leaking fluid, contractions , decreased movement, headache, blurred vi hailee, scotomata, shortness of breath. Review of Systems Constitutional: Denies: chills, fatigue, fever. Respiratory: Denies: non productive cough, SOB. Cardiovascular: Denies: chest pain, palpitations. GI: Denies: nausea, vomiting. : Denies: vaginal bleeding, vaginal discharge. Neuro: Denies: headache, vision change. Objective Nursing Documentation Review Nursing data: The data set between the solid lines has been im ported from nursing documentation. Any exceptions have been noted be low under Provider comments. ROM date: ROM time: Labor onset date: Labor onset time: Provider comments on imported nursing data: [] VS: Last Documented: Result Date Time B/P Mean 93.0 06/17 0419 B/P 127/69 06/17 0419 Temp 98.4 06/17 0419 Pulse 98 06/17 0419 Resp 18 06/17 0419 Pulse Ox 98 06/16 1605 Vital Signs Date Temp Pulse Resp B/P B/P Mean Pulse Ox FiO2 06/16-06/17 98.4-98.6 83-99 18 127-142/69-85 93 .0-109.0 98 PATIENT WEIGHT: Weight (lb): 237 Weight (oz): Weight (kg): 107.501 Medications: Active Meds + DC'd Last 24 Hrs Acetaminophen/Butalbital/Caffeine (Fioricet 50-3 00-40 MG Capsule) 1 EACH Q4H PRN PRN PO Labetalol HCl (LABETALOL HCL 200 MG) 200 MG Q8H PO Multivi/Iron Carb/Fe Sulf/FA/Prenat ( TAMINS) 1 TAB DAILY PO Docusate Sodium (DOCUSATE SODIUM 100 MG CAP) 100 MG BID PO Acetaminophen (ACETAMINOPHEN 325 MG TAB) 650 MG Q4H PRN PRN PO Magnesium Hydroxide (MILK OF MAGNESIA 30 ML UD) 30 ML Q6H PRN PRN PO Ondansetron HCl (ZOFRAN 4 MG UD TAB) 4 MG Q4H AR N PRN PO Polyethylene Glycol (POLYETHYLENE GLYCOL PKT) 17 GM DAILY PRN PRN PO Ondansetron HCl (ZOFRAN 2 MG/ML 4 MG SYR) 4 MG Q 4H PRN PRN IV Membranes: Intact Uterine activity: Monitor: toco Frequency (description): none HEENT: normocephalic w/o injury Lungs: unlabored breathing Neuro: Exam: alert, oriented x3, normal speech DTR's (lower extr): normal 1-2+, no clonus Abdomen: gravid, soft, no abnormal tenderness, n o guarding Lower extremities: Edema: trace Baby A: Baby A baseline: 140 bpm Baby A variability: moderate 6-25 bpm Baby A accelerations: 15 X 15 Baby A decelerations: none Baby A FHR category: category 1 Diagnosis, Assessment Plan Diagnosis, Assessment Plan Free text A P: Patient is a 15 y/o G1 at 30 5/7 weeks ( THANIA 08-12-21, BABY GIRL SENDY) who was admitted to transport service at 29 6/7 weeks fo r pre-eclampsia. PNC w dr rush 1) Pre-eclampsia- BP range on admission 132-163/ 77-101. s/p mag therapy, on labetalol 200mg TID. Delivery indicated for wors ening maternal and/or status. Pt enjoys WC qd for 1 hr 10-6 no complaints, BPs 127-142/60-85. Plan - re peat pre-e labs for disease progression, cpm 2) Prematurity - s/p BMZ x 2 (06/11, 06/12), s/p m gSO4 for food services director, neonatology consult 3) US Reports - 06/12 Tyler: Coley, breech, no gross abnomalies, anterior placenta, PANFILO 14, S/D 3.8, BPP 8/8 EFW 1266 gms, 29 % 4) FWB: reactive NST 5) Class III Obesity (BMI: 42), SCD's while in b ed for DVT ppx 6) Asthma- currently in remission 7) Adolescent -has adequate social support at home, and partner in room today, SW consult in place 8) TDAP- denies receiving tdap, will try and obt ain prenatals, otherwise administer tdap. Plan discussed with Dr. Scott Plan: continue current managmnt, betamet hasone admin, magnesium sulfate, surveillance Edita Solano. 06/17/21 1008: Attestations Physician Attestation Agree w/findings plan: Present for visit and examination of yanick tent. Agree with the findings and plan as documented by Dr. Hollingsworth; * my personal evaluation is Pt reports +FM, - leg pain, no PIH sx, no PTL sx, pt looking forward to having a baby--she and FOB smiling D/w Dr Scott, pt with PreE, not currently severe, but need for inpatient observation. Will recheck labs today. TDAP--will give today. at 0842 Electronically Signed by Edita Solano MD on 03/02 at 1011 RPT #:[id number] END OF REPORT 2021-06-16 08:51:00-00:00 [facility] OB Antepartum Prog Note REPORT#:[id number] REPORT STATUS: Signed DATE:06/16/21 TIME: 08 PATIENT: EDEN HELTON UNIT #: [id number] ROOM/BED: [address] : 03 AGE: 15 SEX: F ATTEND: Tanna Scott MD ADM AUTHOR: Leno Quispe MD * ALL edits or amendments must be made on the [employer] document * Subjective Subjective Patient reports: Patient reports: Yes normal movement, Yes headache (mild now, mod last pm), No abdominal pain, No vaginal bleeding, No leaking fluid, No contractions Comments: pt and mom concerned that mursing staff is not l istening to her concerns Objective VS: Last Documented: Result Date Time B/P Mean 84.0 06/16 824 B/P 116/62 06/16 824 Temp 98.2 06/16 824 Pulse 100 06/16 824 Resp 18 06/16 824 Pulse Ox 97 06/16 823 Vital Signs Date Temp Pulse Resp B/P B/P Mean Pulse Ox FiO2 06/15-06/16 98.0-98.7 83-101 18 113-141/62-84 84 .0-106.0 97 PATIENT WEIGHT: Weight (lb): 237 Weight (oz): Weight (kg): 107.501 Membranes: Intact Neuro: DTR's (lower extr): normal 1-2+, no clonus Abdomen: gravid, soft, no abnormal tenderness, n o guarding Lower extremities: Edema: trace Baby A: Baby A baseline: 140 bpm Baby A variability: moderate 6-25 bpm Baby A accelerations: 15 X 15 Baby A decelerations: none Baby A FHR category: category 1 Diagnosis, Assessment Plan Diagnosis, Assessment Plan Free Text A P: Patient is a 15 y/o G1 at 30 4/7 weeks ( THANIA 08-12-21, BABY GIRL SENDY) who was admitted to transport service at 29 6/7 weeks fo r pre-eclampsia. PNC w dr rush 1) Pre-eclampsia- BP range on admission 132-163/ 77-101. s/p mag therapy, on labetalol 200mg TID. Weekly pre-e labs will obta in 06/17 or with worsening status. Delivery indicated f or worsening maternal and/or status. Pt enjoys WC qd for 1 hr 10-5 mild headache, BPs 110-130/60-80. i reassured her that rn's are listening to her. rec to speak w charge nurse prn. Plan -f ioricet prn, cpm 2) Prematurity - s/p BMZ x 2 (06/11, 06/12), s/p m gSO4 for food services director, neonatology consult 3) US Reports - 06/12 Tyler: Coley, breech, no gross abnomalies, anterior placenta, PANFILO 14, S/D 3.8, BPP 8/8 EFW 1266 gms, 29 % 4) FWB: reactive NST 5) Class III Obesity (BMI: 42), SCD's while in b ed for DVT ppx 6) Asthma- currently in remission 7) Adolescent -has adequate social support at home, and partner in room today, SW consult in place 8) TDAP- will discuss 10-[address] griffiths Electronically Signed by Leno Quispe MD on at 1131 RPT #:[id number] END OF REPORT 2021-06-15 06:29:00-00:00 [facility] ([facility]) OB Antepartum Prog Note REPORT#:[id number] REPORT STATUS: Signed DATE:06/15/21 TIME: 628 PATIENT: EDEN HELTON UNIT #: [id number] ROOM/BED: [address] : 03 AGE: 15 SEX: F ATTEND: Tanna Scott MD ADM AUTHOR: Mayra Alvarez DO R2 * ALL edits or amendments must be made on the [employer]/computer document * Mayra Alvarez 06/15/21 0629: Subjective Subjective Admission EGA: Weeks: 29 Days: 6 Current EGA: Current EGA(wks): 30 Current EGA(days): 3 Patient reports: Patient reports: No: complaints, abdominal pain, vaginal bleeding, leaking fluid, contractions , decreased movement, headache, blurred vision, scotomata, fever, chills, shortness of breath. Review of Systems Constitutional: Denies: chills, fatigue, fever. Respiratory: Denies: non productive cough, SOB. Cardiovascular: Denies: chest pain, palpitations. GI: Denies: nausea, vomiting. : Denies: vaginal bleeding, vaginal discharge. Neuro: Denies: headache, vision change. Objective VS: Last Documented: Result Date Time B/P Mean 103.0 06/15 1149 B/P 132/84 06/15 1149 Temp 98.0 06/15 1149 Pulse 100 10/ 1149 Pulse Ox 98 06/14 1608 Resp 20 06/14 1608 Vital Signs Date Temp Pulse Resp B/P B/P Mean Pulse Ox FiO2 06/14-06/15 97.8-98.0 90-106 20 119-149/65-84 87 .0-111.0 98 PATIENT WEIGHT: Weight (lb): 237 Weight (oz): Weight (kg): 107.501 Medications: Active Meds + DC'd Last 24 Hrs Labetalol HCl (LABETALOL HCL 200 MG) 200 MG Q8H PO Multivi/Iron Carb/Fe Sulf/FA/Prenat ( TAMINS) 1 TAB DAILY PO Docusate Sodium (DOCUSATE SODIUM 100 MG CAP) 100 MG BID PO Acetaminophen (ACETAMINOPHEN 325 MG TAB) 650 MG Q4H PRN PRN PO Magnesium Hydroxide (MILK OF MAGNESIA 30 ML UD) 30 ML Q6H PRN PRN PO Ondansetron HCl (ZOFRAN 4 MG UD TAB) 4 MG Q4H AR N PRN PO Polyethylene Glycol (POLYETHYLENE GLYCOL PKT) 17 GM DAILY PRN PRN PO Labetalol HCl (LABETALOL HCL 200 MG) 200 MG Q12H PO (DC) Ondansetron HCl (ZOFRAN 2 MG/ML 4 MG SYR) 4 MG Q 4H PRN PRN IV Membranes: Intact Uterine activity: Monitor: toco Frequency (description): none HEENT: normocephalic w/o injury Lungs: unlabored breathing Neuro: Exam: alert, oriented x3, normal speech Abdomen: gravid, soft, no abnormal tenderness, n o guarding Lower extremities: Edema: trace Baby A: Baby A baseline: 140 bpm Baby A variability: moderate 6-25 bpm Baby A accelerations: 15 X 15 Baby A decelerations: none Baby A FHR category: category 1 Diagnosis, Assessment Plan Diagnosis, Assessment Plan Free text A P: Patient is a 15 y/o G1 at 30 3/7 weeks ( THANIA 08-12-21, BABY GIRL SENDY) who was admitted to transport service at 29 6/7 weeks fo r pre-eclampsia 1) Pre-eclampsia- BP range on admission 132-163/ 77-101. s/p mag therapy, on labetalol 200mg TID. Weekly pre-e labs will obta in 06/17 or with worsening status. Delivery indicated for worsening materna l and/or status. 10-4 Asymptomatic, BPs 119-1 43/65-84. Outdoor privileges qd for 1 hr. Plan -cpm 2) Prematurity - s/p BMZx2 ( 06/11, 06/12), s/p mgSO4 for food services director, neonatology consult 3) US Reports - 06/12 Tyler: Coley, breech, no gross abnomalies, anterior placenta, PANFILO 14, S/D 3.8, BPP 8/8 EFW 1266 gms, 29 % 4) FWB: reactive NST 5) Class III Obesity (BMI: 42), SCD's while in b ed for DVT ppx 6) Asthma- currently in remission 7) Adolescent -has adequate social support at home, and partner in room today, SW consult in place Plan discussed with Dr. Garber Plan: continue current managmnt, betamet hasone admin, magnesium sulfate, surveillance Leno Quispe. 06/15/21 1659: Attestations Physician Attestation Agree w/findings plan: I was present during the king or critical portions of the service provides by the resident. I examined the pat ient and discussed the patient's management with the resident. I reviewed the res idents note and agree with the documented findings, assessment and plan of care at 1214 Electronically Signed by Leno Quispe MD on at 1700 RPT #:[id number] END OF REPORT 2021-06-14 10:54:00-00:00 [facility] ([facility] OB Antepartum Prog Note REPORT#:[id number] REPORT STATUS: Signed DATE:06/14/21 TIME: 1054 PATIENT: EDNE HELTON UNIT #: [id number] ROOM/BED: [facility] : 03 AGE: 15 SEX: F ATTEND: Tanna Scott MD ADM AUTHOR: Lisseth Urbina DO * ALL edits or amendments must be made on the [employer] document * Subjective Subjective Admission EGA: Weeks: 29 Days: 6 Patient reports: Patient reports: Yes no complaints, Yes normal movement, N o abdominal pain, No vaginal bleeding, No leaking fluid, No contractions, No headache, No blurred vision, No scotomata, No fever, No chills, No shortness of breath, No new complaints Objective Nursing Documentation Review Nursing data: The data set between the solid lines has been im ported from nursing documentation. Any exceptions have been noted be low under Provider comments. ROM date: ROM time: Labor onset date: Labor onset time: Provider comments on imported nursing data: [] VS: Last Documented: Result Date Time B/P Mean 116.0 06/14 0849 B/P 149/97 06/14 0849 Pulse 104 06/14 0849 Pulse Ox 98 06/14 0848 Temp 98.5 06/14 0829 Resp 16 06/13 2117 Vital Signs Date Temp Pulse Resp B/P B/P Mean Pulse Ox FiO2 06/13-06/14 98.5-99.2 84-104 16 110-166/67-104 8 4.0-120.0 96-98 PATIENT WEIGHT: Weight (lb): 237 Weight (oz): Weight (kg): 107.501 Medications: Active Meds + DC'd Last 24 Hrs Labetalol HCl (LABETALOL HCL 200 MG) 200 MG Q8H PO (UNVr) Multivi/Iron Carb/Fe Sulf/FA/Prenat ( TAMINS) 1 TAB DAILY PO Docusate Sodium (DOCUSATE SODIUM 100 MG CAP) 100 MG BID PO Acetaminophen (ACETAMINOPHEN 325 MG TAB) 650 MG Q4H PRN PRN PO Magnesium Hydroxide (MILK OF MAGNESIA 30 ML UD) 30 ML Q6H PRN PRN PO Ondansetron HCl (ZOFRAN 4 MG UD TAB) 4 MG Q4H AR N PRN PO Polyethylene Glycol (POLYETHYLENE GLYCOL PKT) 17 GM DAILY PRN PRN PO Labetalol HCl (LABETALOL HCL 200 MG) 200 MG Q12H PO (r) Ondansetron HCl (ZOFRAN 2 MG/ML 4 MG SYR) 4 MG Q 4H PRN PRN IV Membranes: Intact Uterine activity: Monitor: toco Frequency (description): none HEENT: normocephalic w/o injury Cardiac: mild tachycardia (102 bpm) Lungs: unlabored breathing Neuro: Exam: alert, oriented x3, normal speech DTR's (lower extr): hyporeflexive Abdomen: gravid, soft, no abnormal tenderness, n o guarding Uterus: soft, non-tender Lower extremities: Edema: 1+ pitting Kenny's sign: negative Calf tenderness: negative Baby A: Baby A FHR category: category 1 Diagnosis, Assessment Plan Diagnosis, Assessment Plan Free Text A P: A/P: 15 y/o G1 at 30 2 wee ks GA s/p transport for pre-e with severe features, hemodynamically stable, afebrile. 1. Pre-eclampsia with severe features-BP trend n ow improved but BP's labile yesterday in PM thus will increase to Labetalol 200mg TID today. Delivery indicated for worsening maternal and/or st atus. 2. Fetus at 29 % EFW for GA on admit, category 1 tracing, s/p celestone, magnesium sulfate, consult 3. Class II Obesity (BMI: 42), SCD's while in be d for DVT ppx 4. Asthma- currently in remission 5. Adolescent -has adequate social support at home, and partner in room today, SW consult in place Electronically Signed by Lisseth Urbina DO on 11/30 at 1103 RPT #:[id number] END OF REPORT 2021-06-13 15:30:00-00:00 [facility] ([facility]) OB Antepartum Prog Note REPORT#:[id number] REPORT STATUS: Signed DATE:10/02/21 TIME: 1530 PATIENT: EDEN HELTON UNIT #: [id number] ROOM/BED: [address] : 03 AGE: 15 SEX: F ATTEND: Tanna Scott MD ADM AUTHOR: Kristy Scott MD * ALL edits or amendments must be made on the el [employer]/computer document * Subjective Subjective Admission EGA: Weeks: 29 Days: 6 Comments: no headache or epigastric pain, patient feeling well now, active fetus Objective VS: Last Documented: Result Date Time B/P Mean 97.0 06/13 1311 B/P 137/67 06/13 1311 Pulse 92 06/13 1311 Pulse Ox 98 06/13 1255 Temp 98.5 06/13 1255 Resp 18 06/12 2000 Vital Signs Date Temp Pulse Resp B/P B/P Mean Pulse Ox FiO2 06/12-06/13 98.5-98.9 84-105 16-18 118-166/61-93 83.0-120.0 98-99 PATIENT WEIGHT: Weight (lb): 237 Weight (oz): Weight (kg): 107.501 Medications: Active Meds + DC'd Last 24 Hrs Multivi/Iron Carb/Fe Sulf/FA/Prenat ( TAMINS) 1 TAB DAILY PO Docusate Sodium (DOCUSATE SODIUM 100 MG CAP) 100 MG BID PO Acetaminophen (ACETAMINOPHEN 325 MG TAB) 650 MG Q4H PRN PRN PO Magnesium Hydroxide (MILK OF MAGNESIA 30 ML UD) 30 ML Q6H PRN PRN PO Ondansetron HCl (ZOFRAN 4 MG UD TAB) 4 MG Q4H AR N PRN PO Polyethylene Glycol (POLYETHYLENE GLYCOL PKT) 17 GM DAILY PRN PRN PO Magnesium Sulfate/Dextrose (MAGNESIUM-D5W 6 G/10 0 ML) 100 ML ONCE ONE IV (DC) Labetalol HCl (LABETALOL HCL 200 MG) 200 MG Q12H PO Calcium Gluconate (CA GLUCONATE 1 GM/10 ML VIAL) 1,000 MG BOLUS ASDIR PRN IV (DC) Hydralazine HCl (hydrALAZINE HCL 20MG) 10 MG ASD IR PRN IV (DC) Labetalol HCl (NORMODYNE 100 MG/20 ML VIAL) 20 M G ONCE PRN IV (DC) Labetalol HCl (NORMODYNE 100 MG/20 ML VIAL) 40 M G ASDIR PRN IV (DC) Labetalol HCl (NORMODYNE 100 MG/20 ML VIAL) 80 M G ASDIR PRN IV (DC) Ondansetron HCl (ZOFRAN 2 MG/ML 4 MG SYR) 4 MG Q 4H PRN PRN IV Membranes: Intact Uterine activity: Monitor: toco Frequency (description): none HEENT: normocephalic w/o injury Cardiac: regular rate and rhythm Lungs: unlabored breathing Neuro: Exam: alert, oriented x3, normal speech DTR's (lower extr): hyporeflexive Abdomen: gravid, soft, no abnormal tenderness, n o guarding Lower extremities: Edema: 1+ pitting Kenny's sign: negative Calf tenderness: negative Baby A: Baby A baseline: 140 bpm Baby A variability: moderate 6-25 bpm Baby A accelerations: 15 X 15 Baby A decelerations: none Baby A FHR category: category 1 Findings/data: Laboratory Tests 06/11 0135 Chemistry Sodium (133 - 142 mEq/L) 141 Potassium (3.5 - 5.0 mEq/L) 4.1 Chloride (98 - 107 mEq/L) 105 Carbon Dioxide (22 - 31 mEq/L) 23 Anion Gap (10 - 20) 16.70 BUN (9 - 20 mg/dL) 5 L Creatinine (0.5 - 1.0 mg/dL) 0.5 Glucose (65 - 100 mg/dL) 99 Uric Acid (2.6 - 6.0 mg/dL) 4.1 Calcium (8.9 - 10.7 mg/dL) 8.5 L Total Bilirubin (0.2 - 1.0 mg/dL) 0.2 AST (15 - 37 units/L) 20 ALT (12 - 78 units/L) 22 Total Alk Phosphatase (46 - 116 units/L) 102 Lactate Dehydrogenase (113 - 246 units/L) 201 Total Protein (6.3 - 8.2 gm/dL) 6.1 L Albumin (3.9 - 5.1 gm/dL) 2.5 L TSH (0.4 - 6.0) 0.65 Laboratory Tests 06/11 135 Hematology WBC (6.5 - 12.3 K/mm3) 14.4 H RBC (3.51 - 4.69 M/mm3) 3.71 Hgb (10.1 - 13.8 g/dL) 10.6 Hct (31.0 - 41.9 %) 32.9 MCV (84.6 - 96.6 fL) 88.7 MCH (26 - 32 pg) 28.6 MCHC (32 - 35 gm/dL) 32.2 RDW (12.2 - 16.3 %) 14.0 Plt Count (135 - 380 K/mm3) 226 MPV (9.2 - 12.7 fL) 11.1 Neut % (Auto) (57.9 - 77.3 %) 88.9 H Lymph % (Auto) (14.5 - 29.7 %) 7.5 L [place] % (Auto) (3.6 - 10.2 %) 2.4 L Eos % (Auto) (0.0 - 3.0 %) 0.1 Baso % (Auto) (0.1 - 0.9 %) 0.1 Neut # (Auto) (K/mm3) 12.8 Lymph # (Auto) (K/mm3) 1.1 [place] # (Auto) (K/mm3) 0.3 Eos # (Auto) (K/mm3) 0.02 Baso # (Auto) (K/mm3) 0.0 Laboratory Tests 06/11 06/11 0135 0131 Serology Treponema pallidum Ab (NONREACTIVE) NONREACTIVE Hep Bs Antigen (NONREACTIVE) NONREACTIVE Hepatitis C Antibody (NONREACTIVE) NONREACTIVE Hep C Ab Signal/Cutoff (<0.80) <0.02 HIV 1 2 Antibody (NONREACTIVE) NONREACTIVE Rubella Screen (IUnit/ml) 5.0 SARS-CoV-2 Ag (Rapid) (NEGATIVE) NEGATIVE Laboratory Tests 06/11 0131 Toxicology Urine Opiates Screen (NEGATIVE) NEGATIVE Ur Barbiturates, Qual (NEGATIVE) NEGATIVE Ur Phencyclidine Scrn (NEGATIVE) NEGATIVE Ur Amphetamines Screen (NEGATIVE) NEGATIVE U Benzodiazepines Scrn (NEGATIVE) NEGATIVE Urine Cocaine Screen (NEGATIVE) NEGATIVE Urine Cannabinoids (NEGATIVE) NEGATIVE Laboratory Tests 06/12 06/11 1010 0131 Urines Urine Color (YELLOW) YELLOW Urine Appearance (CLEAR) Slightly-Cloudy Urine pH (5 - 9) 6.0 Ur Specific [place] (1.001 - 1.035) 1.026 Urine Protein (NEG) 2+ H Urine Glucose (UA) (NEG) NEGATIVE Urine Ketones (NEG) 2+ H Urine Blood (NEG) NEG Urine Nitrite (NEG) NEG Urine Bilirubin (NEG) NEGATIVE Urine Urobilinogen (NEG mg/dL) NEGATIVE Ur Leukocyte Esterase (NEG) NEG Urine RBC (NONE SEEN #/hpf) 0-2 Urine WBC (NONE SEEN #/hpf) 11-15 H Ur Epithelial Cells (RARE - FEW #/HPF) RARE Urine Bacteria (RARE - FEW /HPF) RARE Urine Mucus (NONE SEEN) 4+ Ur Random Creatinine (mg/dL) 256.9 U Random Total Protein (mg/dL) 14.9 110.7 Urine Total Volume (ML) 2900 Ur Total Protein 24 Hr (20 - 150 mg/24HR) 432 * H Protein/Creatinin Ratio (<200 mg/gcrea) 430.9 H Microbiology Date/Time Procedure - Status Source Growth 06/11 0603 MRSA Screen - COMP NASAL Diagnosis, Assessment Plan Diagnosis, Assessment Plan Free Text A P: Patient is a 15 y/o G1 at 30 1/7 weeks GA 1. Pre-eclampsia with severe features on admit, now improved. /. Labetalol 200mg BID. mild proteinuria. Delivery for worsening fe reza or maternal status 2. fetus at 29 % EFW for GA on admit, category 1 tracing, s/p celestone, magnesium sulfate, consult 3. morbid obesity, 4. asthma in remission 5. teen , social support, preeclampsia, . [facility] Electronically Signed by Kristy Scott MD on 11/02 at 1537 RPT #:[id number] END OF REPORT 2021-06-13 15:23:00-00:00 [facility] Consultation Note REPORT#:[id number] REPORT STATUS: Signed DATE:06/13/21 TIME: 1523 PATIENT: EDEN HELTON UNIT #: [id number] ROOM/BED: 5070-A : 03 AGE: 15 SEX: F ATTEND: Tanna Scott MD ADM AUTHOR: Kristy Scott MD * ALL edits or amendments must be made on the [employer] document * History of Present Illness HPI Reason for consult: ultrasound History Past History Allergies: Coded Allergies: No Known Allergies (06/11/21) Objective Physical Exam VS/I O: Last Documented: Result Date Time B/P Mean 97.0 06/13 1311 B/P 137/67 06/13 1311 Pulse 92 06/13 1311 Pulse Ox 98 06/13 1255 Temp 98.5 06/13 1255 Resp 18 06/12 2000 24 hour I O ending at 0700: 06/13 0700 06/12 1900 Intake Total 75.00 Output Total Balance 75.00 Intake, Other 75.00 Patient 237 lb Weight PATIENT WEIGHT: Weight (lb): 237 Weight (oz): Weight (kg): 107.501 Results Radiology data: ultrasound: coley breech no gross anomalies anterior placenta PANFILO 14 S/D 3.18 BPP 8/8 cervix 3.1 cm, closed EFW 1266 gms, 29 % indication 30 weeks Ga preeclampsia Electronically Signed by Kristy Scott MD on 11/02 at 1528 RPT #:[id number] END OF REPORT 2021-06-12 06:25:00-00:00 [facility] ([facility]) OB Antepartum Prog Note REPORT#:[id number] REPORT STATUS: Signed DATE:06/12/21 TIME: 624 PATIENT: EDEN HELTON UNIT #: [id number] ROOM/BED: [address] : 03 AGE: 15 SEX: F ATTEND: Tanna Scott MD ADM AUTHOR: Mayra Alvarez DO R2 * ALL edits or amendments must be made on the [employer] document * Mayra Alvarez 06/12/21 0625: Subjective Subjective Admission EGA: Weeks: 29 Days: 6 Current EGA: Current EGA(wks): 30 Current EGA(days): 0 Patient reports: Patient reports: No: complaints, abdominal pain, vaginal bleeding, leaking fluid, contractions , decreased movement, headache, blurred vision, scotomata, fever, chills, shortness of breath. Review of Systems Constitutional: Denies: chills, fatigue, fever. Respiratory: Denies: non productive cough, SOB. Cardiovascular: Denies: chest pain, palpitations. GI: Denies: nausea, vomiting. : Denies: vaginal bleeding, vaginal discharge. Neuro: Denies: headache, vision change. Objective VS: Last Documented: Result Date Time B/P Mean 85.0 06/12 0500 B/P 120/66 06/12 0500 Pulse 127 06/12 0500 Pulse Ox 99 06/12 0314 Temp 97.8 06/12 0314 Resp 20 06/12 0314 Vital Signs Date Temp Pulse Resp B/P B/P Mean Pulse Ox FiO2 06/11-06/12 97.8-99.1 97-140 18-23 112-147/57-87 80.0-112.0 92-100 PATIENT WEIGHT: Weight (lb): 235 Weight (oz): Weight (kg): 106.594 Uterine activity: Monitor: toco Frequency (description): none Lungs: unlabored breathing Neuro: Exam: alert, oriented x3, normal speech DTR's (lower extr): hyporeflexive Abdomen: gravid, soft, no abnormal tenderness, n o guarding Lower extremities: Edema: 1+ pitting Kenny's sign: negative Calf tenderness: negative Baby A: Baby A baseline: 140 bpm Baby A variability: moderate 6-25 bpm Baby A decelerations: none Diagnosis, Assessment Plan Diagnosis, Assessment Plan Free text A P: Patient is a 15 y/o G1 at 30 0/7 weeks ( THANIA 08-12-21, BABY GIRL SENDY) who was admitted to transport service at 29 6/7 weeks fo r Pre-eclampsia with severe features. 1) Pre-eclampsia with severe features - BP range on admission 132-163/77-101, currently <140/90. EPPS and N/V resolved. Labs: UP CR 430.9, AST/ALT , Creatinine 0.5, Platelets 22 6. S/p MgSO4 therapy. Labetalol 200mg BID. Delivery for worsening or maternal status No severe range BPs O /N (112-147/57-87). 24hr protein 432. US today Plan - cpm 2) Prematurity - s/p BMZx2 (06/11, 06/12), s/p mgSO4 for food services director, neonatology consult 3) FWB - continuous monitoring for now, re active NST 4) US - 06/12 Tyler, report pending, breech presen tation, EFW 36% (2lbs 10oz), placenta with possible infarct, bowel wi th possible calcification otherwise no gross abnormalities. Overall reassuring 5) OB problems Obesity - BMI of 41.6 Teenage H/o Asthma Patient discussed with Dr. Scott Plan: continue current managmnt, betamet hasone admin, magnesium sulfate, surveillance Leno Quispe. 06/12/21 1608: Attestations Physician Attestation Agree w/findings plan: I was present during the king or critical portions of the service provides by the resident. I examined the pat ient and discussed the patient's management with the resident. I reviewed the res idents note and agree with the documented findings, assessment and plan of care at 1443 Electronically Signed by Leno Quispe MD on at 1611 RPT #:[id number] END OF REPORT 2021-06-11 21:47:00-00:00 [facility] ([facility] DT Consult Note REPORT#:[id number] REPORT STATUS: Signed DATE:06/11/21 TIME: 2146 PATIENT: EDEN HELTON UNIT #: [id number] ROOM/BED: [address] : 03 AGE: 15 SEX: F ATTEND: Tanna Scott MD ADM AUTHOR: Светлана Rojas MD * ALL edits or amendments must be made on the el [employer]/computer document * CONSULT NOTE Note: [facility] Consult Note Name: Eden Helton Date/Time: 06/11/2021 Date/Time Note Written: 21:40:56 Requested By:Reji Place of Service: Labor and Delivery Reason for Consultation: 29.6 weeks, Pre-eclampsia Maternal History Mom's Age:17 Race: White Blood Type: A Pos P: 0 RPR/Serology: Non-Reactive HIV:Negative Rubell a:Immune GBS:Unknown HBsAg:Negative EDC - OB:08/12/2021 Mom's MR#: [id number] Mom's First Name: Eden Mom's Last Name: Russell diaz Complications during , Labor or Delive ry:Yes Name Comment Asthma Pre-eclampsia Maternal Steroids: Yes Most Recent Dose: Date:06/11/2021 Medications During or Labor:Yes Name Comment Celestone Nifedipine Present Plan Expectant management Comment Thank you for the consult. I met with Ms Helton and her mother in LDR 1 to discuss about the delivery plan and care of her baby. Our discussion was about but not limited to - Presence of NICU team for initial assessment, stabilization of babies - Babies to get admitted to NICU for ca re - Need for IV for nutrition and possibly antibi otics - Encouraged about pumping and providing breast milk for feeds and option of PDM - Low risk for complications like IVH, ROP, PDA , RDS - Increased risk for hyperbilirubinemia, infect ion, prolong NICU stay - NICU visitation policy and skin to skin She asked great questions. Encourage to call Ne o if any further questions in future. Recommendations PLease call NICU team for delivery attendance The total length of time for this encounter was 20 minutes. Counseling and/or coordination of care dominate d more than fifty percent of the time. Светлана Rojas MD Book Or Script Editor Eden Helton - [id number] - Printed 1 Consult Note - 06/11/21 Pg 1 of 2 Electronically Signed by Светлана Rojas MD on 0 06/11/21 at 2148 [facility] #:[id number] END OF REPORT 2021-06-11 16:49:00-00:00 [id number] [facility] [address] [id number] PATIENT NAME: EDEN HELTON ADMIT DATE: 06/11 ACCOUNT NO: [id number] ROOM NO: [id number] AGE: 15 SEX: F ADMITTING PHYSICIAN: Kristy Scott MD ATTENDING PHYSICIAN: Kristy Scott MD Order: [id number] Test Reason : TACHYCARDIA Test Date/Time Stamp: TueJun 11 2021 16:49:33 Blood Pressure : / mmHG Vent. Rate : 120 BPM Atrial Rate : 120 BPM P-R Int : 132 ms QRS Dur : 074 ms QT Int : 326 ms P-R-T Axes : 051 039 037 degree s QTc Int : 460 ms Sinus tachycardia Otherwise normal ECG No previous ECGs available Confirmed by LINDA ANGULO MD ([id number]) on 06/13/20 3:22:07 PM Referred By: Gretchen Sanchez Confirmed by:LINDA BUTCHER MD Electronically Signed by Linda Angulo MD on at 1522 PATIENT NAME: EDEN HELTON [id number] [birth year] 12:43:00-00:00 [facility] ([facility]) OB Antepartum Prog Note REPORT#:[id number] REPORT STATUS: Signed DATE:06/11/21 TIME: 1243 PATIENT: EDEN HELTON UNIT #: [id number] ROOM/BED: [address] : 03 AGE: 15 SEX: F ATTEND: Tanna Scott MD ADM AUTHOR: Mayra Alvarez DO R2 * ALL edits or amendments must be made on the [employer]/computer document * Mayra Alvarez 06/11/21 1243: Subjective Subjective Admission EGA: Weeks: 29 Days: 6 Current EGA: Current EGA(wks): 29 Current EGA(days): 6 Patient reports: Patient reports: Yes: normal movement. No: complaints, abd ominal pain, vaginal bleeding , leaking fluid, contractions, decreased m ovement, headache, blurred vision, scotomata, fever, chills, shortness of b reath. Review of Systems Constitutional: Denies: chills, fatigue, fever. Respiratory: Denies: non productive cough, SOB. Cardiovascular: Denies: chest pain, palpitations. GI: Denies: abdominal pain, nausea, vomiting. : Denies: vaginal bleeding, vaginal discharge. Neuro: Denies: headache, vision change. Objective VS: Last Documented: Result Date Time Pulse Ox 94 06/11 1345 Pulse 122 06/11 1345 Temp 99.0 06/11 1318 Resp 20 06/11 1318 B/P Mean 80.0 06/11 1300 B/P 117/57 06/11 1300 Vital Signs Date Temp Pulse Resp B/P B/P Mean Pulse Ox FiO2 06/11 98.6-99.1 93-140 16-20 117-163/57-101 80. 0-126.0 89-100 PATIENT WEIGHT: Weight (lb): 235 Weight (oz): Weight (kg): 106.594 Uterine activity: Monitor: toco Frequency (description): none Lungs: unlabored breathing Neuro: Exam: alert, oriented x3, normal speech DTR's (lower extr): hyporeflexive Abdomen: gravid, soft, no abnormal tenderness, n o guarding Lower extremities: Edema: 1+ pitting Kenny's sign: negative Calf tenderness: negative Baby A: Baby A baseline: 140 bpm Baby A variability: moderate 6-25 bpm Baby A accelerations: 15 X 15 Baby A decelerations: none Baby A FHR category: category 1 Diagnosis, Assessment Plan Diagnosis, Assessment Plan Free text A P: Patient is a 15 y/o G1 at 29 6/7 weeks ( THANIA 08-12-21, BABY GIRL SENDY) who was admitted to transport service at 29 6/7 weeks fo r Pre-eclampsia with severe features. 1) Pre-eclampsia with severe features - BP range on admission 132-163/77-101, currently <140/90. EPPS and N/V resolved. Labs: UP CR 430.9, AST/ALT 20/, Creatinine 0.5, Platelets 22 6 Plan- 6g loading dose of magsulfate, 2g maintence dose of mag; labetalol protocol in place ; begin 200 mg labetalol BID po, 10 mg IV reglan for headaches and nausea, delivery for worsening or maternal status 2) Prematurity - bmz x 2 dos es (1st dose 06-11 @ 0200, 2nd dose due 06/12 @ 0200) , magsulfate for neuroprotection, neonatol ogy consult 3) FWB - continuous monitoring for now, re active NST 4) US - pending scan by Dr. Scott 5) OB problems Obesity - BMI of 41.6 Teenage H/o Asthma Patient discussed with Leno Clark 06/11/21 1555: Attestations Physician Attestation Agree w/findings plan: I was present during the king or critical portions of the service provides by the resident. I examined the pat ient and discussed the patient's management with the resident. I reviewed the res idents note and agree with the documented findings, assessment and plan of care at 1525 Electronically Signed by Leno Quispe MD on at 1618 RPT #:[id number] END OF REPORT 2021-06-11 01:44:00-00:00 [facility] ([facility] OB Admission / H P REPORT#:[id number] REPORT STATUS: Signed DATE:06/11/21 TIME: 0144 PATIENT: EDEN HELTON UNIT #: [id number] ROOM/BED: [address] : 03 AGE: 15 SEX: F ATTEND: Tanna Scott MD ADM AUTHOR: Uyen Muro DO R3 * ALL edits or amendments must be made on the [employer]/computer document * Uyen Muro 06/11/21 0144: OB History Chief complaint: headache, nausea and vomiting HPI: Patient is a 15 y/o G1 at 29 6/7 weeks (THANIA: 08-12-21) who presents after leaving [facility] for a higher level of care at [facility] after being evaluated and diagnosed with Pre-eclampsia with severe fea tures and plan to admit and transfer for a higher level of care. care with Dr. Rush in [place]. Patient reports that the last couple of weeks at her OB visits, her blood pressures have been slightly elevated. Last visit with her OB she did a 24 hour urine protein and was told it was normal . Her blood pressures were elevated so she was started on 30 mg nifedipine po daily. Bruce reece took it for the first time today and started having a bad headache with genoveva sea and vomitting, unable to tolerate po intake. She also reports dizziness b ut denies any syncope. Her headache is rated a 10/10 localized to the r ight frontal and also the occipital region. The patient does report a hist ory of migraines, but states this headache is different. She took 1g of tylen ol for her headache with no improvement. Denies any changes in vision. Patie nt denies any righ upper quadrant pain or epigastric pain. Patient currently endores +FM and denies contrac tions/VB/VD/LOF. Patient reports that care has been othe rwise uncomplicated to date. history: : 1 Term: 0 : 0 Abortus: 0 Living children: 0 Current : Best EDC: 08/12/21 Admission EGA (weeks) 29 Admission EGA (days) 6 Past History Past Medical History: Reports: Asthma. Additional Medical History: migraines Additional Surgical History: denies Additional Family History noncontributory Alcohol Use Denies EtOH use Drug Use Denies recreational drugs Smoking status: Smoking status for patients 13 years old or old er: Never Smoker Medications: Home Medications: PNV WITH FE FUMARATE/FA () 1 TAB PO ARIS Y ACETAMINOPHEN (TYLENOL) 1,000 MG PO ASDIR PRN EPPS NIFEdipine XL (PROCARDIA XL) 30 MG PO DAILY Allergies: Coded Allergies: No Known Allergies (06/11/21) Review of Systems Constitutional: Denies: chills, fatigue, fev er, generalized weakness, lethargy, malaise, recent wt loss. Skin: Denies: itching, rash. Eyes: Denies: visual loss/blurred, diplopia, eye pain, photophobia. ENT: Denies: nasal congestion. Respiratory: Denies: MAE (dyspnea on exertion), hemoptysis, n on productive cough, parox nocturnal dyspnea, pleurisy, pleuritic pain, pneumonia, productive cough (sputum ), SOB, wheezing. Cardiovascular: edema. Denies: chest pain, MAE (dyspnea on exertion), orthopnea, palpitations, parox nocturnal dyspnea. GI: Reports: nausea, vomiting. Denies: abdominal yanick n, anorexia, constipation, diarrhea, dysphagia, GERD, hematemesis, hematoch ezia, hiatal hernia, melena, rectal pain. : Reports: . Denies: d ysuria, flank pain, frequency, hematuria, nocturia, pelvic pain, previous pregna ncies, urgency, urinary retention, vaginal bleeding, vaginal discharge. Heme: Denies: petechiae. Neuro: dizziness, headache. Denies: vision change. Objective General VS: Last Documented: Result Date Time Pulse Ox 96 06/11 0457 Pulse 107 06/11 0457 B/P Mean 99.0 06/11 0400 B/P 132/77 06/11 0400 Temp 37.3 06/11 0206 Resp 19 06/11 0042 Vital Signs Date Temp Pulse Resp B/P B/P Mean Pulse Ox FiO2 06/11 37.0-37.3 93-129 19 132-163/77-101 99.0- 126.0 89-100 PATIENT WEIGHT: Weight (lb): 235 Weight (oz): Weight (kg): 106.594 Physical Exam Cardiac: regular rate and rhythm, no clinically sig murmur Lungs: clear to auscultation, unlabored breathin g Neuro: Exam: alert, oriented x3, normal speech DTR's (lower extr): hyporeflexive Abdomen: gravid, soft, no abnormal tenderness, n o guarding Uterine activity: Monitor: toco Frequency (description): none Lower extremities: Edema: 2+ pitting Kenny's sign: negative Calf tenderness: negative Baby A: Baby A baseline: 130 bpm Baby A variability: moderate 6-25 bpm Baby A accelerations: 15 X 15 Baby A decelerations: none Baby A FHR category: category 1 Result Findings/Data: Laboratory Tests: 06/11 06/11 0135 0131 Chemistry Sodium (133 - 142 mEq/L) 141 Potassium (3.5 - 5.0 mEq/L) 4.1 Chloride (98 - 107 mEq/L) 105 Carbon Dioxide (22 - 31 mEq/L) 23 Anion Gap (10 - 20) 16.70 BUN (9 - 20 mg/dL) 5 L Creatinine (0.5 - 1.0 mg/dL) 0.5 Glucose (65 - 100 mg/dL) 99 Uric Acid (2.6 - 6.0 mg/dL) 4.1 Calcium (8.9 - 10.7 mg/dL) 8.5 L Total Bilirubin (0.2 - 1.0 mg/dL) 0.2 AST (15 - 37 units/L) 20 ALT (12 - 78 units/L) 22 Total Alk Phosphatase (46 - 116 units/L) 102 Lactate Dehydrogenase (113 - 246 units/L) 201 Total Protein (6.3 - 8.2 gm/dL) 6.1 L Albumin (3.9 - 5.1 gm/dL) 2.5 L Hematology WBC (6.5 - 12.3 K/mm3) 14.4 H RBC (3.51 - 4.69 M/mm3) 3.71 Hgb (10.1 - 13.8 g/dL) 10.6 Hct (31.0 - 41.9 %) 32.9 MCV (84.6 - 96.6 fL) 88.7 MCH (26 - 32 pg) 28.6 MCHC (32 - 35 gm/dL) 32.2 RDW (12.2 - 16.3 %) 14.0 Plt Count (135 - 380 K/mm3) 226 MPV (9.2 - 12.7 fL) 11.1 Neut % (Auto) (57.9 - 77.3 %) 88.9 H Lymph % (Auto) (14.5 - 29.7 %) 7.5 L [place] % (Auto) (3.6 - 10.2 %) 2.4 L Eos % (Auto) (0.0 - 3.0 %) 0.1 Baso % (Auto) (0.1 - 0.9 %) 0.1 Neut # (Auto) (K/mm3) 12.8 Lymph # (Auto) (K/mm3) 1.1 [place] # (Auto) (K/mm3) 0.3 Eos # (Auto) (K/mm3) 0.02 Baso # (Auto) (K/mm3) 0.0 Serology Treponema pallidum Ab (NONREACTIVE) NONREACTIVE Hep Bs Antigen (NONREACTIVE) NONREACTIVE Hepatitis C Antibody (NONREACTIVE) NONREACTIVE Hep C Ab Signal/Cutoff (<0.80) <0.02 HIV 1 2 Antibody (NONREACTIVE) NONREACTIVE Rubella Screen (IUnit/ml) 5.0 SARS-CoV-2 Ag (Rapid) (NEGATIVE) NEGATIVE Toxicology Urine Opiates Screen (NEGATIVE) NEGATIVE Ur Barbiturates, Qual (NEGATIVE) NEGATIVE Ur Phencyclidine Scrn (NEGATIVE) NEGATIVE Ur Amphetamines Screen (NEGATIVE) NEGATIVE U Benzodiazepines Scrn (NEGATIVE) NEGATIVE Urine Cocaine Screen (NEGATIVE) NEGATIVE Urine Cannabinoids (NEGATIVE) NEGATIVE Urines Urine Color (YELLOW) YELLOW Urine Appearance (CLEAR) Slightly-Cloudy Urine pH (5 - 9) 6.0 Ur Specific [place] (1.001 - 1.035) 1.026 Urine Protein (NEG) 2+ H Urine Glucose (UA) (NEG) NEGATIVE Urine Ketones (NEG) 2+ H Urine Blood (NEG) NEG Urine Nitrite (NEG) NEG Urine Bilirubin (NEG) NEGATIVE Urine Urobilinogen (NEG mg/dL) NEGATIVE Ur Leukocyte Esterase (NEG) NEG Urine RBC (NONE SEEN #/hpf) 0-2 Urine WBC (NONE SEEN #/hpf) 11-15 H Ur Epithelial Cells (RARE - FEW #/HPF) RARE Urine Bacteria (RARE - FEW /HPF) RARE Urine Mucus (NONE SEEN) 4+ Ur Random Creatinine (mg/dL) 256.9 U Random Total Protein (mg/dL) 110.7 Protein/Creatinin Ratio (<200 mg/gcrea) 430.9 H Results: labs reviewed, vital signs stable Diagnosis, Assessment Plan Diagnosis, Assessment Plan Free Text A P: Patient is a 15 y/o G1 at 29 6/7 weeks (THANIA 08-12, BABY GIRL SENDY) who presents to the [facility] from [facility] (C w/Dr. Rush) after being seen and diagnosed with Pre-eclampsia with sever e features. 1) Pre-eclampsia with severe features - BP range : 132-163/77-101, severe headaches rated 10/10 with n ausea and vomitting, Labs: UPCR 430.9, AST/ALT 20/22 , Creatinine 0.5, Platelets 226 Plan- 6g loading dose of magsulfate, 2g maintence dose of mag; labetalol protoco l in place; begin 200 mg labetalol BID po, 10 mg IV reglan for headaches and nausea, de livery for worsening or maternal status 2) Prematurity - bmz x 2 doses (1st dose 9-30 @ 0200), magsulfate for neuroprotection, need neonatology consult 3) FWB - continuous monitoring for now, re active NST 4) US - pending scan by Dr. Scott in AM 5) OB problems Obesity - BMI of 41.6 Teenage H/o Asthma Patient seen and discussed with Dr. Sanchez Above plan discussed with Dr. Cortez Patient admited to HPA service Assessment/Impression: pre-eclampsia, normal FHR pattern, reactive NST, no evidence of labor, no evidence of infection, no active bleeding Plan: admit to inpatient, antiemetics, b etamethasone admin, magnesium sulfate, surveillance, DVT prophylaxis Plan discussed with: patient, parent, admitting physician, collaborating MD, nurse Gretchen Sanchez 06/11/21 0533: Attestations Physician Attestation Reviewed findings plan: pt seen and evaluated with PGY-3 agree with abov e pt discussed with Dr. Cortez agrees with above and that pt will be on HPA service. at 0517 at 0534 RPT #:[id number] END OF REPORT 2021-06-11 01:20:00-00:00 [facility] ([facility] Evaluation Note REPORT#:[id number] REPORT STATUS: Signed DATE:06/11/21 TIME: 0120 PATIENT: EDEN HELTON UNIT #: [id number] ROOM/BED: [address] : 03 AGE: 15 SEX: F ATTEND: Tanna Scott MD ADM AUTHOR: Uyen Muro DO R3 * ALL edits or amendments must be made on the [employer]/computer document * Uyen Muro 06/11/21 0120: [facility] History Chief complaint: headache, nausea and vomiting HPI: Patient is a 15 y/o G1 at 29 6/7 weeks (THANIA: 08-12-21) who presents after leaving [facility] for a higher level of care at [facility] after being evaluated and diagnosed with Pre-eclampsia with severe fea tures and plan to admit and transfer for a higher level of care. care with Dr. Rush in [place]. Patient reports that the last couple of weeks at her OB visits, her blood pressures have been slightly elevated. Last visit with her OB she did a 24 hour urine protein and was told it was normal . Her blood pressures were elevated so she was started on 30 mg nifedipine po daily. Bruce reece took it for the first time today and started having a bad headache with genoveva sea and vomitting, unable to tolerate po intake. She also reports dizziness b ut denies any syncope. Her headache is rated a 10/10 localized to the r ight frontal and also the occipital region. Denies any changes in vision. Patient denies any righ upper quadrant pain or epigastric pain. Patient currently endores +FM and denies contrac tions/VB/VD/LOF. Patient reports that care has been othe rwise uncomplicated to date. history: : 1 Term: 0 : 0 Abortus: 0 Living children: 0 Current : EDC: 08/12/21 EGA (weeks/days): 29 6/7 weeks Past medical history: asthma Past surgical history: denies PSH Social history: no alcohol use, no tobacco use, no drug use Medications: Home Medications: Medication Dose/Rte/Freq Days Qty Entered Last Max Daily Dose Reviewed PNV WITH FE 1 TAB PO DAILY 06/11/21 06/11/21 FUMARATE/FA 0104 0105 () Strength: 1 EACH TAB ACETAMINOPHEN (TYLENOL) 1,000 MG PO 06/11/21 Strength: 500 MG TAB ASDIR PRN EPPS 0104 0105 NIFEdipine XL 30 MG PO DAILY 06/11/21 06/11/21 (PROCARDIA XL) 0105 0105 Strength: 30 MG TAB. Current Hospital Medications: Cardiovascular Drugs Sig/Jaqueline Start time Last Medication Dose Route Stop Time Status Admin Hydralazine HCl 10 MG ASDIR PRN 06/11 115 UNV (hydrALAZINE HCL IV 20MG) Labetalol HCl 20 MG ONCE PRN 06/11 115 UNV (NORMODYNE 100 MG/20 IV ML VIAL) Labetalol HCl 40 MG ASDIR PRN 06/11 115 UNV (NORMODYNE 100 MG/20 IV ML VIAL) Labetalol HCl 80 MG ASDIR PRN 06/11 115 UNV (NORMODYNE 100 MG/20 IV ML VIAL) Central Nervous System Agents Sig/Jaqueline Start time Last Medication Dose Route Stop Time Status Admin Undefined Medication 100 ML ASDIR 06/11 115 UN V (MAGNESIUM SULFATE IV 06/25 114 4GM/SWFI 100ML) Undefined Medication 500 ML ASDIR 06/11 115 UN V (MAGNESIUM SULFATE IV 06/25 114 20GM/SWFI 500ML) Electrolytic, Caloric, And Magalys Sig/Jaqueline Start time Last Medication Dose Route Stop Time Status Admin Calcium Gluconate 1,000 MG BOLUS ASDIR PRN 05/15 0 5 UNV (CA GLUCONATE 1 GM/ IV 10 ML VIAL) Lactated Ringer's 1,000 ML ASDIR 06/11 115 UNV (LACTATED RINGERS) IV 08/10 114 Gastrointestinal Drugs Sig/Jaqueline Start time Last Medication Dose Route Stop Time Status Admin Metoclopramide HCl 10 MG ONCE ONE 06/11 130 CA Nr (METOCLOPRAMIDE HCL PO 06/11 131 10 MG TAB) Metoclopramide HCl 10 MG ONCE ONE 06/11 130 UN V (METOCLOPRAMIDE HCL IV 06/11 131 10 MG/2 ML VIAL) Ondansetron HCl 4 MG Q4H PRN PRN 06/11 115 UNV (ZOFRAN 2 MG/ML 4 MG IV 08/10 114 SYR) Hormones And Synthetic Substit Sig/Jaqueline Start time Last Medication Dose Route Stop Time Status Admin Betamethasone Acet/ 12 MG Q24H 06/11 115 UNV Betameth SodPhos IM 06/12 116 (CELESTONE SOLUSPAN 12MG/2 ML SYR) Betamethasone Acet/ 12 MG Q24H 06/11 115 UNV Betameth SodPhos IM 06/12 116 (CELESTONE SOLUSPAN 12MG/2 ML SYR) Allergies Coded Allergies: No Known Allergies (06/11/21) Review of Systems Constitutional: Denies: chills, fatigue, fev er, generalized weakness, lethargy, malaise, recent wt loss. Skin: Denies: bruising, diaphoresis, itching. Allergy/Immun: Denies: hives. Eyes: Denies: diplopia, eye pain, photophobia. Respiratory: Denies: MAE (dyspnea on exertion), hemoptysis, n on productive cough, parox nocturnal dyspnea, pleurisy, pleuritic pain, pneumonia, productive cough (sputum ), SOB, wheezing. Cardiovascular: Denies: chest pain, MAE (dyspnea on exer tion), edema, orthopnea, palpitations, parox nocturnal dyspnea. GI: Reports: nausea, vomiting. Denies: abdominal yanick n, anorexia, constipation, diarrhea, dysphagia, GERD, hematemesis, hematoch ezia, hiatal hernia, melena, rectal pain. : Reports: . Denies: d ysuria, flank pain, frequency, hematuria, nocturia, pelvic pain, urgency, urinary retention, vaginal bleeding, vaginal discharge. Musculoskeletal: Denies: extremity pain, joint pain. Heme: Denies: bleeding, bruising. Neuro: dizziness, headache. Denies: vision change. Objective General VS: PATIENT WEIGHT: Weight (lb): Weight (oz): Weight (kg): 106.474488 Blood pressures: 156/95 --> 163/101 HR: 95 bpm Physical Exam HEENT: normocephalic w/o injury Cardiac: regular rate and rhythm, no clinically sig murmur Lungs: clear to auscultation, unlabored breathin g Breasts: deferred Neuro: Exam: alert, oriented x3, normal speech DTR's (lower extr): hyporeflexive Abdomen: gravid, soft, no abnormal tenderness, n o guarding Uterine activity: Monitor: toco Frequency (description): none FHR evaluation: Baseline: 130 bpm Variability: moderate 6-25 bpm Accelerations: 15 X 15 Decelerations: none FHR category: category 1 Membranes: Membranes: status undetermined Lower extremities: Edema: 2+ pitting Kenny's sign: negative Calf tenderness: negative Results Findings/Data: Laboratory Tests: 06/11 06/11 0135 0131 Chemistry Sodium (133 - 142 mEq/L) 141 Potassium (3.5 - 5.0 mEq/L) 4.1 Chloride (98 - 107 mEq/L) 105 Carbon Dioxide (22 - 31 mEq/L) 23 Anion Gap (10 - 20) 16.70 BUN (9 - 20 mg/dL) 5 L Creatinine (0.5 - 1.0 mg/dL) 0.5 Glucose (65 - 100 mg/dL) 99 Uric Acid (2.6 - 6.0 mg/dL) 4.1 Calcium (8.9 - 10.7 mg/dL) 8.5 L Total Bilirubin (0.2 - 1.0 mg/dL) 0.2 AST (15 - 37 units/L) 20 ALT (12 - 78 units/L) 22 Total Alk Phosphatase (46 - 116 units/L) 102 Lactate Dehydrogenase (113 - 246 units/L) 201 Total Protein (6.3 - 8.2 gm/dL) 6.1 L Albumin (3.9 - 5.1 gm/dL) 2.5 L Hematology WBC (6.5 - 12.3 K/mm3) 14.4 H RBC (3.51 - 4.69 M/mm3) 3.71 Hgb (10.1 - 13.8 g/dL) 10.6 Hct (31.0 - 41.9 %) 32.9 MCV (84.6 - 96.6 fL) 88.7 MCH (26 - 32 pg) 28.6 MCHC (32 - 35 gm/dL) 32.2 RDW (12.2 - 16.3 %) 14.0 Plt Count (135 - 380 K/mm3) 226 MPV (9.2 - 12.7 fL) 11.1 Neut % (Auto) (57.9 - 77.3 %) 88.9 H Lymph % (Auto) (14.5 - 29.7 %) 7.5 L [place] % (Auto) (3.6 - 10.2 %) 2.4 L Eos % (Auto) (0.0 - 3.0 %) 0.1 Baso % (Auto) (0.1 - 0.9 %) 0.1 Neut # (Auto) (K/mm3) 12.8 Lymph # (Auto) (K/mm3) 1.1 [place] # (Auto) (K/mm3) 0.3 Eos # (Auto) (K/mm3) 0.02 Baso # (Auto) (K/mm3) 0.0 Serology Treponema pallidum Ab (NONREACTIVE) NONREACTIVE Hep Bs Antigen (NONREACTIVE) NONREACTIVE Hepatitis C Antibody (NONREACTIVE) NONREACTIVE Hep C Ab Signal/Cutoff (<0.80) <0.02 HIV 1 2 Antibody (NONREACTIVE) NONREACTIVE Rubella Screen (IUnit/ml) 5.0 SARS-CoV-2 Ag (Rapid) (NEGATIVE) NEGATIVE Toxicology Urine Opiates Screen (NEGATIVE) NEGATIVE Ur Barbiturates, Qual (NEGATIVE) NEGATIVE Ur Phencyclidine Scrn (NEGATIVE) NEGATIVE Ur Amphetamines Screen (NEGATIVE) NEGATIVE U Benzodiazepines Scrn (NEGATIVE) NEGATIVE Urine Cocaine Screen (NEGATIVE) NEGATIVE Urine Cannabinoids (NEGATIVE) NEGATIVE Urines Urine Color (YELLOW) YELLOW Urine Appearance (CLEAR) Slightly-Cloudy Urine pH (5 - 9) 6.0 Ur Specific [place] (1.001 - 1.035) 1.026 Urine Protein (NEG) 2+ H Urine Glucose (UA) (NEG) NEGATIVE Urine Ketones (NEG) 2+ H Urine Blood (NEG) NEG Urine Nitrite (NEG) NEG Urine Bilirubin (NEG) NEGATIVE Urine Urobilinogen (NEG mg/dL) NEGATIVE Ur Leukocyte Esterase (NEG) NEG Urine RBC (NONE SEEN #/hpf) 0-2 Urine WBC (NONE SEEN #/hpf) 11-15 H Ur Epithelial Cells (RARE - FEW #/HPF) RARE Urine Bacteria (RARE - FEW /HPF) RARE Urine Mucus (NONE SEEN) 4+ Ur Random Creatinine (mg/dL) 256.9 U Random Total Protein (mg/dL) 110.7 Protein/Creatinin Ratio (<200 mg/gcrea) 430.9 H Results: labs reviewed, vital signs stable Diagnosis, Assessment Plan Diagnosis, Assessment Plan Free Text A P: Patient is a 15 y/o G1 at 29 6/7 weeks (THANIA [birth year], BABY GIRL SENDY) who presents to the [facility] from [facility] ([facility] w/Dr. Rush) after being seen and diagnosed with Pre-eclampsia with sever e features. 1) Pre-eclampsia with severe features - severe headaches rated 10/10 with nausea and vomitting, Labs: UPCR 430.9, AST/ALT 20/22, Creatinine 0.5, Platelets 226 Plan- 6g loading dose of magsulfate, 2g maintenc e dose of mag; labetalol protocol in place; begin 200 mg labetalol BID po 2) Prematurity - bmz x 2 doses (1st dose 9-30 @ 0200), magsulfate for neuroprotection, need neonatology consult 3) FWB - continuous monitoring for now, re active NST 4) US - pending scan by Dr. cSott in AM 5) OB problems Obesity - BMI of 41.6 Teenage H/o Asthma Patient seen and discussed with Dr. Sanchez Assessment/Impression: pre-e clampsia, reassuring status, nausea controlled , reactive NST, no evidence of labor, no evidenc e of infection, no active bleeding Plan: admit to inpatient, antiemetics, b etamethasone admin, magnesium sulfate, surveillance, DVT prophylaxis Plan discussed with: patient, parent, admitting physician, collaborating MD, nurse Gretchen Sanchez 06/11/21 0532: Attestations Physician Attestation Agree w/findings plan: pt seen and evaluated with PGY-3. agree with abo ve discussed pt with Dr. Call o agrees with above and that pt will be admitted to [facility] service and will assume care of pt at 0506 at 0533 RPT #:[id number] END OF REPORT
--- NOTE | 2023-05-14 14:26 | RAD REPORT ---
EXAM DESCRIPTION: RAD - Ankle Right 3 View - 05/14/2023 1:46 pm CLINICAL HISTORY: PAIN COMPARISON: No comparisons TECHNIQUE: Right ankle, 3 views. FINDINGS: No fracture, dislocation or periosteal reaction. No joint effusion seen. No joint space na rrowing. Mild soft tissue swelling about the lateral malleolus. IMPRESSION: Soft tissue swelling about the lateral malleolus. No acute osseous abnormality
--- NOTE | 2023-05-14 15:31 | ER ---
Nurse's Notes [facility] Name: Eden Helton Age: 17 yrs Sex: Female : 2005 Arrival Date: 05/14/2023 Time: 12:41 Bed 12 Private MD: Diagnosis: Sprain of ankle;Sprain of unspecified ligament of right ankle Presentation: 05/14 12:55 Chief complaint: Patient states: "Today, I fell and heard my right ankle crack. It went mb9 numb and tingling and now it's swollen.". Coronavirus screen: Vaccine status: Patient reports being unvaccinated. Ebola Screen: No symptoms or risks identified at this time. Initial Sepsis Screen: Does the patient meet any 2 criteria? No. Patient's initial sepsis screen is negative. Does the patient have a suspected source of infection? No. Patient's initial sepsis screen is negative. Risk Assessment: Do you want to hurt yourself or someone else? Patient reports no desire to harm self or others. Onset of symptoms was May 14, 2023. 12:55 Method Of Arrival: Wheelchair mb9 12:55 Acuity: BALJINDER 4 mb9 Triage Assessment: 12:58 General: Appears in no apparent distress. Behavior is calm, cooperative. Pain: mb9 Complains of pain in right foot Pain radiates to right leg Pain currently is 10 out of 10 on a pain scale. Quality of pain is described as tingling, throbbing, Pain began suddenly, Is continuous, Aggravated by increased activity, repositioning, weight bearing. Neuro: [place] Agitation-Sedation Scale (RASS): 0 - Alert and Calm Level of Consciousness is awake, alert, obeys commands, Oriented to person, place, time, situation, Appropriate for age. Cardiovascular: Patient's skin is warm and dry. Cardiovascular: Pulses are 2+ in right posterior tibial artery, right dorsalis pedis artery, left posterior tibial artery and left dorsalis pedis artery. Respiratory: Airway is patent Respiratory effort is even, unlabored, Respiratory pattern is regular, symmetrical. GI: No signs and/or symptoms were reported involving the gastrointestinal system. Derm: No signs and/or symptoms reported regarding the dermatologic system. Musculoskeletal: Range of motion: limited in right ankle. 13:05 Injury Description: fall from standing. 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 - Social history:: Smoking status: Patient denies any tobacco usage or history of. Screenin:05 [facility] ED Fall Risk Assessment (Adult) History of falling in the last 3 months, mb9 including since admission Yes- single mechanical fall (1 pt) Confusion or Disorientation No (0 pts) Intoxicated or Sedated No (0 pts) Impaired Gait Yes (1 pt) Mobility Assist Device Used Yes (1 pt) Altered Elimination No (0 pt) Score/Fall Risk Level 3 or more points = High Risk Oriented to surroundings, Maintained a safe environment, Educated pt \\T\\ family on fall prevention, incl call for assistance when getting out of bed, Assessed \\T\\ reinforced patient's understanding of fall precautions. Abuse screen: Denies threats or abuse. Nutritional screening: No deficits noted. Tuberculosis screening: No symptoms or risk factors identified. Assessment: 12:59 Reassessment: see triage assessment. mb9 14:29 Reassessment: No changes from previously documented assessment. Patient and/or family mb9 updated on plan of care and expected duration. Pain level reassessed. Patient is alert, oriented x 3, equal unlabored respirations, skin warm/dry/pink. 15:14 Reassessment: Patient appears in no apparent distress at this time. Patient and/or hb family updated on plan of care and expected duration. Pain level reassessed. Patient is alert, oriented x 3, equal unlabored respirations, skin warm/dry/pink. Vital Signs: 12:55 BP 126 / 56; Pulse 74; Resp 18; Temp 97.2; Pulse Ox 100% on R/A; Weight 97.52 kg; mb9 Height 5 ft. 2 in. ; Pain 10/10; 12:55 Body Mass Index 39.32 (97.52 kg, 157.48 cm) mb9 12:55 Pain Scale: Adult mb9 ED Course: 12:44 Patient arrived in ED. im 12:46 Tito Land MD is Attending Physician. kdr 12:55 Arm band placed on. mb9 12:57 Triage completed. mb9 12:59 Sylvia Garza, RN is Primary Nurse. mb9 13:05 Placed in gown. Bed in low position. Call light in reach. Side rails up X 1. Client mb9 placed on continuous cardiac and pulse oximetry monitoring. NIBP monitoring applied. 13:05 No provider procedures requiring assistance completed. mb9 13:48 Ankle Right 3 View In Process Unspecified. EDMS 15:53 Provided Education on: . hb 15:53 Patient did not have IV access during this emergency room visit. hb Administered Medications: No medications were administered Medication: 13:05 VIS not applicable for this client. mb9 Outcome: 15:31 Discharge ordered by . kdr 15:53 Discharged to home via wheelchair, with crutches, with family. hb 15:53 Condition: stable 15:53 Discharge instructions given to patient, Instructed on discharge instructions, follow up and referral plans. medication usage, crutch walking, Demonstrated understanding of instructions, follow-up care, medications, Prescriptions given X 1. 15:54 Patient left the ED. hb Signatures: Dispatcher [employer] EDVT Tito Land MD MD kdr Radha De Santiago, RN RN hb Sylvia Garza, RN RN mb9 Katrina Martinez
--- NOTE | 2023-05-14 15:32 | EDPHYS ---
Physician Documentation [facility] Name: Eden Helton Age: 17 yrs Sex: Female : 2005 Arrival Date: 05/14/2023 Time: 12:41 Bed 12 Private MD: ED Physician Tito Land HPI: 05/14 18:19 This 17 yrs old Female presents to ER via Wheelchair with complaints of Foot Injury - kdr right ankle. 18:20 This 17 yrs old Female presents to ER via Wheelchair with complaints of Foot Injury - kdr right ankle. 18:20 Patient was jumping on a trampoline when she twisted her ankle and felt immediate pop kdr in her right ankle. Patient states that she has had significant pain there was some swelling laterally. Patient otherwise is without any other injury.. Onset: The symptoms/episode began/occurred suddenly, just prior to arrival. Severity of symptoms: At their worst the symptoms were mild in the emergency department the symptoms are unchanged. The patient has not experienced similar symptoms in the past. The patient has not recently seen a physician. 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 - Social history:: Smoking status: Patient denies any tobacco usage or history of. ROS: 18:20 Constitutional: Negative for fever, chills, and weight loss. kdr 18:20 MS/extremity: Positive for injury or acute deformity, decreased range of motion, pain, of the right ankle and anterior aspect of right ankle. Exam: 18:20 Constitutional: This is a well developed, well nourished patient who is awake, alert, kdr and in no acute distress. Head/Face: Normocephalic, atraumatic. Eyes: Pupils equal round and reactive to light, extra-ocular motions intact. Lids and lashes normal. Conjunctiva and sclera are non-icteric and not injected. Cornea within normal limits. Periorbital areas with no swelling, redness, or edema. Neck: Trachea midline, no thyromegaly or masses palpated, and no cervical lymphadenopathy. Supple, full range of motion without nuchal rigidity, or vertebral point tenderness. No Meningismus. Chest/axilla: Normal chest wall appearance and motion. Nontender with no deformity. No lesions are appreciated. Cardiovascular: Regular rate and rhythm with a normal S1 and S2. No gallops, murmurs, or rubs. Normal PMI, no JVD. No pulse deficits. Respiratory: Lungs have equal breath sounds bilaterally, clear to auscultation and percussion. No rales, rhonchi or wheezes noted. No increased work of breathing, no retractions or nasal flaring. Abdomen/GI: Soft, non-tender, with normal bowel sounds. No distension or tympany. No guarding or rebound. No evidence of tenderness throughout. Back: No spinal tenderness. No costovertebral tenderness. Full range of motion. Skin: Warm, dry with normal turgor. Normal color with no rashes, no lesions, and no evidence of cellulitis. Neuro: Awake and alert, GCS 15, oriented to person, place, time, and situation. Cranial nerves II-XII grossly intact. Motor strength 5/5 in all extremities. Sensory grossly intact. Cerebellar exam normal. Normal gait. Psych: Awake, alert, with orientation to person, place and time. Behavior, mood, and affect are within normal limits. 18:20 Musculoskeletal/extremity: Extremities: grossly normal except: noted in the right ankle: Vital Signs: 12:55 BP 126 / 56; Pulse 74; Resp 18; Temp 97.2; Pulse Ox 100% on R/A; Weight 97.52 kg; mb9 Height 5 ft. 2 in. ; Pain 10/10; 12:55 Body Mass Index 39.32 (97.52 kg, 157.48 cm) mb9 12:55 Pain Scale: Adult mb9 MDM: 15:31 Patient medically screened. kdr 18:20 Data reviewed: vital signs, nurses notes, radiologic studies. kdr 05/14 13:24 Order name: Ankle Right 3 View; Complete Time: 15:27 EDMS 05/14 15:29 Order name: Aircast Ankle Splint; Complete Time: 15:53 kdr 05/14 15:29 Order name: Crutches; Complete Time: 15:53 kdr Administered Medications: No medications were administered Disposition Summary: 05/14/23 15:31 Discharge Ordered Location: Home kdr Problem: new kdr Symptoms: have improved kdr Condition: Stable kdr Diagnosis - Sprain of ankle kdr - Sprain of unspecified ligament of right ankle kdr Followup: kdr - With: Private Physician - When: 2 - 3 days - Reason: If symptoms return, Further diagnostic work-up, Recheck today's complaints, Continuance of care, Re-evaluation by your physician Discharge Instructions: - Discharge Summary Sheet kdr - Ankle Sprain, [id number] kdr Forms: - Medication Reconciliation Form kdr - Thank You Letter kdr - Patient Portal Instructions kdr - Leadership Thank You Letter kdr Prescriptions: - Ibuprofen 600 mg Oral Tablet - take 1 tablet by ORAL route every 6 hours As needed take with food; 30 tablet; kdr Refills: 0, Product Selection Permitted Signatures: Dispatcher [employer] Tito Harvey MD MD kdr Breneman, Mary Beth RN RN mb9 Corrections: (The following items were deleted from the chart) 13:51 13:49 Ankle Right 3 View+[email or web address] ordered. EDAL EDMS
[2023-05-14 15:59] VITALS: BP 126/56; TEMP 97.2; O2SAT 100
== END 2023-05-14 15:54 | disposition home or self-care (01) ==
LOC: ER 12:41
DX: S93.401A Sprain of unspecified ligament of right ankle, initial encounter (principal)
CPT/HCPCS: 99283